=== PATIENT | female | born 1975 | race Caucasian/White ===

== ENCOUNTER 2018-04-04 12:55 | Emergency (ER) | payer MEDICARE, SELFPAY ==
[2018-04-04 12:56] VITALS: BP 109/78; PULSE 75; RESP 16; TEMP 36.8; O2SAT 99; BMI 22.8
--- NOTE | 2018-04-04 13:18 | ED.DCSUM_ITS ---
- ER Visit Summary Date of Service: 04/04/18 Chief Complaint: Ran out of thyroid medication History of Present Illness: The patient is a 43 F who ran out of her Synthroid 7 days ago, she feels some increased somnolence, and some subjective weakness but is able to angulate just fine. Apparently her PCP wants blood work, however her car broke down. She has no chest pain shortness of breath fever or chills. Physical Examination: Not appear in acute distress. Moist mucous membranes, no obvious facial deformity No C-spine tenderness supple neck. Regular rate and rhythm without any obvious murmurs Clear lungs bilaterally speaking in full sentences without any obvious respiratory distress Abdomen soft and nontender no guarding or rebound Moves all extremities without any difficulty or pain. Skin does not show any obvious rashes or lesions, no trauma. Alert oriented ?3 with no gross focal deficit Emergency Department Course and Treatment: Apparently her cars are broken down and difficult to get to [place] therefore I will draw thyroid labs here. I will discharge her with her Synthroid for the next few days and her PCP can follow-up on her thyroid studies. Disposition: Discharge stable condition Impression: Hypothyroidism Medication refill This note was generated with [employer] dictation software. It may contain incorrect words, spelling, and punctuation that were not noted in review of the chart prior to signing ED Disposition - Plan for ED Patient: Disposition: Home or Assisted Living Chief Complaint: Abn Labs Prescriptions: Levothyroxine Sodium [Synthroid] 100 mcg PO DAILY #7 tab Referrals: Cesar Centeno MD [Primary Care Provider] - 3-5 Days
[2018-04-04 13:52] VITALS: BP 124/77; PULSE 62; RESP 15; O2SAT 97
[2018-04-04] MEDS: Levothyroxine 100 MCG Tablet PO (13:52)
[2018-04-04 13:56] LABS: Free T3 1.5 pg/mL (2.18-3.98); T4 Free Direct 0.74 ng/dL (0.76-1.46); T4 Total, Thyroxin 6.6 ug/dL (4.8-13.9); Thyroid Stim Hormone (TSH) 8.85 uIU/mL (0.358-3.74)
== END 2018-04-04 13:53 | disposition home or self-care (01) ==
LOC: ED 13:44
PROVIDERS: Emergency Provider Emergency Medicine; Family Provider Internal Medicine; PCP Internal Medicine
DX: E03.9 Hypothyroidism, unspecified (principal); Z76.0 Encounter for issue of repeat prescription; Z79.899 Other long term (current) drug therapy
CPT/HCPCS: 36415; 84436; 84439; 84443; 84481; 99283

== ENCOUNTER 2018-04-19 11:32 | Emergency (ER) | payer MEDICARE, SELFPAY ==
[2018-04-19 11:33] VITALS: BP 120/78; PULSE 95; RESP 18; TEMP 36.3; O2SAT 99; BMI 22.1
--- NOTE | 2018-04-19 12:09 | CT_ITS ---
STUDY: CT ABDOMEN AND PELVIS WITHOUT CONTRAST REASON FOR EXAM: Female, 43 years old. Abdominal pain and dysuria. RADIATION DOSAGE (If Supplied By Facility): CTDIvol = ( 9.63 ) mGy, DLP = ( 472.59 ) mGycm TECHNIQUE: Transaxial images were obtained from the dome of the diaphragm to the symphysis pubis without oral contrast, and without intravenous contrast. Sagittal and coronal images were reconstructed. Individualized dose optimization techniques were used for this CT. COMPARISON: Comparison is made with prior study dated March 24, 2016. FINDINGS: The visualized lung bases are unremarkable. The visualized portions of the heart are within normal limits. Normal liver. Normal gallbladder and extrahepatic biliary system. Normal spleen. Normal pancreas. Normal bilateral adrenal glands. Absence of the right kidney. There are 4 nonobstructive tiny left intrarenal calculi. Mild degree of the left hydronephrosis due to a 3.5 mm calculus in the distal one third of the left ureter. There is a small hiatal hernia. Normal small intestine. There are multiple colonic diverticula consistent with diverticulosis. The appendix is visualized and appears normal. There is scattered atherosclerotic calcification of the abdominal aorta, without a demonstrated aneurysm. Normal inferior vena cava. Normal retroperitoneum. Normal urinary bladder. There is absence of the uterus consistent with a prior hysterectomy. Normal abdominal wall. Stable grade 1 spondylolisthesis of L5 on S1 with bilateral spondylolysis of the L5 vertebrae. CT/Abdomen/Pelvis without Cont IMPRESSION: Mild left hydronephrosis due to a 3.5 mm calculus in the distal one third of the left ureter. Nonobstructive left intrarenal calculi. Electronically Signed: Diaz Carroll MD at 13:27 EST Tel [phone], Service support ,
[2018-04-19] MEDS: Ondansetron 4 MG/2 ML Vial IV (12:20)
[2018-04-19 12:35] LABS: Mucous, Urine 0 SEEN /hpf (<or=2+)
[2018-04-19 12:36] LABS: Color, Urine Yellow (Yellow); Glucose, Dipstick Normal (Normal); Ketone-Dipstick Negative (Negative); Leukocyte Esterase-Dipstick Negative /ul (Negative); Nitrite-Dipstick Negative (Negative); Occult Blood-Urine Negative /ul (Negative); Protein-Dipstick Negative (Negative); Specific Gravity, Urine 1.015 (1.002-1.030); Urine Bilirubin Dipstick Negative (Negative); Urine Clarity Sl. Cloudy (Clear); Urine Urobilinogen Normal (Normal)
[2018-04-19 12:46] LABS: Bacteria RARE /hpf (None Seen); Red Blood Cells-Urine 0-5 SEEN /hpf (0-5); Squamous Epithelial Cells - UA 0-5 SEEN /hpf (5-10); White Blood Cells 0-5 SEEN /hpf (0-5)
[2018-04-19 12:49] LABS: Absolute Lymphocyte Count 1.73 X10^3/ul (0.83-4.51); Absolute Neutrophil Count 5.1 X10^3/uL (2.0-7.7); Basophil# 0.01 X10^3/uL; Basophil% 0.1 % (0-1); Eosinophil# 0.16 X10^3/uL; Eosinophils% 2.1 % (0-5); Hematocrit 43.9 % (37-47); Hemoglobin 13.8 g/dl (12.0-15.0); Lymphocyte # 1.73 X10^3/ul (4.0); Lymphocyte % 22.9 % (19-41); Mean Corp Hgb Conc 31.4 g/gl (32-36); Mean Corpuscular Hgb 29.6 pg (27.0-32.0); Mean Corpuscular Volume 94.2 fL (81-99); Mean Platelet Vol. 10.8 fl (6.2-12.0); Monocyte# 0.61 X10^3/uL; Monocyte% 8.1 % (0-10); Neutrophil # 5.05 X10^3/uL (2.7-7.7); Neutrophil % 66.7 % (47-70); Platelet Count 195 K/mm3 (150-450); RBC Distribution Width SD 47.6 fl (35.1-43.9); Red Blood Count 4.66 M/mm3 (4.2-5.4); White Blood Count 7.6 K/mm3 (4.4-11.0)
[2018-04-19 12:56] LABS: Anion Gap 10 (5-15); BUN 16 mg/dL (7-18); BUN/Creat Ratio 19.1 RATIO (10-20); Chloride 104 mmol/L (98-107); Creatinine, Serum 0.84 mg/dL (0.55-1.02); EST Glomerular Filtration Rate 79 mL/min (>60); Est Glom Filt Rate - Afr Amer 96 mL/min (>60); Estimated Creatinine Clearance 91.18 ml/min; Glucose 85 mg/dL (74-106); Potassium 3.9 mmol/L (3.5-5.1); Sodium Level 141 mmol/L (136-145)
[2018-04-19 12:57] LABS: POSITIVE COUNT NO; POSITIVE DIFFERENTIAL NO; POSITIVE MORPHOLOGY NO
[2018-04-19] MEDS: Morphine 4 MG/ML Syringe IV (13:09)
[2018-04-19 13:22] VITALS: PULSE 62; RESP 18; O2SAT 98
--- NOTE | 2018-04-19 13:58 | ED.VISSUMM ---
- ER Visit Summary Date of Service: 04/19/18 Chief Complaint: Abdominal pain History of Present Illness: The patient is a 43 F dates that she is if she is having a flare of her diverticulitis. She needs 1 week of urinary frequency. No dysuria. She notes suprapubic left lower quadrant abdominal pain. She notes she did have some constipation but is now loose stool. No fevers. She has had prior right-sided nephrectomy. She notes nausea and some low back pain. Physical Examination: Afebrile vital signs stable Gen: Well-nourished well-developed Head: Normocephalic atraumatic Eyes: Perrl EOMI ENT: TMs clear no rhinorrhea moist mucous membranes Neck: Supple no lymphadenopathy no JVD nontender CVS: Regular rate rhythm no murmurs normal S1-S2 Respiratory: No distress clear to auscultation bilaterally chest nontender Abdomen: Soft tender to palpation left lower quadrant nondistended normal bowel sounds no masses Back: Nontender Extremity: Nontender no edema Skin: Normal color no rash Neuro: alert orientated ?3 CN II-XII intact normal strength sensation reflexes gait cerebellar Psych: Normal affect normal mood Test Results: CBC BMP and urinalysis were normal. CT the abdomen pelvis demonstrates a 3.5 mm ureteral stone with mild hydronephrosis Emergency Department Course and Treatment: Patient received Zofran and morphine. She is better. The patient will be discharged home on [place] and Zofran. She is to follow-up with urology return if worsening or concerns Impression: 1. Left ureterolithiasis with colic This note was generated with [employer] dictation software. It may contain incorrect words, spelling, and punctuation that were not noted in review of the chart prior to signing ED Disposition - Plan for ED Patient: Disposition: Home or Assisted Living Chief Complaint: Complaint Instructions: ED Stone Renal W Colic Prescriptions: Hydrocodone Bitart/Apap 5-325 [[place] 5MG-325MG] 1 tab PO Q6H PRN PRN 3 Days #12 tab PRN Reason: Pain Ondansetron [Zofran Odt] 4 mg PO Q8H PRN PRN #10 tab PRN Reason: Nausea Referrals: Todd Mcknight MD [STAFF PHYSICIAN] - (call to arrange follow up with Urology)
[2018-04-19 14:02] VITALS: PULSE 65; RESP 18
== END 2018-04-19 14:09 | disposition home or self-care (01) ==
PROVIDERS: Emergency Provider Emergency Medicine; Family Provider Internal Medicine; PCP Internal Medicine
DX: N13.2 Hydronephrosis with renal and ureteral calculous obstruction (principal); Z79.899 Other long term (current) drug therapy; Z90.5 Acquired absence of kidney
CPT/HCPCS: 74176; 80048; 81001; 85025; 96374; 96375; 99282; A4216; J2405

== ENCOUNTER 2018-05-26 14:33 | Emergency (ER) | payer MEDICARE, SELFPAY ==
[2018-05-26 14:34] VITALS: BP 159/95; PULSE 76; RESP 18; TEMP 37.2; O2SAT 99; BMI 23.3
--- NOTE | 2018-05-26 15:31 | ED.DCSUM_ITS ---
- ER Visit Summary Date of Service: 05/26/18 Chief Complaint: Abdominal pain] History of Present Illness: The patient is a 43 F [presents the emergency department complaint of abdominal pain off and on for the last 2 months. Patient's been seen several times in the emergency department here and as well as [facility]. About a month ago she was seen here and had a CT scan of the abdomen pelvis that showed a approximately 4 mm stone at the left UVJ. Patient initially got better and had been doing relatively well until yesterday she started having more pain in her lower abdomen and lower back. Patient complains of some urinary frequency. She denies fever at home although she was seen at urgent care today and they told her she had a temperature up to 101. Patient's had nausea but no vomiting. She denies any blood in her stool or black tarry stool. She does have a history of diverticulitis as well as kidney stones and hypothyroidism. Patient has had prior hysterectomy as well as a right nephrectomy. Patient currently rates her pain anywhere from 6-8 out of 10.] Physical Examination: [HEENT-PERRLA, EOMI. Cranial nerves II through XII grossly intact. TMs clear. Mucous membranes moist. No adenopathy. Cardiovascular-regular rate and rhythm without murmur or ectopy Lungs-clear to auscultation, chest wall stable without crepitus or subcu emphysema Abdomen-normoactive bowel sounds, soft. Patient has some diffuse tenderness to the lower abdomen including the right lower quadrant left lower quadrant. There is some mild guarding. There is no rebound, rigidity, or perineal signs. There is no distention. Extremities-intact ?4, normal range of motion, normal pulses, atraumatic] Test Results: [CBC with differential obtained showed a white count of 7.3, hemoglobin 13.8, hematocrit 44, platelets 209. Chemistries were normal. LFTs w ere normal. Urinalysis was normal. Lipase was normal.] Emergency Department Course and Treatment: [I reviewed CT scan from April 2018 which did show a small kidney stone the left UVJ otherwise nothing significant. Patient has had 2 CT scans in the last 2 months of the abdomen and pelvis. I had a long discussion with the patient regarding further imaging today however given that all her lab work is normal and there is no blood in her urine it may be the better part of valor to just treat her symptoms and see if first pain resolves within next couple of days. I do not feel patient has acute appendicitis or gallbladder issue. I do not feel her exam is consistent with a bowel obstruction. She is had a hysterectomy. I am concerned about the r adiation exposure with CT imaging and patient is in agreement at this point. She is advised to return to the emergency department with worsening pain, fever, vomiting, or condition should worsen anyway.] Treatment Plan: [Patient will be given a prescription for [place] for pain and she has Phenergan at home as well as Zofran. Patient will be given referral to general surgeon on-call for follow-up. Patient states that she is due for another colonoscopy and she is in the process of making that arrangement.] Disposition: [Discharged home in stable condition] Impression: [Abdominal pain-etiology uncertain] This note was generated with [employer] dictation software. It may contain incorrect words, spelling, and punctuation that were not noted in review of the chart prior to signing ED Disposition - Plan for ED Patient: Referrals: Cesar Centeno MD [Primary Care Provider] -
[2018-05-26] MEDS: 0.9% Normal Saline 1,000 ML 125 ML IV (15:34)
[2018-05-26] MEDS: Ondansetron 4 MG/2 ML Vial IV (15:34)
[2018-05-26] MEDS: Morphine 4 MG/ML Syringe IV (15:34)
[2018-05-26 15:41] LABS: Bacteria 0 SEEN /hpf (None Seen); Mucous, Urine 0 SEEN /hpf (<or=2+); Red Blood Cells-Urine 0 SEEN /hpf (0-5); Squamous Epithelial Cells - UA 0 SEEN /hpf (5-10); White Blood Cells 0 SEEN /hpf (0-5)
[2018-05-26 15:47] LABS: Color, Urine Yellow (Yellow); Glucose, Dipstick Normal (Normal); Ketone-Dipstick Negative (Negative); Leukocyte Esterase-Dipstick Negative /ul (Negative); Nitrite-Dipstick Negative (Negative); Occult Blood-Urine Negative /ul (Negative); Protein-Dipstick Negative (Negative); Urine Bilirubin Dipstick Negative (Negative); Urine Clarity Clear (Clear); Urine Urobilinogen Normal (Normal); Urine pH 6.5 (5.0 - 8.0)
[2018-05-26 15:49] LABS: Absolute Lymphocyte Count 1.41 X10^3/ul (0.83-4.51); Absolute Neutrophil Count 5.3 X10^3/uL (2.0-7.7); Basophil# 0.01 X10^3/uL; Basophil% 0.1 % (0-1); Eosinophil# 0.02 X10^3/uL; Eosinophils% 0.3 % (0-5); Hematocrit 43.5 % (37-47); Hemoglobin 13.8 g/dl (12.0-15.0); Lymphocyte # 1.41 X10^3/ul (4.0); Lymphocyte % 19.3 % (19-41); Mean Corp Hgb Conc 31.7 g/gl (32-36); Mean Corpuscular Hgb 29.4 pg (27.0-32.0); Mean Corpuscular Volume 92.6 fL (81-99); Mean Platelet Vol. 10.8 fl (6.2-12.0); Monocyte# 0.56 X10^3/uL; Monocyte% 7.7 % (0-10); Neutrophil % 72.3 % (47-70); Platelet Count 209 K/mm3 (150-450); RBC Distribution Width CV 13.1 % (11.6-14.6); RBC Distribution Width SD 44.7 fl (35.1-43.9); White Blood Count 7.3 K/mm3 (4.4-11.0)
[2018-05-26 15:59] LABS: POSITIVE COUNT NO; POSITIVE DIFFERENTIAL NO; POSITIVE MORPHOLOGY NO
[2018-05-26 16:03] LABS: ALB/GLOB Ratio 1.2 RATIO (0.9-2.4); AST(SGOT) 18 U/L (15-37); Alanine Aminotransfer ALT/SGPT 32 U/L (13-56); Albumin, Serum 4.2 g/dL (3.2-5.0); Alkaline Phosphatase 97 U/L (45-117); Anion Gap 7 (5-15); BUN 15 mg/dL (7-18); BUN/Creat Ratio 18.4 RATIO (10-20); Calcium,Total 9.2 mg/dL (8.5-10.1); Chloride 105 mmol/L (98-107); Creatinine, Serum 0.82 mg/dL (0.55-1.02); EST Glomerular Filtration Rate 82 mL/min (>60); Est Glom Filt Rate - Afr Amer 99 mL/min (>60); Globulin 3.5 g/dL (2.2-4.2); Glucose 96 mg/dL (74-106); Lipase 107 U/L (73-393); Potassium 3.8 mmol/L (3.5-5.1); Protein, Total 7.7 g/dL (6.4-8.2); Sodium Level 138 mmol/L (136-145)
[2018-05-26 16:19] LABS: Lactic Acid 1.2 mmol/L (0.4-2.0)
--- NOTE | 2018-05-26 16:21 | DCINST.ED_ITS ---
ED Disposition - Plan for ED Patient: Instructions: ED Abdominal Pain Unkn Cause Prescriptions: Hydrocodone Bitart/Apap 5-325 [[place] 5MG-325MG] 1 tab PO Q4H PRN PRN 2 Days #10 tab PRN Reason: Pain Dicyclomine HCl [Bentyl] 20 mg PO TIDAC #20 cap Referrals: Cesar Centeno MD [Primary Care Provider] - Darren Galeas MD [STAFF PHYSICIAN] - 3-5 Days
[2018-05-26 16:25] VITALS: BP 134/77; PULSE 62; RESP 15; O2SAT 97
== END 2018-05-26 16:28 | disposition home or self-care (01) ==
LOC: ED 15:36
PROVIDERS: Emergency Provider Emergency Medicine; Family Provider Internal Medicine; PCP Internal Medicine
DX: R10.31 Right lower quadrant pain (principal); R10.32 Left lower quadrant pain; N20.0 Calculus of kidney; R35.0 Frequency of micturition; E03.9 Hypothyroidism, unspecified; Z72.0 Tobacco use; Z79.899 Other long term (current) drug therapy; Z87.19 Personal history of other diseases of the digestive system; Z87.442 Personal history of urinary calculi; Z90.710 Acquired absence of both cervix and uterus; Z90.5 Acquired absence of kidney
CPT/HCPCS: 80053; 81001; 83605; 83690; 85025; 96361; 96374; 96375; 99283; J7030; A4216; J2405

== ENCOUNTER 2018-06-27 17:17 | Emergency (ER) | payer MEDICARE, SELFPAY ==
[2018-06-27 17:17] VITALS: BP 130/93; PULSE 81; RESP 16; TEMP 36.5; O2SAT 98; BMI 23.4
[2018-06-27 19:05] VITALS: BP 111/69; PULSE 63; RESP 18; O2SAT 97
[2018-06-27] MEDS: Meclizine HCl 25 MG Tablet PO (19:05)
[2018-06-27] MEDS: Naproxen 500 MG Tablet PO (19:05)
--- NOTE | 2018-06-27 19:06 | ED.DCSUM_ITS ---
History of Present Illness Chief Complaint: Ear Problem Detail of Chief Complaint: right ear/facial pain Informant: Patient Onset: Days - 5 Context: Gradual Onset Timing: Continuous Quality: ache/sore Location: right face/TMJ/ear Current Severity: Moderate Maximum Severity: Moderate Worsened by: nothing in particular; not worse w/ eating Relieved by: nothing Associated Symptoms: ear cracking, feels like needs to pop sometimes.right headache.dizzy/nausea Narrative: Patient states she was on a plane ride to and from vacation around 3 weeks ago and when the plane was landing, she has significant discomfort in her ears and they felt congested and crackling, feeling like they needed to pop. For the last almost week, she has had almost similar discomfort but she is getting crackling when she opens and closes her jaw along with pain just anterior to the ear, she states that she has anxiety and grinds her teeth a lot at night at is a result, she denies any fevers or ear discharge. She has had off balance dizzin ess off and on that makes her feel nauseated, it is worse with position changes of her head. - Past Medical History (1) Anxiety Status: Chronic (2) Hypothyroid Status: Chronic Past Medical History - Allergies and Home Meds Allergies/Adverse Reactions: Allergies fentanyl Adverse Reaction (Verified 06/27/18 17:19) Other BRADYCARDIA ketorolac tromethamine [From Toradol] Adverse Reaction (Verified 06/27/18 17:19) Other STOMACH PAINS Primary Care Physician: Cesar Centeno MD [Primary Care Provider] - Surgical History: - - right kidney removed, total hysterectemy, exploratory lap Smoking Status: Current every day smoker Drugs: None - Family History Maternal Family History: Reports: No pertinent history Paternal Family History: Reports: No pertinent history Review of Systems General: Denies: Chills, Fever Eyes: Denies: Visual changes - bilaterally, Diplopia ENT: Reports: Right ear pain. Denies: Rhinorrhea, Sore throat Cardiovascular: Denies: Chest pain, Palpitations Respiratory: Denies: Dyspnea, Cough Gastrointestinal: Reports: Nausea, Diarrhea - Usual for me. Denies: Abdominal pain, Vomiting Skin: Denies: Rash, Wounds Neurological: Reports: Headache. Denies: Weakness, Numbness Psych: Reports: Anxiety. Denies: Suicidal thoughts Physical Exam Vital Signs/Narrative: Vital Signs Temp Pulse Resp BP Pulse Ox 06/27/18 17:17 97.7 F L 81 16 130/93 H 98 Inital Vital Signs reviewed: Yes General: Well nourished, Well developed, No Acute Distress Head: Normocephalic, Atraumatic Eyes: Perrl, EOMI ENT: Moist mucous membranes, No rhinorrhea, TM's clear, - - Tender at right TMJ. No limitations with gentle range of motion, no malocclusion. No parotid swelling or tenderness or discharge from Stensen's duct. No intraoral acute lesions or dental tenderness. No periauricular lymphadenopathy. Neck: Supple, Nontender, No lymphadenopathy Respiratory: No distress Skin: Normal color, No rash Neurological: Alert, Oriented x3, Cranial nerves II-XII grossly intact, Normal Strength, Normal Sensation Psychological: Normal affect, Normal Mood Diagnostic/Tx/Re-eval - Medical Decision Making Patient likely has TMJ syndrome, she may also have eustachian tube dysfunction given the other parts of the history. We will give her a meclizine here for her vertiginous symptoms, and Naprosyn. Prescribed Naprosyn and Flonase and advised to follow-up with ENT or PCP if symptoms do not resolve. She is comfortable wit h this plan. ED Disposition - Plan for ED Patient: Disposition: Home or Assisted Living Diagnosis: TMJ syndrome, Eustachian tube dysfunction, Peripheral vertigo, unspecified Instructions: ED Vertigo Unspecified, ED TMJ Syndrome Prescriptions: Fluticasone 0.05% [Flonase Nasal [place]] 2 spray NASAL DAILY #1 nasal.sry Naproxen [Naprosyn] 500 mg PO BID PRN #20 tablet Referrals: Cesar Centeno MD [Primary Care Provider] - 1 Week if not improving Guy Pate MD [STAFF PHYSICIAN] - 1 Week if not improving
--- NOTE | 2018-06-27 19:19 | ED.RN ---
DISCHARGE INSTRUCTIONS GIVEN TO AND REVIEWED WITH PATIENT, PATIENT DENIES QUESTIONS OR CONCERNS AND VOICES UNDERSTANDING OF DISCHARGE INSTRUCTIONS. PT AMBULATES OUT OF ROOM WITHOUT DIFFICULTY.
== END 2018-06-27 19:19 | disposition home or self-care (01) ==
PROVIDERS: Emergency Provider Emergency Medicine; Family Provider Internal Medicine; PCP Internal Medicine
DX: M26.609 Unspecified temporomandibular joint disorder, unspecified side (principal); H69.80 Other specified disorders of Eustachian tube, unspecified ear; H81.399 Other peripheral vertigo, unspecified ear; E03.9 Hypothyroidism, unspecified; F41.9 Anxiety disorder, unspecified; F17.200 Nicotine dependence, unspecified, uncomplicated; Z79.899 Other long term (current) drug therapy
CPT/HCPCS: 99282

== ENCOUNTER 2018-09-15 15:33 | Emergency (ER) | payer MEDICARE, MEDICAID, SELFPAY ==
[2018-09-15 15:34] VITALS: BP 120/81; PULSE 73; RESP 16; TEMP 36.4; O2SAT 98; BMI 23.6
--- NOTE | 2018-09-15 15:47 | CT_ITS ---
STUDY: CT ABDOMEN AND PELVIS WITHOUT CONTRAST REASON FOR EXAM: Female, 43 years old. Pain RADIATION DOSAGE (If Supplied By Facility): DLP = ( 433.50 ) mGycm TECHNIQUE: Transaxial images were obtained from the dome of the diaphragm to the symphysis pubis without oral contrast, and without intravenous contrast. Sagittal and coronal images were reconstructed. Individualized dose optimization techniques were used for this CT. COMPARISON: CT abdomen pelvis April 19, 2018 FINDINGS: Evaluation of the abdominal viscera is limited in the absence of intravenous contrast. The visualized lung bases are clear. The visualized portions of the heart and pericardium are within normal limits. There are no calcified gallstones present. The liver demonstrates an unremarkable unenhanced appearance. The spleen is normal in size. The pancreas demonstrates an unremarkable unenhanced appearance. The adrenal glands are within normal limits. The right kidney is not present. The left kidney is normal in appearance. Normal visualized stomach. There is no bowel obstruction or inflammation. Mild colonic diverticulosis is present. The appendix is normal. The aorta is normal in caliber. There is no abdominal or pelvic free air, free fluid, fluid collection or lymphadenopathy. There are no destructive osseous lesions. CT/Abdomen/Pelvis without Cont IMPRESSION: No acute abdominal or pelvic pathology demonstrated on this noncontrast CT. Mild colonic diverticulosis without evidence of inflammation. Status post right nephrectomy. Electronically Signed: Maury Moss, at 17:13 EDT Tel , Service support ,
--- NOTE | 2018-09-15 15:54 | ED.DCSUM_ITS ---
History of Present Illness Chief Complaint: General Illness Detail of Chief Complaint: malaise Informant: Patient Onset: Weeks - 1 Context: Gradual Onset Timing: Continuous Location: all over Current Severity: Moderate Maximum Severity: Moderate Worsened by: nothing Relieved by: nothing Associated Symptoms: congested. LLQ pain, nausea, diarrhea. Narrative: Patient states she started feeling congested and malaised after the hay was cut and so she decided to start taking some amoxicillin that was leftover from a different prescription. She states after a day she felt better so after 1 day she stopped the amoxicillin that. Started having some diarrhea couple times a day, that is not worsened, her congestion is now better. Yesterday she started having left lower quadrant pain and nausea, the symptoms are worse today, still having diarrhea couple times a day, no blood or melena. No fevers. Had diverticulitis in the past and is wondering if that is what is causing her pain. No pain in her back. 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 No urinary symptoms. - Past Medical History (1) Diverticulitis Status: Resolved (2) Anxiety Status: Chronic (3) Hypothyroid Status: Chronic Past Medical History - Allergies and Home Meds Allergies/Adverse Reactions: Allergies fentanyl Adverse Reaction (Verified 09/15/18 17:09) Other BRADYCARDIA ketorolac tromethamine [From Toradol] Adverse Reaction (Verified 09/15/18 17:09) Other STOMACH PAINS Primary Care Physician: Cesar Centeno MD [Primary Care Provider] - Surgical History: - - right kidney removed, total hysterectemy, exploratory lap Smoking Status: Current every day smoker Drugs: None - Family History Maternal Family History: Reports: No pertinent history Paternal Family History: Reports: No pertinent history Review of Systems General: Reports: Malaise. Denies: Chills, Fever, Sweats Eyes: Denies: Visual changes - bilaterally, Diplopia ENT: Reports: Rhinorrhea - clear, w/ congestion. Denies: Sore throat Cardiovascular: Denies: Chest pain, Palpitations Respiratory: Reports: Cough. Denies: Dyspnea, Sputum, Dyspnea on exertion Gastrointestinal: Reports: Abdominal pain, Nausea, Diarrhea. Denies: Vomiting, Melena, Hematochezia Genitourinary: Denies: Dysuria, Hematuria, Frequency Musculoskeletal: Denies: Back pain, Extremity Pain Skin: Denies: Rash, Abscess, Wounds Neurological: Denies: Headache, Weakness, Numbness Physical Exam Vital Signs/Narrative: Vital Signs Temp Pulse Resp BP Pulse Ox 09/15/18 15:34 97.6 F L 73 16 120/81 H 98 Inital Vital Signs reviewed: Yes General: Well nourished, Well developed, No Acute Distress Head: Normocephalic, Atraumatic Eyes: Perrl, EOMI ENT: Moist mucous membranes, No rhinorrhea, - - mild bilat nasal turbinate edema. no purulent d/c. pop clear, nml. Negative for: Sinus tenderness Neck: Supple, Nontender Cardiovascular: Regular rate, Regular rhythm, No murmurs. Negative for: Tach ycardia Respiratory: No distress, CTA bilaterally, Chest nontender Abdomen: Soft, Nondistended, Normal bowel sounds, Tender - diffusely, very mild. little worse in RLQ and moderate in LLQ.. Negative for: Guarding, Rebound tenderness Back: Nontender, Normal Inspection. Negative for: CVA tenderness Extremities: Nontender, No edema Skin: Normal color, No rash, No Trauma Neurological: Alert, Oriented x3, Cranial nerves II-XII grossly intact, Normal Strength, Normal Sensation Psychological: Normal affect, Normal Mood Diagnostic/Tx/Re-eval Impressions Abdomen/Pelvis CT 09/15/18 15:47 IMPRESSION: No acute abdominal or pelvic pathology demonstrated on this noncontrast CT. Mild colonic diverticulosis without evidence of inflammation. Status post right nephrectomy. Electronically Signed: Maury Isa, at 17:13 EDT Tel , Service support , 09/15/18 15:47 CT Abd [Abdomen/Pelvis without Cont] [CT] Stat Laboratory Results 09/15/18 09/15/18 09/15/18 16:45 16:45 16:50 WBC 6.2 RBC 4.73 Hgb 14.0 Hct 43.1 MCV 91.1 MCH 29.6 MCHC 32.5 RDW 14.0 RDW Differential 46.5 H Plt Count 201 MPV 10.7 Immature Gran % (Auto) 0.200 Neut % (Auto) 57.2 Lymph % (Auto) 32.7 Hunt % (Auto) 8.3 Eos % (Auto) 1.4 Baso % (Auto) 0.2 Absolute Neuts (auto) 3.6 Absolute Lymphs (auto) 2.04 Total Counted Not Reportable Sodium 137 Potassium 4.1 Chloride 108 H Carbon Dioxide 26.0 Anion Gap 3 L BUN 13 Creatinine 0.80 Estim Creat Clear Calc 95.74 Est GFR (MDRD) Af Amer 101 Est GFR (MDRD) Non-Af 84 BUN/Creatinine Ratio 16.3 Glucose 80 Calcium 9.0 Urine Color Urine Clarity Urine pH Ur Specific [place] Urine Protein Urine Glucose (UA) Urine Ketones Urine Occult Blood Urine Nitrite Urine Bilirubin Urine Urobilinogen Ur Leukocyte Esterase Urine RBC Urine WBC Ur Squamous Epith Cells Urine Bacteria Urine Mucus Urine Test Negative 09/15/18 16:50 WBC RBC Hgb Hct MCV MCH MCHC RDW RDW Differential Plt Count MPV Immature Gran % (Auto) Neut % (Auto) Lymph % (Auto) [place] % (Auto) Eos % (Auto) Baso % (Auto) Absolute Neuts (auto) Absolute Lymphs (auto) Total Counted Sodium Potassium Chloride Carbon Dioxide Anion Gap BUN Creatinine Estim Creat Clear Calc Est GFR (MDRD) Af Amer Est GFR (MDRD) Non-Af BUN/Creatinine Ratio Glucose Calcium Urine Color Yellow Urine Clarity Clear Urine pH 7.0 Ur Specific [place] 1.010 Urine Protein Negative Urine Glucose (UA) Normal Urine Ketones Negative Urine Occult Blood Negative Urine Nitrite Negative Urine Bilirubin Negative Urine Urobilinogen Normal Ur Leukocyte Esterase Negative Urine RBC 0 SEEN Urine WBC 0 SEEN Ur Squamous Epith Cells 0 SEEN Urine Bacteria 0 SEEN Urine Mucus 0 SEEN Urine Test - Medical Decision Making Labs are unremarkable, urinalysis shows no infection or microscopic hematuria, and CT shows no acute abnormality. She does have diverticulosis but there is no sign of acute inflammation or perforation. She was given Bentyl and Zofran, states that she still is in pain. She declares allergies to fentanyl and Toradol, plus she is not in severe pain so I do not think she warrants any par enteral medications or oral narcotics at this time. We will give her ibuprofen or naproxen if she can tolerate it, I suspect she may have a viral infection, I do not recommend that she take intermittent doses of amoxicillin which we discussed, and she should follow-up with her doctor. There is no evidence for acute bacterial sinusitis at this time. ED Disposition - Plan for ED Patient: Disposition: Home or Assisted Living Diagnosis: Nasal sinus congestion, LLQ abdominal pain, Viral syndrome Instructions: Abdominal Pain, ED Viral Syndrome Prescriptions: proMETHazine tablet [Phenergan] 25 mg PO Q6H PRN PRN #10 tablet PRN Reason: Nausea Naproxen [Naprosyn] 500 mg PO BID PRN #20 tablet Referrals: Cesar Centeno MD [Primary Care Provider] - 3-5 Days if not improving
[2018-09-15] MEDS: Dicyclomine 20 MG/2 ML Vial 10 MG IM (16:39)
[2018-09-15] MEDS: Ondansetron 4 MG/2 ML Vial IV (16:39)
[2018-09-15] MEDS: 0.9% Normal Saline 1,000 ML 999 ML IV (16:39)
[2018-09-15 16:57] LABS: Bacteria 0 SEEN /hpf (None Seen); Mucous, Urine 0 SEEN /hpf (<or=2+); Red Blood Cells-Urine 0 SEEN /hpf (0-5); Squamous Epithelial Cells - UA 0 SEEN /hpf (5-10); White Blood Cells 0 SEEN /hpf (0-5)
[2018-09-15 17:00] LABS: Color, Urine Yellow (Yellow); Glucose, Dipstick Normal (Normal); Ketone-Dipstick Negative (Negative); Leukocyte Esterase-Dipstick Negative /ul (Negative); Nitrite-Dipstick Negative (Negative); Occult Blood-Urine Negative /ul (Negative); Protein-Dipstick Negative (Negative); Urine Bilirubin Dipstick Negative (Negative); Urine Clarity Clear (Clear); Urine Urobilinogen Normal (Normal)
[2018-09-15 17:02] LABS: Internal QC Validated? YES +Cl - CLEAR BKGD; Pregnancy, Urine Negative Negative
[2018-09-15 17:04] LABS: Absolute Lymphocyte Count 2.04 X10^3/ul (0.83-4.51); Absolute Neutrophil Count 3.6 X10^3/uL (2.0-7.7); Basophil# 0.01 X10^3/uL; Basophil% 0.2 % (0-1); Eosinophil# 0.09 X10^3/uL; Eosinophils% 1.4 % (0-5); Hematocrit 43.1 % (37-47); Lymphocyte # 2.04 X10^3/ul (4.0); Lymphocyte % 32.7 % (19-41); Mean Corp Hgb Conc 32.5 g/gl (32-36); Mean Corpuscular Hgb 29.6 pg (27.0-32.0); Mean Corpuscular Volume 91.1 fL (81-99); Mean Platelet Vol. 10.7 fl (6.2-12.0); Monocyte# 0.52 X10^3/uL; Monocyte% 8.3 % (0-10); Neutrophil # 3.57 X10^3/uL (2.7-7.7); Neutrophil % 57.2 % (47-70); Platelet Count 201 K/mm3 (150-450); RBC Distribution Width SD 46.5 fl (35.1-43.9); Red Blood Count 4.73 M/mm3 (4.2-5.4); White Blood Count 6.2 K/mm3 (4.4-11.0)
[2018-09-15 17:07] LABS: Anion Gap 3 (5-15); BUN 13 mg/dL (7-18); BUN/Creat Ratio 16.3 RATIO (10-20); Chloride 108 mmol/L (98-107); EST Glomerular Filtration Rate 84 mL/min (>60); Est Glom Filt Rate - Afr Amer 101 mL/min (>60); Estimated Creatinine Clearance 95.74 ml/min; Glucose 80 mg/dL (74-106); POSITIVE COUNT NO; POSITIVE DIFFERENTIAL NO; POSITIVE MORPHOLOGY NO; Potassium 4.1 mmol/L (3.5-5.1); Sodium Level 137 mmol/L (136-145)
[2018-09-15 17:08] VITALS: BP 120/81; PULSE 73; RESP 16; TEMP 36.4; O2SAT 98
[2018-09-15 19:00] VITALS: BP 114/81; PULSE 78; RESP 19; O2SAT 99
[2018-09-15] MEDS: Naproxen 500 MG Tablet PO (19:01)
== END 2018-09-15 19:01 | disposition home or self-care (01) ==
PROVIDERS: Emergency Provider Emergency Medicine; Family Provider Internal Medicine; PCP Internal Medicine
DX: K57.30 Diverticulosis of large intestine without perforation or abscess without bleeding (principal); R09.81 Nasal congestion; B34.9 Viral infection, unspecified; E03.9 Hypothyroidism, unspecified; F41.9 Anxiety disorder, unspecified; F17.200 Nicotine dependence, unspecified, uncomplicated; Z79.899 Other long term (current) drug therapy; Z90.5 Acquired absence of kidney
CPT/HCPCS: 74176; 80048; 81001; 81025; 85025; 96361; 96372; 96374; 99284; J7030; A4216; J2405

== ENCOUNTER → 2018-10-25 13:56 | Outpatient (CLI) | payer MEDICARE, MEDICAID, SELFPAY ==
--- NOTE | 2018-10-25 14:26 | CT_ITS ---
STUDY: CT ABDOMEN AND PELVIS WITH CONTRAST REASON FOR EXAM: Female, 43 years old. Left lower quadrant pain RADIATION DOSAGE (If Supplied By Facility): DLP = ( 991.20 ) mGycm TECHNIQUE: Transaxial images were obtained from the dome of the diaphragm to the symphysis pubis with oral contrast. 75mL ml of Isovue 300 contrast was administered. Sagittal and coronal images were reconstructed. Individualized dose optimization techniques were used for this CT. COMPARISON: CT abdomen and pelvis September 15, 2018 FINDINGS: The visualized lung bases are clear. The visualized portions of the heart and pericardium are within normal limits. There are no calcified gallstones present. The liver is within normal limits. There are no suspicious hepatic lesions. The spleen is normal in size. The pancreas is within normal limits. The adrenal glands are within normal limits. The right kidney has been removed. There is a left renal upper pole 2 mm nonobstructing stone. There is mild left renal collecting system fullness. Normal visualized stomach. There is no evidence of bowel obstruction. Colonic diverticulosis is present. There is uniform thickening of the sigmoid colonic wall. The appendix is normal. The aorta is normal in caliber. There is no abdominal or pelvic free air, free fluid, fluid collection or lymphadenopathy. There are no destructive osseous lesions. CT/Abdomen/Pelvis WITH Contrast IMPRESSION: Uniform thickening of the sigmoid colonic wall, likely secondary to mild colitis. Colonic diverticulosis. Left renal nonobstructing 2 mm stone. Mild left renal collecting system fullness. Status post right nephrectomy. Electronically Signed: Maury Moss, at 17:20 EDT Tel , Service support ,
[2018-10-25 17:06] LABS: CREATININE FINGERSTICK 0.7 mg/dL (0.55-1.02); EGFR FINGERSTICK > 60.0000 mL/min (>60)
== END ==
PROVIDERS: Family Provider Internal Medicine; PCP Internal Medicine; Referring Provider Nurse Practitioner; Visit Provider Nurse Practitioner
DX: R10.32 Left lower quadrant pain (principal)
CPT/HCPCS: 74177; Q9967

== ENCOUNTER 2018-11-30 13:57 | Emergency (ER) | payer MEDICARE, MEDICAID, SELFPAY ==
[2018-11-30 13:58] VITALS: BP 137/56; PULSE 75; RESP 18; TEMP 37; O2SAT 96; BMI 24.5
--- NOTE | 2018-11-30 14:11 | ED.DCSUM_ITS ---
History of Present Illness Chief Complaint: Flank Pain Informant: Patient Onset: Yesterday Context: Sudden Onset Timing: Continuous, Waxes and wanes Quality: Razor blades Location: Left flank and left anterior abdomen Current Severity: Moderate Maximum Severity: Severe Worsened by: Possibly walking Relieved by: Nothing Associated Symptoms: Urgency Narrative: Patient is a 43-year-old woman with known history of kidney stones who states she has passed multiple stones in the past. Presents because of severe left flank pain rating anteriorly and now described as razor blades with urgency. She states when she urinated she noted white floating is . She denies fever or chills. She reports nausea without vomiting. She denies blood in her urine or discomfort with urination. There is no history of trauma. Prior similar symptoms: Yes Recent Illness/Hospitalization: Yes - Past Medical History (1) History of kidney stones Status: Acute (2) Anxiety Status: Chronic (3) Hypothyroid Status: Chronic (4) Diverticulitis Status: Resolved Past Medical History - Allergies and Home Meds Allergies/Adverse Reactions: Allergies fentanyl Adverse Reaction (Verified 11/30/18 14:00) Other BRADYCARDIA ketorolac tromethamine [From Toradol] Adverse Reaction (Verified 11/30/18 14:00) Other STOMACH PAINS Primary Care Physician: Cesar Centeno MD [Primary Care Provider] - Prior records reviewed: Yes Surgical History: - - right kidney removed, total hysterectemy, exploratory lap Lives: Spouse/ Significant Other Smoking Status: Current every day smoker Alcohol: Rare Drugs: None - Family History Maternal Family History: Reports: No pertinent history Paternal Family History: Reports: No pertinent history Review of Systems General: Denies: Chills, Fever, Malaise, Subjective Eyes: Denies: Visual changes - bilaterally, Blurred Vision - bilaterally ENT: Denies: Rhinorrhea, Sore throat Cardiovascular: Denies: Chest pain, Palpitations Respiratory: Denies: Dyspnea, Dyspnea on exertion Gastrointestinal: Reports: Abdominal pain, Nausea. Denies: Vomiting, Diarrhea, Constipation, Melena, Hematochezia Genitourinary: Reports: Frequency. Denies: Dysuria, Hematuria Musculoskeletal: Reports: Back pain. Denies: Myalgias, Arthralgias, Neck pain, Swelling, Extremity Pain Skin: Denies: Rash Neurological: Denies: Headache, Weakness Endocrine: Denies: Polyuria, Polydipsia Hematologic: Denies: Easy bruising, Easy bleeding Physical Exam Vital Signs/Narrative: Vital Signs Temp Pulse Resp BP Pulse Ox 11/30/18 13:58 98.6 F 75 18 137/56 H 96 Inital Vital Signs reviewed: Yes General: Well nourished, Well developed, Acute Distress Head: Normocephalic, Atraumatic Eyes: Perrl, EOMI. Negative for: Pale conjunctiva, Scleral icterus, - ENT: Moist mucous membranes, No rhinorrhea Neck: Supple, Nontender, No lymphadenopathy, No JVD Cardiovascular: Regular rate, Regular rhythm, No murmurs, Normal S1, Normal S2 Respiratory: No distress, CTA bilaterally, Chest nontender Abdomen: Soft, Nontender, Nondistended, Normal bowel sounds, No masses Back: Nontender, Normal Inspection. Negative for: CVA tenderness Extremities: Nontender, No edema Skin: Normal color, No rash, No Trauma. Negative for: Cyanosis, Diaphoresis, Jaundice Neurological: Alert, Oriented x3, Cranial nerves II-XII grossly intact, Normal Strength, Normal Sensation Psychological: Normal affect, Normal Mood Diagnostic/Tx/Re-eval Laboratory Results 11/30/18 11/30/18 14:19 14:40 WBC 9.0 RBC 4.94 Hgb 14.8 Hct 45.6 MCV 92.3 MCH 30.0 MCHC 32.5 RDW Std Deviation 43.7 RDW Coeff of Doyle 12.9 Plt Count 194 MPV 11.7 Immature Gran % (Auto) 0.400 Neut % (Auto) 66.4 Lymph % (Auto) 23.5 [place] % (Auto) 9.1 Eos % (Auto) 0.4 Baso % (Auto) 0.2 Absolute Neuts (auto) 6.0 Absolute Lymphs (auto) 2.12 Nucleated RBC % 0 Urine Color Yellow Urine Clarity Clear Urine pH 7.0 Ur Specific [place] 1.005 Urine Protein Negative Urine Glucose (UA) Normal Urine Ketones Negative Urine Occult Blood Negative Urine Nitrite Negative Urine Bilirubin Negative Urine Urobilinogen Normal Ur Leukocyte Esterase Negative Urine RBC 0 SEEN Urine WBC 0 SEEN Ur Squamous Epith Cells 0 SEEN Urine Bacteria 0 SEEN Urine Mucus 0 SEEN UA is negative. CBC is negative. Reviewed prior CAT scans. Patient has a solitary 2 mm left renal calculus. Patient was informed a stone in her kidney does not cause pain. Since there is a muscular component this may be the cause. The exact etiology is unknown. - Medical Decision Making IV was established and patient was medicated with IV Toradol and morphine and received Zofran for her nausea. UA was obtained to assess for infection. CBC was obtained to assess white count. Will review prior records to determine when her last scan was. Differential diagnosis is flank pain unknown etiology, diverticulitis since she has history of diverticulitis, obstructing ureteral stone and pyelonephritis. ED Disposition - Plan for ED Patient: Disposition: Home or Assisted Living Diagnosis: Acute left flank pain, Left renal stone Instructions: KIDNEY STONE, Undescended (No Symptoms), FLANK PAIN, Uncertain Cause Referrals: Cesar Centeno MD [Primary Care Provider] - As Needed
[2018-11-30 14:24] LABS: Bacteria 0 SEEN /hpf (None Seen); Mucous, Urine 0 SEEN /hpf (<or=2+); Red Blood Cells-Urine 0 SEEN /hpf (0-5); Squamous Epithelial Cells - UA 0 SEEN /hpf (5-10); White Blood Cells 0 SEEN /hpf (0-5)
[2018-11-30 14:27] LABS: Color, Urine Yellow (Yellow); Glucose, Dipstick Normal (Normal); Ketone-Dipstick Negative (Negative); Leukocyte Esterase-Dipstick Negative /ul (Negative); Nitrite-Dipstick Negative (Negative); Occult Blood-Urine Negative /ul (Negative); Protein-Dipstick Negative (Negative); Specific Gravity, Urine 1.005 (1.002-1.030); Urine Bilirubin Dipstick Negative (Negative); Urine Clarity Clear (Clear); Urine Urobilinogen Normal (Normal)
[2018-11-30] MEDS: 0.9% Normal Saline 1,000 ML 250 ML IV (14:34)
[2018-11-30] MEDS: Ondansetron 4 MG/2 ML Vial IV (14:35)
[2018-11-30] MEDS: Morphine 4 MG/ML Syringe IV (14:36)
[2018-11-30 14:47] LABS: Absolute Lymphocyte Count 2.12 X10^3/uL (0.83-4.51); Basophil# 0.02 X10^3/uL; Basophil% 0.2 % (0-1); Eosinophil# 0.04 X10^3/uL; Eosinophils% 0.4 % (0-5); Hematocrit 45.6 % (37-47); Hemoglobin 14.8 g/dL (12.0-15.0); Lymphocyte # 2.12 X10^3/ul (4.0); Lymphocyte % 23.5 % (19-41); Mean Corp Hgb Conc 32.5 g/dL (32-36); Mean Corpuscular Volume 92.3 fL (81-99); Mean Platelet Vol. 11.7 fl (6.2-12.0); Monocyte# 0.82 X10^3/uL; Monocyte% 9.1 % (0-10); NRBC Flagged by Analyzer 0 % (0-5); Neutrophil # 5.97 X10^3/uL (2.7-7.7); Neutrophil % 66.4 % (47-70); POSITIVE MORPHOLOGY YES; Platelet Count 194 K/mm3 (150-450); RBC Distribution Width CV 12.9 % (11.6-14.6); RBC Distribution Width SD 43.7 fl (35.1-43.9); Red Blood Count 4.94 M/mm3 (4.2-5.4)
[2018-11-30 14:52] LABS: Differential Indicated SCAN CRITERIA MET
[2018-11-30 15:22] VITALS: BP 134/77; PULSE 68; RESP 15; O2SAT 97
== END 2018-11-30 15:23 | disposition home or self-care (01) ==
PROVIDERS: Emergency Provider Emergency Medicine; Family Provider Internal Medicine; PCP Internal Medicine
DX: N20.0 Calculus of kidney (principal); R39.15 Urgency of urination; E03.9 Hypothyroidism, unspecified; F41.9 Anxiety disorder, unspecified; F17.200 Nicotine dependence, unspecified, uncomplicated; Z79.899 Other long term (current) drug therapy; Z87.442 Personal history of urinary calculi; Z87.19 Personal history of other diseases of the digestive system
CPT/HCPCS: 81001; 85025; 96361; 96374; 96375; 99284; J7030; J2405

== ENCOUNTER 2019-02-02 14:10 | Emergency (ER) | payer MEDICARE, MEDICAID, SELFPAY ==
[2019-02-02 14:11] VITALS: BP 148/101; PULSE 77; RESP 16; TEMP 36.2; O2SAT 99; BMI 25.9
--- NOTE | 2019-02-02 15:13 | ED.VISSUMM ---
- ER Visit Summary Date of Service: 02/02/19 Chief Complaint: Diarrhea History of Present Illness: The patient is a 43 F with diarrhea for 2 months. Patient has had imaging and was told she had diverticulitis and colitis. She is not currently on steroids or antibiotics. She was scheduled for colonoscopy about 6 weeks ago, but did not go to the appointment because of her anxiety. She has not rescheduled the colonoscopy. She has continued diarrhea and had an episode of fecal incontinence. She denies bleeding. She denies fevers, but does report chills. Denies any urinary or ADULT PROBATION OFFICER symptoms. She has a history of a total hysterectomy and a right nephrectomy. Physical Examination: Febrile and vital signs unremarkable. Patient has some left lower quadrant tenderness without guarding or rebound. No other pertinent findings on exam. Test Results: We will check basic labs, urinalysis, CT. She was treated with fluids, nausea medicine. Emergency Department Course and Treatment: CBC normal. CMP unremarkable. Lipase normal. Urinalysis normal. CT pending. Nothing acute. Patient was treated with Bentyl. Will start Cipro and Flagyl for chronic diarrhea. Follow-up with her outpatient doctor as planned. Treatment Plan: As above Disposition: Discharge Impression: Chronic diarrhea This note was generated with Prompt.ly dictation software. It may contain incorrect words, spelling, and punctuation that were not noted in review of the chart prior to signing ED Disposition - Plan for ED Patient: Referrals: Cesar Centeno MD [Primary Care Provider] -
--- NOTE | 2019-02-02 15:18 | CT_ITS ---
STUDY: CT ABDOMEN AND PELVIS WITH CONTRAST REASON FOR EXAM: Female, 43 years old. Abdominal pain. Diarrhea. RADIATION DOSAGE (If Supplied By Facility): CTDIvol = ( 11.69 ) mGy, DLP = ( 603.12 ) mGycm TECHNIQUE: Transaxial images were obtained from the dome of the diaphragm to the symphysis pubis without oral contrast. 100 ml of Isovue 370 contrast was administered. Sagittal and coronal images were reconstructed. Individualized dose optimization techniques were used for this CT. COMPARISON: 10/25/2018 FINDINGS: There is atelectasis at the lung bases. The visualized portions of the heart and pericardium are within normal limits. There are no calcified gallstones present. The liver is within normal limits. There are no suspicious hepatic lesions. The spleen is normal in size. The pancreas is within normal limits. The adrenal glands are within normal limits. The patient is status post right nephrectomy. There is a stable 2 mm nonobstructing left renal stone. There are no left ureteral stones. There is no left hydronephrosis. There are no left renal lesions. Normal visualized stomach. There is no bowel obstruction or inflammation. The appendix is visualized and appears normal. The aorta is normal in caliber. There is no abdominal or pelvic free air, free fluid, fluid collection or lymphadenopathy. There are no destructive osseous lesions. Again noted is bilateral spondylolysis at L5. CT/Abdomen/Pelvis W IV Cont ONLY IMPRESSION: No acute abdominal or pelvic pathology. Stable 2 mm nonobstructing left renal stone. Electronically Signed: Piol Francis, at 17:03 EDT Tel , Service support ,
[2019-02-02] MEDS: Ondansetron 4 MG/2 ML Vial IV (15:44)
[2019-02-02] MEDS: 0.9% Normal Saline 1,000 ML 1000 ML IV (15:45)
[2019-02-02 15:56] LABS: Bacteria 0 SEEN /hpf (None Seen); Mucous, Urine 0 SEEN /hpf (<or=2+); Red Blood Cells-Urine 0 SEEN /hpf (0-5); Squamous Epithelial Cells - UA 0 SEEN /hpf (5-10); White Blood Cells 0 SEEN /hpf (0-5)
[2019-02-02 16:00] LABS: Absolute Lymphocyte Count 1.58 X10^3/uL (0.83-4.51); Absolute Neutrophil Count 4.9 X10^3/uL (2.0-7.7); Basophil# 0.01 X10^3/uL; Basophil% 0.1 % (0-1); Eosinophil# 0.06 X10^3/uL; Eosinophils% 0.8 % (0-5); Hematocrit 44.4 % (37-47); Hemoglobin 14.2 g/dL (12.0-15.0); Lymphocyte # 1.58 X10^3/ul (4.0); Lymphocyte % 21.9 % (19-41); Mean Corpuscular Hgb 29.8 pg (27.0-32.0); Mean Corpuscular Volume 93.3 fL (81-99); Mean Platelet Vol. 10.7 fl (6.2-12.0); Monocyte# 0.67 X10^3/uL; Monocyte% 9.3 % (0-10); NRBC Flagged by Analyzer 0 % (0-5); Neutrophil # 4.89 X10^3/uL (2.7-7.7); Neutrophil % 67.8 % (47-70); Platelet Count 203 K/mm3 (150-450); RBC Distribution Width SD 48.2 fl (35.1-43.9); Red Blood Count 4.76 M/mm3 (4.2-5.4); White Blood Count 7.2 K/mm3 (4.4-11.0)
[2019-02-02 16:02] LABS: Color, Urine Yellow (Yellow); Glucose, Dipstick Normal (Normal); Ketone-Dipstick Negative (Negative); Leukocyte Esterase-Dipstick Negative /ul (Negative); Nitrite-Dipstick Negative (Negative); Occult Blood-Urine Negative /ul (Negative); Protein-Dipstick Negative (Negative); Urine Bilirubin Dipstick Negative (Negative); Urine Clarity Clear (Clear); Urine Urobilinogen Normal (Normal); Urine pH 6.5 (5.0 - 8.0)
[2019-02-02 16:15] LABS: ALB/GLOB Ratio 1.2 RATIO (0.9-2.4); AST(SGOT) 12 U/L (15-37); Alanine Aminotransfer ALT/SGPT 19 U/L (13-56); Alkaline Phosphatase 112 U/L (45-117); Anion Gap 6 (5-15); BUN 9 mg/dL (7-18); BUN/Creat Ratio 10.8 RATIO (10-20); Calcium,Total 9.1 mg/dL (8.5-10.1); Chloride 109 mmol/L (98-107); Creatinine, Serum 0.84 mg/dL (0.55-1.02); EST Glomerular Filtration Rate 79 mL/min (>60); Est Glom Filt Rate - Afr Amer 96 mL/min (>60); Estimated Creatinine Clearance 91.18 ml/min; Globulin 3.4 g/dL (2.2-4.2); Glucose 95 mg/dL (74-106); Lipase 90 U/L (73-393); Potassium 3.8 mmol/L (3.5-5.1); Protein, Total 7.4 g/dL (6.4-8.2); Sodium Level 140 mmol/L (136-145)
--- NOTE | 2019-02-02 17:30 | ED.DEP ---
ED Disposition - Plan for ED Patient: Instructions: Treating Diarrhea Prescriptions: Dicyclomine HCl [Bentyl] 20 mg PO TIDAC #20 cap Prescription Printed Ciprofloxacin [Cipro] 500 mg PO BID #28 tab Prescription Printed metroNIDAZOLE [Flagyl] 500 mg PO Q8H #30 tab Prescription Printed Referrals: Cesar Centeno MD [Primary Care Provider] -
[2019-02-02] MEDS: Dicyclomine 20 MG/2 ML Vial IM (17:46)
[2019-02-02 17:50] VITALS: BP 135/101; PULSE 57; RESP 18; O2SAT 97
== END 2019-02-02 18:19 | disposition home or self-care (01) ==
LOC: ED 15:18
PROVIDERS: Emergency Provider Emergency Medicine; Family Provider Internal Medicine; PCP Internal Medicine
DX: K52.9 Noninfective gastroenteritis and colitis, unspecified (principal); F41.9 Anxiety disorder, unspecified; Z79.899 Other long term (current) drug therapy; Z72.0 Tobacco use; E03.9 Hypothyroidism, unspecified
CPT/HCPCS: 74177; 80053; 81001; 83690; 85025; 96361; 96372; 96374; 99283; Q9967; A4216; J2405

== ENCOUNTER 2019-03-08 17:53 | Emergency (ER) | payer MEDICARE, MEDICAID, SELFPAY ==
[2019-03-08 17:58] VITALS: BP 119/94; PULSE 67; RESP 16; TEMP 36.3; O2SAT 98; BMI 25.8
[2019-03-08 19:32] VITALS: BP 121/81; PULSE 59; RESP 14; O2SAT 98
[2019-03-08 19:51] LABS: Bacteria 0 SEEN /hpf (None Seen); Mucous, Urine 0 SEEN /hpf (<or=2+); Red Blood Cells-Urine 0 SEEN /hpf (0-5); Squamous Epithelial Cells - UA 0 SEEN /hpf (5-10); White Blood Cells 0 SEEN /hpf (0-5)
[2019-03-08 19:55] LABS: Color, Urine Yellow (Yellow); Glucose, Dipstick Normal (Normal); Ketone-Dipstick Negative (Negative); Leukocyte Esterase-Dipstick Negative /ul (Negative); Nitrite-Dipstick Negative (Negative); Occult Blood-Urine Negative /ul (Negative); Protein-Dipstick Negative (Negative); Urine Bilirubin Dipstick Negative (Negative); Urine Clarity Clear (Clear); Urine Urobilinogen Normal (Normal)
[2019-03-08] MEDS: Ondansetron 4 MG/2 ML Vial IV (20:03)
[2019-03-08] MEDS: Dicyclomine 10 MG Capsule 20 MG PO (20:03)
[2019-03-08 20:19] LABS: Absolute Lymphocyte Count 2.27 X10^3/uL (0.83-4.51); Absolute Neutrophil Count 4.5 X10^3/uL (2.0-7.7); Basophil# 0.01 X10^3/uL; Basophil% 0.1 % (0-1); Eosinophil# 0.03 X10^3/uL; Eosinophils% 0.4 % (0-5); Hematocrit 44.1 % (37-47); Hemoglobin 14.2 g/dL (12.0-15.0); Lymphocyte # 2.27 X10^3/ul (4.0); Lymphocyte % 30.1 % (19-41); Mean Corp Hgb Conc 32.2 g/dL (32-36); Mean Corpuscular Hgb 30.1 pg (27.0-32.0); Mean Corpuscular Volume 93.4 fL (81-99); Mean Platelet Vol. 11.1 fl (6.2-12.0); Monocyte# 0.71 X10^3/uL; Monocyte% 9.4 % (0-10); NRBC Flagged by Analyzer 0 % (0-5); Neutrophil # 4.52 X10^3/uL (2.7-7.7); Neutrophil % 59.9 % (47-70); Platelet Count 176 K/mm3 (150-450); RBC Distribution Width CV 13.5 % (11.6-14.6); RBC Distribution Width SD 46.3 fl (35.1-43.9); Red Blood Count 4.72 M/mm3 (4.2-5.4); White Blood Count 7.6 K/mm3 (4.4-11.0)
[2019-03-08 20:45] LABS: Anion Gap 6 (5-15); BUN 12 mg/dL (7-18); BUN/Creat Ratio 13.8 RATIO (10-20); Calcium,Total 9.2 mg/dL (8.5-10.1); Chloride 110 mmol/L (98-107); Creatinine, Serum 0.87 mg/dL (0.55-1.02); EST Glomerular Filtration Rate 75 mL/min (>60); Est Glom Filt Rate - Afr Amer 91 mL/min (>60); Estimated Creatinine Clearance 88.03 ml/min; Glucose 85 mg/dL (74-106); Potassium 3.7 mmol/L (3.5-5.1); Sodium Level 141 mmol/L (136-145)
[2019-03-08] MEDS: HYDROcodone Bitartrate/Apap 5/325 Tablet PO (21:25)
--- NOTE | 2019-03-08 21:28 | ED.DCSUM_ITS ---
History of Present Illness Chief Complaint: Abd Pain Narrative: Patient presenting for evaluation secondary to abdominal pain and rectal pain. Patient has a longstanding history of abdominal issues. She recently underwent a colonoscopy, was told that she had inflammation of her distal colon, and she is currently pending biopsy results. Patient states that than Thanksgiving she has been having issues with lower abdominal pain, suprapubic, and feelings of fecal urgency. Patient states that she is had a couple episodes of dark tarry stools. She denies any fevers nausea or vomiting. She denies any unintended weight loss associated with this. Review of systems otherwise negative. Past Medical History - Allergies and Home Meds Allergies/Adverse Reactions: Allergies fentanyl Adverse Reaction (Verified 02/02/19 14:13) Other BRADYCARDIA ketorolac tromethamine [From Toradol] Adverse Reaction (Verified 02/02/19 14:13) Other STOMACH PAINS Primary Care Physician: Cesar Centeno MD [Primary Care Provider] - Past Medical History: - - Chronic abdominal pain Surgical History: - - right kidney removed, total hysterectemy, exploratory lap Smoking Status: Current every day smoker - Family History Maternal Family History: Reports: No pertinent history Paternal Family History: Reports: No pertinent history Review of Systems General: Denies: Chills, Fever, Malaise Eyes: Denies: Visual changes - bilaterally, Diplopia ENT: Denies: Rhinorrhea, Sore throat Cardiovascular: Denies: Chest pain, Palpitations Respiratory: Denies: Dyspnea, Cough, Dyspnea on exertion Gastrointestinal: Reports: Abdominal pain, - - Rectal pain Genitourinary: Denies: Dysuria, Hematuria, Frequency Musculoskeletal: Denies: Back pain, Extremity Pain Skin: Denies: Rash, Wounds Neurological: Denies: Headache, Weakness, Numbness Physical Exam Vital Signs/Narrative: Vital Signs Temp Pulse Resp BP Pulse Ox 03/08/19 19:32 59 L 14 121/81 H 98 03/08/19 17:58 97.3 F L 67 16 119/94 H 98 Inital Vital Signs reviewed: Yes General: Well nourished, Well developed, No Acute Distress Head: Normocephalic, Atraumatic Eyes: Perrl, EOMI ENT: Moist mucous membranes, No rhinorrhea Neck: Supple, Nontender Cardiovascular: Regular rate, Regular rhythm, No murmurs Respiratory: No distress, CTA bilaterally, Chest nontender Abdomen: Soft, Nondistended, Normal bowel sounds, Tender - Minimal suprapubic Rectal: - - Nontender rectal exam with guaiac negative stool Back: Nontender, Normal Inspection Extremities: Nontender, No edema Skin: Normal color, No rash Neurological: Alert, Oriented x3, Cranial nerves II-XII grossly intact, Normal Strength, Normal Sensation Psychological: Normal affect, Normal Mood Diagnostic/Tx/Re-eval - Medical Decision Making Patient presented with abdominal pain and rectal pain. Rectal exam was negative. I reviewed the patient's records, she has had no less than a dozen abdominal CTs and has a benign abdominal exam I do not believe that repeat imaging is indicated. CBC chemistry urinalysis found to be unremarkable. Given the fact that the patient is stating that she had some colonic inflammation on a outside facility colonoscopy, potentially she has an element of either proctitis versus a element of inflammatory bowel disease. I feel that it would be worse to not treat proctitis rather than not treat inflammatory bowel disease given her normal labs, so the patient will be placed on a course of Augmentin. 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 ED Disposition - Plan for ED Patient: Disposition: Home or Assisted Living Diagnosis: Rectal pain Instructions: Abdominal Pain Prescriptions: Amox/Clavulanate Tablet [Augmentin Tablet] 875 mg PO Q12H #20 tab Prescription Printed Diflunisal [Dolobid] 500 mg PO BID #20 tab Prescription Printed Referrals: Cesar Centeno MD [Primary Care Provider] - As Needed
== END 2019-03-08 22:02 | disposition home or self-care (01) ==
PROVIDERS: Emergency Provider Emergency Medicine; Family Provider Internal Medicine; PCP Internal Medicine
DX: K62.89 Other specified diseases of anus and rectum (principal); R10.9 Unspecified abdominal pain; G89.29 Other chronic pain; R10.2 Pelvic and perineal pain; R15.2 Fecal urgency; F17.200 Nicotine dependence, unspecified, uncomplicated; Z79.899 Other long term (current) drug therapy
CPT/HCPCS: 80048; 81001; 82274; 84443; 85025; 96374; 99284; A4216; J2405

== ENCOUNTER 2019-04-09 11:23 | Emergency (ER) | payer MEDICARE, MEDICAID, SELFPAY ==
[2019-04-09 11:24] VITALS: BP 114/79; PULSE 88; RESP 16; TEMP 36.6; O2SAT 96; BMI 24.7
--- NOTE | 2019-04-09 11:48 | ED.DCSUM_ITS ---
History of Present Illness Chief Complaint: General Illness Detail of Chief Complaint: Headache, sore throat, dizzy, nausea Informant: Patient Onset: Days Context: Gradual Onset Timing: Waxes and wanes Current Severity: Moderate Maximum Severity: Moderate Narrative: Patient presents with a several day illness of headache that she describes as s inus pressure. She has a sore throat on the right side with some pressure in her right ear. She states she has been getting nauseated every evening. She had vomiting and diarrhea last night. She reports subjective fever at home. - Past Medical History (1) History of kidney stones Status: Chronic (2) Anxiety Status: Chronic (3) Hypothyroid Status: Chronic Past Medical History - Allergies and Home Meds Allergies/Adverse Reactions: Allergies fentanyl Adverse Reaction (Verified 04/09/19 11:24) Other BRADYCARDIA ketorolac tromethamine [From Toradol] Adverse Reaction (Verified 04/09/19 11:24) Other STOMACH PAINS Primary Care Physician: Cesar Centeno MD [Primary Care Provider] - 1 Week if not improving Prior records reviewed: Yes Surgical History: - - right kidney removed, total hysterectemy, exploratory lap Lives: Alone Smoking Status: Current every day smoker - Family History Maternal Family History: Reports: No pertinent history Paternal Family History: Reports: No pertinent history Review of Systems General: Reports: Fever, Subjective Eyes: Denies: Visual changes - bilaterally ENT: Reports: Right ear pain, Sore throat Cardiovascular: Denies: Chest pain Respiratory: Reports: Cough - Minimal cough. Denies: Dyspnea Gastrointestinal: Reports: Nausea, Vomiting, Diarrhea. Denies: Abdominal pain Musculoskeletal: Reports: Myalgias. Denies: Swelling, Extremity Pain Skin: Denies: Rash Neurological: Reports: Headache. Denies: Weakness, Parasthesia Hematologic: Denies: Easy bruising Allergy: Denies: Uticaria Physical Exam Vital Signs/Narrative: Vital Signs Temp Pulse Resp BP Pulse Ox 04/09/19 11:24 97.9 F 88 16 114/79 96 Inital Vital Signs reviewed: Yes General: Well nourished, Well developed Head: Normocephalic ENT: Moist mucous membranes, TM's clear, - - Posterior pharyngeal drainage. No tonsillar enlargement. Uvula midline. Neck: Supple, No lymphadenopathy Cardiovascular: Regular rate, Regular rhythm Respiratory: No distress, CTA bilaterally Abdomen: Soft, Nontender Extremities: Nontender Skin: Normal color, No rash Neurological: Alert, Oriented x3, Normal Strength, Normal Sensation Psychological: Normal affect Diagnostic/Tx/Re-eval Laboratory Results 04/09/19 04/09/19 12:12 12:12 WBC 7.4 RBC 5.16 Hgb 15.4 H Hct 47.6 H MCV 92.2 MCH 29.8 MCHC 32.4 RDW Std Deviation 45.4 H RDW Coeff of Doyle 13.2 Plt Count 180 MPV 11.6 Immature Gran % (Auto) 0.300 Neut % (Auto) 63.8 Lymph % (Auto) 22.5 [place] % (Auto) 8.7 Eos % (Auto) 4.3 Baso % (Auto) 0.4 Absolute Neuts (auto) 4.7 Absolute Lymphs (auto) 1.66 Nucleated RBC % 0 Sodium 138 Potassium 4.2 Chloride 106 Carbon Dioxide 27.0 Anion Gap 5 BUN 14 Creatinine 0.91 Estim Creat Clear Calc 83.31 Est GFR (MDRD) Af Amer 87 Est GFR (MDRD) Non-Af 72 BUN/Creatinine Ratio 15.4 Glucose 88 Calcium 9.2 - Medical Decision Making Patient is given IV fluids, morphine, Zofran. On repeat evaluation she does feel improved. Patient will use Tylenol or ibuprofen at home for headache. I believe her symptoms are all secondary to viral syndrome and this was discussed with her. She will be given a handout on this. ED Disposition - Plan for ED Patient: Disposition: Home or Assisted Living Diagnosis: Viral syndrome Instructions: VIRAL SYNDROME (Adult) Prescriptions: proMETHazine tablet [Phenergan] 25 mg PO Q6H PRN PRN #10 tab PRN Reason: Nausea Transmission Status: Pending to [facility] #30 Ondansetron [Zofran Odt] 4 mg PO Q8H PRN PRN #10 tab PRN Reason: Nausea Prescription Printed Referrals: Cesar Centeno MD [Primary Care Provider] - 1 Week if not improving
[2019-04-09] MEDS: Ondansetron 4 MG/2 ML Vial IV (12:17)
[2019-04-09] MEDS: Morphine 4 MG/ML Syringe IV (12:18)
[2019-04-09] MEDS: 0.9% Normal Saline 1,000 ML 1000 ML IV (12:19)
[2019-04-09 12:44] LABS: Absolute Lymphocyte Count 1.66 X10^3/uL (0.83-4.51); Absolute Neutrophil Count 4.7 X10^3/uL (2.0-7.7); Basophil# 0.03 X10^3/uL; Basophil% 0.4 % (0-1); Eosinophil# 0.32 X10^3/uL; Eosinophils% 4.3 % (0-5); Hematocrit 47.6 % (37-47); Hemoglobin 15.4 g/dL (12.0-15.0); Lymphocyte # 1.66 X10^3/ul (4.0); Lymphocyte % 22.5 % (19-41); Mean Corp Hgb Conc 32.4 g/dL (32-36); Mean Corpuscular Hgb 29.8 pg (27.0-32.0); Mean Corpuscular Volume 92.2 fL (81-99); Mean Platelet Vol. 11.6 fl (6.2-12.0); Monocyte# 0.64 X10^3/uL; Monocyte% 8.7 % (0-10); NRBC Flagged by Analyzer 0 % (0-5); Neutrophil % 63.8 % (47-70); Platelet Count 180 K/mm3 (150-450); RBC Distribution Width CV 13.2 % (11.6-14.6); RBC Distribution Width SD 45.4 fl (35.1-43.9); Red Blood Count 5.16 M/mm3 (4.2-5.4); White Blood Count 7.4 K/mm3 (4.4-11.0)
[2019-04-09] MEDS: Famotidine 200 MG/20 ML MDV 20 MG in 0.9% Normal Saline (Pres. free 8 ML 300 MG IV (12:50)
[2019-04-09 13:00] LABS: Anion Gap 5 (5-15); BUN 14 mg/dL (7-18); BUN/Creat Ratio 15.4 RATIO (10-20); Calcium,Total 9.2 mg/dL (8.5-10.1); Chloride 106 mmol/L (98-107); Creatinine, Serum 0.91 mg/dL (0.55-1.02); EST Glomerular Filtration Rate 72 mL/min (>60); Est Glom Filt Rate - Afr Amer 87 mL/min (>60); Estimated Creatinine Clearance 83.31 ml/min; Glucose 88 mg/dL (74-106); Potassium 4.2 mmol/L (3.5-5.1); Sodium Level 138 mmol/L (136-145)
[2019-04-09 13:35] VITALS: RESP 16
[2019-04-09 14:26] VITALS: BP 112/82; PULSE 58; RESP 16; O2SAT 99
== END 2019-04-09 14:26 | disposition home or self-care (01) ==
PROVIDERS: Emergency Provider Emergency Medicine; Family Provider Internal Medicine; PCP Internal Medicine
DX: B34.9 Viral infection, unspecified (principal); R11.2 Nausea with vomiting, unspecified; R19.7 Diarrhea, unspecified; J02.9 Acute pharyngitis, unspecified; R51 Headache; R42 Dizziness and giddiness; E03.9 Hypothyroidism, unspecified; F41.9 Anxiety disorder, unspecified; Z87.442 Personal history of urinary calculi; F17.200 Nicotine dependence, unspecified, uncomplicated; H92.01 Otalgia, right ear
CPT/HCPCS: 80048; 85025; 96361; 96374; 96375; 99283; J7030; J2405; J3490

== ENCOUNTER 2019-04-12 17:40 | Emergency (ER) | payer MEDICARE, MEDICAID, SELFPAY ==
[2019-04-12 17:41] VITALS: BP 159/93; PULSE 90; RESP 18; TEMP 36.6; O2SAT 99; BMI 25.1
[2019-04-12 18:20] VITALS: RESP 18
--- NOTE | 2019-04-12 18:31 | RAD_ITS ---
STUDY: X-RAY CHEST REASON FOR EXAM: Female, 44 years old. Cough wheezing TECHNIQUE: Two view of the chest were performed COMPARISON: 02 October 2014 FINDINGS: Lungs are clear. There is no pneumothorax, pulmonary edema, pleural effusions or cardiomegaly. Osseous structures are intact. There is no gas under the diaphragms. [ ] RAD/Chest PA and Lateral IMPRESSION: 1. No acute cardiorespiratory disease. [ ] Electronically Signed: Clinton Ceja, at 19:17 EST Tel , Service support ,
--- NOTE | 2019-04-12 18:43 | ED.DCSUM_ITS ---
History of Present Illness Chief Complaint: Sore Throat Detail of Chief Complaint: Viral illness initially GI now respiratory Informant: Patient Onset: Days Context: Sudden Onset Timing: Continuous Quality: Initially nausea, vomiting diarrhea now nasal congestion and productive cou Location: Respiratory Current Severity: Mild Maximum Severity: Moderate Worsened by: Smoking Relieved by: Nothing Associated Symptoms: Malaise subjective fever Narrative: Patient is a 44-year-old woman with history of smoking 1/2 pack/day. She was seen in urgent care diagnosed with viral illness. She presented at that time with GI symptoms. She now complains of nasal congestion, change in voice, productive cough and wheezing. She has history of wheezing. She has an inhaler at home. She denies documented fever. She denies headache. Denies photophobia, neck pain or neck stiffness. She denies chest pain. She denies urologic symptoms. She denies myalgias arthralgias. She denies skin rash or lesions. Prior similar symptoms: No Recent Illness/Hospitalization: Yes - Past Medical History (1) Anxiety Status: Chronic (2) History of kidney stones Status: Chronic (3) Hypothyroid Status: Chronic (4) Diverticulitis Status: Resolved Past Medical History - Allergies and Home Meds Allergies/Adverse Reactions: Allergies fentanyl Allergy (Verified 04/12/19 17:43) Anaphylaxis BRADYCARDIA ketorolac tromethamine [From Toradol] Adverse Reaction (Verified 04/12/19 17:43) Other STOMACH PAINS Primary Care Physician: Cesar Centeno MD [Primary Care Provider] - Prior records reviewed: Yes Surgical History: - - right kidney removed, total hysterectemy, exploratory lap Lives: Spouse/ Significant Other Smoking Status: Current every day smoker Alcohol: Rare Drugs: None - Family History Maternal Family History: Reports: No pertinent history Paternal Family History: Reports: No pertinent history Review of Systems General: Reports: Fever, Malaise, Subjective. Denies: Sweats Eyes: Denies: Visual changes - bilaterally, Blurred Vision - bilaterally ENT: Reports: Rhinorrhea, Sore throat. Denies: Bilateral ear pain Cardiovascular: Denies: Chest pain, Palpitations Respiratory: Reports: Dyspnea, Cough, Sputum. Denies: Dyspnea on exertion, Orthopnea, Paroxysmal nocturnal dyspnea Gastrointestinal: Denies: Abdominal pain, Nausea, Vomiting, Diarrhea, Melena, Hematochezia Genitourinary: Denies: Dysuria, Hematuria, Frequency Musculoskeletal: Denies: Myalgias, Arthralgias, Neck pain, Back pain, Swelling, Extremity Pain, -, - Skin: Denies: Rash, Wounds Neurological: Denies: Headache, Weakness, Numbness Endocrine: Denies: Polyuria, Polydipsia Hematologic: Denies: Easy bruising, Easy bleeding Physical Exam Vital Signs/Narrative: Vital Signs Temp Pulse Resp BP Pulse Ox 04/12/19 18:20 18 04/12/19 17:41 98 F 90 18 159/93 H 99 Inital Vital Signs reviewed: Yes General: Well nourished, Well developed, No Acute Distress Head: Normocephalic, Atraumatic Eyes: Perrl, EOMI ENT: Moist mucous membranes, No rhinorrhea Neck: Supple, Nontender Cardiovascular: Regular rate, Regular rhythm, No murmurs, Normal S1, Normal S2 Respiratory: No distress, Chest nontender, Rales - Right side posteriorly, Wheezing - Bilateral with expiration, Decreased Air Movement Abdomen: Soft, Nontender, Nondistended, Normal bowel sounds Back: Nontender, Normal Inspection Extremities: Nontender, No edema. Negative for: Calf Tenderness Skin: Normal color, No rash Neurological: Alert, Oriented x3, Cranial nerves II-XII grossly intact, Normal Strength, Normal Sensation Psychological: Normal affect, Normal Mood Diagnostic/Tx/Re-eval Chest X-Ray - ED: 2 View, Read by ED Physician, Normal, Heart, Lungs, Mediastinum, Bony Structures, No Acute Disease, - - X-ray interpreted by me at 1912 - Medical Decision Making Patient had productive cough and wheezing chest x-ray was obtained to determine if she has pneumonia versus bronchitis. ED Disposition - Plan for ED Patient: Disposition: Home or Assisted Living Diagnosis: Purulent bronchitis, Hyperactive airway disease Instructions: BRONCHITIS with Wheezing (Adult) Prescriptions: Prednisone [Deltasone] 40 mg PO DAILY #10 tab Transmission Status: Pending to [facility] #30 Doxycycline 100 mg PO BID #10 cap Transmission Status: Pending to [facility] #30 Albuterol Inhaler [Ventolin Hfa] 2 puff INHALATION Q4H PRN PRN #1 inhaler PRN Reason: Wheezing Transmission Status: Pending to [facility] #30 Referrals: Cesar Centeno MD [Primary Care Provider] - 1 Week if not improving
[2019-04-12 19:32] VITALS: PULSE 81; RESP 20; TEMP 37.2
--- NOTE | 2019-04-12 19:33 | ED.RN ---
THIS NURSE REVIEWED D/C INSTRUCTIONS WITH PT. PT VERBALIZED UNDERSTANDING OF INSTRUCTIONS. PT DENIES FURTHER NEEDS OR QUESTIONS AT THIS TIME. PT AMBULATES FROM ROOM ON OWN WITHOUT ASSISTANCE FROM STAFF
== END 2019-04-12 19:34 | disposition home or self-care (01) ==
PROVIDERS: Emergency Provider Emergency Medicine; Family Provider Internal Medicine; PCP Internal Medicine
DX: J41.1 Mucopurulent chronic bronchitis (principal); B34.9 Viral infection, unspecified; E03.9 Hypothyroidism, unspecified; J45.909 Unspecified asthma, uncomplicated; F41.9 Anxiety disorder, unspecified; F17.200 Nicotine dependence, unspecified, uncomplicated; Z79.899 Other long term (current) drug therapy; Z87.442 Personal history of urinary calculi
CPT/HCPCS: 71046; 99283

== ENCOUNTER 2019-04-27 10:47 | Emergency (ER) | payer MEDICARE, MEDICAID, SELFPAY ==
[2019-04-27 10:49] VITALS: BP 116/61; PULSE 86; RESP 17; TEMP 36.9; O2SAT 95; BMI 25.9
--- NOTE | 2019-04-27 11:14 | CT_ITS ---
STUDY: CT ABDOMEN AND PELVIS WITHOUT CONTRAST REASON FOR EXAM: Female, 44 years old. LEFT FLANK PAIN SINCE LAST NIGHT. PT ONLY HAS LEFT KIDNEY RADIATION DOSAGE (If Supplied By Facility): CTDIvol = ( 8.55 ) mGy, DLP = ( 429.19 ) mGycm TECHNIQUE: Transaxial images were obtained from the dome of the diaphragm to the symphysis pubis without oral contrast, and without intravenous contrast. Sagittal and coronal images were reconstructed. Individualized dose optimization techniques were used for this CT. COMPARISON: Comparison is made with prior examination dated February 02, 2019. FINDINGS: Stable minimal increased linear markings at the lung bases suggestive of underlying atelectasis and/or scarring. The visualized portions of the heart are within normal limits. Normal liver. Normal gallbladder and extrahepatic biliary system. Normal spleen. Normal pancreas. Normal bilateral adrenal glands. The patient is status post right nephrectomy. Compensatory enlargement of the left kidney. Nonobstructive calculi are seen in the upper midportion of the left kidney the largest measuring approximately 3.5 mm. Normal visualized stomach. Normal small intestine. There are scattered colonic diverticula consistent with diverticulosis. The appendix is visualized and appears normal. Normal abdominal aorta. Normal inferior vena cava. Normal retroperitoneum. Normal urinary bladder. There is a small umbilical hernia containing fat. 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 Minimal anterior listhesis of L5 on S1. CT/Abdomen/Pelvis without Cont IMPRESSION: Status post right nephrectomy. Compensatory enlargement of the left kidney. Nonobstructive left intrarenal calculi. Electronically Signed: Diaz Carroll, at 12:14 EST , Service support ,
[2019-04-27 11:35] VITALS: TEMP 36.9
[2019-04-27 11:40] LABS: Mucous, Urine 0 SEEN /hpf (<or=2+); Red Blood Cells-Urine 0 SEEN /hpf (0-5); White Blood Cells 0 SEEN /hpf (0-5)
[2019-04-27] MEDS: Ondansetron 4 MG/2 ML Vial IV (11:46)
[2019-04-27] MEDS: Morphine 4 MG/ML Syringe IV (11:46)
[2019-04-27 11:47] LABS: Absolute Lymphocyte Count 1.29 X10^3/uL (0.83-4.51); Absolute Neutrophil Count 6.2 X10^3/uL (2.0-7.7); Basophil# 0.02 X10^3/uL; Basophil% 0.2 % (0-1); Eosinophil# 0.16 X10^3/uL; Eosinophils% 1.9 % (0-5); Hemoglobin 13.8 g/dL (12.0-15.0); Lymphocyte # 1.29 X10^3/ul (4.0); Lymphocyte % 15.4 % (19-41); Mean Corp Hgb Conc 31.4 g/dL (32-36); Mean Corpuscular Hgb 29.3 pg (27.0-32.0); Mean Corpuscular Volume 93.4 fL (81-99); Mean Platelet Vol. 10.7 fl (6.2-12.0); Monocyte# 0.67 X10^3/uL; NRBC Flagged by Analyzer 0 % (0-5); Neutrophil # 6.19 X10^3/uL (2.7-7.7); Neutrophil % 74.1 % (47-70); Platelet Count 209 K/mm3 (150-450); RBC Distribution Width CV 13.5 % (11.6-14.6); RBC Distribution Width SD 46.6 fl (35.1-43.9); Red Blood Count 4.71 M/mm3 (4.2-5.4); White Blood Count 8.4 K/mm3 (4.4-11.0)
[2019-04-27 11:47] LABS: Color, Urine Yellow (Yellow); Glucose, Dipstick Normal (Normal); Ketone-Dipstick Negative (Negative); Leukocyte Esterase-Dipstick Negative /ul (Negative); Nitrite-Dipstick Negative (Negative); Occult Blood-Urine Negative /ul (Negative); Protein-Dipstick Negative (Negative); Specific Gravity, Urine 1.015 (1.002-1.030); Urine Bilirubin Dipstick Negative (Negative); Urine Clarity Sl. Cloudy (Clear); Urine Urobilinogen Normal (Normal)
[2019-04-27] MEDS: 0.9% Normal Saline 1,000 ML 250 ML IV (11:48)
[2019-04-27 11:53] LABS: Anion Gap 3 (5-15); BUN 17 mg/dL (7-18); BUN/Creat Ratio 18.6 RATIO (10-20); Calcium,Total 9.1 mg/dL (8.5-10.1); Chloride 111 mmol/L (98-107); Creatinine, Serum 0.92 mg/dL (0.55-1.02); EST Glomerular Filtration Rate 71 mL/min (>60); Est Glom Filt Rate - Afr Amer 86 mL/min (>60); Glucose 94 mg/dL (74-106); Potassium 4.2 mmol/L (3.5-5.1); Sodium Level 140 mmol/L (136-145)
[2019-04-27 12:00] LABS: Bacteria 1+ /hpf (None Seen); Squamous Epithelial Cells - UA 0-5 SEEN /hpf (5-10)
--- NOTE | 2019-04-27 12:03 | ED.VISSUMM ---
- ER Visit Summary Date of Service: 04/27/19 Chief Complaint: Left flank pain History of Present Illness: The patient is a [address] Centeno. She reports she has left leg pain that began yesterday. Is an aching pain this time 10 hours and 7-10 currently. Is worsened by movement. Is relieved transiently by urinating. She had nausea without vomiting. She reports her last bowel was today. It was normal. Normal hematochezia. She had frequent urination, but no dysuria. States this is similar to when she had kidney stones in the past. Physical Examination: Vitals: Stable. Afebrile. General: Well-nourished and well-developed. Head: Normocephalic atraumatic. Neck: Supple, no lymphadenopathy. No JVD. Nontender. Cardiovascular: Regular rate and rhythm. No murmurs. Respiratory: No respiratory distress. Clear to auscultation bilaterally. Abdominal: Soft, mild left lower quadrant tenderness palpation, nondistended, normal bowel sounds. No guarding, rebound, or peritoneal signs. Back: Mild left CVA tenderness. Extremities: Nontender, no edema. Skin: Normal color, no rash. Neurologic: Alert and oriented ?3. Cranial nerves II through XII are intact. Normal strength and sensation. Psych: Normal affect. Test Results: CBC shows segmented for 74 lymphocytes 15. Chem-7 shows a chloride 111. UA is negative. Clinical Impression(s) from Imaging Studies Abdomen/Pelvis CT 04/27/19 11:14 IMPRESSION: Status post right nephrectomy. Compensatory enlargement of the left kidney. Nonobstructive left intrarenal calculi. Electronically Signed: Diaz Carroll, at 12:14 EST , Service support , Emergency Department Course and Treatment: Patient was treated with a dose of morphine. She is resting comfortably. Treatment Plan: Patient be discharged with Zofran. Instructed use naproxen for pain. Follow-up with her primary care physician 1 week if not improving. Return to the emergency department for any worsening symptoms. Disposition: To home in improved and stable condition. Impression: 1. Left flank pain, uncertain cause. This note was generated with [employer] software. It may contain incorrect words, spelling, and punctuation that were not noted in review of the chart prior to signing ED Disposition - Plan for ED Patient: Instructions: FLANK PAIN, Uncertain Cause Prescriptions: Naproxen [Naprosyn] 500 mg PO BID #14 tablet Ondansetron [Zofran Odt] 4 mg PO Q8H PRN PRN #10 tablet PRN Reason: Nausea Referrals: Cesar Centeno MD [Primary Care Provider] -
[2019-04-27 12:42] VITALS: PULSE 88; RESP 17; TEMP 37.1; O2SAT 96
== END 2019-04-27 12:44 | disposition home or self-care (01) ==
LOC: ED 11:34
PROVIDERS: Emergency Provider Emergency Medicine; PCP Internal Medicine
DX: R10.9 Unspecified abdominal pain (principal); R11.0 Nausea; R19.7 Diarrhea, unspecified; R35.0 Frequency of micturition; R05 Cough; J02.9 Acute pharyngitis, unspecified; M54.9 Dorsalgia, unspecified; Z72.0 Tobacco use; Z79.899 Other long term (current) drug therapy; Z87.442 Personal history of urinary calculi; Z90.5 Acquired absence of kidney
CPT/HCPCS: 74176; 80048; 81001; 85025; 96361; 96374; 96375; 99285; J7030; A4216; J2405

== ENCOUNTER 2019-09-13 13:01 | Emergency (ER) | payer MEDICARE, SELFPAY ==
[2019-09-13 13:02] VITALS: BP 119/94; PULSE 106; RESP 16; TEMP 36.6; O2SAT 98; BMI 28.1
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
[2019-09-13] MEDS: LORazepam 2 MG/ML Syringe IV (14:23)
[2019-09-13 14:34] LABS: Absolute Lymphocyte Count 1.54 X10^3/uL (0.83-4.51); Absolute Neutrophil Count 8.3 X10^3/uL (2.0-7.7); Basophil# 0.02 X10^3/uL; Basophil% 0.2 % (0-1); Eosinophil# 0.01 X10^3/uL; Eosinophils% 0.1 % (0-5); Hematocrit 45.8 % (37-47); Hemoglobin 14.5 g/dL (12.0-15.0); Lymphocyte # 1.54 X10^3/ul (4.0); Lymphocyte % 14.4 % (19-41); Mean Corp Hgb Conc 31.7 g/dL (32-36); Mean Corpuscular Hgb 30.5 pg (27.0-32.0); Mean Corpuscular Volume 96.2 fL (81-99); Mean Platelet Vol. 11.7 fl (6.2-12.0); Monocyte# 0.81 X10^3/uL; Monocyte% 7.6 % (0-10); NRBC Flagged by Analyzer 0 % (0-5); Neutrophil # 8.25 X10^3/uL (2.7-7.7); Neutrophil % 77.3 % (47-70); POSITIVE MORPHOLOGY YES; Platelet Count 204 K/mm3 (150-450); RBC Distribution Width CV 13.2 % (11.6-14.6); RBC Distribution Width SD 47.5 fl (35.1-43.9); Red Blood Count 4.76 M/mm3 (4.2-5.4); White Blood Count 10.7 K/mm3 (4.4-11.0)
[2019-09-13 14:35] LABS: Differential Indicated SCAN CRITERIA MET
[2019-09-13 14:44] LABS: Amphetamine Urine VISTA NEGATIVE (<1000 ng/mL); Barbiturate Urine VISTA NEGATIVE (< 200 ng/mL); Benzodiazepine Urine VISTA NEGATIVE (< 200 ng/mL); Cocaine Urine VISTA NEGATIVE (< 300 ng/mL); Ecstacy Urine VISTA NEGATIVE (< 500 ng/mL); Methadone Urine VISTA NEGATIVE (< 300 ng/mL); PCP Urine VISTA NEGATIVE (< 25 ng/mL); THC Urine VISTA POSITIVE (< 50 ng/mL); Vista UDS pH Range 6
[2019-09-13 14:47] LABS: Anion Gap 9 (5-15); BUN 13 mg/dL (7-18); Calcium,Total 9.3 mg/dL (8.5-10.1); Chloride 110 mmol/L (98-107); Creatinine, Serum 0.93 mg/dL (0.55-1.02); EST Glomerular Filtration Rate 70 mL/min (>60); Est Glom Filt Rate - Afr Amer 85 mL/min (>60); Estimated Creatinine Clearance 78.68 ml/min; Glucose 104 mg/dL (74-106); Potassium 4.1 mmol/L (3.5-5.1); Sodium Level 142 mmol/L (136-145)
[2019-09-13] MEDS: HYDROcodone Bitartrate/Apap 5/325 Tablet PO (15:31)
[2019-09-13 15:48] LABS: Internal QC Validated? YES +Cl - CLEAR BKGD; Pregnancy, Serum, hCG Quali. NEGATIVE Negative
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
[2019-09-13 16:16] VITALS: BP 132/90; PULSE 86; RESP 17; O2SAT 99
--- NOTE | 2019-09-13 16:17 | ED.RN ---
IV DC'ED, CATHETER INTACT, SMALL GAUZE DRESSING PLACED. DISCHARGE INSTRUCTIONS GIVEN TO AND REVIEWED WITH PATIENT, PATIENT DENIES QUESTIONS OR CONCERNS AND VOICES UNDERSTANDING OF DISCHARGE INSTRUCTIONS. PT AMBULATES OUT OF ROOM WITHOUT DIFFICULTY.
--- NOTE | 2019-09-14 17:08 | CM.ED ---
Social Work Follow-up call. Telephone call to patient. Patient states to have rescheduled appointment with [facility] for sometime next week due to wanting to give time for patient muscles to heal. Patient states to have been sleeping most of the day and to be feeling better then yesterday. Patient voices no further questions or concerns. This neonatal social worker encouraged patient to follow up with referrals, patient voices plan to follow up with [facility] at appointment next week. Active listening and support provided. TIM Gar
== END 2019-09-13 16:18 | disposition home or self-care (01) ==
LOC: ED 15:11
PROVIDERS: Emergency Provider Emergency Medicine; PCP Internal Medicine
DX: F41.9 Anxiety disorder, unspecified (principal); M54.12 Radiculopathy, cervical region; F43.10 Post-traumatic stress disorder, unspecified; E03.9 Hypothyroidism, unspecified; F17.200 Nicotine dependence, unspecified, uncomplicated; Z79.899 Other long term (current) drug therapy; Z88.5 Allergy status to narcotic agent
CPT/HCPCS: 80048; 80307; 80320; 84703; 85025; 96374; 99285; A4216; G0480

== ENCOUNTER 2019-11-30 13:02 | Emergency (ER) | payer MEDICARE, SELFPAY ==
[2019-11-30 13:02] VITALS: BP 127/78; PULSE 102; RESP 16; TEMP 36.4; O2SAT 97; BMI 23.6
--- NOTE | 2019-11-30 13:30 | CT_ITS ---
STUDY: CT ABDOMEN AND PELVIS WITHOUT CONTRAST REASON FOR EXAM: Female, 44 years old. ABDOMINAL PAIN. NEW DIAGNOSES OF IBS. Right nephrectomy and total hysterectomy RADIATION DOSAGE (If Supplied By Facility): CTDIvol = ( 7.60 ) mGy, DLP = ( 389.24 ) mGycm TECHNIQUE: Transaxial images were obtained from the dome of the diaphragm to the symphysis pubis without oral contrast, and without intravenous contrast. Sagittal and coronal images were reconstructed. Individualized dose optimization techniques were used for this CT. COMPARISON: Comparison is made with prior examination dated 04/27/2019. FINDINGS: The visualized lung bases are unremarkable. The visualized portions of the heart are within normal limits. Normal liver. Normal gallbladder and extrahepatic biliary system. Normal spleen. Normal pancreas. Normal bilateral adrenal glands. The patient is status post right nephrectomy. There is hypertrophy of the left kidney. Punctate calcification is seen in the mid pole calyx of the left kidney. 3 tiny nonobstructing calculi are seen in the upper pole calyx of the left kidney the largest measuring 3 mm. Normal visualized stomach. Normal small intestine. Normal colon. The appendix is visualized and appears normal. There is scattered atherosclerotic calcification of the abdominal aorta, without a demonstrated aneurysm. Normal inferior vena cava. Normal retroperitoneum. Normal urinary bladder. There is absence of the uterus consistent with a prior hysterectomy. There is a small umbilical hernia containing fat. Stable bilateral spondylolysis of the pars interarticularis of the L5 vertebrae. CT/Abdomen/Pelvis without Cont IMPRESSION: Status post right nephrectomy. Nonobstructive left intrarenal calculi. Electronically Signed: Diaz Carroll, at 14:21 EDT , Service support ,
--- NOTE | 2019-11-30 13:32 | ED.DCSUM_ITS ---
- ER Visit Summary Date of Service: 11/30/19 Chief Complaint: Abdominal pain History of Present Illness: The patient is a 44 F who presents with abdominal pain that has been getting worse over the past 2 days. Patient describes her pain is sharp and cramping. Patient states the pain is worse over the lower abdomen and worse on the left. Patient states she has had similar pain with diverticulitis in the past. Patient states she also has had similar pain with kidney stones in the past. Patient states her pain is worse with movement. Patient admits to nausea but denies any vomiting. Patient admits to some intermittent diarrhea that is watery. Patient denies any melena or hematochezia. Patient denies any dysuria or hematuria. Physical Examination: Vital signs are stable. Patient is afebrile. Patient is in no acute distress. Oral mucosa is pink and moist. Neck is supple. Trachea is midline. There is no JVD. Heart was regular rate and rhythm. Lungs are clear and equal bilaterally. Abdomen is soft. Bowel sounds are normal. There is lower abdominal tenderness but worse on the left lower quadrant. There is no rebound or guarding noted. Cranial nerves II through XII are intact. There are no focal motor or sensory deficits noted. Extremities are intact. There is no calf tenderness or edema. Test Results: CBC and comprehensive metabolic profile were obtained and were within normal limits. Urinalysis was normal. CT scan of the abdomen and pelvis was obtained. There are left renal calculi but no obstruction is noted. There is no diverticulitis noted. There is no acute intra-abdominal process noted. This was interpreted by the radiologist and reviewed by myself. Emergency Department Course and Treatment: Patient was given IV fluids. Patient was given morphine and Zofran. Patient was advised of her results. Patient is feeling somewhat better on reevaluation. Patient was given a prescription for a short course of [facility]. Patient was instructed to follow-up with her primary care physician in 5 to 7 days. Patient understood and was agreeable with the plan. All questions were answered. Disposition: Discharge home Impression: 1. Abdominal pain This note was generated with [employer] software. It may contain incorrect words, spelling, and punctuation that were not noted in review of the chart prior to signing ED Disposition - Plan for ED Patient: Disposition: Home or Assisted Living Diagnosis: Abdominal pain Instructions: ED Abdominal Pain Unkn Cause Fem Prescriptions: Hydrocodone Bitart/Apap 5-325 [[facility] 5MG-325MG] 1 tab PO Q6H PRN PRN 3 Days #10 tab PRN Reason: Pain Prescription Printed Referrals: Cesar Centeno MD [Primary Care Provider] - 3-5 Days
[2019-11-30] MEDS: 0.9% Normal Saline 1,000 ML 1000 ML IV (14:05)
[2019-11-30] MEDS: Ondansetron 4 MG/2 ML Vial IV (14:05)
[2019-11-30] MEDS: Morphine 4 MG/ML Syringe IV (14:06)
[2019-11-30 14:13] LABS: Absolute Lymphocyte Count 2.04 X10^3/uL (0.83-4.51); Absolute Neutrophil Count 7.2 X10^3/uL (2.0-7.7); Basophil# 0.02 X10^3/uL; Basophil% 0.2 % (0-1); Hematocrit 51.3 % (37-47); Hemoglobin 16.2 g/dL (12.0-15.0); Lymphocyte # 2.04 X10^3/ul (4.0); Lymphocyte % 20.4 % (19-41); Mean Corp Hgb Conc 31.6 g/dL (32-36); Mean Corpuscular Hgb 29.1 pg (27.0-32.0); Mean Corpuscular Volume 92.1 fL (81-99); Mean Platelet Vol. 10.9 fl (6.2-12.0); Monocyte# 0.59 X10^3/uL; Monocyte% 5.9 % (0-10); NRBC Flagged by Analyzer 0 % (0-5); Neutrophil % 72.2 % (47-70); Platelet Count 237 K/mm3 (150-450); RBC Distribution Width CV 13.8 % (11.6-14.6); RBC Distribution Width SD 46.9 fl (35.1-43.9); Red Blood Count 5.57 M/mm3 (4.2-5.4)
[2019-11-30 14:14] LABS: Bacteria 0 SEEN /hpf (None Seen); Mucous, Urine 0 SEEN /hpf (<or=2+); Red Blood Cells-Urine 0 SEEN /hpf (0-5)
[2019-11-30 14:19] LABS: ALB/GLOB Ratio 1.1 RATIO (0.9-2.4); AST(SGOT) 15 U/L (15-37); Alanine Aminotransfer ALT/SGPT 26 U/L (13-56); Albumin, Serum 4.2 g/dL (3.2-5.0); Alkaline Phosphatase 105 U/L (45-117); Anion Gap 6 (5-15); BUN 20 mg/dL (7-18); BUN/Creat Ratio 18.3 RATIO (10-20); Calcium,Total 9.1 mg/dL (8.5-10.1); Chloride 109 mmol/L (98-107); Creatinine, Serum 1.09 mg/dL (0.55-1.02); EST Glomerular Filtration Rate 58 mL/min (>60); Est Glom Filt Rate - Afr Amer 70 mL/min (>60); Estimated Creatinine Clearance 71.97 ml/min; Globulin 3.9 g/dL (2.2-4.2); Glucose 109 mg/dL (74-106); Lipase 81 U/L (73-393); Potassium 4.2 mmol/L (3.5-5.1); Protein, Total 8.1 g/dL (6.4-8.2); Sodium Level 139 mmol/L (136-145)
[2019-11-30 14:30] LABS: Color, Urine Yellow (Yellow); Glucose, Dipstick Normal (Normal); Ketone-Dipstick 5 mg/dl (Negative); Leukocyte Esterase-Dipstick 25 /ul (Negative); Nitrite-Dipstick Negative (Negative); Occult Blood-Urine Negative /ul (Negative); Protein-Dipstick 15 mg/dl (Negative); Specific Gravity, Urine 1.015 (1.002-1.030); Urine Bilirubin Dipstick Negative (Negative); Urine Clarity Sl. Cloudy (Clear); Urine Urobilinogen Normal (Normal)
[2019-11-30 14:40] LABS: Squamous Epithelial Cells - UA 0-5 SEEN /hpf (5-10); White Blood Cells 0-5 SEEN /hpf (0-5)
[2019-11-30 15:35] VITALS: BP 119/86
[2019-11-30 16:03] VITALS: BP 128/79; PULSE 88; RESP 16; O2SAT 98
== END 2019-11-30 16:26 | disposition home or self-care (01) ==
PROVIDERS: Emergency Provider Emergency Medicine; PCP Internal Medicine
DX: R10.9 Unspecified abdominal pain (principal); N20.0 Calculus of kidney; E03.9 Hypothyroidism, unspecified; K58.9 Irritable bowel syndrome, unspecified; F41.9 Anxiety disorder, unspecified; Z72.0 Tobacco use; Z79.899 Other long term (current) drug therapy; Z87.19 Personal history of other diseases of the digestive system; Z87.442 Personal history of urinary calculi; Z90.5 Acquired absence of kidney
CPT/HCPCS: 74176; 80053; 81001; 83690; 85025; 96361; 96374; 96375; 99283; J7030; A4216; J2405

== ENCOUNTER 2019-12-19 20:45 | Emergency (ER) | payer MEDICARE, SELFPAY ==
[2019-12-19 20:46] VITALS: BP 112/80; PULSE 90; RESP 18; TEMP 36.1; O2SAT 99; BMI 24.8
[2019-12-19 21:24] LABS: Absolute Lymphocyte Count 1.65 X10^3/uL (0.83-4.51); Absolute Neutrophil Count 5.5 X10^3/uL (2.0-7.7); Basophil# 0.01 X10^3/uL; Basophil% 0.1 % (0-1); Eosinophil# 0.04 X10^3/uL; Eosinophils% 0.5 % (0-5); Hematocrit 45.1 % (37-47); Hemoglobin 14.6 g/dL (12.0-15.0); Lymphocyte # 1.65 X10^3/ul (4.0); Lymphocyte % 20.6 % (19-41); Mean Corp Hgb Conc 32.4 g/dL (32-36); Mean Corpuscular Hgb 29.7 pg (27.0-32.0); Mean Corpuscular Volume 91.9 fL (81-99); Mean Platelet Vol. 10.9 fl (6.2-12.0); Monocyte# 0.74 X10^3/uL; Monocyte% 9.3 % (0-10); NRBC Flagged by Analyzer 0 % (0-5); Neutrophil # 5.52 X10^3/uL (2.7-7.7); Platelet Count 222 K/mm3 (150-450); RBC Distribution Width CV 14.1 % (11.6-14.6); RBC Distribution Width SD 47.5 fl (35.1-43.9); Red Blood Count 4.91 M/mm3 (4.2-5.4)
--- NOTE | 2019-12-19 21:26 | CT_ITS ---
STUDY: CT ABDOMEN AND PELVIS WITH CONTRAST REASON FOR EXAM: Female, 44 years old. Lower abdominal pain and nausea for 2 days. Diarrhea. History of diverticulitis. History of kidney stones. RADIATION DOSAGE (If Supplied By Facility): CTDIvol = ( 14.33 ) mGy, DLP = ( 651.64 ) mGycm TECHNIQUE: Transaxial images were obtained from the dome of the diaphragm to the symphysis pubis with oral contrast. Oral and amp; IV Gastrografin and amp; 75mL Isovue-370 was administered. Sagittal and coronal images were reconstructed. Individualized dose optimization techniques were used for this CT. COMPARISON: November 30, 2019. FINDINGS: The visualized lung bases are unremarkable. The visualized portions of the heart are within normal limits. Normal liver. Normal gallbladder and extrahepatic biliary system. Normal spleen. Normal pancreas. Normal bilateral adrenal glands. Right kidney is absent compatible with history of nephrectomy. Nonobstructing left renal calculi the largest measuring 3 mm. Normal visualized stomach. Normal small intestine. Scattered diverticulosis. The appendix is visualized and appears normal. Normal abdominal aorta. Normal inferior vena cava. Normal retroperitoneum. No intra-abdominal free air. Normal urinary bladder. There is absence of the uterus consistent with a prior hysterectomy. No adnexal mass is seen. Normal abdominal wall. L5-S1 grade 1 spondylolisthesis with bilateral spondylolysis. CT/Abdomen/Pelvis WITH Contrast IMPRESSION: No acute findings in the abdomen or pelvis. Small nonobstructing left renal calculi unchanged. No evidence of bowel obstruction. Minimal diverticulosis. Additional nonemergent findings as above. Electronically Signed: Moises Carney MD at 23:43 EDT , Service support ,
[2019-12-19] MEDS: Morphine 4 MG/ML Syringe IV ×2 (21:37→22:33)
[2019-12-19] MEDS: 0.9% Normal Saline 1,000 ML 150 ML IV (21:37)
[2019-12-19] MEDS: Ondansetron 4 MG/2 ML Vial IV (21:37)
[2019-12-19 21:59] LABS: Anion Gap 3 (5-15); BUN 10 mg/dL (7-18); BUN/Creat Ratio 10.5 RATIO (10-20); Calcium,Total 9.3 mg/dL (8.5-10.1); Chloride 107 mmol/L (98-107); Creatinine, Serum 0.95 mg/dL (0.55-1.02); EST Glomerular Filtration Rate 68 mL/min (>60); Est Glom Filt Rate - Afr Amer 82 mL/min (>60); Glucose 105 mg/dL (74-106); Potassium 3.5 mmol/L (3.5-5.1); Sodium Level 138 mmol/L (136-145)
[2019-12-19 22:03] LABS: Internal QC Validated? YES +Cl - CLEAR BKGD; Pregnancy, Serum, hCG Quali. NEGATIVE Negative
[2019-12-19 22:18] LABS: Bacteria 0 SEEN /hpf (None Seen); Mucous, Urine 0 SEEN /hpf (<or=2+); Red Blood Cells-Urine 0 SEEN /hpf (0-5); Squamous Epithelial Cells - UA 0 SEEN /hpf (5-10); White Blood Cells 0 SEEN /hpf (0-5)
[2019-12-19 22:21] LABS: Color, Urine Yellow (Yellow); Glucose, Dipstick Normal (Normal); Ketone-Dipstick Negative (Negative); Leukocyte Esterase-Dipstick Negative /ul (Negative); Nitrite-Dipstick Negative (Negative); Occult Blood-Urine Negative /ul (Negative); Protein-Dipstick Negative (Negative); Urine Bilirubin Dipstick Negative (Negative); Urine Clarity Clear (Clear); Urine Urobilinogen Normal (Normal)
--- NOTE | 2019-12-19 23:47 | ED.VIS.GEN ---
History of Present Illness Chief Complaint: Abd Pain Informant: Patient Onset: Today Current Severity: Moderate Maximum Severity: Moderate Narrative: Patient presents with nausea for the past 2 days with lower abdominal pain starting today. She does report one episode of diarrhea. She denies fever or chills. She has a history of right nephrectomy. Denies urinary symptoms. She does have a history of diverticulitis and is unsure if this feels similar. - Past Medical History (1) IBS (irritable bowel syndrome) Status: Chronic (2) Anxiety Status: Chronic (3) History of kidney stones Status: Chronic (4) Hypothyroid Status: Chronic (5) Diverticulitis Status: Resolved Past Medical History - Allergies and Home Meds Allergies/Adverse Reactions: Allergies fentanyl Allergy (Verified 12/19/19 20:46) Anaphylaxis BRADYCARDIA ketorolac tromethamine [From Toradol] Adverse Reaction (Verified 12/19/19 20:46) Other STOMACH PAINS Primary Care Physician: Cesar Centeno MD [Primary Care Provider] - 5-7 Days Prior records reviewed: Yes Surgical History: noncontributory, - - right kidney removed, total hysterectemy, exploratory lap Lives: With Family Smoking Status: Current every day smoker - Family History Maternal Family History: Reports: No pertinent history Paternal Family History: Reports: No pertinent history Review of Systems General: Denies: Chills, Fever Eyes: Denies: Visual changes - bilaterally ENT: Denies: Bilateral ear pain Cardiovascular: Denies: Chest pain Respiratory: Denies: Dyspnea, Cough Gastrointestinal: Reports: Abdominal pain, Diarrhea. Denies: Nausea, Vomiting Genitourinary: Denies: Dysuria Musculoskeletal: Denies: Swelling, Extremity Pain Skin: Denies: Rash Hematologic: Denies: Easy bruising, Easy bleeding Allergy: Denies: Uticaria Physical Exam Vital Signs/Narrative: Vital Signs Temp Pulse Resp BP Pulse Ox 12/19/19 20:46 97.0 F L 90 18 112/80 99 Inital Vital Signs reviewed: Yes General: Well nourished, Well developed Head: Normocephalic ENT: Moist mucous membranes Neck: Supple Cardiovascular: Regular rate, Regular rhythm Respiratory: No distress, CTA bilaterally Abdomen: Soft, Normal bowel sounds, Tender - Lower abdominal tenderness to palpation.. Negative for: Guarding, Rebound tenderness Skin: Normal color Neurological: Alert, Oriented x3 Psychological: Normal affect Diagnostic/Tx/Re-eval Impressions Abdomen/Pelvis CT 12/19/19 21:26 IMPRESSION: No acute findings in the abdomen or pelvis. Small nonobstructing left renal calculi unchanged. No evidence of bowel obstruction. Minimal diverticulosis. Additional nonemergent findings as above. Electronically Signed: Moises Carney MD at 23:43 EDT , Service support , 12/19/19 21:26 Abdomen/Pelvis WITH Contrast [CT] Stat Laboratory Results 12/19/19 12/19/19 12/19/19 21:20 21:20 21:20 WBC 8.0 RBC 4.91 Hgb 14.6 Hct 45.1 MCV 91.9 MCH 29.7 MCHC 32.4 RDW Std Deviation 47.5 H RDW Coeff of Doyle 14.1 Plt Count 222 MPV 10.9 Immature Gran % (Auto) 0.500 Neut % (Auto) 69.0 Lymph % (Auto) 20.6 [place] % (Auto) 9.3 Eos % (Auto) 0.5 Baso % (Auto) 0.1 Absolute Neuts (auto) 5.5 Absolute Lymphs (auto) 1.65 Nucleated RBC % 0 Sodium 138 Potassium 3.5 Chloride 107 Carbon Dioxide 28.0 Anion Gap 3 L BUN 10 Creatinine 0.95 Estim Creat Clear Calc 79.80 Est GFR (MDRD) Af Amer 82 Est GFR (MDRD) Non-Af 68 BUN/Creatinine Ratio 10.5 Glucose 105 Calcium 9.3 Serum , Qual NEGATIVE Urine Color Urine Clarity Urine pH Ur Specific [place] Urine Protein Urine Glucose (UA) Urine Ketones Urine Occult Blood Urine Nitrite Urine Bilirubin Urine Urobilinogen Ur Leukocyte Esterase Urine RBC Urine WBC Ur Squamous Epith Cells Urine Bacteria Urine Mucus 12/19/19 22:05 WBC RBC Hgb Hct MCV MCH MCHC RDW Std Deviation RDW Coeff of Doyle Plt Count MPV Immature Gran % (Auto) Neut % (Auto) Lymph % (Auto) [place] % (Auto) Eos % (Auto) Baso % (Auto) Absolute Neuts (auto) Absolute Lymphs (auto) Nucleated RBC % Sodium Potassium Chloride Carbon Dioxide Anion Gap BUN Creatinine Estim Creat Clear Calc Est GFR (MDRD) Af Amer Est GFR (MDRD) Non-Af BUN/Creatinine Ratio Glucose Calcium Serum , Qual Urine Color Yellow Urine Clarity Clear Urine pH 6.0 Ur Specific [place] 1.010 Urine Protein Negative Urine Glucose (UA) Normal Urine Ketones Negative Urine Occult Blood Negative Urine Nitrite Negative Urine Bilirubin Negative Urine Urobilinogen Normal Ur Leukocyte Esterase Negative Urine RBC 0 SEEN Urine WBC 0 SEEN Ur Squamous Epith Cells 0 SEEN Urine Bacteria 0 SEEN Urine Mucus 0 SEEN - Medical Decision Making Patient was given morphine, Zofran, IV fluids. Blood work, urinalysis are unremarkable. CT is unremarkable. Test results are discussed with the patient. She states that she is just about out of her Bentyl and will be given a refill for this. She will be given Zofran and a few tabs of [place] to help with pain. She is to monitor for fever or worsening of her symptoms. She is given return instructions. ED Disposition - Plan for ED Patient: Disposition: Home or Assisted Living Diagnosis: Abdominal pain Instructions: ED Abdominal Pain Unkn Cause Fem Prescriptions: Dicyclomine HCl [Bentyl] 20 mg PO TIDAC #20 cap Transmission Status: Received by VLADIMIR RAYGOZA RD Hydrocodone Bitart/Apap 5-325 [[place] 5MG-325MG] 1 tab PO Q6H PRN PRN 3 Days #10 tab PRN Reason: Pain Transmission Status: Received by VLADIMIR RAYGOZA RD Ondansetron [Zofran Odt] 4 mg PO Q8H PRN PRN #10 tab PRN Reason: Nausea Transmission Status: Received by VLADIMIR RAYGOZA RD Referrals: Cesar Centeno MD [Primary Care Provider] - 5-7 Days
[2019-12-19 23:50] VITALS: BP 124/82; PULSE 72; RESP 16; O2SAT 98
== END 2019-12-19 23:55 | disposition home or self-care (01) ==
PROVIDERS: Emergency Provider Emergency Medicine; PCP Internal Medicine
DX: R10.30 Lower abdominal pain, unspecified (principal); R11.0 Nausea; R19.7 Diarrhea, unspecified; K58.9 Irritable bowel syndrome, unspecified; E03.9 Hypothyroidism, unspecified; F41.9 Anxiety disorder, unspecified; F17.200 Nicotine dependence, unspecified, uncomplicated; Z79.899 Other long term (current) drug therapy; Z87.442 Personal history of urinary calculi
CPT/HCPCS: 74177; 80048; 81001; 84703; 85025; 96361; 96374; 96375; 96376; 99283; J7030; Q9967; A4216; J2405

== ENCOUNTER 2019-12-24 15:43 | Emergency (ER) | payer MEDICARE, SELFPAY ==
[2019-12-24 15:45] VITALS: BP 136/98; PULSE 104; RESP 18; TEMP 36.4; O2SAT 99; BMI 24.0
--- NOTE | 2019-12-24 16:04 | EKG12_ITS ---
Test Reason : SOB Blood Pressure : / mmHG Vent. Rate : 076 BPM Atrial Rate : 076 BPM P-R Int : 150 ms QRS Dur : 084 ms QT Int : 376 ms P-R-T Axes : 074 085 076 degrees QTc Int : 423 ms Normal sinus rhythm Septal infarct , age undetermined Abnormal ECG Confirmed by LASHAUN PICKERING, KASSI ([id number]), video editor ALEJANDRO YARBROUGH ([id number]) on 12/27/2019 4:10:32 PM Referred By: ADOLFO Confirmed By:KASSI WILKS MD
--- NOTE | 2019-12-24 16:04 | RAD_ITS ---
STUDY: X-RAY CHEST REASON FOR EXAM: Female, 44 years old. Shortness of breath, hot flashes, hypothyroidism. TECHNIQUE: AP COMPARISON: 04/12/2019 FINDINGS: The lungs are clear and expanded. There is no demonstrated pleural abnormality. Normal size heart. Normal mediastinum and magaly. Normal visualized pulmonary arteries. Normal visualized aortic arch and descending thoracic aorta. Normal visualized thoracic spine. Normal visualized ribs, clavicles, and shoulders. There is no demonstrated abnormality of the visualized soft tissue structures of the upper abdomen. RAD/Chest 1 View (Portable) IMPRESSION: Stable, nonacute portable x-ray examination of the chest. Electronically Signed: Varun Reddy MD ([place]) at 16:36 EDT , Service support ,
--- NOTE | 2019-12-24 16:05 | ED.VIS.GEN ---
History of Present Illness Chief Complaint: General Illness Detail of Chief Complaint: mult complaints Informant: Patient Narrative: Patient states over the last few days she has felt like she has had a head cold. She has had some runny nose that is been clear, congestion, and sinus headache off and on. She states in the last couple days she has been having hot flashes, dyspnea with very little exertion, without any chest discomfort, palpitations, cough, fevers, she has been having some chills that she associates with hot flashes. She states that she forgot to take her thyroid replacement medication for about 1 week, she has the pills and started taking it again yesterday. She has developed no swelling, constipation and actually has had some off-and-on diarrhea. She states she has a history of IBS, major depression, and anxiety disorder. She states the thing that made her come to the ER today on Thursday is that she has become very short when her kids are frustrated her, she gets depressed and cries very easily and feels that her responses are exaggerated compared to normal. She denies any suicidal ideation. Patient presents during the national coronavirus emergency declaration/pandemic. She denies any known contact with anyone infected with COVID-19. She denies traveling out of the immediate area recently, nor any hospitalizations or surgeries recently. She denies any history of DVT or pulmonary embolus in the past. 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 - Past Medical History (1) Diverticulosis Status: Chronic (2) Major depression Status: Chronic (3) Anxiety Status: Chronic (4) History of kidney stones Status: Chronic (5) Hypothyroid Status: Chronic (6) IBS (irritable bowel syndrome) Status: Chronic Past Medical History - Allergies and Home Meds Allergies/Adverse Reactions: Allergies fentanyl Allergy (Verified 12/24/19 15:45) Anaphylaxis BRADYCARDIA ketorolac tromethamine [From Toradol] Adverse Reaction (Verified 12/24/19 15:45) Other STOMACH PAINS Primary Care Physician: Cesar Centeno MD [Primary Care Provider] - Surgical History: - - right kidney removed, total hysterectemy, exploratory lap Lives: With Family Smoking Status: Current every day smoker Drugs: Marijuana - Family History Maternal Family History: Reports: No pertinent history Paternal Family History: Reports: No pertinent history Review of Systems General: Reports: Chills, Malaise. Denies: Fever, Sweats Eyes: Denies: Visual changes - bilaterally, Diplopia ENT: Reports: Rhinorrhea, - - Nasal congestion, bifrontal sinus headaches off and on. Denies: Bilateral ear pain, Sore throat Cardiovascular: Denies: Chest pain, Palpitations Respiratory: Reports: Dyspnea on exertion. Denies: Cough, Sputum, Orthopnea Gastrointestinal: Reports: Diarrhea. Denies: Abdominal pain, Nausea, Vomiting, Constipation, Melena, Hematochezia Genitourinary: Denies: Dysuria, Hematuria, Frequency Musculoskeletal: Denies: Myalgias, Neck pain, Back pain, Extremity Pain Skin: Denies: Rash, Wounds Neurological: Reports: Headache - Not currently present. Denies: Weakness, Numbness Psych: Reports: Depression, Anxiety. Denies: Suicidal thoughts Physical Exam Vital Signs/Narrative: Vital Signs Temp Pulse Resp BP Pulse Ox 12/24/19 15:45 97.6 F L 104 H 18 136/98 H 99 Inital Vital Signs reviewed: Yes General: Well nourished, Well developed, No Acute Distress - Conversive in full sentences Head: Normocephalic, Atraumatic Eyes: Perrl, EOMI ENT: Moist mucous membranes, No rhinorrhea Neck: Supple, Nontender, No JVD Cardiovascular: Regular rate, Regular rhythm, No murmurs Respiratory: No distress, CTA bilaterally, Chest nontender Abdomen: Soft, Nontender, Nondistended, Normal bowel sounds Back: Nontender, Normal Inspection Extremities: Nontender, No edema. Negative for: Calf Tenderness Skin: Normal color, No rash, No Trauma Neurological: Alert, Oriented x3, Cranial nerves II-XII grossly intact, Normal Strength, Normal Sensation, Normal Gait Psychological: Normal Mood, - - Anxious Diagnostic/Tx/Re-eval Impressions Chest X-Ray 12/24/19 16:04 IMPRESSION: Stable, nonacute portable x-ray examination of the chest. Electronically Signed: Varun Reddy MD ([place]) at 16:36 EDT , Service support , 12/24/19 16:04 Chest 1 View (Portable) [RAD] Stat Laboratory Results 12/24/19 12/24/19 12/24/19 16:15 16:15 16:15 WBC 7.0 RBC 5.24 Hgb 15.2 H Hct 46.9 MCV 89.5 MCH 29.0 MCHC 32.4 RDW Std Deviation 44.9 H RDW Coeff of Doyle 13.6 Plt Count 214 MPV 10.7 Immature Gran % (Auto) 0.300 Neut % (Auto) 69.1 Lymph % (Auto) 20.4 [place] % (Auto) 9.5 Eos % (Auto) 0.4 Baso % (Auto) 0.3 Absolute Neuts (auto) 4.8 Absolute Lymphs (auto) 1.42 Nucleated RBC % 0 D-Dimer Quant (PE/DVT) 1.07 H* Sodium 137 Potassium 3.6 Chloride 104 Carbon Dioxide 25.0 Anion Gap 8 BUN 19 H Creatinine 0.96 Estim Creat Clear Calc 78.97 Est GFR (MDRD) Af Amer 81 Est GFR (MDRD) Non-Af 67 BUN/Creatinine Ratio 19.8 Glucose 121 H Calcium 9.7 Troponin I < 0.015 - Rhythm Strip Rhythm Strip: Sinus Rhythm Rate: 76 Ectopy: None - EKG Initial EKG Interpretation: Sinus Rhythm, No Acute Injury Pattern - nml EKG. nml axis. No S1Q3T3 pattern. - Medical Decision Making Although the patient has multiple symptoms, I do not think the majority of this is due to hypothyroid state. She has no pretibial edema, constipation, cold intolerance, or other classic hypothyroid symptoms. It is possible that this is simply a viral syndrome mixed with her anxiety, or something worse such as pleural effusion, pneumonia, electrolyte disorder, cardiac problems/dysrhythmia, etc. Also, she has been used to smoking marijuana for a couple of years for her anxiety, and she recently stopped and that could be playing into the symptoms. Tests were ordered to evaluate for a broad differential. These tests were unremarkable except for an elevated d-dimer, which obviously is nonspecific however is not able to be used to rule out pulmonary embolus. In discussing with her further with regards to this, she has had dyspnea like this with anxiety in the past, but when she becomes dyspneic just with cleaning out the litter box, arguing with her children, etc., her concern is that it may be something real instead of just her anxiety and she cannot tell. We had nursing ambulate her with pulse oximetry here in the emergency department. She went all the way around the emergency department, she had very mild symptoms, and states not nearly as short of breath as I was at home dealing with my teenage children. My suspicion is that this is a combination of anxiety, her head cold, and what ever is causing her hot flashes. There is no sign of a metabolic disturbance, I do not think she has COVID-19, she is very well-appearing and her chest x-ray shows no pneumonia, pleural effusion, pneumothorax, or other acute pathology. My suspicion for a true blood clot here is low. However, since she only has 1 kidney I do not feel that the risks of CT angiography here in this particular context outweigh the potential benefits. I do think it is reasonable to have her obtain outpatient lower extremity ultrasound and VQ scan, I will try to set her up for both of these as an outpatient to be obtained after the weekend when they are both available. I advised continue to take her thyroid medication in the meantime. She is comfortable with that plan and we discussed reasons to return. ED Disposition - Plan for ED Patient: Disposition: Home or Assisted Living Diagnosis: Viral upper respiratory infection, Hot flashes, Anxiety, Dyspnea, Hypothyroid Instructions: ED Stress React, ED Dyspnea, ED URI Viral Referrals: Cesar Centeno MD [Primary Care Provider] - As soon as possible (after you obtain the outpatient testing)
[2019-12-24 16:27] LABS: Absolute Lymphocyte Count 1.42 X10^3/uL (0.83-4.51); Absolute Neutrophil Count 4.8 X10^3/uL (2.0-7.7); Basophil# 0.02 X10^3/uL; Basophil% 0.3 % (0-1); Eosinophil# 0.03 X10^3/uL; Eosinophils% 0.4 % (0-5); Hematocrit 46.9 % (37-47); Hemoglobin 15.2 g/dL (12.0-15.0); Lymphocyte # 1.42 X10^3/ul (4.0); Lymphocyte % 20.4 % (19-41); Mean Corp Hgb Conc 32.4 g/dL (32-36); Mean Corpuscular Volume 89.5 fL (81-99); Mean Platelet Vol. 10.7 fl (6.2-12.0); Monocyte# 0.66 X10^3/uL; Monocyte% 9.5 % (0-10); NRBC Flagged by Analyzer 0 % (0-5); Neutrophil # 4.81 X10^3/uL (2.7-7.7); Neutrophil % 69.1 % (47-70); Platelet Count 214 K/mm3 (150-450); RBC Distribution Width CV 13.6 % (11.6-14.6); RBC Distribution Width SD 44.9 fl (35.1-43.9); Red Blood Count 5.24 M/mm3 (4.2-5.4)
[2019-12-24 16:46] LABS: D-Dimer Quantitative (DVT/PE) 1.07 FEU/ug/m (0.27-0.49)
[2019-12-24 16:48] LABS: Anion Gap 8 (5-15); BUN 19 mg/dL (7-18); BUN/Creat Ratio 19.8 RATIO (10-20); Calcium,Total 9.7 mg/dL (8.5-10.1); Chloride 104 mmol/L (98-107); Creatinine, Serum 0.96 mg/dL (0.55-1.02); EST Glomerular Filtration Rate 67 mL/min (>60); Est Glom Filt Rate - Afr Amer 81 mL/min (>60); Estimated Creatinine Clearance 78.97 ml/min; Glucose 121 mg/dL (74-106); Potassium 3.6 mmol/L (3.5-5.1); Sodium Level 137 mmol/L (136-145)
[2019-12-24 17:41] VITALS: O2SAT 96
[2019-12-24 18:04] VITALS: BP 131/67; PULSE 82; RESP 15; O2SAT 96
== END 2019-12-24 18:04 | disposition home or self-care (01) ==
PROVIDERS: Emergency Provider Emergency Medicine; PCP Internal Medicine
DX: J06.9 Acute upper respiratory infection, unspecified (principal); R23.2 Flushing; F41.9 Anxiety disorder, unspecified; R06.00 Dyspnea, unspecified; E03.9 Hypothyroidism, unspecified; K58.9 Irritable bowel syndrome, unspecified; F32.9 Major depressive disorder, single episode, unspecified; F17.200 Nicotine dependence, unspecified, uncomplicated; Z79.899 Other long term (current) drug therapy; Z87.442 Personal history of urinary calculi
CPT/HCPCS: 71045; 80048; 84484; 85025; 85379; 93005; 96360; 99283; J7040; A4216

== ENCOUNTER → 2019-12-25 11:09 | Outpatient (CLI) | payer MEDICARE, SELFPAY ==
[2019-12-24 15:45] VITALS: BMI 24.0
--- NOTE | 2019-12-25 11:16 | VDLE_ITS ---
Reason For Study: ELEVATED D-DIMER RIGHT LEFT GSV is normal. GSV is normal. CFV is compressible, spontaneous, phasic, CFV is compressible, spontaneous, phasic, competent and demonstrates normal competent, and demonstrates normal augmentation. augmentation. FV is compressible, spontaneous, phasic, FV is compressible, spontaneous, phasic, competent and demonstrates normal competent and demonstrates normal augmentation. augmentation. POP V is compressible, spontaneous, phasic, POP V is compressible, spontaneous, phasic, competent and demonstrates normal competent and demonstrates normal augmentation. augmentation. T/P Trunk is compressible. T/P Trunk is compressible. PTV is compressible. PTV is compressible. RT PerV is compressible. LT PerV is compressible. Procedure Exam performed in department. The exam was diagnostic. Interpretation Summary Deep veins of the lower extremities are bilaterally patent and compressible segmentally. There is no evidence of deep vein thrombosis on either side. Valvular competence appears intact within the proximal deep venous systems bilaterally. The great saphenous veins appear bilaterally patent and compressible segmentally. Ordering Physician: Saman Almanza Referring Physician: Cesar Centeno M.D. Performed By: Ariel Ferrsi RVT
== END ==
LOC: US 11:11
PROVIDERS: PCP Internal Medicine; Visit Provider Emergency Medicine
DX: R79.1 Abnormal coagulation profile (principal); R06.9 Unspecified abnormalities of breathing
CPT/HCPCS: 93970

== ENCOUNTER 2020-01-06 13:18 | Emergency (ER) | payer MEDICARE, MEDICAID, SELFPAY ==
[2020-01-06 13:20] VITALS: BP 145/90; PULSE 77; RESP 16; TEMP 36.5; O2SAT 100; BMI 25.1
[2020-01-06 14:11] LABS: Bacteria 0 SEEN /hpf (None Seen); Mucous, Urine 0 SEEN /hpf (<or=2+); Red Blood Cells-Urine 0 SEEN /hpf (0-5); Squamous Epithelial Cells - UA 0 SEEN /hpf (5-10); White Blood Cells 0 SEEN /hpf (0-5)
--- NOTE | 2020-01-06 14:13 | ED.DCSUM_ITS ---
History of Present Illness Informant: Patient - Abdominal Pain/Flank Pain Onset: Weeks - 2 weeks Context: Gradual Onset Timing: Intermittent Quality: Cramping Location: LLQ, Left Flank Current Severity: Moderate Maximum Severity: Moderate Worsened by: Nothing Relieved by: Remaining Still - Nausea/Vomiting/Emesis GI Symptom: Negative for: Nausea, Vomiting - Diarrhea/Melena/Hematochezia GI Symptom: Diarrhea. Negative for: Melena, Hematochezia Onset: Yesterday Stool Quality: Loose, Watery Severity: Mild Episodes: 2 Associated Symptoms: Negative for: Dysuria, Frequency, Hematuria, Urgency Narrative: 44-year-old female presents to the emergency department with left flank pain and left-sided abdominal pain. Been ongoing for several weeks. She has had 2 visits to the emergency department for similar symptoms without a diagnosis. Nothing makes it better or worse. Is moderate in severity. She had some diarrhea yesterday and this morning. No melena hematochezia. No fevers. No vomiting. No hematemesis or coffee-ground emesis. No chest pain or shortness of breath. No urinary symptoms. She is not lightheaded or dizzy. No sick contacts. Prior similar symptoms: Yes Recent Illness/Hospitalization: No <Ivan Raza - Last Filed: 01/06/20 15:11> <Toy Acuna - Last Filed: 01/06/20 15:17> Chief Complaint: Flank Pain Past Medical History Prior records reviewed: Yes Past Medical History: - - Diverticulitis and kidney stones Surgical History: hysterectomy, - - right kidney removed, total hysterectemy, exploratory lap Lives: With Family Smoking Status: Current every day smoker Alcohol: Occasional Drugs: Marijuana - Family History Maternal Family History: Reports: No pertinent history Paternal Family History: Reports: No pertinent history <Ivan Raza - Last Filed: 01/06/20 15:11> <Toy Acuna - Last Filed: 01/06/20 15:17> - Allergies and Home Meds Allergies/Adverse Reactions: Allergies fentanyl Allergy (Verified 01/06/20 13:20) Anaphylaxis BRADYCARDIA ketorolac tromethamine [From Toradol] Adverse Reaction (Verified 01/06/20 13:20) Other STOMACH PAINS Primary Care Physician: Cesar Centeno MD [Primary Care Provider] - Review of Systems All systems negative except as indicated General: Denies: Chills, Fever, Sweats Eyes: Denies: Visual changes - bilaterally, Diplopia ENT: Denies: Rhinorrhea, Sore throat Cardiovascular: Denies: Chest pain, Palpitations Respiratory: Denies: Dyspnea, Cough, Dyspnea on exertion Gastrointestinal: Reports: Abdominal pain, Diarrhea. Denies: Nausea, Vomiting, Constipation, Melena, Hematochezia Genitourinary: Denies: Dysuria, Hematuria, Frequency Musculoskeletal: Denies: Back pain, Extremity Pain Skin: Denies: Rash, Wounds Neurological: Denies: Headache, Weakness, Numbness <Ivan Raza - Last Filed: 01/06/20 15:11> Physical Exam Vital Signs/Narrative: Vital Signs Temp Pulse Resp BP Pulse Ox 01/06/20 13:20 97.7 F L 77 16 145/90 H 100 Inital Vital Signs reviewed: Yes General: Well nourished, Well developed, No Acute Distress Head: Normocephalic, Atraumatic Eyes: Perrl, EOMI ENT: Moist mucous membranes, No rhinorrhea Neck: Supple, Nontender Cardiovascular: Regular rate, Regular rhythm, No murmurs Respiratory: No distress, CTA bilaterally, Chest nontender Abdomen: Soft, Nontender, Nondistended, Normal bowel sounds Back: Nontender, Normal Inspection Extremities: Nontender, No edema Skin: Normal color, No rash Neurological: Alert, Oriented x3, Cranial nerves II-XII grossly intact, Normal Strength, Normal Sensation Psychological: Normal affect, Normal Mood <Ivan Raza - Last Filed: 01/06/20 15:11> Vital Signs/Narrative: Vital Signs Temp Pulse Resp BP Pulse Ox 01/06/20 13:20 97.7 F L 77 16 145/90 H 100 <Toy Acuna - Last Filed: 01/06/20 15:17> Diagnostic/Tx/Re-eval Laboratory Results 01/06/20 01/06/20 01/06/20 14:00 14:00 14:00 WBC 5.8 RBC 4.57 Hgb 13.6 Hct 43.7 MCV 95.6 MCH 29.8 MCHC 31.1 L RDW Std Deviation 49.0 H RDW Coeff of Doyle 14.1 Plt Count 206 MPV 10.9 Immature Gran % (Auto) 0.200 Neut % (Auto) 64.9 Lymph % (Auto) 23.4 [place] % (Auto) 10.4 H Eos % (Auto) 0.9 Baso % (Auto) 0.2 Absolute Neuts (auto) 3.8 Absolute Lymphs (auto) 1.35 Nucleated RBC % 0 Sodium 140 Potassium 3.8 Chloride 109 H Carbon Dioxide 29.0 Anion Gap 2 L BUN 12 Creatinine 0.82 Estim Creat Clear Calc 92.45 Est GFR (MDRD) Af Amer 98 Est GFR (MDRD) Non-Af 81 BUN/Creatinine Ratio 14.7 Glucose 90 Calcium 9.0 Total Bilirubin 0.30 AST 13 L ALT 22 Alkaline Phosphatase 88 Total Protein 7.3 Albumin 4.1 Globulin 3.2 Albumin/Globulin Ratio 1.3 Lipase 103 Urine Color Yellow Urine Clarity Clear Urine pH 6.0 Ur Specific [place] 1.010 Urine Protein Negative Urine Glucose (UA) Normal Urine Ketones Negative Urine Occult Blood Negative Urine Nitrite Negative Urine Bilirubin Negative Urine Urobilinogen Normal Ur Leukocyte Esterase Negative Urine RBC 0 SEEN Urine WBC 0 SEEN Ur Squamous Epith Cells 0 SEEN Urine Bacteria 0 SEEN Urine Mucus 0 SEEN - Medical Decision Making Patient was given IV Zofran. Laboratory work-up was unremarkable. Urinalysis negative. No red blood cells or white blood cells. No nitrates. Reviewing patient's chart over the last 6 weeks or so she has had [address] scans of her abdomen and pelvis. At this time she does not appear to be acting like she would have a kidney stone. Her abdomen is soft and nontender. She is able to tolerate by mouth. She has normal vital signs. Discussed with her at this time we do not feel repeat CT is indicated. She will follow-up with her primary care physician or return for worsening symptoms which we discussed. <Ivan Raza PA - Last Filed: 01/06/20 15:11> - Medical Decision Making Seeing the patient with our physician addictions counselor assistant. Middle-aged female with left sided abdominal flank pain. She is had a prior hysterectomy. She has had multiple CAT scans within the last several years. She has a history of IBS. She denies any fever or chills. No dysuria. Middle-aged female no acute distress vital signs stable afebrile. HEENT exam unremarkable. Lungs clear to auscultation. Heart regular rhythm no murmur. Abdomen soft. Nondistended. Normal bowel sounds. No peritoneal signs. She explains discomfort in the left lower quadrant but is not reproducibly tender. There is no hernia or mass. Right upper and lower quadrants are unremarkable. Normal bowel sounds and soft. Moving all 4 extremities. Back nontender. N eurologically she is awake and alert. Labs including CBC, chemistry and UA were unremarkable. We do not feel that she needs any further imaging today. She will be treated with IV Zofran and dischar ged with Zofran for home. Impression: 1. Acute left lower quad abdominal pain uncertain etiology 2. History of IBS <Toy Acuna - Last Filed: 01/06/20 15:17> ED Disposition <Ivan Raza - Last Filed: 01/06/20 15:11> <Toy Acuna - Last Filed: 01/06/20 15:17> - Plan for ED Patient: Disposition: Home or Assisted Living Diagnosis: Left flank pain, History of kidney stones, IBS (irritable bowel syndrome) Instructions: ED Flank Pain Uncertain Cause Prescriptions: Ondansetron [Zofran Odt] 8 mg PO Q8H PRN PRN #20 tab PRN Reason: Nausea Transmission Status: Received by VLADIMIR TORRES-[facility] Referrals: Cesar Centeno MD [Primary Care Provider] -
[2020-01-06 14:22] LABS: Absolute Lymphocyte Count 1.35 X10^3/uL (0.83-4.51); Absolute Neutrophil Count 3.8 X10^3/uL (2.0-7.7); Basophil# 0.01 X10^3/uL; Basophil% 0.2 % (0-1); Eosinophil# 0.05 X10^3/uL; Eosinophils% 0.9 % (0-5); Hematocrit 43.7 % (37-47); Hemoglobin 13.6 g/dL (12.0-15.0); Lymphocyte # 1.35 X10^3/ul (4.0); Lymphocyte % 23.4 % (19-41); Mean Corp Hgb Conc 31.1 g/dL (32-36); Mean Corpuscular Hgb 29.8 pg (27.0-32.0); Mean Corpuscular Volume 95.6 fL (81-99); Mean Platelet Vol. 10.9 fl (6.2-12.0); Monocyte% 10.4 % (0-10); NRBC Flagged by Analyzer 0 % (0-5); Neutrophil # 3.76 X10^3/uL (2.7-7.7); Neutrophil % 64.9 % (47-70); Platelet Count 206 K/mm3 (150-450); RBC Distribution Width CV 14.1 % (11.6-14.6); Red Blood Count 4.57 M/mm3 (4.2-5.4); White Blood Count 5.8 K/mm3 (4.4-11.0)
[2020-01-06 14:30] LABS: ALB/GLOB Ratio 1.3 RATIO (0.9-2.4); AST(SGOT) 13 U/L (15-37); Alanine Aminotransfer ALT/SGPT 22 U/L (13-56); Albumin, Serum 4.1 g/dL (3.2-5.0); Alkaline Phosphatase 88 U/L (45-117); Anion Gap 2 (5-15); BUN 12 mg/dL (7-18); BUN/Creat Ratio 14.7 RATIO (10-20); Chloride 109 mmol/L (98-107); Creatinine, Serum 0.82 mg/dL (0.55-1.02); EST Glomerular Filtration Rate 81 mL/min (>60); Est Glom Filt Rate - Afr Amer 98 mL/min (>60); Estimated Creatinine Clearance 92.45 ml/min; Globulin 3.2 g/dL (2.2-4.2); Glucose 90 mg/dL (74-106); Lipase 103 U/L (73-393); Potassium 3.8 mmol/L (3.5-5.1); Protein, Total 7.3 g/dL (6.4-8.2); Sodium Level 140 mmol/L (136-145)
[2020-01-06 14:44] LABS: Color, Urine Yellow (Yellow); Glucose, Dipstick Normal (Normal); Ketone-Dipstick Negative (Negative); Leukocyte Esterase-Dipstick Negative /ul (Negative); Nitrite-Dipstick Negative (Negative); Occult Blood-Urine Negative /ul (Negative); Protein-Dipstick Negative (Negative); Urine Bilirubin Dipstick Negative (Negative); Urine Clarity Clear (Clear); Urine Urobilinogen Normal (Normal)
[2020-01-06] MEDS: Ondansetron 4 MG/2 ML Vial IV (15:25)
[2020-01-06 15:42] VITALS: BP 114/76; PULSE 56; RESP 18
== END 2020-01-06 15:44 | disposition home or self-care (01) ==
PROVIDERS: Emergency Provider Physician Assistant Medical; PCP Internal Medicine
DX: R10.32 Left lower quadrant pain (principal); K58.9 Irritable bowel syndrome, unspecified; R19.7 Diarrhea, unspecified; F17.200 Nicotine dependence, unspecified, uncomplicated; Z79.899 Other long term (current) drug therapy; Z87.442 Personal history of urinary calculi; Z90.710 Acquired absence of both cervix and uterus
CPT/HCPCS: 80053; 81001; 83690; 85025; 96374; 99283; A4216; J2405

== ENCOUNTER 2020-03-17 16:25 | Emergency (ER) | payer MEDICARE, MEDICAID, SELFPAY ==
[2020-03-17 16:27] VITALS: BP 111/72; PULSE 77; RESP 16; TEMP 35.8; O2SAT 99; BMI 21.4
--- NOTE | 2020-03-17 16:28 | ED.VIS.GEN ---
History of Present Illness Chief Complaint: Abd Pain Informant: Patient Narrative: 45-year-old female presenting with abdominal pain which she states has had for about a week. She describes it as the left lower quadrant pain tender. She points to one focal point. She has a history of diverticulitis. She is not had a fever, chills. She has nausea without vomiting. No constipation or diarrhea. She is making stool and urine. - Past Medical History (1) Anxiety Status: Chronic (2) Diverticulosis Status: Chronic (3) Hypothyroid Status: Chronic (4) IBS (irritable bowel syndrome) Status: Chronic Past Medical History - Allergies and Home Meds Allergies/Adverse Reactions: Allergies fentanyl Allergy (Verified 03/17/20 16:27) Anaphylaxis BRADYCARDIA ketorolac tromethamine [From Toradol] Adverse Reaction (Verified 03/17/20 16:27) Other STOMACH PAINS Primary Care Physician: Cesar Centeno MD [Primary Care Provider] - Prior records reviewed: Yes Past Medical History: - - Reviewed in problem list Surgical History: hysterectomy, - - right kidney removed, total hysterectemy, exploratory lap Lives: Alone Smoking Status: Current every day smoker Alcohol: None Drugs: None - Family History Maternal Family History: Reports: No pertinent history Paternal Family History: Reports: No pertinent history Review of Systems General: Denies: Chills, Fever, Sweats Eyes: Denies: Visual changes - bilaterally, Diplopia ENT: Denies: Rhinorrhea, Sore throat Cardiovascular: Denies: Chest pain, Palpitations Respiratory: Reports: Dyspnea Gastrointestinal: Reports: Abdominal pain, Nausea. Denies: Vomiting, Diarrhea Genitourinary: Denies: Dysuria, Hematuria, Frequency Musculoskeletal: Denies: Back pain, Extremity Pain Skin: Denies: Rash, Wounds Neurological: Denies: Headache, Weakness, Numbness Psych: Denies: Depression, Anxiety, Suicidal thoughts, Suicidal ideations, -, - Physical Exam Inital Vital Signs reviewed: Yes General: Well nourished, No Acute Distress Head: Normocephalic, Atraumatic Eyes: Perrl. Negative for: EOMI, Pale conjunctiva ENT: Moist mucous membranes, No rhinorrhea Cardiovascular: Regular rate, Regular rhythm, No murmurs Abdomen: Soft, Nondistended, Tender - Tenderness to palpation left lower quadrant. Abdomen is nonperitoneal. Back: Nontender, Spinal tenderness. Negative for: CVA tenderness Extremities: Nontender, No edema Skin: Normal color, No rash. Negative for: Cyanosis, Diaphoresis Neurological: Alert, Oriented x3 Psychological: Normal affect, Normal Mood Diagnostic/Tx/Re-eval - Medical Decision Making Patient presents with left lower quadrant abdominal pain and nausea. She does admit to some dyspepsia as well. She is taking Prilosec. On physical exam she is tender to palpation in left lower quadrant. Her lab work was all within normal limits. CT of the abdomen pelvis was negative. She was improved with morphine and Zofran. I will send her home prescriptions for Zofran and Phenergan. We discussed return precautions. Impression: 1. Abdominal pain 2. Nausea ED Disposition - Plan for ED Patient: Disposition: Home or Assisted Living Instructions: ED Abdominal Pain Unkn Cause Fem Prescriptions: proMETHazine tablet [Phenergan] 25 mg PO Q6H PRN PRN #10 tab PRN Reason: Nausea Transmission Status: Pending to [facility] Ondansetron [Zofran Odt] 4 mg PO Q8H PRN PRN #10 tab PRN Reason: Nausea Transmission Status: Pending to [facility] Referrals: Cesar Centeno MD [Primary Care Provider] -
--- NOTE | 2020-03-17 16:38 | CT_ITS ---
STUDY: CT ABDOMEN AND PELVIS WITH CONTRAST REASON FOR EXAM: Female, 45 years old. BACK AND ABD PAIN X 4 DAYS. RADIATION DOSAGE (If Supplied By Facility): CTDIvol = ( 13.50 ) mGy, DLP = ( 717.77 ) mGycm TECHNIQUE: Transaxial images were obtained from the dome of the diaphragm to the symphysis pubis without oral contrast. IV 100mL Isovue-370 was administered. Sagittal and coronal images were reconstructed. Individualized dose optimization techniques were used for this CT. COMPARISON: 12/19/2019 FINDINGS: There is mild atelectasis in the lung bases. The visualized portions of the heart are within normal limits. Mild focal fatty infiltration adjacent to falciform ligament. Normal gallbladder and extrahepatic biliary system. Normal spleen. Normal pancreas. Normal bilateral adrenal glands. Absent right kidney. 2 mm calcification of the left kidney as seen on image 40, stable. Normal visualized stomach. Normal small intestine. There are multiple colonic diverticula consistent with diverticulosis. The appendix is visualized and appears normal. There is atherosclerosis. Normal inferior vena cava. Normal retroperitoneum. Normal urinary bladder. There is absence of the uterus consistent with a prior hysterectomy. Normal abdominal wall. Grade 1 spondylolisthesis of L5-S1 with bilateral L5 spondylolysis. CT/Abdomen/Pelvis W IV Cont ONLY IMPRESSION: 1. No acute inflammatory process or bowel obstruction. 2. Nonobstructing left renal calculus. 3. Absent right kidney. Electronically Signed: Varun Reddy MD ([place]) at 17:31 EST , Service support ,
[2020-03-17] MEDS: Morphine 4 MG/ML Syringe IV ×2 (16:44→17:41)
[2020-03-17] MEDS: Ondansetron 4 MG/2 ML Vial IV (16:45)
[2020-03-17] MEDS: 0.9% Normal Saline 1,000 ML 1000 ML IV (16:45)
[2020-03-17 16:56] LABS: Bacteria 0 SEEN /hpf (None Seen); Mucous, Urine 0 SEEN /hpf (<or=2+); Red Blood Cells-Urine 0 SEEN /hpf (0-5); Squamous Epithelial Cells - UA 0 SEEN /hpf (5-10); White Blood Cells 0 SEEN /hpf (0-5)
[2020-03-17 16:57] LABS: Absolute Lymphocyte Count 1.64 X10^3/uL (0.83-4.51); Absolute Neutrophil Count 4.8 X10^3/uL (2.0-7.7); Basophil# 0.02 X10^3/uL; Basophil% 0.3 % (0-1); Eosinophil# 0.03 X10^3/uL; Eosinophils% 0.4 % (0-5); Hematocrit 45.1 % (37-47); Hemoglobin 14.9 g/dL (12.0-15.0); Lymphocyte # 1.64 X10^3/ul (4.0); Lymphocyte % 22.8 % (19-41); Mean Corpuscular Hgb 30.7 pg (27.0-32.0); Mean Platelet Vol. 11.1 fl (6.2-12.0); Monocyte# 0.73 X10^3/uL; Monocyte% 10.2 % (0-10); NRBC Flagged by Analyzer 0 % (0-5); Neutrophil # 4.75 X10^3/uL (2.7-7.7); Platelet Count 192 K/mm3 (150-450); RBC Distribution Width CV 12.9 % (11.6-14.6); RBC Distribution Width SD 44.2 fl (35.1-43.9); Red Blood Count 4.85 M/mm3 (4.2-5.4); White Blood Count 7.2 K/mm3 (4.4-11.0)
[2020-03-17 16:59] LABS: Color, Urine Yellow (Yellow); Glucose, Dipstick Normal (Normal); Ketone-Dipstick Negative (Negative); Leukocyte Esterase-Dipstick 25 /ul (Negative); Nitrite-Dipstick Negative (Negative); Occult Blood-Urine Negative /ul (Negative); Protein-Dipstick Negative (Negative); Urine Bilirubin Dipstick Negative (Negative); Urine Clarity Sl. Cloudy (Clear); Urine Urobilinogen Normal (Normal)
[2020-03-17 17:03] LABS: Anion Gap 3 (5-15); BUN 16 mg/dL (7-18); BUN/Creat Ratio 16.1 RATIO (10-20); Calcium,Total 9.4 mg/dL (8.5-10.1); Chloride 107 mmol/L (98-107); EST Glomerular Filtration Rate 64 mL/min (>60); Est Glom Filt Rate - Afr Amer 78 mL/min (>60); Glucose 97 mg/dL (74-106); Potassium 3.8 mmol/L (3.5-5.1); Sodium Level 140 mmol/L (136-145)
[2020-03-17 17:26] VITALS: BP 118/64; PULSE 53; RESP 16
[2020-03-17] MEDS: proMETHazine 25 MG/ML Syringe 12.5 MG IV (17:41)
[2020-03-17 17:59] VITALS: BP 113/76; PULSE 53; RESP 16; O2SAT 98
== END 2020-03-17 18:00 | disposition home or self-care (01) ==
PROVIDERS: Emergency Provider Student in an Organized Health Care Education/Training Program; PCP Internal Medicine
DX: R10.32 Left lower quadrant pain (principal); R11.0 Nausea; E03.9 Hypothyroidism, unspecified; K58.9 Irritable bowel syndrome, unspecified; F41.9 Anxiety disorder, unspecified; F17.200 Nicotine dependence, unspecified, uncomplicated; Z79.899 Other long term (current) drug therapy; Z87.19 Personal history of other diseases of the digestive system
CPT/HCPCS: 74177; 80048; 81001; 85025; 96361; 96374; 96375; 96376; 99283; J7030; Q9967; A4216; J2405

== ENCOUNTER 2020-04-17 17:20 | Emergency (ER) | payer MEDICARE, MEDICAID, SELFPAY ==
[2020-04-17 17:22] VITALS: BP 133/83; PULSE 86; RESP 18; TEMP 35.9; O2SAT 97; BMI 25.8
--- NOTE | 2020-04-17 17:45 | ED.DCSUM_ITS ---
History of Present Illness Chief Complaint: Dental Narrative: Patient is a 45-year-old female who presents with dental pain. The began yesterday. She complains of right upper dental pain and pain on the right side of her face. No swelling. No fevers. No vomiting. She was previously told that that tooth needed a root canal but she could not afford it. Past Medical History - Allergies and Home Meds Allergies/Adverse Reactions: Allergies fentanyl Allergy (Verified 04/17/20 17:21) Anaphylaxis BRADYCARDIA ketorolac tromethamine [From Toradol] Adverse Reaction (Verified 04/17/20 17:21) Other STOMACH PAINS Primary Care Physician: Cesar Centeno MD [Primary Care Provider] - Past Medical History: - - Depression, anxiety, hypothyroidism Surgical History: hysterectomy, - - right kidney removed, total hysterectemy, exploratory lap Smoking Status: Current every day smoker - Family History Maternal Family History: Reports: No pertinent history Paternal Family History: Reports: No pertinent history Review of Systems All systems negative except as indicated General: Denies: Fever Eyes: Denies: Visual changes - bilaterally ENT: Reports: - - Dental pain Cardiovascular: Denies: Chest pain Respiratory: Denies: Dyspnea Gastrointestinal: Denies: Nausea, Vomiting Musculoskeletal: Denies: Myalgias, Arthralgias Skin: Denies: Rash Neurological: Denies: Headache Allergy: Denies: Uticaria Physical Exam Vital Signs/Narrative: Vital Signs Temp Pulse Resp BP Pulse Ox 04/17/20 17:22 96.6 F L 86 18 133/83 H 97 Inital Vital Signs reviewed: Yes General: Well nourished Head: Normocephalic Eyes: EOMI ENT: Moist mucous membranes, - - Patient has had a multiple prior dental extractions. She has focal decay of the right maxillary first molar. She does not have a focal dental abscess amenable to incision and drainage no facial soft tissue swelling no trismus no sublingual edema Neck: Supple Cardiovascular: Regular rate Respiratory: No distress Skin: Normal color Neurological: Alert Psychological: Normal affect Diagnostic/Tx/Re-eval - Medical Decision Making Patient will be treated with penicillin and she was given a short course of [place] for acute pain control. She was advised to follow-up with her dentist or she was also given a list of local dental clinics. She understands to return for new or worsening symptoms. ED Disposition - Plan for ED Patient: Disposition: Home or Assisted Living Diagnosis: Pain, dental Instructions: ED Dental Pain Prescriptions: Hydrocodone Bitart/Apap 5-325 [[place] 5MG-325MG] 1 tab PO Q6H PRN PRN 2 Days #8 tab PRN Reason: Pain Prescription Printed Penicillin V Potassium 500 mg PO 4X/DAY #40 tab Prescription Printed Referrals: Cesar Centeno MD [Primary Care Provider] -
[2020-04-17] MEDS: HYDROcodone Bitartrate/Apap 5/325 Tablet PO (18:04)
[2020-04-17] MEDS: Penicillin Vk 250 MG Tablet 500 MG PO (18:04)
== END 2020-04-17 18:07 | disposition home or self-care (01) ==
LOC: ED 17:52
PROVIDERS: Emergency Provider Emergency Medicine; PCP Internal Medicine
DX: K08.89 Other specified disorders of teeth and supporting structures (principal); E03.9 Hypothyroidism, unspecified; F32.9 Major depressive disorder, single episode, unspecified; F41.9 Anxiety disorder, unspecified; F17.200 Nicotine dependence, unspecified, uncomplicated; Z79.899 Other long term (current) drug therapy; Z90.710 Acquired absence of both cervix and uterus
CPT/HCPCS: 99283

== ENCOUNTER 2020-05-15 08:46 | Inpatient (IN) | payer MEDICARE, MEDICAID, SELFPAY ==
[2020-05-15 08:47] VITALS: BP 141/85; PULSE 88; RESP 20; TEMP 36.6; O2SAT 97; BMI 26.6
--- NOTE | 2020-05-15 09:15 | CT_ITS ---
STUDY: CT ABDOMEN AND PELVIS WITHOUT CONTRAST REASON FOR EXAM: Female, 45 years old. LT FLANK PAIN, HX-KS, ONLY HAS RT KIDNEY RADIATION DOSAGE (If Supplied By Facility): CTDIvol = ( 7.13 ) mGy, DLP = ( 384.91 ) mGycm TECHNIQUE: Transaxial images were obtained from the dome of the diaphragm to the symphysis pubis without oral contrast, and without intravenous contrast. Sagittal and coronal images were reconstructed. Individualized dose optimization techniques were used for this CT. COMPARISON: Comparison is made with prior examination dated 03/17/2020. FINDINGS: The visualized lung bases are unremarkable. The visualized portions of the heart are within normal limits. Normal liver. Normal gallbladder and extrahepatic biliary system. Normal spleen. Normal pancreas. Normal bilateral adrenal glands. Absent right kidney. 2 adjacent tiny calculi are seen in the upper pole calyx of the left kidney. There is hypertrophy of the left kidney. Mild to moderate degree of left hydronephrosis and left hydroureter due to a 3.5 mm calculus at the left ureterovesical junction. Normal visualized stomach. Normal small intestine. Normal colon. The appendix is visualized and appears normal. Normal abdominal aorta. Normal inferior vena cava. Normal retroperitoneum. Normal urinary bladder. There is absence of the uterus consistent with a prior hysterectomy. Normal abdominal wall. Grade 1 anterior listhesis of L5 on S1 with spondylolysis of the pars interarticularis of the L5 vertebra. CT/Abdomen/Pelvis without Cont IMPRESSION: 3.5 mm calculus at left ureterovesical junction causing left hydronephrosis and left hydroureter. Absent right kidney. Stable punctate calcifications in the upper pole calyx of the left kidney. Electronically Signed: Diaz Carroll MD at 10:07 EST , Service support ,
--- NOTE | 2020-05-15 09:19 | ED.DCSUM_ITS ---
- ER Visit Summary Date of Service: 05/15/20 Chief Complaint: [Left flank pain] History of Present Illness: The patient is a 45 F [presents to the emergency department complaint left leg pain that initially started 2 days ago. Patient states that initially the pain was more mild and yesterday actually, she might be getting better. Since last evening the pain is become more severe and she is had multiple episodes of vomiting. She denies any diarrhea. Patient states the pain is similar to when she is passed kidney stones. Patient has had some urinary frequency and put out small amounts of urine that is dark and she questions whether is blood in it. Patient with history of kidney stones and urinary tract infections. She has had a prior right-sided nephrectomy and she is not sure why or if it was congenital issue related to her kidney. Patient denies any fevers. Patient has history of hypothyroidism, IBS, depression, and history kidney stones. Patient's had a total hysterectomy.] Physical Examination: [HEENT-PERRLA, EOMI. Cranial nerves II through XII grossly intact. TMs clear. Mucous membranes moist. No adenopathy. Cardiovascular-regular rate and rhythm without murmur or ectopy Lungs-clear to auscultation, chest wall stable without crepitus or subcu emp hysema Abdomen-normoactive bowel sounds, soft. Patient has tenderness diffusely over the suprapubic region as well as the left lower quadrant. Patient has CVA tenderness on the left. No rebound, rigidity, or perianal signs on exam. Extremities-intact ?4, normal range of motion, normal pulses, atraumatic] Test Results: [CBC with differential obtained showed a white count of 14.3, hemoglobin 17, hematocrit 47, platelets 286. Chemistries unremarkable. BUN slightly elevated and creatinine was 1.49. Urinalysis ordered and pending. CT scan of the abdomen and pelvis without contrast showed a 3.5 mm left UVJ stone with hydroureter and hydronephrosis. Right kidney was noted to be absent.] Emergency Department Course and Treatment: [IV line established on arrival. Patient was given normal saline 150 cc an hour. Patient was ordered Dilaudid 1 mg IV as well as Zofran 4 mg IV.] Patient continued to have pain and was remedicated with Dilaudid 1 mg IV and Phenergan 12.5 mg IV. Case was discussed with urologist on-call who will admit patient. Treatment Plan: [Admit] Disposition: [Admit] Impression: [Kidney stone with colic Intractable pain Acute kidney injury] This note was generated with [employer] dictation software. It may contain incorrect words, spelling, and punctuation that were not noted in review of the chart prior to signing ED Disposition - Plan for ED Patient: Referrals: Cesar Centeno MD [Primary Care Provider] -
[2020-05-15] MEDS: HYDROmorphone 1 MG/ML Syringe IV ×2 (09:31→10:23)
[2020-05-15] MEDS: 0.9% Normal Saline 1,000 ML 125 ML IV ×3 (09:31→20:43)
[2020-05-15] MEDS: Ondansetron 4 MG/2 ML Vial IV ×2 (09:31→11:47)
[2020-05-15 09:32] LABS: Absolute Lymphocyte Count 2.13 X10^3/uL (0.83-4.51); Absolute Neutrophil Count 10.8 X10^3/uL (2.0-7.7); Basophil# 0.02 X10^3/uL; Basophil% 0.1 % (0-1); Eosinophil# 0.01 X10^3/uL; Eosinophils% 0.1 % (0-5); Hematocrit 46.6 % (37-47); Hemoglobin 15.2 g/dL (12.0-15.0); Lymphocyte # 2.13 X10^3/ul (4.0); Lymphocyte % 14.9 % (19-41); Mean Corp Hgb Conc 32.6 g/dL (32-36); Mean Corpuscular Hgb 29.6 pg (27.0-32.0); Mean Corpuscular Volume 90.7 fL (81-99); Mean Platelet Vol. 10.3 fl (6.2-12.0); Monocyte# 1.23 X10^3/uL; Monocyte% 8.6 % (0-10); NRBC Flagged by Analyzer 0 % (0-5); Neutrophil # 10.82 X10^3/uL (2.7-7.7); Platelet Count 286 K/mm3 (150-450); RBC Distribution Width CV 13.5 % (11.6-14.6); RBC Distribution Width SD 44.9 fl (35.1-43.9); Red Blood Count 5.14 M/mm3 (4.2-5.4); White Blood Count 14.3 K/mm3 (4.4-11.0)
[2020-05-15 09:47] LABS: Anion Gap 8 (5-15); BUN 31 mg/dL (7-18); BUN/Creat Ratio 20.8 RATIO (10-20); Calcium,Total 9.6 mg/dL (8.5-10.1); Chloride 101 mmol/L (98-107); Creatinine, Serum 1.49 mg/dL (0.55-1.02); EST Glomerular Filtration Rate 40 mL/min (>60); Est Glom Filt Rate - Afr Amer 49 mL/min (>60); Estimated Creatinine Clearance 50.35 ml/min; Glucose 109 mg/dL (74-106); Potassium 3.9 mmol/L (3.5-5.1); Sodium Level 134 mmol/L (136-145)
[2020-05-15] MEDS: proMETHazine 25 MG/ML Syringe 12.5 MG IV (10:24)
[2020-05-15 10:27] VITALS: BP 137/94; PULSE 65; RESP 16; O2SAT 97
--- NOTE | 2020-05-15 10:32 | HP.PCM_ITS ---
History of Present Illness Date of Admission: 05/15/20 Chief Complaint: left distal ureteral calculi The patient is a 45 year old female a solitary left kidney comes in with obstructing stone in distal left ureter elevated creatinine acute kidney injury will admit to the hospital for further care Past Medical History Past Medical History (Chronic Problems): Chronic Problems Anxiety (Chronic) Hypothyroid (Chronic) History of kidney stones (Chronic) IBS (irritable bowel syndrome) (Chronic) Diverticulosis (Chronic) Major depression (Chronic) Allergies fentanyl Allergy (Verified 05/15/20 08:49) Anaphylaxis BRADYCARDIA ketorolac tromethamine [From Toradol] Adverse Reaction (Verified 05/15/20 08:49) Other STOMACH PAINS Home Medications: Ambulatory Orders Medication Instructions Recorded Fluoxetine HCl [Prozac] 20 mg PO DAILY 09/13/19 Gabapentin [Neurontin] 600 mg PO 4X/DAY 09/13/19 Levothyroxine [Synthroid] 112 mcg PO DAILY 09/13/19 Dicyclomine HCl [Bentyl] 20 mg PO TIDAC #20 cap 12/19/19 Clonazepam [Klonopin] 1 mg PO TID PRN PRN 12/24/19 Ondansetron [Zofran Odt] 4 mg PO Q8H PRN PRN #10 tab 03/17/20 Penicillin V Potassium 500 mg PO 4X/DAY #40 tab 04/17/20 Surgical History: hysterectomy, - - right kidney removed, total hysterectemy, exploratory lap Smoking Status: Light Smoker (<10/day) - *Family History Maternal History Items: No pertinent history Paternal History Items: No pertinent history Review of Systems Constitutional: Denies: Chills, Fever, Weight Change HEENT: Denies: Head Aches, Sinus Congestion, Sinus Drainage Cardiovascular: Denies: Chest Pain, Palpitations Respiratory: Denies: Cough, Shortness of breath at rest, Sputum production Gastrointestinal: Denies: Abdominal Pain, Nausea, Vomiting Genitourinary: Denies: Dysuria Musculoskeletal: Denies: Joint Pain, Joint Tenderness Skin: Denies: Rash, Wounds Neurological: Denies: Numbness, Tingling, Focal weakness Psychiatric: Denies: Anxiety, Depression, Homicidal Ideations, Suicidal Idea tions Hematologic/ Lymphatic: Denies: Easy Bruising, Easy Bleeding VTE Information - Inpt Only VTE Present on Admission: No - Physical Exam Vitals/I&O's: Vital Signs Temp Pulse Resp BP Pulse Ox 97.9 F 65 16 137/94 H 97 05/15/20 08:47 05/15/20 10:27 05/15/20 10:27 05/15/20 10:27 05/15/20 10:27 Oxygen Delivery Method Room Air Weight: 81.647 kg Body Mass Index (BMI) 26.6 General: Alert, Oriented x3, Cooperative HEENT: Atraumatic, PERRLA, EOMI, Normocephalic Neck: Supple, No JVD, Negative Carotid Bruits Lungs: Clear to auscultation, Normal air movement Cardiovascular: Regular rate, No murmurs Abdomen: Bowel Sounds Present, Soft, Non Tender Extremities: No edema, Capillary Refill Less than 3 Seconds Skin: No rashes, No breakdown Musculoskeletal: No Tenderness to Palpation of Joints or Extremities Neurological: Cranial nerves II-XII grossly intact Psych/Mental Status: Normal Affect, Appropriate Laboratory Results 05/15/20 09:00: WBC 14.3 H, RBC 5.14, Hgb 15.2 H, Hct 46.6, MCV 90.7, MCH 29.6, MCHC 32.6, RDW Std Deviation 44.9 H, RDW Coeff of Doyle 13.5, Plt Count 286, MPV 10.3, Immature Gran % (Auto) 0.300, Neut % (Auto) 76.0 H, Lymph % (Auto) 14.9 L, [place] % (Auto) 8.6, Eos % (Auto) 0.1, Baso % (Auto) 0.1, Absolute Neuts (auto) 10.8 H, Absolute Lymphs (auto) 2.13, Nucleated RBC % 0 05/15/20 09:00: Sodium 134 L, Potassium 3.9, Chloride 101, Carbon Dioxide 25.0, Anion Gap 8, BUN 31 H, Creatinine 1.49 H, Estim Creat Clear Calc 50.35, Est GFR (MDRD) Af Amer 49 L, Est GFR (MDRD) Non-Af 40 L, BUN/Creatinine Ratio 20.8 H, Glucose 109 H, Calcium 9.6 Current Medications Sodium Chloride () 1,000 mls @ 125 mls/hr IV .Q8H IS[facility] Last Admin: 02/09/21 09:31 Dose: 125 mls/hr Documented by: Assessment/Plan All Active Problems Diverticulitis (Resolved) Abdominal pain (Acute) 45-year-old female presents with a kidney stone 3.5 mm stone the distal left ureter solitary left kidney at the hospital for hydration plan to take the surgery tomorrow for cystoscopy left stent placement.
--- NOTE | 2020-05-15 10:33 | EKG12_ITS ---
Test Reason : PREOP Blood Pressure : / mmHG Vent. Rate : 066 BPM Atrial Rate : 066 BPM P-R Int : 162 ms QRS Dur : 090 ms QT Int : 434 ms P-R-T Axes : 070 067 033 degrees QTc Int : 454 ms Normal sinus rhythm Low voltage QRS (Limb Leads) Confirmed by MARECLA PICKERING, ANDI ([id number]), science editor MATHEW LIMA ([id number]) on 05/17/2020 9:32:02 AM Referred By: BEVERLY Confirmed By:ANDI MEDRANO MD
--- NOTE | 2020-05-15 10:36 | NURSING ---
MED SURG JUAN LEFT KIDNEY STONE, INTRACABLE PAIN, KATIE
[2020-05-15 10:46] LABS: Mucous, Urine 0 SEEN /hpf (<or=2+)
[2020-05-15 10:55] VITALS: BP 137/94; PULSE 67; RESP 16; TEMP 36.7; O2SAT 98
[2020-05-15 10:55] LABS: Color, Urine Yellow (Yellow); Glucose, Dipstick Normal (Normal); Ketone-Dipstick 5 mg/dl (Negative); Leukocyte Esterase-Dipstick 25 /ul (Negative); Nitrite-Dipstick Negative (Negative); Occult Blood-Urine 250 /ul (Negative); Protein-Dipstick Negative (Negative); Specific Gravity, Urine 1.015 (1.002-1.030); Urine Bilirubin Dipstick Negative (Negative); Urine Clarity Sl. Cloudy (Clear); Urine Urobilinogen Normal (Normal)
[2020-05-15 10:56] LABS: Bacteria RARE /hpf (None Seen); Red Blood Cells-Urine 25-50 SEEN /hpf (0-5); Squamous Epithelial Cells - UA 0-5 SEEN /hpf (5-10); White Blood Cells 0-5 SEEN /hpf (0-5)
[2020-05-15 11:34] VITALS: BMI 26.6
[2020-05-15 11:37] VITALS: BP 111/78; PULSE 62; RESP 18; TEMP 37.1; O2SAT 96
[2020-05-15] MEDS: Morphine 2 MG/ML Syringe IV ×2 (11:47→18:29)
[2020-05-15 11:55] VITALS: BMI 26.6
[2020-05-15] MEDS: clonazePAM 1 MG Tablet PO ×2 (12:13→20:49)
[2020-05-15] MEDS: Gabapentin 600 MG Tablet PO ×2 (12:13→20:46)
[2020-05-15] MEDS: Dicyclomine 10 MG Capsule 20 MG PO (12:13)
--- NOTE | 2020-05-15 13:26 | CASEMGMT ---
RN CM Assessment Note Intro role of CM to patient who is awake, alert and able to participate in assessment. Patient states she is independent, no care needs at home. Diagnosis: kidney stone PCP: Dr. Centeno Insurance: [facility] Preferred Pharmacy: [facility] Prescription Benefit: yes LNOK: Parents Living Arrangements: Lives independently with no care needs identified. Tranportation: drives DME: none HHC: none Patient DC Goals: Home DC Plan: Home CM available for discharge planning coordination. Contact CM for any concerns/needs that may arise. Rodrigo PICHARDON RN ACM
[2020-05-15] MEDS: oxyCODONE 5 MG Tablet 10 MG PO (14:47)
[2020-05-15] MEDS: Cefazolin 1 GM/50 ML BAG IV ×2 (14:47→21:36)
[2020-05-15] MEDS: proCHLORPERazine 10 MG/2 ML Vial 5 MG IV ×2 (14:48→18:27)
[2020-05-15 16:03] VITALS: BP 128/72; PULSE 67; RESP 18; TEMP 36.9; O2SAT 97
[2020-05-15 20:50] VITALS: BP 99/65; PULSE 61; RESP 16; TEMP 36.7; O2SAT 97
[2020-05-16] VITALS (11 sets, daily range): BP systolic 92–158; BP diastolic 59–99; PULSE 59–78; RESP 12–18; TEMP 36.4–38.3; O2SAT 94–98; BMI 24.9
[2020-05-16] MEDS: 0.9% Saline Lock 10 ML Syringe IV ×2 (02:03→06:07)
[2020-05-16] MEDS: Morphine 2 MG/ML Syringe IV ×3 (02:03→10:16)
[2020-05-16] MEDS: proCHLORPERazine 10 MG/2 ML Vial 5 MG IV ×4 (02:03→19:40)
[2020-05-16 05:28] LABS: Absolute Lymphocyte Count 2.36 X10^3/uL (0.83-4.51); Absolute Neutrophil Count 2.8 X10^3/uL (2.0-7.7); Basophil# 0.02 X10^3/uL; Basophil% 0.3 % (0-1); Eosinophils% 1.7 % (0-5); Hematocrit 40.3 % (37-47); Hemoglobin 12.6 g/dL (12.0-15.0); Lymphocyte # 2.36 X10^3/ul (4.0); Lymphocyte % 39.3 % (19-41); Mean Corp Hgb Conc 31.3 g/dL (32-36); Mean Corpuscular Hgb 29.2 pg (27.0-32.0); Mean Corpuscular Volume 93.5 fL (81-99); Monocyte# 0.74 X10^3/uL; Monocyte% 12.3 % (0-10); NRBC Flagged by Analyzer 0 % (0-5); Neutrophil # 2.77 X10^3/uL (2.7-7.7); Neutrophil % 46.1 % (47-70); Platelet Count 217 K/mm3 (150-450); RBC Distribution Width CV 13.6 % (11.6-14.6); RBC Distribution Width SD 47.2 fl (35.1-43.9); Red Blood Count 4.31 M/mm3 (4.2-5.4)
[2020-05-16] MEDS: Cefazolin 1 GM/50 ML BAG IV ×3 (05:41→21:41)
[2020-05-16] MEDS: 0.9% Normal Saline 1,000 ML 125 ML IV ×3 (05:41→17:51)
[2020-05-16] MEDS: Levothyroxine 112 MCG Tablet PO (05:41)
[2020-05-16 06:07] LABS: Anion Gap 5 (5-15); BUN 17 mg/dL (7-18); BUN/Creat Ratio 18.9 RATIO (10-20); Chloride 111 mmol/L (98-107); EST Glomerular Filtration Rate 72 mL/min (>60); Est Glom Filt Rate - Afr Amer 87 mL/min (>60); Estimated Creatinine Clearance 83.36 ml/min; Glucose 84 mg/dL (74-106); Potassium 3.8 mmol/L (3.5-5.1); Sodium Level 141 mmol/L (136-145)
[2020-05-16] MEDS: Ondansetron 4 MG/2 ML Vial IV (10:16)
[2020-05-16] MEDS: oxyCODONE 5 MG Tablet 10 MG PO (11:05)
--- NOTE | 2020-05-16 12:14 | PN_ITS ---
Subjective: 45-year-old female admitted for kidney stone she still having severe amount of pain this this afternoon she is requesting Dilaudid for pain control is that she still wrapped up in a ball on her bed and severe pain. We will prescribe her more pain medicine Dilaudid plan to take her surgery today for the kidney stone prior place a stent. - Physical Exam Vitals/I&O's: Vital Signs Temp Pulse Resp BP Pulse Ox 97.6 F L 63 16 99/61 96 05/16/20 08:10 05/16/20 08:10 05/16/20 08:10 05/16/20 08:10 05/16/20 08:10 Oxygen Delivery Method Room Air Weight: 76.6 kg Body Mass Index (BMI) 26.6 Intake and Output for Last 24 Hours 05/14/20 05/15/20 05/16/20 23:59 23:59 23:59 Intake Total 2370.84 / 3340.84 1961.66 / 1961.66 Output Total 550 / 1100 750 / 750 Balance 1820.84 / 2240.84 1211.66 / 1211.66 General: Alert, Oriented x3, Cooperative HEENT: Atraumatic, PERRLA, EOMI, Normocephalic Neck: Supple, No JVD, Negative Carotid Bruits Lungs: Clear to auscultation, Normal air movement Cardiovascular: Regular rate, No murmurs Abdomen: Bowel Sounds Present, Soft, Non Tender Extremities: No edema, Capillary Refill Less than 3 Seconds Skin: No rashes, No breakdown Musculoskeletal: No Tenderness to Palpation of Joints or Extremities Neurological: Cranial nerves II-XII grossly intact Psych/Mental Status: Normal Affect, Appropriate Microbiology Past 72 Hours 05/15/20 12:26 Mucosa - Nose SARS-CoV-2 Antigen (Rapid) - Final Laboratory Results 05/16/20 05:04: WBC 6.0, RBC 4.31, Hgb 12.6, Hct 40.3, MCV 93.5, MCH 29.2, MCHC 31.3 L, RDW Std Deviation 47.2 H, RDW Coeff of Doyle 13.6, Plt Count 217, MPV 10.0, Immature Gran % (Auto) 0.300, Neut % (Auto) 46.1 L, Lymph % (Auto) 39.3, [place] % (Auto) 12.3 H, Eos % (Auto) 1.7, Baso % (Auto) 0.3, Absolute Neuts (auto) 2.8, Absolute Lymphs (auto) 2.36, Nucleated RBC % 0 05/16/20 05:04: Sodium 141, Potassium 3.8, Chloride 111 H, Carbon Dioxide 25.0, Anion Gap 5, BUN 17, Creatinine 0.90, Estim Creat Clear Calc 83.36, Est GFR (MDRD) Af Amer 87, Est GFR (MDRD) Non-Af 72, BUN/Creatinine Ratio 18.9, Glucose 84, Calcium 8.0 L, TSH 17.50 H Current Medications Acetaminophen (Acetaminophen 325 Mg Tablet) 650 mg PO Q6H PRN PRN PRN Reason: Pain Score 1-10/Temp > 100.7 F Clonazepam (Clonazepam 1 Mg Tablet) 1 mg PO TID PRN PRN PRN Reason: ANXIETY Last Admin: 05/15/20 20:49 Dose: 1 mg Documented by: Dicyclomine HCl (Dicyclomine 10 Mg Capsule) 20 mg PO TIDAC [facility] Last Admin: 05/16/20 10:36 Dose: Not Given Documented by: Fluoxetine HCl (Fluoxetine 20 Mg Capsule) 20 mg PO DAILY [facility] Last Admin: 05/16/20 10:12 Dose: Not Given Documented by: Gabapentin (Gabapentin 600 Mg Tablet) 600 mg PO 4X/DAY [facility] Last Admin: 05/16/20 10:12 Dose: Not Given Documented by: Sodium Chloride () 1,000 mls @ 125 mls/hr IV .Q8H [facility] Last Infusion: 05/16/20 06:11 Dose: 125 mls/hr Documented by: Cefazolin Sodium () 1 gm in 50 mls @ 100 mls/hr IV Q8 [facility] Stop: 05/20/20 14:01 Last Infusion: 05/16/20 06:11 Dose: Infused Documented by: Levothyroxine Sodium (Levothyroxine 112 Mcg Tablet) 112 mcg PO DAILY@0600 [facility] Last Admin: 05/16/20 05:41 Dose: 112 mcg Documented by: Morphine Sulfate (Morphine 2 Mg/Ml Syringe) 2 mg IV Q3H PRN PRN PRN Reason: Pain Score 6-10 Last Admin: 05/16/20 10:16 Dose: 2 mg Documented by: Nicotine (Nicotine 14 Mg Patch) 14 mg TD DAILY [facility] Last Admin: 05/15/20 18:31 Dose: 14 mg Documented by: Ondansetron HCl (Ondansetron 4 Mg/2 Ml Vial) 4 mg IV Q8H PRN PRN PRN Reason: NAUSEA/VOMITING Last Admin: 05/16/20 10:16 Dose: 4 mg Documented by: Oxycodone HCl (Oxycodone 5 Mg Tablet) 10 mg PO Q4H PRN PRN PRN Reason: Pain Score 4-5 Last Admin: 05/16/20 11:05 Dose: 10 mg Documented by: Prochlorperazine Edisylate (Prochlorperazine 10 Mg/2 Ml Vial) 5 mg IV Q4H PRN PRN PRN Reason: Breakthrough nausea/vomiting Last Admin: 05/16/20 12:04 Dose: 5 mg Documented by: Sodium Chloride (0.9% Saline Lock 10 Ml Syringe) 10 - 40 ml IV UD PRN PRN Reason: SALINE FLUSH Last Admin: 05/16/20 06:07 Dose: 10 ml Documented by: Medical Necessity - Tobacco Use Smoking Status: Light Smoker (<10/day) Assessment/Plan All Active Problems Diverticulitis (Resolved) Abdominal pain (Acute) 45-year-old female with obstructing stone plan for cystoscopy and stent placement
[2020-05-16] MEDS: HYDROmorphone 0.5 MG/0.5 ML SYRINGE IV ×2 (12:59→19:40)
--- NOTE | 2020-05-16 16:18 | PCM.DC.URO ---
Discharge Diet: Light diet - advance as tolerated Discharge Activity: Return to Normal Activity Allergies/Adverse Reactions: Allergies fentanyl Allergy (Verified 05/15/20 08:49) Anaphylaxis BRADYCARDIA ketorolac tromethamine [From Toradol] Adverse Reaction (Verified 05/15/20 08:49) Other STOMACH PAINS Medications to take at Discharge Fluoxetine HCl [Prozac] 20 mg PO DAILY 09/13/19 Gabapentin [Neurontin] 600 mg PO 4X/DAY 09/13/19 Levothyroxine [Synthroid] 112 mcg PO DAILY 09/13/19 Dicyclomine HCl [Bentyl] 20 mg PO TIDAC #20 cap 12/19/19 Clonazepam [Klonopin] 1 mg PO TID PRN PRN 12/24/19 Ondansetron [Zofran Odt] 4 mg PO Q8H PRN PRN #10 tab 03/17/20 Cephalexin [Keflex] 500 mg PO Q8 #14 cap 05/16/20 Oxycodone HCl/Acetaminophen [Percocet 5/325] 1 tablet PO Q4H PRN PRN 7 Days #14 tablet 05/16/20 The following prescriptions were given: Cephalexin [Keflex] 500 mg PO Q8 #14 cap Transmission Status: Pending to [facility] Oxycodone HCl/Acetaminophen [Percocet 5/325] 1 tablet PO Q4H PRN PRN 7 Days #14 tablet PRN Reason: Pain Transmission Status: Sent to [facility] Primary Care Physician: Cesar Centeno MD [Primary Care Provider] - Test Results: Test results from this visit will be discussed in further detail at your follow-up appointment, if applicable. Please Follow Up With: Todd Mcknight MD When: in 2 weeks, please call to make an appointment. Proposed Discharge Date: 05/17/20
[2020-05-16] MEDS: Lidocaine Jelly 2% 20 ML Syringe (URO-JET) 20 APPLIC (16:21)
--- NOTE | 2020-05-16 16:32 | OP.PCM_ITS ---
Report of Operation Date of Procedure: 05/16/20 Pre-Operative Diagnosis: Obstructive left ureteral calculi Post-Operative Diagnosis: Same Surgery/Procedure Performed:: Cystoscopy, left retrograde pyelogram, interpretation fluoroscopic images, left stent placement. Description of Surgical Findings:: Patient was taken back to the operating room after induction of general anesthesia, the patient was placed in dorsolithotomy position. The urethra and genitals were prepped and draped in usual sterile fashion. Using a 21 Taiwanese rigid cystourethroscope the entire length of the urethra was normal then went into the bladder. Identified the trigone the left and right ureteral orifice. I then cannulated the left orifice and advanced a wire up into the kidney. I then backloaded a 5 Taiwanese open ended catheter over the wire and injected contr ast to delineate the anatomy. After the retrograde was performed I then used fluoroscopic images and guidance to advanced a wire up into the kidney and over the 0.038 glidewire I advanced a 6 Taiwanese by 26 cm double pigtail stent. I then pulled the 0.038 Glidewire off and the stent coiled in the kidney bladder good position. The bladder was then drained. We confirmed the position of the stent by fluoroscopy. Patient anesthetic was reversed and was taken back to the PACU in good condition. Type of Anesthesia:: Local MAC Drains: left stent - Admit VTE Documentation VTE Present on Admission: No VTE Mechan Device Prophylaxis: SCD's
[2020-05-16] MEDS: Gabapentin 600 MG Tablet PO ×2 (17:48→21:41)
[2020-05-16] MEDS: clonazePAM 1 MG Tablet PO (17:51)
[2020-05-17] MEDS: proCHLORPERazine 10 MG/2 ML Vial 5 MG IV ×2 (01:19→08:11)
[2020-05-17] MEDS: HYDROmorphone 0.5 MG/0.5 ML SYRINGE IV ×2 (01:19→08:12)
[2020-05-17 01:29] VITALS: BP 117/82; PULSE 55; RESP 18; TEMP 36.9; O2SAT 99
[2020-05-17] MEDS: clonazePAM 1 MG Tablet PO (02:08)
[2020-05-17] MEDS: 0.9% Normal Saline 1,000 ML 125 ML IV (02:11)
[2020-05-17 05:39] VITALS: BP 120/81; PULSE 58; RESP 16; TEMP 36.7; O2SAT 98
[2020-05-17] MEDS: Cefazolin 1 GM/50 ML BAG IV (05:44)
[2020-05-17] MEDS: Levothyroxine 112 MCG Tablet PO (05:46)
--- NOTE | 2020-05-17 07:50 | PCM.DC.SUM ---
Discharge Date and Diagnosis Date of Admission: 05/15/20 Date of Discharge: 05/17/20 - Secondary Discharge Diagnosis Chronic Problems: Chronic Problems Anxiety (Chronic) Hypothyroid (Chronic) History of kidney stones (Chronic) IBS (irritable bowel syndrome) (Chronic) Diverticulosis (Chronic) Major depression (Chronic) Hospital Course and Treatment Operations: - - Cystoscopy and stent placement left side Summary of Care Provided: The patient is a 45 year old female who presents with obstructing stone and severe pain in the left side she underwent cystoscopy and stent placement she was given IV antibiotics for infection pain control. During her hospitalization no events occurred her pain is now under control with the stent in place she will go home today with antibiotics and pain medicine. Plan is to bring her back as an outpatient once the infection is cleared for ureteroscopy and laser of the stone and stent removal at that point. - Physical Exam Vitals/I&O's: Vital Signs Temp Pulse Resp BP Pulse Ox 98.0 F 58 L 16 120/81 H 98 05/17/20 05:39 05/17/20 05:39 05/17/20 05:39 05/17/20 05:39 05/17/20 05:39 Oxygen Delivery Method Room Air Weight: 76.6 kg Body Mass Index (BMI) 24.9 Intake and Output for Last 24 Hours 05/15/20 05/16/20 05/17/20 23:59 23:59 23:59 Intake Total 2370.84 / 3340.84 4149.17 / 4149.17 993.75 / 993.75 Output Total 550 / 1100 750 / 1300 1150 / 1150 Balance 1820.84 / 2240.84 3399.17 / 2849.17 -156.25 / -156.25 General: Alert, Oriented x3, Cooperative HEENT: Atraumatic, PERRLA, EOMI, Normocephalic Neck: Supple, No JVD, Negative Carotid Bruits Lungs: Clear to auscultation, Normal air movement Cardiovascular: Regular rate, No murmurs Abdomen: Bowel Sounds Present, Soft, Non Tender Extremities: No edema, Capillary Refill Less than 3 Seconds Skin: No rashes, No breakdown Musculoskeletal: No Tenderness to Palpation of Joints or Extremities Neurological: Cranial nerves II-XII grossly intact Psych/Mental Status: Normal Affect, Appropriate Microbiology Past 72 Hours 05/15/20 12:26 Mucosa - Nose SARS-CoV-2 Antigen (Rapid) - Final Current Medications Acetaminophen (Acetaminophen 325 Mg Tablet) 650 mg PO Q6H PRN PRN PRN Reason: Pain Score 1-10/Temp > 100.7 F Clonazepam (Clonazepam 1 Mg Tablet) 1 mg PO TID PRN PRN PRN Reason: ANXIETY Last Admin: 05/17/20 02:08 Dose: 1 mg Documented by: Dicyclomine HCl (Dicyclomine 10 Mg Capsule) 20 mg PO TIDAC [facility] Last Admin: 05/17/20 05:45 Dose: Not Given Documented by: Fluoxetine HCl (Fluoxetine 20 Mg Capsule) 20 mg PO DAILY [facility] Last Admin: 05/16/20 10:12 Dose: Not Given Documented by: Gabapentin (Gabapentin 600 Mg Tablet) 600 mg PO 4X/DAY [facility] Last Admin: 05/16/20 21:41 Dose: 600 mg Documented by: Hydromorphone HCl (Hydromorphone 0.5 Mg/0.5 Ml Syringe) 0.5 mg IV Q2H PRN PRN PRN Reason: Pain Score 6-10 Last Admin: 05/17/20 01:19 Dose: 0.5 mg Documented by: Sodium Chloride () 1,000 mls @ 125 mls/hr IV .Q8H [facility] Last Infusion: 05/17/20 06:14 Dose: 125 mls/hr Documented by: Cefazolin Sodium () 1 gm in 50 mls @ 100 mls/hr IV Q8 [facility] Stop: 05/20/20 14:01 Last Infusion: 05/17/20 06:14 Dose: Infused Documented by: Levothyroxine Sodium (Levothyroxine 112 Mcg Tablet) 112 mcg PO DAILY@0600 [facility] Last Admin: 05/17/20 05:46 Dose: 112 mcg Documented by: Nicotine (Nicotine 14 Mg Patch) 14 mg TD DAILY [facility] Last Admin: 05/16/20 12:21 Dose: Not Given Documented by: Ondansetron HCl (Ondansetron 4 Mg/2 Ml Vial) 4 mg IV Q8H PRN PRN PRN Reason: NAUSEA/VOMITING Last Admin: 05/16/20 10:16 Dose: 4 mg Documented by: Oxycodone HCl (Oxycodone 5 Mg Tablet) 10 mg PO Q4H PRN PRN PRN Reason: Pain Score 4-5 Last Admin: 05/16/20 11:05 Dose: 10 mg Documented by: Prochlorperazine Edisylate (Prochlorperazine 10 Mg/2 Ml Vial) 5 mg IV Q4H PRN PRN PRN Reason: Breakthrough nausea/vomiting Last Admin: 05/17/20 01:19 Dose: 5 mg Documented by: Sodium Chloride (0.9% Saline Lock 10 Ml Syringe) 10 - 40 ml IV UD PRN PRN Reason: SALINE FLUSH Last Admin: 05/16/20 06:07 Dose: 10 ml Documented by: Discharge Diet: Light diet - advance as tolerated Discharge Activity: Return to Normal Activity Home Medications: Medications to take at Discharge Fluoxetine HCl [Prozac] 20 mg PO DAILY 09/13/19 Gabapentin [Neurontin] 600 mg PO 4X/DAY 09/13/19 Levothyroxine [Synthroid] 112 mcg PO DAILY 09/13/19 Dicyclomine HCl [Bentyl] 20 mg PO TIDAC #20 cap 12/19/19 Clonazepam [Klonopin] 1 mg PO TID PRN PRN 12/24/19 Ondansetron [Zofran Odt] 4 mg PO Q8H PRN PRN #10 tab 03/17/20 Cephalexin [Keflex] 500 mg PO Q8 #14 cap 05/16/20 Oxycodone HCl/Acetaminophen [Percocet 5/325] 1 tab PO Q4H PRN PRN 7 Days #14 tab 05/16/20 Following Prescriptions Were Given to Patient: Cephalexin [Keflex] 500 mg PO Q8 #14 cap Transmission Status: Received by [facility] Oxycodone HCl/Acetaminophen [Percocet 5/325] 1 tab PO Q4H PRN PRN 7 Days #14 tab PRN Reason: Pain Transmission Status: Received by [facility] Primary Care Physician: Cesar Centeno MD [Primary Care Provider] - Please Follow Up With: Todd Mcknight MD When: in 2 weeks, please call to make an appointment. Medical Necessity - Tobacco Use Smoking Status: Light Smoker (<10/day) Meaningful Use Info Meaningful Use Diagnoses (Choose all that apply): None applicable
[2020-05-17 08:02] VITALS: BP 144/91; PULSE 56; RESP 18; TEMP 36.9; O2SAT 100
[2020-05-17] MEDS: Gabapentin 600 MG Tablet PO (08:17)
[2020-05-17] MEDS: FLUoxetine 20 MG Capsule PO (08:17)
--- NOTE | 2020-05-18 13:39 | CASEMGMT ---
RN CM Discharge Follow-Up Phone Call. Lace: 14 Strata: 4 Discharge Date: 05/17/2020 Adm Dx: Kidney Stone, Solitary Kidney Attempted discharge f/u phone call. No answer. Non-identifying VM left for pt to return call if she has any questions/concerns/needs. Phone number provided for this RN GETACHEW. Sammi PICHARDON RN CM
== END 2020-05-17 09:08 | disposition home or self-care (01) | DRG 661 ==
LOC: ED 10:36 → MS3 10:51
PROVIDERS: Admitting Provider Urology; Emergency Provider Emergency Medicine; PCP Internal Medicine; Visit Provider Urology
PROC: 0T778DZ Dilation of Left Ureter with Intraluminal Device, Via Natural or Artificial Opening Endoscopic (ICD-10-PCS; principal; 2020-05-16 15:45)
DX: N13.2 Hydronephrosis with renal and ureteral calculous obstruction (principal); N17.9 Acute kidney failure, unspecified; E03.9 Hypothyroidism, unspecified; K58.9 Irritable bowel syndrome, unspecified; Z20.822 Contact with and (suspected) exposure to COVID-19; F32.9 Major depressive disorder, single episode, unspecified; F41.9 Anxiety disorder, unspecified; F17.200 Nicotine dependence, unspecified, uncomplicated; Z79.890 Hormone replacement therapy; Z79.899 Other long term (current) drug therapy; Z87.442 Personal history of urinary calculi; Z90.5 Acquired absence of kidney
CPT/HCPCS: 74176; 76000; 80048; 81001; 84443; 85025; 87426; 93005; 99283; 99406; J7030; A4216; C1769; C2617; J2405

== ENCOUNTER 2020-05-23 22:46 | Emergency (ER) | payer MEDICARE, MEDICAID, SELFPAY ==
[2020-05-16 12:49] VITALS: BMI 24.9
[2020-05-23 22:47] VITALS: BP 124/58; PULSE 81; RESP 14; TEMP 36.6; O2SAT 98; BMI 26.4
--- NOTE | 2020-05-23 23:01 | CT_ITS ---
STUDY: CT ABDOMEN AND PELVIS WITHOUT CONTRAST REASON FOR EXAM: Female, 45 years old. LEFT FLANK PAIN AND HEMATURIA TONIGHT, DIARRHEA X 2DAYS, PT CURRENTLY HAS LEFT URETERAL STENT IN PLACE AND IS SCHEDULED FOR LITHOTRIPSY ON THURSDAY, RIGHT NEPHRECTOMY DUE TO ONLY 30% FUNCTION, [facility] RADIATION DOSAGE (If Supplied By Facility): CTDIvol = ( 9.16 ) mGy, DLP = ( 491.79 ) mGycm TECHNIQUE: Transaxial images were obtained from the dome of the diaphragm to the symphysis pubis without oral contrast, and without intravenous contrast. Sagittal and coronal images were reconstructed. Individualized dose optimization techniques were used for this CT. COMPARISON: CT of abdomen and pelvis dated May 15, 2020 FINDINGS: Status post placement of a left internal ureteral stent which appears to be in good position. Interval resolution of previously seen left hydronephrosis. Multiple punctate calyceal stones scattered throughout the left kidney reidentified. Previously seen left UVJ stone is no longer present. The right kidney is absent. No free air free fluid is seen. No bowel dilatation is present. Minimal dependent atelectasis is seen in the lung bases. Normal liver. Normal gallbladder and extrahepatic biliary system. Normal spleen. Normal pancreas. Normal bilateral adrenal glands. Normal visualized stomach. Normal small intestine. Normal colon. The appendix is visualized and appears normal. Normal abdominal aorta. Normal inferior vena cava. Normal retroperitoneum. Normal urinary bladder. There is absence of the uterus consistent with a prior hysterectomy. Normal abdominal wall. Stable and unremarkable osseous structures. Small simple cyst seen in the right femoral head neck junction CT/Abdomen/Pelvis without Cont IMPRESSION: 1. Status post placement of a left internal ureteral stent which appears to be in good position. Interval resolution of previously seen left hydronephrosis. Multiple punctate calyceal stones scattered throughout the left kidney reidentified. Previously seen left UVJ stone is no longer present. The right kidney is absent. Electronically Signed: Ricki Maldonado MD at 23:49 EST , Service support ,
--- NOTE | 2020-05-23 23:02 | ED.VIS.GEN ---
History of Present Illness Chief Complaint: Flank Pain Narrative: Patient is a 45-year-old female who presents with hematuria and left-sided abdominal and flank pain. She had a recent hospitalization for a ureteral calculus. She has a solitary left kidney. She had a ureteral stent placed. This was last week. She was discharged with symptoms under control with plan for lithotripsy this Thursday. She states she has had diarrhea for the past 2 days. This may be related to antibiotics. She developed some lower abdominal cramping and pressure which she initially thought may just be related to the diarrhea. However the she developed left flank and flank pain and developed gross hematuria. She does complain of urinary urgency. No fevers. She reports nausea without vomiting. Past Medical History - Allergies and Home Meds Allergies/Adverse Reactions: Allergies fentanyl Allergy (Verified 05/23/20 22:50) Anaphylaxis BRADYCARDIA ketorolac tromethamine [From Toradol] Adverse Reaction (Verified 05/23/20 22:50) Other STOMACH PAINS Primary Care Physician: Cesar Centeno MD [Primary Care Provider] - Past Medical History: - - Depression and anxiety, urolithiasis, hypothyroidism Surgical History: hysterectomy, - - right kidney removed, total hysterectemy, exploratory lap Smoking Status: Light Smoker (<10/day) - Family History Maternal Family History: Reports: No pertinent history Paternal Family History: Reports: No pertinent history Review of Systems All systems negative except as indicated General: Denies: Fever Eyes: Denies: Visual changes - bilaterally ENT: Denies: Bilateral ear pain Cardiovascular: Denies: Chest pain Respiratory: Denies: Dyspnea Gastrointestinal: Reports: Abdominal pain, Nausea, Diarrhea. Denies: Vomiting Genitourinary: Reports: Hematuria, - - Urinary urgency Musculoskeletal: Denies: Myalgias, Arthralgias Skin: Denies: Rash Neurological: Denies: Headache Allergy: Denies: Uticaria Physical Exam Vital Signs/Narrative: Vital Signs Temp Pulse Resp BP Pulse Ox 05/23/20 22:47 97.8 F 81 14 124/58 H 98 Inital Vital Signs reviewed: Yes General: Well nourished, Well developed Head: Normocephalic Eyes: EOMI ENT: Moist mucous membranes Neck: Supple Cardiovascular: Regular rate, Regular rhythm Respiratory: No distress, CTA bilaterally Abdomen: Soft, - - Mild diffuse abdominal tenderness greatest in the left lower abdomen Back: CVA tenderness - Left CVA tenderness Skin: Normal color Neurological: Alert Psychological: Normal affect Diagnostic/Tx/Re-eval Impressions Abdomen/Pelvis CT 05/23/20 23:01 IMPRESSION: 1. Status post placement of a left internal ureteral stent which appears to be in good position. Interval resolution of previously seen left hydronephrosis. Multiple punctate calyceal stones scattered throughout the left kidney reidentified. Previously seen left UVJ stone is no longer present. The right kidney is absent. Electronically Signed: Ricki Maldonado MD at 23:49 EST , Service support , 05/23/20 23:01 CT Abd [Abdomen/Pelvis without Cont] [CT] Stat Laboratory Results 05/23/20 05/23/20 05/23/20 23:15 23:15 Unknown WBC 8.8 RBC 4.20 Hgb 12.3 Hct 39.8 MCV 94.8 MCH 29.3 MCHC 30.9 L RDW Std Deviation 48.4 H RDW Coeff of Doyle 13.9 Plt Count 253 MPV 9.9 Immature Gran % (Auto) 0.900 Neut % (Auto) 55.8 Lymph % (Auto) 27.3 [place] % (Auto) 12.0 H Eos % (Auto) 3.7 Baso % (Auto) 0.3 Absolute Neuts (auto) 4.9 Absolute Lymphs (auto) 2.39 Nucleated RBC % 0 Sodium 141 Potassium 4.0 Chloride 111 H Carbon Dioxide 24.0 Anion Gap 6 BUN 16 Creatinine 1.06 H Estim Creat Clear Calc 70.78 Est GFR (MDRD) Af Amer 72 Est GFR (MDRD) Non-Af 60 BUN/Creatinine Ratio 15.1 Glucose 96 Calcium 8.4 L Urine Color Red Urine Clarity Turbid Urine pH 7.0 Ur Specific [place] 1.020 Urine Protein 500 H Urine Glucose (UA) Normal Urine Ketones 15 H Urine Occult Blood 250 H Urine Nitrite Negative Urine Bilirubin Negative Urine Urobilinogen Normal Ur Leukocyte Esterase Negative Urine RBC > 100 SEEN Urine WBC 5-10 SEEN Ur Squamous Epith Cells 0-5 SEEN Urine Bacteria 0 SEEN Urine Mucus 1+ Urine Test Negative - Medical Decision Making Patient was treated with IV fluids, morphine, Zofran. CT shows stent to be in good position, previously visualized left UVJ calculus no longer present. Labs unremarkable except hematuria. She does not have evidence of infection leukocyte esterase negative and nitrite negative. Her pain is beginning to return on reevaluation but she is resting comfortably. She was given additional morphine. She was previously on Percocet after procedure but is out. She was provided a prescription for another short course of Percocet. She was advised to follow-up with her urologist as soon as possible. She is agreeable to this plan. She understands to return for new or worsening symptoms. Patient was discharged. ED Disposition - Plan for ED Patient: Disposition: Home or Assisted Living Diagnosis: History of ureter stent, Left flank pain, Hematuria Instructions: ED Hematuria, ED Kidney Stone, Passed Prescriptions: Oxycodone HCl/Acetaminophen [Percocet 5/325] 1 tab PO Q6H PRN PRN 3 Days #12 tab PRN Reason: Pain Prescription Printed Referrals: Cesar Centeno MD [Primary Care Provider] - Todd Mcknight MD [STAFF PHYSICIAN] -
[2020-05-23 23:15] LABS: Bacteria 0 SEEN /hpf (None Seen)
[2020-05-23] MEDS: Ondansetron 4 MG/2 ML Vial IV (23:15)
[2020-05-23] MEDS: 0.9% Normal Saline 1,000 ML 1000 ML IV (23:15)
[2020-05-23] MEDS: Morphine 4 MG/ML Syringe IV (23:15)
[2020-05-23 23:17] LABS: Color, Urine Red (Yellow); Glucose, Dipstick Normal (Normal); Ketone-Dipstick 15 mg/dl (Negative); Leukocyte Esterase-Dipstick Negative /ul (Negative); Nitrite-Dipstick Negative (Negative); Occult Blood-Urine 250 /ul (Negative); Protein-Dipstick 500 mg/dl (Negative); Urine Bilirubin Dipstick Negative (Negative); Urine Clarity Turbid (Clear); Urine Urobilinogen Normal (Normal)
[2020-05-23 23:23] LABS: Internal QC Validated? YES +Cl - CLEAR BKGD
[2020-05-23 23:24] LABS: Pregnancy, Urine Negative Negative
[2020-05-23 23:32] LABS: Absolute Lymphocyte Count 2.39 X10^3/uL (0.83-4.51); Absolute Neutrophil Count 4.9 X10^3/uL (2.0-7.7); Anion Gap 6 (5-15); BUN 16 mg/dL (7-18); BUN/Creat Ratio 15.1 RATIO (10-20); Basophil# 0.03 X10^3/uL; Basophil% 0.3 % (0-1); Calcium,Total 8.4 mg/dL (8.5-10.1); Chloride 111 mmol/L (98-107); Creatinine, Serum 1.06 mg/dL (0.55-1.02); EST Glomerular Filtration Rate 60 mL/min (>60); Eosinophil# 0.32 X10^3/uL; Eosinophils% 3.7 % (0-5); Est Glom Filt Rate - Afr Amer 72 mL/min (>60); Estimated Creatinine Clearance 70.78 ml/min; Glucose 96 mg/dL (74-106); Hematocrit 39.8 % (37-47); Hemoglobin 12.3 g/dL (12.0-15.0); Lymphocyte # 2.39 X10^3/ul (4.0); Lymphocyte % 27.3 % (19-41); Mean Corp Hgb Conc 30.9 g/dL (32-36); Mean Corpuscular Hgb 29.3 pg (27.0-32.0); Mean Corpuscular Volume 94.8 fL (81-99); Mean Platelet Vol. 9.9 fl (6.2-12.0); Monocyte# 1.05 X10^3/uL; NRBC Flagged by Analyzer 0 % (0-5); Neutrophil # 4.89 X10^3/uL (2.7-7.7); Neutrophil % 55.8 % (47-70); Platelet Count 253 K/mm3 (150-450); RBC Distribution Width CV 13.9 % (11.6-14.6); RBC Distribution Width SD 48.4 fl (35.1-43.9); Sodium Level 141 mmol/L (136-145); White Blood Count 8.8 K/mm3 (4.4-11.0)
[2020-05-23 23:42] LABS: Mucous, Urine 1+ /hpf (<or=2+); Squamous Epithelial Cells - UA 0-5 SEEN /hpf (5-10)
[2020-05-23 23:43] LABS: Red Blood Cells-Urine > 100 SEEN /hpf (0-5); White Blood Cells 5-10 SEEN /hpf (0-5)
[2020-05-24] MEDS: Morphine 4 MG/ML Syringe IV (00:37)
[2020-05-24 00:38] VITALS: BP 129/71; PULSE 87; RESP 17; O2SAT 98
== END 2020-05-24 00:39 | disposition home or self-care (01) ==
PROVIDERS: Emergency Provider Emergency Medicine; PCP Internal Medicine
DX: R10.30 Lower abdominal pain, unspecified (principal); R31.0 Gross hematuria; R19.7 Diarrhea, unspecified; E03.9 Hypothyroidism, unspecified; F32.9 Major depressive disorder, single episode, unspecified; F41.9 Anxiety disorder, unspecified; F17.200 Nicotine dependence, unspecified, uncomplicated; Z79.899 Other long term (current) drug therapy; Z87.442 Personal history of urinary calculi
CPT/HCPCS: 74176; 80048; 81001; 81025; 85025; 96361; 96374; 96375; 96376; 99283; J7030; A4216; J2405

== ENCOUNTER 2020-05-28 18:43 | Emergency (ER) | payer MEDICARE, MEDICAID, SELFPAY ==
[2020-05-28 18:52] VITALS: BP 121/91; PULSE 68; RESP 17; TEMP 36.4; O2SAT 98; BMI 26.4
--- NOTE | 2020-05-28 19:42 | ED.VIS.DENTA ---
History of Present Illness Chief Complaint: Dental Informant: Patient Onset: Yesterday Context: Gradual Onset Timing: Continuous Quality: throbbing Location: right upper posterior dentition Current Severity: Severe Maximum Severity: Severe Worsened by: eating Relieved by: - - antibiotics Associated Symptoms: - - No fevers, swelling, discharge Narrative: Patient has a longstanding history of dental problems, but does not have a dentist. She states the teeth that are hurting her today have been hurting her off and on for a long time. She recently was here for kidney stones and placed on antibiotics, she finished those yesterday and noticed that while she was on them, her teeth were hurting a little less, but still painful and they have significantly gotten worse today since she finished her antibiotics yesterday. She denies any new symptoms. Prior similar symptoms: Yes - Past Medical History (1) Anxiety Status: Chronic (2) Diverticulosis Status: Chronic (3) History of kidney stones Status: Chronic (4) Hypothyroid Status: Chronic (5) IBS (irritable bowel syndrome) Status: Chronic (6) Major depression Status: Chronic Past Medical History - Allergies and Home Meds Allergies/Adverse Reactions: Allergies fentanyl Allergy (Verified 05/28/20 18:44) Anaphylaxis BRADYCARDIA ketorolac tromethamine [From Toradol] Adverse Reaction (Verified 05/28/20 18:44) Other STOMACH PAINS Primary Care Physician: Dentist,Your [STAFF PHYSICIAN] - As soon as possible Surgical History: hysterectomy, - - right kidney removed, total hysterectemy, exploratory lap Smoking Status: Current every day smoker - Family History Maternal Family History: Reports: No pertinent history Paternal Family History: Reports: No pertinent history Review of Systems General: Denies: Chills, Fever, Sweats ENT: Reports: - - Dental pain. See HPI.. Denies: Rhinorrhea, Sore throat Gastrointestinal: Denies: Nausea, Vomiting Skin: Denies: Rash, Wounds Neurological: Denies: Headache, Weakness, Numbness Physical Exam Vital Signs/Narrative: Vital Signs Temp Pulse Resp BP Pulse Ox 05/28/20 18:52 97.6 F L 68 17 121/91 H 98 Inital Vital Signs reviewed: Yes General: Well nourished, Well developed, - - Well-appearing in no distress, conversive in full sentences Head: Normocephalic, Atraumatic ENT: Moist mucous membranes, No rhinorrhea Mouth/Throat: Normal oral mucosa, No focal abscess, Normal posterior oropharynx, No sublingual edema, Focal dental decay - And several right upper posterior mandibular teeth, #2 is most objectively decayed and tender. No abscess. Possibly mild gingival irritation at the base of this and the nearby 2 teeth.. Negative for: Focal gum swelling, Trismus Neck: Supple, No lymphadenopathy, Nontender Skin: Normal color, No rash, No Trauma Neurological: Alert, Oriented x3, Cranial nerves II-XII grossly intact, Normal Strength, Normal Sensation, Normal Gait Psychological: Normal affect, Normal Mood Diagnostic/Tx/Re-eval - Medical Decision Making Objectively patient does not appear to be in severe pain, she did not request analgesics. She did request antibiotics, she said that plain penicillin has failed her in the past. She agreed to take Augmentin. Of note she has had 3 prescriptions for narcotics this month and 3 separate prescriptions the prior month, although she was just recently seen for painful obstructive uropathy. ED Disposition - Plan for ED Patient: Disposition: Home or Assisted Living Diagnosis: Odontalgia, Dental caries Prescriptions: Amox/Clavulanate Tablet [Augmentin Tablet] 875 mg PO Q12H #20 tab Prescription Printed Referrals: Dentist,Your [STAFF PHYSICIAN] - As soon as possible
[2020-05-28] MEDS: Amox/Clavulanate 875 MG Tablet PO (19:47)
== END 2020-05-28 19:52 | disposition home or self-care (01) ==
PROVIDERS: Emergency Provider Emergency Medicine; PCP Internal Medicine
DX: K08.89 Other specified disorders of teeth and supporting structures (principal); K02.9 Dental caries, unspecified; E03.9 Hypothyroidism, unspecified; K58.9 Irritable bowel syndrome, unspecified; F32.9 Major depressive disorder, single episode, unspecified; F41.9 Anxiety disorder, unspecified; F17.200 Nicotine dependence, unspecified, uncomplicated; Z87.442 Personal history of urinary calculi; Z90.710 Acquired absence of both cervix and uterus; Z90.5 Acquired absence of kidney
CPT/HCPCS: 99283

== ENCOUNTER 2020-07-14 12:02 | Emergency (ER) | payer MEDICARE, MEDICAID, SELFPAY ==
[2020-07-14 12:03] VITALS: BP 122/86; PULSE 81; RESP 15; TEMP 37.1; O2SAT 98; BMI 23.8
--- NOTE | 2020-07-14 12:17 | CT_ITS ---
STUDY: CT ABDOMEN AND PELVIS WITHOUT CONTRAST REASON FOR EXAM: Female, 45 years old. abd pain RADIATION DOSAGE (If Supplied By Facility): CTDIvol = ( 7.11 ) mGy, DLP = ( 374.72 ) mGycm TECHNIQUE: Transaxial images were obtained from the dome of the diaphragm to the symphysis pubis without oral contrast, and without intravenous contrast. Sagittal and coronal images were reconstructed. Individualized dose optimization techniques were used for this CT. COMPARISON: 05/23/2020 FINDINGS: The visualized lung bases are unremarkable. The visualized portions of the heart are within normal limits. Normal liver. Normal gallbladder and extrahepatic biliary system. Normal spleen. Normal pancreas. Normal bilateral adrenal glands. 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 2 mm nonobstructing stone in the upper pole the left kidney. Mild left hydronephrosis. No ureteral stone or ureteral dilatation. Normal visualized stomach. Normal small intestine. There are multiple colonic diverticula consistent with diverticulosis. The appendix is visualized and appears normal. Normal abdominal aorta. Normal inferior vena cava. Normal retroperitoneum. Normal urinary bladder. Normal abdominal wall. Bilateral pars defects of the L5 vertebra consistent with L5 spondylolysis. 5 mm of anterolisthesis of L5 on S1 consistent with grade [address]/Abdomen/Pelvis without Cont IMPRESSION: 2 mm left renal stone. No hydronephrosis but no ureteral stone or ureteral dilatation. Electronically Signed: Darren Connors MD at 13:47 EDT Tel , Service support ,
--- NOTE | 2020-07-14 12:20 | ED.DCSUM_ITS ---
History of Present Illness Chief Complaint: Fever Informant: Patient Onset: Days Context: Gradual Onset Timing: Waxes and wanes Current Severity: Mild Maximum Severity: Moderate Narrative: Patient presents with subjective fevers for the past 3 days. She states that she feels very warm but does not have a thermometer. She will break out in sweats. She has had nausea and today has had pain across her lower abdomen. Patient states last weekend she developed the sensation that she had to urinate but when she would go to the bathroom was not able to pass urine. When she would try again she was able to urinate a large amount. She states she has been having regular bowel movements the last several days. She does have abdominal cramping and feels as if she is going to have diarrhea but does not. Patient raises concern about possible kidney stone versus UTI versus diverticulitis. Patient does have a solitary left kidney. - Past Medical History (1) Anxiety Status: Chronic (2) Diverticulosis Status: Chronic (3) History of kidney stones Status: Chronic (4) Hypothyroid Status: Chronic (5) IBS (irritable bowel syndrome) Status: Chronic (6) Major depression Status: Chronic Past Medical History - Allergies and Home Meds Allergies/Adverse Reactions: Allergies fentanyl Allergy (Verified 05/28/20 18:44) Anaphylaxis BRADYCARDIA ketorolac tromethamine [From Toradol] Adverse Reaction (Verified 05/28/20 18:44) Other STOMACH PAINS Primary Care Physician: Cesar Centeno MD [Primary Care Provider] - Surgical History: hysterectomy, - - right kidney removed, total hysterectemy, exploratory lap Lives: Spouse/ Significant Other Smoking Status: Current every day smoker - Family History Maternal Family History: Reports: No pertinent history Paternal Family History: Reports: No pertinent history Review of Systems General: Reports: Fever, Sweats Eyes: Denies: Visual changes - bilaterally ENT: Denies: Bilateral ear pain Cardiovascular: Denies: Chest pain Respiratory: Denies: Cough Gastrointestinal: Reports: Abdominal pain, Nausea. Denies: Vomiting, Diarrhea Genitourinary: Denies: Dysuria Musculoskeletal: Denies: Swelling, Extremity Pain Skin: Denies: Rash Neurological: Denies: Headache Hematologic: Denies: Easy bruising, Easy bleeding Allergy: Denies: Uticaria Physical Exam Vital Signs/Narrative: Vital Signs Temp Pulse Resp BP Pulse Ox 07/14/20 12:03 98.7 F 81 15 122/86 H 98 Inital Vital Signs reviewed: Yes General: Well nourished, Well developed Head: Normocephalic Neck: Supple Cardiovascular: Regular rate, Regular rhythm Respiratory: No distress, CTA bilaterally Abdomen: Soft, Tender - Suprapubic tenderness to palpation.. Negative for: Guarding, Rebound tenderness Back: Negative for: CVA tenderness Extremities: Nontender Skin: Normal color, No rash Neurological: Alert, Oriented x3 Psychological: Normal affect Diagnostic/Tx/Re-eval Impressions Abdomen/Pelvis CT 07/14/20 12:17 IMPRESSION: 2 mm left renal stone. No hydronephrosis but no ureteral stone or ureteral dilatation. Electronically Signed: Darren Connors MD at 13:47 EDT Tel , Service support , 07/14/20 12:17 Abdomen/Pelvis without Cont [CT] Stat Laboratory Results 07/14/20 07/14/20 07/14/20 12:20 12:35 12:35 WBC 6.0 RBC 4.80 Hgb 14.1 Hct 43.6 MCV 90.8 MCH 29.4 MCHC 32.3 RDW Std Deviation 45.7 H RDW Coeff of Doyle 13.5 Plt Count 185 MPV 10.8 Immature Gran % (Auto) 0.200 Neut % (Auto) 63.1 Lymph % (Auto) 25.7 [place] % (Auto) 9.2 Eos % (Auto) 1.5 Baso % (Auto) 0.3 Absolute Neuts (auto) 3.8 Absolute Lymphs (auto) 1.54 Nucleated RBC % 0 Sodium 138 Potassium 3.3 L Chloride 108 H Carbon Dioxide 23.0 Anion Gap 7 BUN 19 H Creatinine 0.89 Estim Creat Clear Calc 84.30 Est GFR (MDRD) Af Amer 89 Est GFR (MDRD) Non-Af 73 BUN/Creatinine Ratio 21.4 H Glucose 109 H Calcium 9.0 Urine Color Yellow Urine Clarity Clear Urine pH 7.0 Ur Specific [place] 1.010 Urine Protein 15 H Urine Glucose (UA) Normal Urine Ketones Negative Urine Occult Blood Negative Urine Nitrite Negative Urine Bilirubin Negative Urine Urobilinogen Normal Ur Leukocyte Esterase Negative Urine RBC 0 SEEN Urine WBC 0 SEEN Ur Squamous Epith Cells 0-5 SEEN Urine Bacteria 0 SEEN Urine Mucus 0 SEEN - Medical Decision Making Patient was given morphine and Zofran. On repeat evaluation pain is improved. Blood work is unremarkable. Urine is clean with no sign of infection. CT flank reveals diverticulosis without sign of acute diverticulitis. Test results discussed with the patient. She may have a bit of viral gastro this giving her some cramping along with subjective fevers. At this time I see nothing to treat with an antibiotic. She will continue to monitor her symptoms and if they persist over the next 3 or 4 days we will have her urine rechecked. She will be given Zofran for home to help control nausea. ED Disposition - Plan for ED Patient: Disposition: Home or Assisted Living Diagnosis: Viral gastroenteritis Instructions: ED Gastroenteritis, Viral (Adult) Prescriptions: Ondansetron [Zofran Odt] 4 mg PO Q8H PRN PRN #10 tablet PRN Reason: Nausea Transmission Status: Pending to [id number] Referrals: Cesar Centeno MD [Primary Care Provider] - 3-5 Days if not improving
[2020-07-14] MEDS: Ondansetron 4 MG/2 ML Vial IV (12:31)
[2020-07-14] MEDS: Morphine 4 MG/ML Syringe IV ×2 (12:31→13:23)
[2020-07-14 12:36] LABS: Bacteria 0 SEEN /hpf (None Seen); Mucous, Urine 0 SEEN /hpf (<or=2+); Red Blood Cells-Urine 0 SEEN /hpf (0-5); White Blood Cells 0 SEEN /hpf (0-5)
[2020-07-14 12:42] LABS: Color, Urine Yellow (Yellow); Glucose, Dipstick Normal (Normal); Ketone-Dipstick Negative (Negative); Leukocyte Esterase-Dipstick Negative /ul (Negative); Nitrite-Dipstick Negative (Negative); Occult Blood-Urine Negative /ul (Negative); Protein-Dipstick 15 mg/dl (Negative); Urine Bilirubin Dipstick Negative (Negative); Urine Clarity Clear (Clear); Urine Urobilinogen Normal (Normal)
[2020-07-14 12:47] LABS: Absolute Lymphocyte Count 1.54 X10^3/uL (0.83-4.51); Absolute Neutrophil Count 3.8 X10^3/uL (2.0-7.7); Basophil# 0.02 X10^3/uL; Basophil% 0.3 % (0-1); Eosinophil# 0.09 X10^3/uL; Eosinophils% 1.5 % (0-5); Hematocrit 43.6 % (37-47); Hemoglobin 14.1 g/dL (12.0-15.0); Lymphocyte # 1.54 X10^3/ul (4.0); Lymphocyte % 25.7 % (19-41); Mean Corp Hgb Conc 32.3 g/dL (32-36); Mean Corpuscular Hgb 29.4 pg (27.0-32.0); Mean Corpuscular Volume 90.8 fL (81-99); Mean Platelet Vol. 10.8 fl (6.2-12.0); Monocyte# 0.55 X10^3/uL; Monocyte% 9.2 % (0-10); NRBC Flagged by Analyzer 0 % (0-5); Neutrophil # 3.79 X10^3/uL (2.7-7.7); Neutrophil % 63.1 % (47-70); POSITIVE MORPHOLOGY YES; Platelet Count 185 K/mm3 (150-450); RBC Distribution Width CV 13.5 % (11.6-14.6); RBC Distribution Width SD 45.7 fl (35.1-43.9)
[2020-07-14 12:48] LABS: Squamous Epithelial Cells - UA 0-5 SEEN /hpf (5-10)
[2020-07-14 13:09] LABS: Anion Gap 7 (5-15); BUN 19 mg/dL (7-18); BUN/Creat Ratio 21.4 RATIO (10-20); Chloride 108 mmol/L (98-107); Creatinine, Serum 0.89 mg/dL (0.55-1.02); EST Glomerular Filtration Rate 73 mL/min (>60); Est Glom Filt Rate - Afr Amer 89 mL/min (>60); Glucose 109 mg/dL (74-106); Potassium 3.3 mmol/L (3.5-5.1); Sodium Level 138 mmol/L (136-145)
[2020-07-14 13:17] VITALS: BP 120/57; BP 120/87; PULSE 65; RESP 16; TEMP 36.6; O2SAT 97; O2SAT 98
[2020-07-14 13:18] LABS: Differential Indicated SCAN CRITERIA MET
[2020-07-14] MEDS: Potassium Chloride Oral Tablet 20 MEQ 40 MEQ PO (13:23)
[2020-07-14 14:12] VITALS: BP 114/90; PULSE 64; RESP 16
== END 2020-07-14 14:15 | disposition home or self-care (01) ==
PROVIDERS: Emergency Provider Emergency Medicine; PCP Internal Medicine
DX: A08.4 Viral intestinal infection, unspecified (principal); K57.90 Diverticulosis of intestine, part unspecified, without perforation or abscess without bleeding; N20.0 Calculus of kidney; E03.9 Hypothyroidism, unspecified; F17.200 Nicotine dependence, unspecified, uncomplicated
CPT/HCPCS: 74176; 80048; 81001; 85025; 87070; 87205; 96374; 96375; 96376; 99283; A4216; J2405

== ENCOUNTER 2020-08-03 14:35 | Emergency (ER) | payer MEDICARE, MEDICAID, SELFPAY ==
[2020-08-03 14:36] VITALS: BP 130/87; PULSE 85; RESP 20; TEMP 36.6; O2SAT 97; BMI 26.6
--- NOTE | 2020-08-03 15:15 | EDS_ITS ---
HPI HPI - GI History of Present Illness Chief Complaint: Abd Pain Informant: patient Abdominal Pain/Flank Pain Onset: Days Context: Gradual Onset Timing: Continuous Quality: Aching, Cramping and Dull Location: RLQ and LLQ Current Severity: Mild Maximum Severity: Mild Nausea/Vomiting/Emesis GI Symptom: Positive for Nausea and Vomiting Onset: Days Quality: Positive for Nonbilious Severity: Mild Diarrhea/Melena/Hematochezia GI Symptom: Negative for Diarrhea Associated Symptoms Associated Symptoms: Negative for Dysuria Narrative Narrative: 45-year-old female history of IBS and anxiety. Prior hysterectomy prior kidney resection. States for days she has had suprapubic and lower quadrant abdominal pain. Associated with nausea and vomiting. Associated with decreased oral intake. She denies any dysuria. She denies any vaginal bleeding. She denies any fever. Says she really is not much of an appetite. Patient states she still has her appendix and her gallbladder. Says she was evaluated for this in the emergency department recently and a negative work-up. CBC unremarkable. BMP unremarkable. UA unremarkable. Abdomen remains benign. No peritoneal signs. I do not think the patient needs further imaging. She was treated with IV Toradol. She will be discharged home to follow-up with her primary care physician for abdominal pain uncertain etiology. Prior similar symptoms: Yes Recent Illness/Hospitalization: No PFSH PFSH Medical History (Updated 08/03/20 @ 17:[address] Toy Acuna MD) Anxiety Depression Hypothyroidism Right kidney stone Home Medications gabapentin 600 mg PO 4X/DAY 09/13/19 [History Last Taken 12/24/19] levothyroxine 112 mcg PO DAILY 09/13/19 [History Last Taken 12/24/19] dicyclomine 20 mg PO TIDAC #20 cap 12/19/19 [Rx Last Taken 12/24/19] clonazepam 1 mg PO TID PRN PRN 12/24/19 [History Last Taken 12/24/19] omeprazole 20 mg PO DAILY PRN 05/28/20 [History Last Taken Unknown] fluvoxamine 100 mg PO QHS 07/14/20 [History Last Taken Unknown] ondansetron 4 mg PO Q8H PRN PRN #10 tablet 07/14/20 [Rx Last Taken Unknown] Allergy/AdvReac Type Severity Reaction Status Date / Time fentanyl Allergy Anaphylaxis Verified 08/03/20 14:35 ketorolac tromethamine AdvReac Other Verified 08/03/20 14:35 [From Toradol] Surgical History (Updated 08/03/20 @ 15:39 by Yoselin Ramírez) H/O: hysterectomy Social History Smoking Status: Current every day smoker ROS ROS ED Review of Systems ROS Unobtainable: Denies due to encephalopathy Constitutional Constitutional ED: Reports sweats; Denies fever(s) ENT ENT ED: Denies sore throat Cardiovascular Cardiovascular: Denies chest pain Respiratory/Chest Respiratory/Chest: Denies dyspnea Gastrointestinal Gastrointestinal: Reports abdominal pain, nausea and vomiting; Denies diarrhea Genitourinary Genitourinary ED: Denies dysuria Musculoskeletal Musculoskeletal: Denies myalgias Integumentary Denies rash Neurologic Neurologic: Denies headache(s) Psychiatric Psychiatric: Reports anxiety Endocrine Endocrinology: Denies polyuria Hematologic/Lymphatic Hematologic/Lymphatic: Denies easy bruising Allergic/Immunologic Allergic/Immunologic ED: Denies urticaria EXAM Physical Exam Narrative Exam Narrative: Middle-aged female no acute distress. Vital signs are stable afebrile. Patient does not look septic or toxic. Does not look dehydrated. She has a very benign abdominal exam. There is absolutely no tenderness in the right upper right lower quadrant. Const Vital Signs: 08/03/20 14:36 08/03/20 15:36 08/03/20 17:43 Temperature 97.8 F 97.8 F 98.4 F Temperature Source Oral Oral Oral Pulse Rate 85 85 71 Respiratory Rate 20 H 20 H 18 Blood Pressure 130/87 H 130/87 H 117/83 H Blood Pressure Mean 101 101 94 Pulse Ox 97 97 99 Oxygen Delivery Method Room Air Room Air Room Air Positive well nourished and well developed General Appearance ED: well developed HEENT normocephalic and atraumatic Eyes PERRL and EOMs intact bilaterally Neck no lymphadenopathy, supple and no JVD Resp normal respiratory effort and clear to auscultation bilaterally Cardio regular rate, regular rhythm and no murmurs GI non-tender, non-distended and no masses GI Narrative: Patient complains of pain in the suprapubic area but is really nontender. There is absolutely no tenderness in the right upper or right lower quadrants. Inspection: Negative for abdominal distention Auscultation: normoactive bowel sounds Palpation: soft; Negative for rebound tenderness present Back/Spine no CVA tenderness Extremity full ROM General Extremety ED: Negative for edema or tenderness General Extremity: Negative for edema Neuro moves all extremities Sensorium / Orientation: alert, oriented to person, oriented to place and oriented to time Psych mental status grossly normal Skin Lesions: no lesions Rashes: no rashes MDM MDM MDM Narrative Medical decision making narrative: Patient presents with several day history of lower abdominal pain. Has a benign exam. Screening labs and urinalysis will be obtained. She will be treated with IV Zofran. She is a reaction to Toradol so that will be held. I do not think she needs narcotic pain medication. I will review the patient's most recent work-up. Reportedly within the last week or so she had a CAT scan that was negative. Lab Data Attestation: I reviewed the patient's lab results. Labs: Laboratory Results - last 24 hr 08/03/20 08/03/20 08/03/20 15:05 15:05 15:40 WBC 10.8 RBC 5.05 Hgb 14.9 Hct 45.6 MCV 90.3 MCH 29.5 MCHC 32.7 RDW Std Deviation 43.8 RDW Coeff of [place] 13.2 Plt Count 212 MPV 11.3 Immature Gran % (Auto) 0.300 Neut % (Auto) 76.4 H Lymph % (Auto) 12.9 L [place] % (Auto) 9.3 Eos % (Auto) 0.7 Baso % (Auto) 0.4 Absolute Neuts (auto) 8.3 H Absolute Lymphs (auto) 1.40 Nucleated RBC % 0 Sodium 136 Potassium 3.6 Chloride 101 Carbon Dioxide 27.0 Anion Gap 8 BUN 16 Creatinine 0.83 Estim Creat Clear Calc 90.39 Est GFR (MDRD) Af Amer 96 Est GFR (MDRD) Non-Af 79 BUN/Creatinine Ratio 19.3 Glucose 88 Calcium 9.6 Total Bilirubin 0.80 AST 8 L ALT 23 Alkaline Phosphatase 95 Total Protein 7.8 Albumin 3.7 Globulin 4.1 Albumin/Globulin Ratio 0.9 Urine Color Yellow Urine Clarity Sl. Cloudy Urine pH 6.0 Ur Specific [place] 1.020 Urine Protein 30 H Urine Glucose (UA) Normal Urine Ketones 150 A* Urine Occult Blood 10 H Urine Nitrite Negative Urine Bilirubin 1 H Urine Urobilinogen 8 H Ur Leukocyte Esterase 25 H Urine RBC 0-5 SEEN Urine WBC 0-5 SEEN Ur Squamous Epith Cells 0-5 SEEN Urine Bacteria 0 SEEN Urine Mucus 0 SEEN Discharge Plan Triage Chief Complaint: Abd Pain ED Provider: Toy Acuna Dx/Rx/DC Orders Clinical Impression: Abdominal pain Instructions: ED Abdominal Pain Unkn Cause Fem Prescriptions: No Action gabapentin 600 MG tablet 600 mg PO 4X/DAY RF: 0 levothyroxine 112 MCG tablet 112 mcg PO DAILY RF: 0 dicyclomine 10 MG capsule 20 mg PO TIDAC Qty: 20 RF: 0 clonazepam 1 MG tablet 1 mg PO TID PRN PRN (Reason: Anxiety) RF: 0 omeprazole 20 MG tablet,disintegrat, delay rel 20 mg PO DAILY PRN (Reason: heartburn) RF: 0 fluvoxamine 100 MG capsule,extended release 24hr 100 mg PO QHS RF: 0 ondansetron 4 MG tablet 4 mg PO Q8H PRN PRN (Reason: Nausea) Qty: 10 RF: 0 Primary Care Provider: Cesar Centeno Referrals: Cesar Centeno MD [Primary Care Provider] - As soon as possible Activity Restrictions/Additional Instructions: Follow-up with your primary care physician for further evaluation. Your blood counts, chemistries and urinalysis today were all unremarkable. Your CAT scan a week ago was unremarkable. We do not have a specific cause for your pain at this time. Disposition Disposition: Home, self care
[2020-08-03 15:21] LABS: Absolute Neutrophil Count 8.3 X10^3/uL (2.0-7.7); Basophil# 0.04 X10^3/uL; Basophil% 0.4 % (0-1); Eosinophil# 0.08 X10^3/uL; Eosinophils% 0.7 % (0-5); Hematocrit 45.6 % (37-47); Hemoglobin 14.9 g/dL (12.0-15.0); Lymphocyte % 12.9 % (19-41); Mean Corp Hgb Conc 32.7 g/dL (32-36); Mean Corpuscular Hgb 29.5 pg (27.0-32.0); Mean Corpuscular Volume 90.3 fL (81-99); Mean Platelet Vol. 11.3 fl (6.2-12.0); Monocyte# 1.01 X10^3/uL; Monocyte% 9.3 % (0-10); NRBC Flagged by Analyzer 0 % (0-5); Neutrophil # 8.26 X10^3/uL (2.7-7.7); Neutrophil % 76.4 % (47-70); Platelet Count 212 K/mm3 (150-450); RBC Distribution Width CV 13.2 % (11.6-14.6); RBC Distribution Width SD 43.8 fl (35.1-43.9); Red Blood Count 5.05 M/mm3 (4.2-5.4); White Blood Count 10.8 K/mm3 (4.4-11.0)
[2020-08-03 15:33] LABS: ALB/GLOB Ratio 0.9 RATIO (0.9-2.4); AST(SGOT) 8 U/L (15-37); Alanine Aminotransfer ALT/SGPT 23 U/L (13-56); Albumin, Serum 3.7 g/dL (3.2-5.0); Alkaline Phosphatase 95 U/L (45-117); Anion Gap 8 (5-15); BUN 16 mg/dL (7-18); BUN/Creat Ratio 19.3 RATIO (10-20); Calcium,Total 9.6 mg/dL (8.5-10.1); Chloride 101 mmol/L (98-107); Creatinine, Serum 0.83 mg/dL (0.55-1.02); EST Glomerular Filtration Rate 79 mL/min (>60); Est Glom Filt Rate - Afr Amer 96 mL/min (>60); Estimated Creatinine Clearance 90.39 ml/min; Globulin 4.1 g/dL (2.2-4.2); Glucose 88 mg/dL (74-106); Potassium 3.6 mmol/L (3.5-5.1); Protein, Total 7.8 g/dL (6.4-8.2); Sodium Level 136 mmol/L (136-145)
[2020-08-03] MEDS: 0.9% Normal Saline 1,000 ML 1000 ML IV (15:34)
[2020-08-03] MEDS: Ondansetron 4 MG/2 ML Vial IV (15:35)
[2020-08-03 15:36] VITALS: BP 130/87; PULSE 85; RESP 20; TEMP 36.6; O2SAT 97
[2020-08-03 15:51] LABS: Bacteria 0 SEEN /hpf (None Seen); Mucous, Urine 0 SEEN /hpf (<or=2+)
[2020-08-03 16:01] LABS: Color, Urine Yellow (Yellow); Glucose, Dipstick Normal (Normal); Leukocyte Esterase-Dipstick 25 /ul (Negative); Nitrite-Dipstick Negative (Negative); Occult Blood-Urine 10 /ul (Negative); Protein-Dipstick 30 mg/dl (Negative); Urine Clarity Sl. Cloudy (Clear); Urine Urobilinogen 8 mg/dl (Normal)
[2020-08-03 16:08] LABS: Urine Bilirubin Dipstick 1 mg/dL (Negative)
[2020-08-03 16:10] LABS: Ketone-Dipstick 150 mg/dl (Negative)
[2020-08-03 16:12] LABS: Red Blood Cells-Urine 0-5 SEEN /hpf (0-5); Squamous Epithelial Cells - UA 0-5 SEEN /hpf (5-10); White Blood Cells 0-5 SEEN /hpf (0-5)
[2020-08-03 17:43] VITALS: BP 117/83; PULSE 71; RESP 18; TEMP 36.9; O2SAT 99
[2020-08-03 17:45] VITALS: BP 117/83; PULSE 71; RESP 18; O2SAT 99
[2020-08-03] MEDS: Ketorolac 30 MG/ML Syringe IV (17:51)
[2020-08-03 18:13] VITALS: BP 117/83; PULSE 71; RESP 18
== END 2020-08-03 18:14 | disposition home or self-care (01) ==
PROVIDERS: Emergency Provider Emergency Medicine; PCP Internal Medicine
DX: R10.31 Right lower quadrant pain (principal); R10.32 Left lower quadrant pain; R11.2 Nausea with vomiting, unspecified; K58.9 Irritable bowel syndrome, unspecified; E03.9 Hypothyroidism, unspecified; F32.9 Major depressive disorder, single episode, unspecified; F41.9 Anxiety disorder, unspecified; F17.200 Nicotine dependence, unspecified, uncomplicated; Z79.899 Other long term (current) drug therapy; Z87.442 Personal history of urinary calculi; Z90.5 Acquired absence of kidney
CPT/HCPCS: 80053; 81001; 85025; 96361; 96374; 96375; 99284; J7030; A4216; J2405

== ENCOUNTER 2020-10-13 12:41 | Emergency (ER) | payer MEDICARE, MEDICAID, SELFPAY ==
[2020-10-13 12:42] VITALS: BP 141/76; PULSE 77; RESP 12; TEMP 36.7; O2SAT 100; BMI 23.6
--- NOTE | 2020-10-13 13:57 | EX.ED.DYSGE1 ---
HPI History of Present Illness Chief Complaint: Abd Pain Narrative Narrative: 45-year-old female presenting with left-sided abdominal pain. She states she has IBS and she is chronically nauseous. She chronically has some crampy pain. She states she also has history of diverticulitis and she is concerned of this. She states he has had some mucus in her stool as well. She denies fever or chills. She has nausea without vomiting. Denies urinary complaints. PFSH PFSH Medical History Anxiety Depression Hypothyroidism Right kidney stone Home Medications gabapentin 600 mg PO 4X/DAY 09/13/19 [History Last Taken 12/24/19] levothyroxine 112 mcg PO DAILY 09/13/19 [History Last Taken 12/24/19] dicyclomine 20 mg PO TIDAC #20 cap 12/19/19 [Rx Last Taken 12/24/19] clonazepam 1 mg PO TID PRN PRN 12/24/19 [History Last Taken 12/24/19] omeprazole 20 mg PO DAILY PRN 05/28/20 [History Last Taken Unknown] fluvoxamine 100 mg PO QHS 07/14/20 [History Last Taken Unknown] ondansetron 4 mg PO Q8H PRN PRN #10 tablet 07/14/20 [Rx Last Taken Unknown] ondansetron 4 mg PO Q8H PRN #20 tab 10/13/20 [Rx Last Taken Unknown] Allergy/AdvReac Type Severity Reaction Status Date / Time fentanyl Allergy Anaphylaxis Verified 10/13/20 12:42 ketorolac tromethamine AdvReac Other Verified 10/13/20 12:42 [From Toradol] Surgical History (Updated 10/13/20 @ 14:20 by Jayde Russell) H/O: hysterectomy History of nephrectomy, right Social History Smoking Status: Current every day smoker tobacco type: cigarettes ROS ROS ED Constitutional Constitutional ED: Denies chills or fever(s) Eyes Eyes: Denies blurry vision or diplopia ENT ENT ED: Denies rhinorrhea or sore throat Cardiovascular Cardiovascular: Denies chest pain or palpitations Respiratory/Chest Respiratory/Chest: Denies cough or dyspnea Gastrointestinal Gastrointestinal: Reports abdominal pain, nausea and other Details: Mucus in stool Genitourinary Genitourinary ED: Denies dysuria or hematuria Musculoskeletal Musculoskeletal: Denies arthralgias or myalgias Integumentary Denies abscess or rash Neurologic Neurologic: Denies headache(s) or paresthesias Psychiatric Psychiatric: Denies anxiety or depression EXAM Physical Exam Const Vital Signs: 10/13/20 12:42 10/13/20 15:10 10/13/20 15:55 Temperature 98.1 F Temperature Source Temporal Pulse Rate 77 54 L 60 Respiratory Rate 12 16 15 Blood Pressure 141/76 H 112/82 H 125/87 H Blood Pressure Mean 97 92 Pulse Ox 100 Oxygen Delivery Method Room Air Positive well nourished General Appearance ED: NAD HEENT Reports moist mucous membranes Negative for trauma Eyes PERRL and EOMs intact bilaterally General Eye ED: Negative for scleral icterus Resp normal respiratory effort and clear to auscultation bilaterally Cardio regular rate and regular rhythm GI Palpation: tender LLQ and periumbilical Neuro oriented x3 and CN's II-XII intact bilaterally Sensorium / Orientation: alert Psych mental status grossly normal Skin no rashes or lesions noted and no wounds MDM MDM MDM Narrative Medical decision making narrative: Patient presenting with abdominal pain she does have some chronic aspect of this abdominal pain however she thinks she might have diverticulitis. She does complain of some mucus in her stool. Lab work today shows no leukocytosis. Her hemoglobin hematocrit are stable. Platelets are normal. Renal function and electrolytes are unremarkable. Urinalysis is negative. Patient had CT of the abdomen pelvis with IV contrast which showed no acute abnormality as interpreted by the radiologist. Patient was given morphine and Zofran in the ED and did feel improved. She requested Zofran for home and this was provided. Patient is given return precautions and stable for discharge. Impression: 1. Abdominal pain Lab Data Attestation: I reviewed the patient's lab results. Labs: Laboratory Results - last 24 hr 10/13/20 10/13/20 10/13/20 13:00 14:10 14:10 WBC 7.8 RBC 4.82 Hgb 14.0 Hct 43.6 MCV 90.5 MCH 29.0 MCHC 32.1 RDW Std Deviation 47.1 H RDW Coeff of Doyle 14.2 Plt Count 199 MPV 10.8 Immature Gran % (Auto) 0.400 Neut % (Auto) 76.1 H Lymph % (Auto) 16.0 L [place] % (Auto) 6.8 Eos % (Auto) 0.3 Baso % (Auto) 0.4 Absolute Neuts (auto) 5.9 Absolute Lymphs (auto) 1.24 Nucleated RBC % 0 Sodium 139 Potassium 4.0 Chloride 107 Carbon Dioxide 28.0 Anion Gap 4 L BUN 13 Creatinine 0.96 Estim Creat Clear Calc 78.15 Est GFR (MDRD) Af Amer 81 Est GFR (MDRD) Non-Af 67 BUN/Creatinine Ratio 13.5 Glucose 92 Calcium 8.9 Total Bilirubin 0.40 AST 13 L ALT 18 Alkaline Phosphatase 109 Total Protein 7.6 Albumin 4.0 Globulin 3.6 Albumin/Globulin Ratio 1.1 Lipase 93 Serum , Qual Urine Color Yellow Urine Clarity Clear Urine pH 7.0 Ur Specific [place] 1.010 Urine Protein 15 H Urine Glucose (UA) Normal Urine Ketones Negative Urine Occult Blood Negative Urine Nitrite Negative Urine Bilirubin Negative Urine Urobilinogen Normal Ur Leukocyte Esterase Negative Urine RBC 0 SEEN Urine WBC 0 SEEN Ur Squamous Epith Cells 0-5 SEEN Urine Bacteria 0 SEEN Urine Mucus 0 SEEN 10/13/20 14:10 WBC RBC Hgb Hct MCV MCH MCHC RDW Std Deviation RDW Coeff of Doyle Plt Count MPV Immature Gran % (Auto) Neut % (Auto) Lymph % (Auto) [place] % (Auto) Eos % (Auto) Baso % (Auto) Absolute Neuts (auto) Absolute Lymphs (auto) Nucleated RBC % Sodium Potassium Chloride Carbon Dioxide Anion Gap BUN Creatinine Estim Creat Clear Calc Est GFR (MDRD) Af Amer Est GFR (MDRD) Non-Af BUN/Creatinine Ratio Glucose Calcium Total Bilirubin AST ALT Alkaline Phosphatase Total Protein Albumin Globulin Albumin/Globulin Ratio Lipase Serum , Qual NEGATIVE Urine Color Urine Clarity Urine pH Ur Specific [place] Urine Protein Urine Glucose (UA) Urine Ketones Urine Occult Blood Urine Nitrite Urine Bilirubin Urine Urobilinogen Ur Leukocyte Esterase Urine RBC Urine WBC Ur Squamous Epith Cells Urine Bacteria Urine Mucus Radiography Diagnostic Testing: Radiology Impression Abdomen/Pelvis CT 10/13/20 13:58 IMPRESSION: No acute findings in the abdomen or pelvis. Right nephrectomy. Individualized dose optimization techniques were used for this CT. at 1531 Reported and signed by: Chele Ontiveros MD Electronically Signed: Chele Ontiveros MD at 15:30 EDT Tel , Service support , Discharge Plan Triage Chief Complaint: Abd Pain ED Provider: Tyson Villa Dx/Rx/DC Orders Instructions: ED Abdominal Pain Unkn Cause Fem Prescriptions: New ondansetron 4 mg tablet,disintegrating 4 mg PO Q8H PRN (Reason: nausea and vomiting) Qty: 20 RF: 0 No Action gabapentin 600 MG tablet 600 mg PO 4X/DAY RF: 0 levothyroxine 112 MCG tablet 112 mcg PO DAILY RF: 0 dicyclomine 10 MG capsule 20 mg PO TIDAC Qty: 20 RF: 0 clonazepam 1 MG tablet 1 mg PO TID PRN PRN (Reason: Anxiety) RF: 0 omeprazole 20 MG tablet,disintegrat, delay rel 20 mg PO DAILY PRN (Reason: heartburn) RF: 0 fluvoxamine 100 MG capsule,extended release 24hr 100 mg PO QHS RF: 0 ondansetron 4 MG tablet 4 mg PO Q8H PRN PRN (Reason: Nausea) Qty: 10 RF: 0 Primary Care Provider: Cesar Centeno Referrals: Cesar Centeno MD [Primary Care Provider] - Disposition Disposition: Home, Self Care Discharge Date/Time: 10/13/20 16:01
--- NOTE | 2020-10-13 13:58 | CT_ITS ---
EXAM: CT ABDOMEN AND PELVIS WITH INTRAVENOUS CONTRAST : 1975 CLINICAL INDICATION: abdominal pain TECHNIQUE: Helically acquired images were obtained of the abdomen and pelvis with intravenous contrast. This CT exam was performed using one or more of the following dose reduction techniques: automated exposure control, adjustment of the mA and/or kV according to patient size, and/or use of iterative reconstruction technique. This report was created using [employer] report generation technology. CONTRAST: IV 100mL [id number] COMPARISON: 07/14/2020 FINDINGS: LOWER THORAX: Unremarkable. Lung bases are clear. No cardiomegaly. No significant pericardial effusion. ABDOMEN: LIVER: Unremarkable. Homogeneous. No focal mass. GALLBLADDER AND BILE DUCTS: Unremarkable. No calcified gallstones. No gallbladder distention or wall edema. No intra- or extrahepatic biliary ductal dilation. PANCREAS: Unremarkable. No focal cystic or solid mass. SPLEEN: Unremarkable. Normal size without focal cystic or solid mass. ADRENALS: Unremarkable. No nodules. KIDNEYS AND URETERS: Patient is status post right nephrectomy. STOMACH AND BOWEL: Unremarkable. No stomach or bowel distention. No focal inflammatory change. PELVIS: APPENDIX: No evidence of acute appendicitis. BLADDER: Unremarkable. REPRODUCTIVE: Unremarkable as visualized. No mass. ABDOMEN and PELVIS: INTRAPERITONEAL SPACE: Unremarkable. No ascites or other fluid collection. No free air. BONES/JOINTS: Unremarkable. No suspicious lytic or blastic abnormality. SOFT TISSUES: Unremarkable. No discrete abdominal or pelvic wall hernia. VASCULATURE: Unremarkable. Abdominal aorta is non-dilated. LYMPH NODES: Unremarkable. No enlarged lymph nodes. CT/Abdomen/Pelvis W IV Cont ONLY IMPRESSION: No acute findings in the abdomen or pelvis. Right nephrectomy. Individualized dose optimization techniques were used for this CT. at 1531 Reported and signed by: Chele Ontiveros MD Electronically Signed: Chele Ontiveros MD at 15:30 EDT Tel , Service support ,
[2020-10-13 14:07] LABS: Bacteria 0 SEEN /hpf (None Seen); Mucous, Urine 0 SEEN /hpf (<or=2+); Red Blood Cells-Urine 0 SEEN /hpf (0-5); White Blood Cells 0 SEEN /hpf (0-5)
[2020-10-13 14:08] LABS: Color, Urine Yellow (Yellow); Glucose, Dipstick Normal (Normal); Ketone-Dipstick Negative (Negative); Leukocyte Esterase-Dipstick Negative /ul (Negative); Nitrite-Dipstick Negative (Negative); Occult Blood-Urine Negative /ul (Negative); Protein-Dipstick 15 mg/dl (Negative); Urine Bilirubin Dipstick Negative (Negative); Urine Clarity Clear (Clear); Urine Urobilinogen Normal (Normal)
[2020-10-13] MEDS: 0.9% Normal Saline 1,000 ML 1000 ML IV (14:11)
[2020-10-13 14:14] LABS: Squamous Epithelial Cells - UA 0-5 SEEN /hpf (5-10)
[2020-10-13] MEDS: Morphine 4 MG/ML Syringe IV ×2 (14:18→15:18)
[2020-10-13] MEDS: Ondansetron 4 MG/2 ML Vial IV (14:18)
[2020-10-13 14:19] LABS: Absolute Lymphocyte Count 1.24 X10^3/uL (0.83-4.51); Absolute Neutrophil Count 5.9 X10^3/uL (2.0-7.7); Basophil# 0.03 X10^3/uL; Basophil% 0.4 % (0-1); Eosinophil# 0.02 X10^3/uL; Eosinophils% 0.3 % (0-5); Hematocrit 43.6 % (37-47); Lymphocyte # 1.24 X10^3/ul (0.83-4.51); Mean Corp Hgb Conc 32.1 g/dL (32-36); Mean Corpuscular Volume 90.5 fL (81-99); Mean Platelet Vol. 10.8 fl (6.2-12.0); Monocyte# 0.53 X10^3/uL; Monocyte% 6.8 % (0-10); NRBC Flagged by Analyzer 0 % (0-5); Neutrophil # 5.91 X10^3/uL (2.7-7.7); Neutrophil % 76.1 % (47-70); Platelet Count 199 K/mm3 (150-450); RBC Distribution Width CV 14.2 % (11.6-14.6); RBC Distribution Width SD 47.1 fl (35.1-43.9); Red Blood Count 4.82 M/mm3 (4.2-5.4); White Blood Count 7.8 K/mm3 (4.4-11.0)
[2020-10-13 14:26] LABS: Internal QC Validated? YES +Cl - CLEAR BKGD; Pregnancy, Serum, hCG Quali. NEGATIVE Negative
[2020-10-13 14:33] LABS: ALB/GLOB Ratio 1.1 RATIO (0.9-2.4); AST(SGOT) 13 U/L (15-37); Alanine Aminotransfer ALT/SGPT 18 U/L (13-56); Alkaline Phosphatase 109 U/L (45-117); Anion Gap 4 (5-15); BUN 13 mg/dL (7-18); BUN/Creat Ratio 13.5 RATIO (10-20); Calcium,Total 8.9 mg/dL (8.5-10.1); Chloride 107 mmol/L (98-107); Creatinine, Serum 0.96 mg/dL (0.55-1.02); EST Glomerular Filtration Rate 67 mL/min (>60); Est Glom Filt Rate - Afr Amer 81 mL/min (>60); Estimated Creatinine Clearance 78.15 ml/min; Globulin 3.6 g/dL (2.2-4.2); Glucose 92 mg/dL (74-106); Lipase 93 U/L (73-393); Protein, Total 7.6 g/dL (6.4-8.2); Sodium Level 139 mmol/L (136-145)
[2020-10-13 15:10] VITALS: BP 112/82; PULSE 54; RESP 16
[2020-10-13 15:55] VITALS: BP 125/87; PULSE 60; RESP 15
== END 2020-10-13 16:01 | disposition home or self-care (01) ==
PROVIDERS: Emergency Provider Student in an Organized Health Care Education/Training Program; PCP Internal Medicine
DX: R10.9 Unspecified abdominal pain (principal); K58.9 Irritable bowel syndrome, unspecified; E03.9 Hypothyroidism, unspecified; F32.9 Major depressive disorder, single episode, unspecified; F41.9 Anxiety disorder, unspecified; F17.210 Nicotine dependence, cigarettes, uncomplicated; Z79.899 Other long term (current) drug therapy; Z90.5 Acquired absence of kidney
CPT/HCPCS: 74177; 80053; 81001; 83690; 84703; 85025; 96361; 96374; 96375; 96376; 99283; J7030; Q9967; A4216; J2405

== ENCOUNTER 2020-11-29 14:33 | Emergency (ER) | payer MEDICARE, MEDICAID, SELFPAY ==
[2020-11-29 14:34] VITALS: BP 124/96; PULSE 99; RESP 18; TEMP 36.4; O2SAT 100; BMI 25.1
[2020-11-29 14:58] LABS: Bacteria 0 SEEN /hpf (None Seen); Mucous, Urine 0 SEEN /hpf (<or=2+)
[2020-11-29 15:06] LABS: Color, Urine Yellow (Yellow); Glucose, Dipstick Normal (Normal); Ketone-Dipstick Negative (Negative); Leukocyte Esterase-Dipstick 100 /ul (Negative); Nitrite-Dipstick Negative (Negative); Occult Blood-Urine 10 /ul (Negative); Protein-Dipstick Negative (Negative); Specific Gravity, Urine 1.005 (1.002-1.030); Urine Bilirubin Dipstick Negative (Negative); Urine Clarity Sl. Cloudy (Clear); Urine Urobilinogen Normal (Normal)
[2020-11-29 15:16] LABS: Red Blood Cells-Urine 0-5 SEEN /hpf (0-5); Squamous Epithelial Cells - UA 5-10 SEEN /hpf (5-10); White Blood Cells 5-10 SEEN /hpf (0-5)
[2020-11-29 15:47] LABS: Absolute Lymphocyte Count 1.16 X10^3/uL (0.83-4.51); Basophil# 0.02 X10^3/uL; Basophil% 0.3 % (0-1); Eosinophil# 0.06 X10^3/uL; Hematocrit 45.7 % (37-47); Hemoglobin 14.4 g/dL (12.0-15.0); Lymphocyte # 1.16 X10^3/ul (0.83-4.51); Lymphocyte % 19.9 % (19-41); Mean Corp Hgb Conc 31.5 g/dL (32-36); Mean Corpuscular Hgb 29.1 pg (27.0-32.0); Mean Corpuscular Volume 92.5 fL (81-99); Mean Platelet Vol. 11.1 fl (6.2-12.0); Monocyte# 0.55 X10^3/uL; Monocyte% 9.5 % (0-10); NRBC Flagged by Analyzer 0 % (0-5); Neutrophil # 4.02 X10^3/uL (2.7-7.7); Neutrophil % 69.1 % (47-70); Platelet Count 204 K/mm3 (150-450); RBC Distribution Width CV 14.2 % (11.6-14.6); RBC Distribution Width SD 48.3 fl (35.1-43.9); Red Blood Count 4.94 M/mm3 (4.2-5.4); White Blood Count 5.8 K/mm3 (4.4-11.0)
[2020-11-29 16:00] LABS: Anion Gap 4 (5-15); BUN 15 mg/dL (7-18); BUN/Creat Ratio 17.2 RATIO (10-20); Calcium,Total 9.3 mg/dL (8.5-10.1); Chloride 107 mmol/L (98-107); Creatinine, Serum 0.87 mg/dL (0.55-1.02); EST Glomerular Filtration Rate 75 mL/min (>60); Est Glom Filt Rate - Afr Amer 90 mL/min (>60); Estimated Creatinine Clearance 86.24 ml/min; Glucose 87 mg/dL (74-106); Sodium Level 139 mmol/L (136-145)
--- NOTE | 2020-11-29 16:07 | ED.VIS.GI ---
HPI HPI - GI History of Present Illness Chief Complaint: Abd Pain Informant: patient Narrative Narrative: Presents with abdominal pain nausea vomiting diarrhea for 2 days. No hematemesis or melena or hematochezia. History of irritable bowel disease last colonoscopy [address] Callahan. She states has been doing well with her diet, however she is concerned could have celiac disease. She ate a meal with flour which aggravated her symptoms 2 days ago. Currently nauseated. Most recent antibiotics over a month ago for ear infection. Denies fevers. Denies urine symptoms. History of hysterectomy. She is on Bentyl and Levsin at home with no improvement of symptoms. Prior similar symptoms: Yes PFSH PFSH Medical History Anxiety Depression Hypothyroidism Irritable bowel syndrome Right kidney stone Home Medications gabapentin 600 mg PO TID 09/13/19 [History Last Taken 12/24/19] levothyroxine 112 mcg PO DAILY 09/13/19 [History Last Taken 12/24/19] dicyclomine 20 mg PO TIDAC #20 cap 12/19/19 [Rx Last Taken 12/24/19] clonazepam 1 mg PO TID PRN PRN 12/24/19 [History Last Taken 12/24/19] omeprazole 40 mg PO DAILY 05/28/20 [History Last Taken Unknown] fluvoxamine 100 mg PO QHS 07/14/20 [History Last Taken Unknown] ondansetron 4 mg PO Q8H PRN PRN #10 tablet 07/14/20 [Rx Last Taken Unknown] ondansetron 4 mg PO Q8H PRN #20 tab 10/13/20 [Rx Last Taken Unknown] hyoscyamine sulfate [Levsin/SL] 0.125 mg SUBLINGUAL Q6H PRN #20 tab 11/29/20 [Rx Last Taken Unknown] Allergy/AdvReac Type Severity Reaction Status Date / Time fentanyl Allergy Anaphylaxis Verified 11/29/20 14:37 ketorolac tromethamine AdvReac Other Verified 11/29/20 14:37 [From Toradol] Surgical History H/O: hysterectomy History of nephrectomy, right Social History Smoking Status: Current every day smoker tobacco type: cigarettes ROS ROS ED Constitutional Constitutional ED: Denies chills, fever(s) or sweats Eyes Eyes: Denies change in vision ENT ENT ED: Denies dysphagia or sore throat Cardiovascular Cardiovascular: Denies chest pain, leg edema, palpitations or racing heartbeat Respiratory/Chest Respiratory/Chest: Denies cough, dyspnea or dyspnea on exertion Gastrointestinal Gastrointestinal: Reports abdominal pain, diarrhea, nausea and vomiting Genitourinary Genitourinary ED: Denies dysuria, hematuria or urinary frequency Musculoskeletal Musculoskeletal: Denies back pain, extremity pain or neck pain Integumentary Denies rash or wounds Neurologic Neurologic: Denies headache(s), paresthesias or weakness EXAM Physical Exam Const Vital Signs: 11/29/20 14:34 Temperature 97.6 F L Temperature Source Temporal Pulse Rate 99 Respiratory Rate 18 Blood Pressure 124/96 H Blood Pressure Mean 105 Pulse Ox 100 Oxygen Delivery Method Room Air Positive well nourished and well developed General Appearance ED: well developed and NAD HEENT Reports moist mucous membranes normocephalic and atraumatic Eyes PERRL, EOMs intact bilaterally and conjunctivae normal General Eye ED: Yes normal appearance of both eyes Neck no lymphadenopathy and supple General: Negative for tenderness Chest Wall Chest: Negative for tenderness Resp normal respiratory effort and normal air movement Effort and Inspection: symmetric chest movement; Negative for respiratory distress Cardio regular rate, regular rhythm and no murmurs Peripheral Pulses: pulses 2+ throughout GI normal to inspection, nondistended, normoactive bowel sounds and non-tender GI Narrative: Negative Rovsing's or McBurney's tenderness. Palpation: Negative for guarding or rebound tenderness present Back/Spine no CVA tenderness and no thoracic nor lumbar tenderness Extremity normal to inspection General Extremety ED: Negative for edema or tenderness General Extremity: Negative for edema Neuro oriented x3 and no sensory deficits noted Sensorium / Orientation: awake and alert Skin no rashes or lesions noted and no wounds MDM MDM MDM Narrative Medical decision making narrative: Patient with nonsurgical abdomen. Nursing protocol initiated basic labs which returned normal. Potassium 4. Creatinine 0.87. Added liver and lipase was also normal. Patient requested thyroid levels get checked which was obtained with a free level due to being on thyroid medications. Slightly low at 0.66. Urine mild bacteria she is asymptomatic culture sent pending results before treatment. She is feeling better on reevaluation after fluids Zofran and IM Bentyl. She has Bentyl at home she states she is low almost out of her Levsin. This will be refilled for patient. No current GI physician available in the area, she will call her PCP for referral for which has been discussed in the past. Normal bowel sounds, having diarrhea, lower suspicion for bowel obstructions. Patient will discuss with her PCP with her thyroid medications up to the adjustments are needed. All questions were answered. Lab Data Attestation: I reviewed the patient's lab results. Labs: Laboratory Results - last 24 hr 11/29/20 11/29/20 11/29/20 14:46 15:33 15:33 WBC 5.8 RBC 4.94 Hgb 14.4 Hct 45.7 MCV 92.5 MCH 29.1 MCHC 31.5 L RDW Std Deviation 48.3 H RDW Coeff of Doyle 14.2 Plt Count 204 MPV 11.1 Immature Gran % (Auto) 0.200 Neut % (Auto) 69.1 Lymph % (Auto) 19.9 [place] % (Auto) 9.5 Eos % (Auto) 1.0 Baso % (Auto) 0.3 Absolute Neuts (auto) 4.0 Absolute Lymphs (auto) 1.16 Nucleated RBC % 0 Sodium 139 Potassium 4.0 Chloride 107 Carbon Dioxide 28.0 Anion Gap 4 L BUN 15 Creatinine 0.87 Estim Creat Clear Calc 86.24 Est GFR (MDRD) Af Amer 90 Est GFR (MDRD) Non-Af 75 BUN/Creatinine Ratio 17.2 Glucose 87 Calcium 9.3 Total Bilirubin Direct Bilirubin AST ALT Alkaline Phosphatase Total Protein Albumin Globulin Lipase Free T4 Urine Color Yellow Urine Clarity Sl. Cloudy Urine pH 7.0 Ur Specific [place] 1.005 Urine Protein Negative Urine Glucose (UA) Normal Urine Ketones Negative Urine Occult Blood 10 H Urine Nitrite Negative Urine Bilirubin Negative Urine Urobilinogen Normal Ur Leukocyte Esterase 100 H Urine RBC 0-5 SEEN Urine WBC 5-10 SEEN Ur Squamous Epith Cells 5-10 SEEN Urine Bacteria 0 SEEN Urine Mucus 0 SEEN 11/29/20 11/29/20 15:33 16:05 WBC RBC Hgb Hct MCV MCH MCHC RDW Std Deviation RDW Coeff of Doyle Plt Count MPV Immature Gran % (Auto) Neut % (Auto) Lymph % (Auto) [place] % (Auto) Eos % (Auto) Baso % (Auto) Absolute Neuts (auto) Absolute Lymphs (auto) Nucleated RBC % Sodium Potassium Chloride Carbon Dioxide Anion Gap BUN Creatinine Estim Creat Clear Calc Est GFR (MDRD) Af Amer Est GFR (MDRD) Non-Af BUN/Creatinine Ratio Glucose Calcium Total Bilirubin 0.50 Direct Bilirubin 0.11 AST 15 ALT 19 Alkaline Phosphatase 90 Total Protein 7.8 Albumin 4.1 Globulin 3.7 Lipase 62 L Free T4 0.66 L Urine Color Urine Clarity Urine pH Ur Specific [place] Urine Protein Urine Glucose (UA) Urine Ketones Urine Occult Blood Urine Nitrite Urine Bilirubin Urine Urobilinogen Ur Leukocyte Esterase Urine RBC Urine WBC Ur Squamous Epith Cells Urine Bacteria Urine Mucus Discharge Plan Triage Chief Complaint: Abd Pain ED Provider: Alo Delacruz Dx/Rx/DC Orders Clinical Impression: Abdominal pain, Nausea vomiting and diarrhea Instructions: Abdominal Pain, Gluten-Free Diet for Celiac Disease, ED Vomiting and Diarrhea ... Prescriptions: New hyoscyamine sulfate [Levsin/SL] 0.125 mg tablet, sublingual 0.125 mg sublingual Q6H PRN (Reason: abdominal discomfort) Qty: 20 RF: 0 No Action gabapentin 600 MG tablet 600 mg PO TID RF: 0 levothyroxine 112 MCG tablet 112 mcg PO DAILY RF: 0 dicyclomine 10 MG capsule 20 mg PO TIDAC Qty: 20 RF: 0 clonazepam 1 MG tablet 1 mg PO TID PRN PRN (Reason: Anxiety) RF: 0 omeprazole 20 MG tablet,disintegrat, delay rel 40 mg PO DAILY RF: 0 fluvoxamine 100 MG capsule,extended release 24hr 100 mg PO QHS RF: 0 ondansetron 4 MG tablet 4 mg PO Q8H PRN PRN (Reason: Nausea) Qty: 10 RF: 0 ondansetron 4 mg tablet,disintegrating 4 mg PO Q8H PRN (Reason: nausea and vomiting) Qty: 20 RF: 0 Primary Care Provider: Cesar Centeno Referrals: Cesar Centeno MD [Primary Care Provider] - 3-5 Days Activity Restrictions/Additional Instructions: Your labs are stable. Your free T4 level 0.66 slightly decreased from normal levels. Discussed with your PCP for adjustments. Continue meds for symptom control. Continue oral fluids. Follow-up with your PCP for referral to GI. Return if any worsening symptoms. Disposition Disposition: Home, Self Care
[2020-11-29] MEDS: Ondansetron 4 MG/2 ML Vial IV (16:27)
[2020-11-29] MEDS: Dicyclomine 20 MG/2 ML Vial IM (16:27)
[2020-11-29 16:37] LABS: AST(SGOT) 15 U/L (15-37); Alanine Aminotransfer ALT/SGPT 19 U/L (13-56); Albumin, Serum 4.1 g/dL (3.2-5.0); Alkaline Phosphatase 90 U/L (45-117); Bilirubin, Direct 0.11 mg/dL (0.00-0.30); Globulin 3.7 g/dL (2.2-4.2); Protein, Total 7.8 g/dL (6.4-8.2)
[2020-11-29 16:45] LABS: Lipase 62 U/L (73-393); T4 Free Direct 0.66 ng/dL (0.76-1.46)
[2020-11-29 17:23] VITALS: BP 118/80; RESP 16
== END 2020-11-29 17:28 | disposition home or self-care (01) ==
PROVIDERS: Emergency Provider Emergency Medicine; PCP Internal Medicine
DX: R10.9 Unspecified abdominal pain (principal); R11.2 Nausea with vomiting, unspecified; R19.7 Diarrhea, unspecified; E03.9 Hypothyroidism, unspecified; K58.9 Irritable bowel syndrome, unspecified; F32.9 Major depressive disorder, single episode, unspecified; F41.9 Anxiety disorder, unspecified; Z79.890 Hormone replacement therapy; Z79.899 Other long term (current) drug therapy; Z90.5 Acquired absence of kidney; F17.210 Nicotine dependence, cigarettes, uncomplicated
CPT/HCPCS: 80048; 80076; 81001; 83690; 84439; 85025; 87086; 87088; 96361; 96372; 96374; 99282; A4216; J2405

== ENCOUNTER 2020-12-14 11:14 | Emergency (ER) | payer MEDICARE, MEDICAID, SELFPAY ==
[2020-12-14 11:15] VITALS: BP 125/88; PULSE 112; RESP 18; TEMP 36.6; O2SAT 100; BMI 25.1
[2020-12-14 11:18] VITALS: BP 125/88; PULSE 112; RESP 18; TEMP 36.6; O2SAT 100
--- NOTE | 2020-12-14 11:47 | ED.VIS.GI ---
HPI HPI - GI History of Present Illness Chief Complaint: Abd Pain Informant: patient Narrative Narrative: Patient returns for evaluation recurrent abdominal pain nausea vomiting diarrhea. Symptoms for the past 4 days however pain now left lower abdomen. History of IBS, colonoscopy [address] Callahan. Denies fever. States was having loose stools now forming stools. Patient due to pain having urgency to urinate. History of total hysterectomy in the past. Reports saw her PCP office yesterday for follow-up has a referral to GI. Was given Phenergan prescription been using. However states still nauseated. Has Zofran is not working. Presents due to concerns of increasing pain in the left lower quadrant. Prior similar symptoms: Yes PFSH PFSH Medical History Anxiety Depression Hypothyroidism Irritable bowel syndrome Right kidney stone Home Medications gabapentin 600 mg PO TID 09/13/19 [History Last Taken 12/24/19] levothyroxine 112 mcg PO DAILY 09/13/19 [History Last Taken 12/24/19] dicyclomine 20 mg PO TIDAC #20 cap 12/19/19 [Rx Last Taken 12/24/19] clonazepam 1 mg PO TID PRN PRN 12/24/19 [History Last Taken 12/24/19] omeprazole 40 mg PO DAILY 05/28/20 [History Last Taken Unknown] fluvoxamine 100 mg PO QHS 07/14/20 [History Last Taken Unknown] ondansetron 4 mg PO Q8H PRN PRN #10 tablet 07/14/20 [Rx Last Taken Unknown] ondansetron 4 mg PO Q8H PRN #20 tab 10/13/20 [Rx Last Taken Unknown] hyoscyamine sulfate [Levsin/SL] 0.125 mg SUBLINGUAL Q6H PRN #20 tab 11/29/20 [Rx Last Taken Unknown] Allergy/AdvReac Type Severity Reaction Status Date / Time fentanyl Allergy Anaphylaxis Verified 12/14/20 11:18 ketorolac tromethamine AdvReac Other Verified 12/14/20 11:18 [From Toradol] Surgical History H/O: hysterectomy History of nephrectomy, right Social History Smoking Status: Current every day smoker tobacco type: cigarettes ROS ROS ED Constitutional Constitutional ED: Denies chills, fever(s) or sweats Eyes Eyes: Denies change in vision ENT ENT ED: Denies dysphagia or sore throat Cardiovascular Cardiovascular: Denies chest pain, leg edema, palpitations or racing heartbeat Respiratory/Chest Respiratory/Chest: Denies cough, dyspnea or dyspnea on exertion Gastrointestinal Gastrointestinal: Reports abdominal pain, diarrhea, nausea and vomiting Genitourinary Genitourinary ED: Denies dysuria, hematuria or urinary frequency Musculoskeletal Musculoskeletal: Denies back pain, extremity pain or neck pain Integumentary Denies rash or wounds Neurologic Neurologic: Denies headache(s), paresthesias or weakness EXAM Physical Exam Const Vital Signs: 12/14/20 11:15 12/14/20 11:18 Temperature 97.9 F 97.9 F Temperature Source Temporal Temporal Pulse Rate 112 H 112 H Respiratory Rate 18 18 Blood Pressure 125/88 H 125/88 H Blood Pressure Mean 100 100 Pulse Ox 100 100 Oxygen Delivery Method Room Air Room Air Positive well nourished and well developed General Appearance ED: well developed and NAD HEENT Reports moist mucous membranes normocephalic and atraumatic Eyes PERRL, EOMs intact bilaterally and conjunctivae normal General Eye ED: Yes normal appearance of both eyes Neck no lymphadenopathy and supple General: Negative for tenderness Chest Wall Chest: Negative for tenderness Resp normal respiratory effort and normal air movement Effort and Inspection: symmetric chest movement; Negative for respiratory distress Cardio regular rate, regular rhythm and no murmurs Peripheral Pulses: pulses 2+ throughout GI normal to inspection, nondistended, normoactive bowel sounds GI Narrative: Mild tenderness to deep palpation left lower quadrant. No guarding or rebound. Negative Ham's or McBurney's tenderness. Palpation: Negative for guarding or rebound tenderness present Back/Spine no CVA tenderness and no thoracic nor lumbar tenderness Extremity normal to inspection General Extremety ED: Negative for edema or tenderness General Extremity: Negative for edema Neuro oriented x3 and no sensory deficits noted Sensorium / Orientation: awake and alert Skin no rashes or lesions noted and no wounds MDM MDM MDM Narrative Medical decision making narrative: Patient with nonsurgical abdomen. Patient reporting more isolated left lower quadrant tenderness. This is progressed. Total hysterectomy in the past. Discussed rechecking labs urine along with CT scan for further evaluation. She is order for Reglan IV fluids for symptom control. Labs were obtained resulting normal levels urine also negative on reevaluation. Prior to CT scan, per nursing patient left the department. Was unable to reevaluate the patient. Patient eloped before final disposition. Lab Data Attestation: I reviewed the patient's lab results. Labs: Laboratory Results - last 24 hr 12/14/20 12/14/20 12/14/20 11:30 11:30 12:03 WBC 6.0 RBC 5.33 Hgb 15.7 H Hct 49.2 H MCV 92.3 MCH 29.5 MCHC 31.9 L RDW Std Deviation 45.9 H RDW Coeff of Doyle 13.5 Plt Count 191 MPV 11.1 Immature Gran % (Auto) 0.300 Neut % (Auto) 72.0 H Lymph % (Auto) 16.1 L [place] % (Auto) 11.1 H Eos % (Auto) 0.3 Baso % (Auto) 0.2 Absolute Neuts (auto) 4.3 Absolute Lymphs (auto) 0.97 Nucleated RBC % 0 Sodium 136 Potassium 4.1 Chloride 105 Carbon Dioxide 23.0 Anion Gap 8 BUN 15 Creatinine 0.97 Estim Creat Clear Calc 77.35 Est GFR (MDRD) Af Amer 80 Est GFR (MDRD) Non-Af 66 BUN/Creatinine Ratio 15.4 Glucose 118 H Calcium 9.2 Urine Color Yellow Urine Clarity Sl. Cloudy Urine pH 7.0 Ur Specific [place] 1.005 Urine Protein Negative Urine Glucose (UA) Normal Urine Ketones Negative Urine Occult Blood Negative Urine Nitrite Negative Urine Bilirubin Negative Urine Urobilinogen Normal Ur Leukocyte Esterase Negative Urine RBC 0 SEEN Urine WBC 0 SEEN Ur Squamous Epith Cells 0-5 SEEN Urine Bacteria 0 SEEN Urine Mucus 0 SEEN Discharge Plan Triage Chief Complaint: Abd Pain ED Provider: Alo Delacruz Dx/Rx/DC Orders Clinical Impression: Abdominal pain, IBS (irritable bowel syndrome) Prescriptions: No Action gabapentin 600 MG tablet 600 mg PO TID RF: 0 levothyroxine 112 MCG tablet 112 mcg PO DAILY RF: 0 dicyclomine 10 MG capsule 20 mg PO TIDAC Qty: 20 RF: 0 clonazepam 1 MG tablet 1 mg PO TID PRN PRN (Reason: Anxiety) RF: 0 omeprazole 20 MG tablet,disintegrat, delay rel 40 mg PO DAILY RF: 0 fluvoxamine 100 MG capsule,extended release 24hr 100 mg PO QHS RF: 0 ondansetron 4 MG tablet 4 mg PO Q8H PRN PRN (Reason: Nausea) Qty: 10 RF: 0 ondansetron 4 mg tablet,disintegrating 4 mg PO Q8H PRN (Reason: nausea and vomiting) Qty: 20 RF: 0 hyoscyamine sulfate [Levsin/SL] 0.125 mg tablet, sublingual 0.125 mg sublingual Q6H PRN (Reason: abdominal discomfort) Qty: 20 RF: 0 Primary Care Provider: Cesar Centeno Referrals: Cesar Centeno MD [Primary Care Provider] - Disposition Disposition: [facility] Discharge Date/Time: 12/14/20 12:24
[2020-12-14 12:07] LABS: Absolute Lymphocyte Count 0.97 X10^3/uL (0.83-4.51); Absolute Neutrophil Count 4.3 X10^3/uL (2.0-7.7); Basophil# 0.01 X10^3/uL; Basophil% 0.2 % (0-1); Eosinophil# 0.02 X10^3/uL; Eosinophils% 0.3 % (0-5); Hematocrit 49.2 % (37-47); Hemoglobin 15.7 g/dL (12.0-15.0); Lymphocyte # 0.97 X10^3/ul (0.83-4.51); Lymphocyte % 16.1 % (19-41); Mean Corp Hgb Conc 31.9 g/dL (32-36); Mean Corpuscular Hgb 29.5 pg (27.0-32.0); Mean Corpuscular Volume 92.3 fL (81-99); Mean Platelet Vol. 11.1 fl (6.2-12.0); Monocyte# 0.67 X10^3/uL; Monocyte% 11.1 % (0-10); NRBC Flagged by Analyzer 0 % (0-5); Neutrophil # 4.34 X10^3/uL (2.7-7.7); Platelet Count 191 K/mm3 (150-450); RBC Distribution Width CV 13.5 % (11.6-14.6); RBC Distribution Width SD 45.9 fl (35.1-43.9); Red Blood Count 5.33 M/mm3 (4.2-5.4)
[2020-12-14] MEDS: 0.9% Normal Saline 1,000 ML 1000 ML IV (12:07)
[2020-12-14] MEDS: Metoclopramide 10 MG/2 ML Vial IV (12:07)
[2020-12-14 12:08] LABS: Bacteria 0 SEEN /hpf (None Seen); Mucous, Urine 0 SEEN /hpf (<or=2+); Red Blood Cells-Urine 0 SEEN /hpf (0-5); White Blood Cells 0 SEEN /hpf (0-5)
[2020-12-14 12:10] LABS: Color, Urine Yellow (Yellow); Glucose, Dipstick Normal (Normal); Ketone-Dipstick Negative (Negative); Leukocyte Esterase-Dipstick Negative /ul (Negative); Nitrite-Dipstick Negative (Negative); Occult Blood-Urine Negative /ul (Negative); Protein-Dipstick Negative (Negative); Specific Gravity, Urine 1.005 (1.002-1.030); Urine Bilirubin Dipstick Negative (Negative); Urine Clarity Sl. Cloudy (Clear); Urine Urobilinogen Normal (Normal)
[2020-12-14 12:15] LABS: Anion Gap 8 (5-15); BUN 15 mg/dL (7-18); BUN/Creat Ratio 15.4 RATIO (10-20); Calcium,Total 9.2 mg/dL (8.5-10.1); Chloride 105 mmol/L (98-107); Creatinine, Serum 0.97 mg/dL (0.55-1.02); EST Glomerular Filtration Rate 66 mL/min (>60); Est Glom Filt Rate - Afr Amer 80 mL/min (>60); Estimated Creatinine Clearance 77.35 ml/min; Glucose 118 mg/dL (74-106); Potassium 4.1 mmol/L (3.5-5.1); Sodium Level 136 mmol/L (136-145)
--- NOTE | 2020-12-14 12:24 | ED.RN ---
PTWALKED OUT OF DEPARTMENT. PHONE MESSAGE LEFT FOR PT TO CALL AND CONFIRM IV WAS REMOVED
--- NOTE | 2020-12-14 12:24 | ED.RN ---
pt left ama. iv on bed.
[2020-12-14 12:38] LABS: Squamous Epithelial Cells - UA 0-5 SEEN /hpf (5-10)
== END 2020-12-14 12:24 | disposition left against medical advice (07) ==
LOC: ED 12:02
PROVIDERS: Emergency Provider Emergency Medicine; PCP Internal Medicine
DX: K58.9 Irritable bowel syndrome, unspecified (principal); R10.32 Left lower quadrant pain; E03.9 Hypothyroidism, unspecified; F32.9 Major depressive disorder, single episode, unspecified; F41.9 Anxiety disorder, unspecified; F17.210 Nicotine dependence, cigarettes, uncomplicated; Z79.890 Hormone replacement therapy; Z79.899 Other long term (current) drug therapy; Z90.5 Acquired absence of kidney
CPT/HCPCS: 80048; 81001; 85025; 96361; 96374; 99283

== ENCOUNTER 2021-03-06 08:37 | Emergency (ER) | payer MEDICARE, MEDICAID, SELFPAY ==
[2021-03-06 08:38] VITALS: BP 132/95; PULSE 77; RESP 16; TEMP 36.5; O2SAT 100; BMI 24.0
--- NOTE | 2021-03-06 09:10 | ED.VIS.GI ---
HPI HPI - GI History of Present Illness Chief Complaint: Nausea/Vomiting Informant: patient Abdominal Pain/Flank Pain Onset: Days Context: Gradual Onset Timing: Intermittent Current Severity: Mild Maximum Severity: Mild Nausea/Vomiting/Emesis GI Symptom: Positive for Nausea and Vomiting Onset: Yesterday Diarrhea/Melena/Hematochezia GI Symptom: Negative for Diarrhea, Melena and Hematochezia Associated Symptoms Associated Symptoms: Negative for Dysuria, Frequency and Hematuria Narrative Narrative: 45-year-old male history of anxiety depression, IBS, kidney stone, only one kidney your right kidney was removed as a teenager and prior hysterectomy. States Thursday night into Thursday she had nausea and vomiting throughout the night. She still nausea but the vomiting is resolved. She denies any fever or dysuria. She has had no flank pain. No hematuria. Prior similar symptoms: Yes Recent Illness/Hospitalization: No PFSH PFSH Medical History Anxiety Depression Hypothyroidism Irritable bowel syndrome Right kidney stone Home Medications gabapentin 600 mg PO TID 09/13/19 [History Last Taken 12/24/19] levothyroxine 112 mcg PO DAILY 09/13/19 [History Last Taken 12/24/19] dicyclomine 20 mg PO TIDAC #20 cap 12/19/19 [Rx Last Taken 12/24/19] clonazepam 1 mg PO TID PRN PRN 12/24/19 [History Last Taken 12/24/19] omeprazole 40 mg PO DAILY 05/28/20 [History Last Taken Unknown] fluvoxamine 100 mg PO QHS 07/14/20 [History Last Taken Unknown] ondansetron 4 mg PO Q8H PRN PRN #10 tablet 07/14/20 [Rx Last Taken Unknown] ondansetron 4 mg PO Q8H PRN #20 tab 10/13/20 [Rx Last Taken Unknown] hyoscyamine sulfate [Levsin/SL] 0.125 mg SUBLINGUAL Q6H PRN #20 tab 11/29/20 [Rx Last Taken Unknown] Allergy/AdvReac Type Severity Reaction Status Date / Time fentanyl Allergy Anaphylaxis Verified 03/06/21 08:41 ketorolac tromethamine AdvReac Other Verified 03/06/21 08:41 [From Toradol] Surgical History H/O: hysterectomy History of nephrectomy, right Social History Smoking Status: Current every day smoker tobacco type: cigarettes ROS ROS ED ROS Narrative Nausea and vomiting. Review of Systems ROS Unobtainable: Denies due to encephalopathy Constitutional Constitutional ED: Denies chills or fever(s) ENT ENT ED: Denies ear pain or sore throat Cardiovascular Cardiovascular: Denies chest pain Respiratory/Chest Respiratory/Chest: Denies cough or dyspnea Gastrointestinal Gastrointestinal: Reports nausea and vomiting; Denies abdominal pain or diarrhea Genitourinary Genitourinary ED: Denies dysuria, hematuria or urinary frequency Musculoskeletal Musculoskeletal: Denies arthralgias or myalgias Integumentary Denies rash Neurologic Neurologic: Denies headache(s) Psychiatric Psychiatric: Denies depression Endocrine Endocrinology: Denies polyuria Hematologic/Lymphatic Hematologic/Lymphatic: Denies easy bruising Allergic/Immunologic Allergic/Immunologic ED: Denies urticaria EXAM Physical Exam Narrative Exam Narrative: Noise female no acute distress vital signs stable afebrile does not look septic or toxic. HEENT exam mildly dry mucous memories. Neck nontender no lymphadenopathy. Lungs clear to auscultation bilaterally. Heart regular rhythm rate about 80 no murmur. Abdomen soft nondistended normal bowel sounds no peritoneal signs. Moving all 4 extremities no edema. Back nontender no CVA tenderness. Neurologically awake and alert with no focal motor deficits. Const Vital Signs: 03/06/21 08:38 Temperature 97.7 F L Temperature Source Temporal Pulse Rate 77 Respiratory Rate 16 Blood Pressure 132/95 H Blood Pressure Mean 107 Pulse Ox 100 Oxygen Delivery Method Room Air Positive well nourished and well developed; Negative for obese, cachectic, contractures or unkempt General Appearance ED: well developed and NAD; Negative for unkempt, cachectic, contractures or pallor Nutritional Appearance: Negative for cachectic or obese HEENT Reports moist mucous membranes normocephalic and atraumatic Eyes PERRL and EOMs intact bilaterally Neck no lymphadenopathy, supple and no JVD General: Negative for tenderness Resp normal respiratory effort and clear to auscultation bilaterally Auscultation: Negative for rales, rhonchi or wheezes Cardio regular rate, regular rhythm, S1 normal heart sound, S2 normal heart sound and no murmurs GI non-tender, non-distended and no masses Auscultation: normoactive bowel sounds Palpation: soft; Negative for tender, guarding or rigid Back/Spine no CVA tenderness Extremity full ROM General Extremety ED: Negative for edema or tenderness General Extremity: Negative for edema Neuro moves all extremities Sensorium / Orientation: alert, oriented to person, oriented to place and oriented to time; Negative for orientation impaired, confused, lethargic or stuporous Motor Exam: strength 5/5 throughout Psych thought process normal Appearance: Negative for unkempt Skin no wounds General Skin Exam: Negative for jaundice or pallor Lesions: no lesions Rashes: no rashes MDM MDM MDM Narrative Medical decision making narrative: Middle-aged female with nausea and vomiting Thursday night into Thursday. Clinically at this time I do not think this is a kidney stone. We will check a urinalysis and screening labs. Her abdomen is benign at this time I do not know she needs any imaging. She will be treated with IV fluids and IV Zofran. Repeat exam the patient is doing well at 9:34 AM. Nausea is improved with the medications. She is receiving her IV fluids and I am awaiting the urinalysis results. Repeat exam patient is doing well at 10:32 AM and will be discharged to home. Lab Data Attestation: I reviewed the patient's lab results. Lab results narrative: CBC normal white count of 4. Hemoglobin 14.5. Electrolytes gap 11 BUN of 21 creatinine 0.98. Liver enzymes are unremarkable glucose 110. Urinalysis shows no nitrates. No whites or red cells. No epithelial cells. 2+ bacteria. Labs: Laboratory Results - last 24 hr 03/06/21 03/06/21 03/06/21 08:54 08:54 09:29 WBC 4.7 RBC 4.94 Hgb 14.5 Hct 44.9 MCV 90.9 MCH 29.4 MCHC 32.3 RDW Std Deviation 46.9 H RDW Coeff of [place] 14.0 Plt Count 195 MPV 11.2 Immature Gran % (Auto) 0.200 Neut % (Auto) 49.0 Lymph % (Auto) 39.7 [place] % (Auto) 10.3 H Eos % (Auto) 0.6 Baso % (Auto) 0.2 Absolute Neuts (auto) 2.3 Absolute Lymphs (auto) 1.85 Nucleated RBC % 0 Sodium 140 Potassium 3.5 Chloride 104 Carbon Dioxide 25.0 Anion Gap 11 BUN 21 H Creatinine 0.98 Estim Creat Clear Calc 76.56 Est GFR (MDRD) Af Amer 79 Est GFR (MDRD) Non-Af 65 BUN/Creatinine Ratio 21.4 H Glucose 110 H Calcium 9.0 Total Bilirubin 0.80 AST 19 ALT 24 Alkaline Phosphatase 89 Total Protein 7.6 Albumin 3.8 Globulin 3.8 Albumin/Globulin Ratio 1.0 Urine Color Yellow Urine Clarity Sl. Cloudy Urine pH 6.5 Ur Specific [place] 1.020 Urine Protein 30 H Urine Glucose (UA) Normal Urine Ketones 5 H Urine Occult Blood Negative Urine Nitrite Negative Urine Bilirubin Negative Urine Urobilinogen 1 H Ur Leukocyte Esterase 25 H Urine RBC 0 SEEN Urine WBC 0-5 SEEN Ur Squamous Epith Cells 0-5 SEEN Urine Bacteria 2+ Urine Mucus 1+ Discharge Plan Triage Chief Complaint: Nausea/Vomiting ED Provider: Toy Acuna Dx/Rx/DC Orders Clinical Impression: Vomiting Instructions: ED Vomiting (Adult) Prescriptions: No Action gabapentin 600 MG tablet 600 mg PO TID RF: 0 levothyroxine 112 MCG tablet 112 mcg PO DAILY RF: 0 dicyclomine 10 MG capsule 20 mg PO TIDAC Qty: 20 RF: 0 clonazepam 1 MG tablet 1 mg PO TID PRN PRN (Reason: Anxiety) RF: 0 omeprazole 20 MG tablet,disintegrat, delay rel 40 mg PO DAILY RF: 0 fluvoxamine 100 MG capsule,extended release 24hr 100 mg PO QHS RF: 0 ondansetron 4 MG tablet 4 mg PO Q8H PRN PRN (Reason: Nausea) Qty: 10 RF: 0 ondansetron 4 mg tablet,disintegrating 4 mg PO Q8H PRN (Reason: nausea and vomiting) Qty: 20 RF: 0 hyoscyamine sulfate [Levsin/SL] 0.125 mg tablet, sublingual 0.125 mg sublingual Q6H PRN (Reason: abdominal discomfort) Qty: 20 RF: 0 Primary Care Provider: Cesar Centeno Referrals: Cesar Centeno MD [Primary Care Provider] - 3-5 Days if not improving Activity Restrictions/Additional Instructions: Plenty of fluids and rest. Increase diet slowly as tolerated. Zofran as needed for nausea. Follow-up with your doctor if not improving return to emergency department if feeling significantly worse. Disposition Disposition: Home, Self Care
[2021-03-06 09:15] LABS: Absolute Lymphocyte Count 1.85 X10^3/uL (0.83-4.51); Absolute Neutrophil Count 2.3 X10^3/uL (2.0-7.7); Basophil# 0.01 X10^3/uL; Basophil% 0.2 % (0-1); Eosinophil# 0.03 X10^3/uL; Eosinophils% 0.6 % (0-5); Hematocrit 44.9 % (37-47); Hemoglobin 14.5 g/dL (12.0-15.0); Lymphocyte # 1.85 X10^3/ul (0.83-4.51); Lymphocyte % 39.7 % (19-41); Mean Corp Hgb Conc 32.3 g/dL (32-36); Mean Corpuscular Hgb 29.4 pg (27.0-32.0); Mean Corpuscular Volume 90.9 fL (81-99); Mean Platelet Vol. 11.2 fl (6.2-12.0); Monocyte# 0.48 X10^3/uL; Monocyte% 10.3 % (0-10); NRBC Flagged by Analyzer 0 % (0-5); Neutrophil # 2.28 X10^3/uL (2.7-7.7); Platelet Count 195 K/mm3 (150-450); RBC Distribution Width SD 46.9 fl (35.1-43.9); Red Blood Count 4.94 M/mm3 (4.2-5.4); White Blood Count 4.7 K/mm3 (4.4-11.0)
[2021-03-06 09:28] LABS: AST(SGOT) 19 U/L (15-37); Alanine Aminotransfer ALT/SGPT 24 U/L (13-56); Albumin, Serum 3.8 g/dL (3.2-5.0); Alkaline Phosphatase 89 U/L (45-117); Anion Gap 11 (5-15); BUN 21 mg/dL (7-18); BUN/Creat Ratio 21.4 RATIO (10-20); Chloride 104 mmol/L (98-107); Creatinine, Serum 0.98 mg/dL (0.55-1.02); EST Glomerular Filtration Rate 65 mL/min (>60); Est Glom Filt Rate - Afr Amer 79 mL/min (>60); Estimated Creatinine Clearance 76.56 ml/min; Globulin 3.8 g/dL (2.2-4.2); Glucose 110 mg/dL (74-106); Potassium 3.5 mmol/L (3.5-5.1); Protein, Total 7.6 g/dL (6.4-8.2); Sodium Level 140 mmol/L (136-145)
[2021-03-06] MEDS: Ondansetron 4 MG/2 ML Vial IV (09:30)
[2021-03-06] MEDS: 0.9% Normal Saline 1,000 ML 1000 ML IV (09:30)
[2021-03-06 09:33] LABS: Red Blood Cells-Urine 0 SEEN /hpf (0-5)
[2021-03-06 09:39] LABS: Color, Urine Yellow (Yellow); Glucose, Dipstick Normal (Normal); Ketone-Dipstick 5 mg/dl (Negative); Leukocyte Esterase-Dipstick 25 /ul (Negative); Nitrite-Dipstick Negative (Negative); Occult Blood-Urine Negative /ul (Negative); Protein-Dipstick 30 mg/dl (Negative); Urine Bilirubin Dipstick Negative (Negative); Urine Clarity Sl. Cloudy (Clear); Urine Urobilinogen 1 mg/dl (Normal); Urine pH 6.5 (5.0 - 8.0)
[2021-03-06 09:45] LABS: Bacteria 2+ /hpf (None Seen); Mucous, Urine 1+ /hpf (<or=2+); Squamous Epithelial Cells - UA 0-5 SEEN /hpf (5-10); White Blood Cells 0-5 SEEN /hpf (0-5)
[2021-03-06 10:54] VITALS: BP 113/75; PULSE 54
[2021-03-06 10:59] VITALS: BP 113/75; PULSE 54
== END 2021-03-06 11:03 | disposition home or self-care (01) ==
LOC: ED 09:31
PROVIDERS: Emergency Provider Emergency Medicine; PCP Internal Medicine
DX: R11.2 Nausea with vomiting, unspecified (principal); R10.9 Unspecified abdominal pain; E03.9 Hypothyroidism, unspecified; K58.9 Irritable bowel syndrome, unspecified; F32.A Depression, unspecified; F41.9 Anxiety disorder, unspecified; F17.210 Nicotine dependence, cigarettes, uncomplicated; Z79.890 Hormone replacement therapy; Z79.899 Other long term (current) drug therapy; Z87.442 Personal history of urinary calculi; Z90.5 Acquired absence of kidney
CPT/HCPCS: 80053; 81001; 85025; 96361; 96374; 99285; J7030; A4216; J2405

== ENCOUNTER 2021-03-08 12:49 | Emergency (ER) | payer MEDICARE, MEDICAID, SELFPAY ==
[2021-03-08 12:50] VITALS: BP 144/100; PULSE 78; RESP 18; TEMP 35.8; O2SAT 97; BMI 20.7
[2021-03-08 12:54] VITALS: BP 144/101; PULSE 78
--- NOTE | 2021-03-08 13:38 | CM.ED ---
TASHA Note: TASHA called Cyn at [facility]. [facility] is still [facility] with [facility]. Cyn said that as far she can tell patient is still on her medications. Karlie KING
--- NOTE | 2021-03-08 15:54 | EX.ED.VIS.PS ---
HPI HPI - Psych History of Present Illness Chief Complaint: Anxiety Narrative Narrative: 45-year-old female with history of anxiety and depression presenting for a medication refill. She states she was previously on clonazepam 3 months ago but she became angry with her psychiatrist for prescribing her daughter something that she did not like. After this her psychiatrist did not want to treat both of them so the patient claims that she dropped her. She did not have any clonazepam. She followed up with her primary care physician who referred her to a psychiatrist with [facility]. He started her on the patient Effexor. She is not sure of the dose. She has run out. She tried to get her prescription refilled but is unable to get an appointment with her primary care physician. There was no telehealth visit available. PFSH [facility] Medical History Anxiety Depression Hypothyroidism Irritable bowel syndrome Right kidney stone Home Medications levothyroxine 112 mcg PO DAILY 09/13/19 [History Last Taken 12/24/19] clonazepam 1 mg PO TID PRN PRN 12/24/19 [History Last Taken 12/24/19] omeprazole 40 mg PO DAILY 05/28/20 [History Last Taken Unknown] hyoscyamine sulfate [Levsin/SL] 0.125 mg SUBLINGUAL Q6H PRN #20 tab 11/29/20 [Rx Last Taken Unknown] dicyclomine 20 mg PO TIDAC PRN 03/08/21 [History Last Taken Unknown] Allergy/AdvReac Type Severity Reaction Status Date / Time fentanyl Allergy Anaphylaxis Verified 03/08/21 14:58 ketorolac tromethamine AdvReac Other Verified 03/08/21 14:58 [From Toradol] Surgical History H/O: hysterectomy History of nephrectomy, right Social History Smoking Status: Current every day smoker tobacco type: cigarettes ROS ROS ED Review of Systems ROS Unobtainable: Denies due to encephalopathy Constitutional Constitutional ED: Denies fever(s) or subjective Eyes Eyes: Denies blurry vision or change in vision ENT ENT ED: Denies ear pain or rhinorrhea Cardiovascular Cardiovascular: Denies chest pain or palpitations Respiratory/Chest Respiratory/Chest: Denies cough or dyspnea Gastrointestinal Gastrointestinal: Denies abdominal pain or nausea Genitourinary Genitourinary ED: Denies dysuria, hematuria or urinary frequency Musculoskeletal Musculoskeletal: Denies arthralgias or myalgias Integumentary Denies Abrasions or rash Neurologic Neurologic: Denies headache(s) or paresthesias Psychiatric Psychiatric: Reports anxiety and depression EXAM Physical Exam Const Vital Signs: 03/08/21 12:50 03/08/21 12:54 03/08/21 16:12 Temperature 96.4 F L Temperature Source Temporal Pulse Rate 78 78 Respiratory Rate 18 Blood Pressure 144/100 H 144/101 H Blood Pressure Mean 114 115 Pulse Ox 97 92 Oxygen Delivery Method Room Air Room Air Positive well nourished General Appearance ED: NAD HEENT normocephalic and atraumatic Eyes PERRL and EOMs intact bilaterally Resp normal respiratory effort and clear to auscultation bilaterally Cardio Rate: regular rate Rhythm: regular rhythm Psych mental status grossly normal and thought process normal Skin Lesions: no lesions Rashes: no rashes MDM MDM MDM Narrative Medical decision making narrative: Patient presenting for refill of her medication. She is also requesting some more services for mental health. [employer] worker did speak with her and gave her information for follow-up. I spoke with the on-call physician for Dr. Centeno who is going to refill her Effexor. Patient will be discharged home. Impression: 1. Medication refill Discharge Plan Triage Chief Complaint: Anxiety ED Provider: Tyson Villa Dx/Rx/DC Orders Instructions: ED Panic Attack Prescriptions: No Action levothyroxine 112 MCG tablet 112 mcg PO DAILY RF: 0 clonazepam 1 MG tablet 1 mg PO TID PRN PRN (Reason: Anxiety) RF: 0 omeprazole 20 MG tablet,disintegrat, delay rel 40 mg PO DAILY RF: 0 hyoscyamine sulfate [Levsin/SL] 0.125 mg tablet, sublingual 0.125 mg sublingual Q6H PRN (Reason: abdominal discomfort) Qty: 20 RF: 0 dicyclomine 10 MG capsule 20 mg PO TIDAC PRN (Reason: ABDPAIN) RF: 0 Primary Care Provider: Cesar Centeno Referrals: Cesar Centeno MD [Primary Care Provider] - Disposition Disposition: Home, Self Care Discharge Date/Time: 03/08/21 17:18
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
[2021-03-08 16:12] VITALS: O2SAT 92
--- NOTE | 2021-03-08 16:40 | ED.RN ---
PT AMBULATED OUT OF DEPARTMENT. STATES SHE CANNOT HANDLE THE YELLING FROM ANOTHER PT. MADE AWARE.
== END 2021-03-08 17:18 | disposition home or self-care (01) ==
PROVIDERS: Emergency Provider Student in an Organized Health Care Education/Training Program; PCP Internal Medicine
DX: F41.9 Anxiety disorder, unspecified (principal); F32.A Depression, unspecified; Z76.0 Encounter for issue of repeat prescription; E03.9 Hypothyroidism, unspecified; K58.9 Irritable bowel syndrome, unspecified; F17.210 Nicotine dependence, cigarettes, uncomplicated; Z79.890 Hormone replacement therapy; Z79.899 Other long term (current) drug therapy; Z90.5 Acquired absence of kidney
CPT/HCPCS: 99282

== ENCOUNTER 2021-04-26 10:26 | Emergency (ER) | payer MEDICARE, MEDICAID, SELFPAY ==
[2021-04-26 10:27] VITALS: BP 118/82; PULSE 85; RESP 18; TEMP 36.2; O2SAT 99; BMI 19.8
--- NOTE | 2021-04-26 10:38 | EX.ED.VIS.UR ---
HPI HPI - URI History of Present Illness Chief Complaint: Sore Throat Detail of Chief Complaint: Sore throat and continuous postnasal drainage due to allergies Informant: patient Onset/Context/Timing Onset: Days Context: Sudden Onset Timing: Continuous and Waxes and wanes Quality: Pain Location: Throat Current Severity: Mild Maximum Severity: Severe Worsened by: Swallowing Associated Symptoms Associated Symptoms: Positive for Nasal Congestion (Chronic for you here is due to allergies), Headache, Sinus Pressure (Right ethmoid region) and Nausea (Date of onset); Negative for Myalgias, Vomiting, Diarrhea, Shortness of Breath, Chest Pain, Nonproductive cough, Hemoptysis and Productive Cough Narrative Narrative: Patient is a 46-year-old woman who presents because of sore throat. She states this reminds her when she was diagnosed with strep pharyngitis. She denies fever. She does complain of pain located over the right ethmoid maxillary region. She has history of allergic rhinitis. She also has history of deviated septum due to traumatic injury. She denies photophobia. She denies neck stiffness or neck pain. She does report right ear pain. She also complains of discomfort to look Fide between the larynx and sternocleidomastoid muscle on the right. She denies change in voice. She denies drooling. She denies difficulty opening or closing her mouth completely. She denies loss of taste or smell She does smoke She has not smoked since onset of illness Prior similar symptoms: Yes Recent Illness/Hospitalization: No ROS ROS ED Constitutional Constitutional ED: Denies chills, fever(s), subjective, sweats or weight loss Eyes Eyes: Denies blurry vision, change in vision or diplopia ENT ENT ED: Reports ear pain, rhinorrhea and sore throat Cardiovascular Cardiovascular: Denies chest pain, orthopnea, palpitations, paroxysmal nocturnal dyspnea or racing heartbeat Respiratory/Chest Respiratory/Chest: Denies cough, dyspnea, dyspnea on exertion, orthopnea, paroxysmal nocturnal dyspnea or sputum Gastrointestinal Gastrointestinal: Reports nausea; Denies abdominal pain, constipation, diarrhea or vomiting Genitourinary Genitourinary ED: Denies dysuria, hematuria or urinary frequency Musculoskeletal Musculoskeletal: Denies arthralgias, back pain, myalgias or neck pain Integumentary Denies rash Neurologic Neurologic: Reports headache(s); Denies paresthesias or weakness Psychiatric Psychiatric: Reports depression Endocrine Endocrinology: Denies polydipsia, polyphagia or polyuria Hematologic/Lymphatic Hematologic/Lymphatic: Denies easy bleeding or easy bruising PFSH PFSH Medical History Anxiety Depression Hypothyroidism Irritable bowel syndrome Right kidney stone Home Medications levothyroxine 112 mcg PO DAILY 09/13/19 [History Last Taken 12/24/19] clonazepam 1 mg PO TID PRN PRN 12/24/19 [History Last Taken 12/24/19] omeprazole 40 mg PO DAILY 05/28/20 [History Last Taken Unknown] hyoscyamine sulfate [Levsin/SL] 0.125 mg SUBLINGUAL Q6H PRN #20 tab 11/29/20 [Rx Last Taken Unknown] dicyclomine 20 mg PO TIDAC PRN 03/08/21 [History Last Taken Unknown] venlafaxine 37.5 mg PO QODAY 04/26/21 [History Last Taken Unknown] Allergy/AdvReac Type Severity Reaction Status Date / Time fentanyl Allergy Anaphylaxis Verified 04/26/21 10:28 ketorolac tromethamine AdvReac Other Verified 04/26/21 10:28 [From Toradol] Surgical History H/O: hysterectomy History of nephrectomy, right Social History (Updated 04/26/21 @ 10:[address] Joe Oscar MD) household members: family Smoking Status: Current every day smoker tobacco type: cigarettes alcohol intake: never substance use type: marijuana EXAM Physical Exam Const Vital Signs: 04/26/21 10:27 Temperature 97.1 F L Temperature Source Temporal Pulse Rate 85 Respiratory Rate 18 Blood Pressure 118/82 H Blood Pressure Mean 94 Pulse Ox 99 Oxygen Delivery Method Room Air Positive well nourished and well developed General Appearance ED: well developed and NAD; Negative for cyanotic, diaphoretic or pallor HEENT Reports TM's clear and moist mucous membranes normocephalic Face and Sinus: facial tenderness; Negative for sinus tenderness External Ear: external ears normal, mastoids normal and no preauricular adenopathy External Auditory Canal: EAC's normal Tympanic Membrane ED: Yes TM's clear Throat: posterior oropharynx abnormal Positive for erythema and exudates (1 pustule noted near the right anterior tonsillar pillar. Uvula is midline. There is no evidence of angioedema.); Negative for posterior oropharynx normal Eyes PERRL and EOMs intact bilaterally General Eye ED: Negative for pale conjunctiva or scleral icterus Neck no lymphadenopathy, supple, no meningeal signs and no JVD General: Negative for lymphadenopathy Resp normal respiratory effort and clear to auscultation bilaterally Cardio S1 normal heart sound, S2 normal heart sound and no murmurs Rate: regular rate Rhythm: regular rhythm Neuro oriented x3 and CN's II-XII intact bilaterally Sensorium / Orientation: alert Skin General Skin Exam: Negative for jaundice or pallor Lesions: no lesions Rashes: no rashes MDM MDM MDM Narrative Medical decision making narrative: Patient has evidence of pharyngitis. Will rule out strep. Lab Data Attestation: I reviewed the patient's lab results. Lab results narrative: Rapid strep was negative. Patient was informed of results. Treatment is symptomatic. Discharge Plan Triage Chief Complaint: Sore Throat ED Provider: Joe Oscar Dx/Rx/DC Orders Clinical Impression: Acute pharyngitis Instructions: ED Pharyngitis, Viral Prescriptions: No Action levothyroxine 112 MCG tablet 112 mcg PO DAILY RF: 0 clonazepam 1 MG tablet 1 mg PO TID PRN PRN (Reason: Anxiety) RF: 0 omeprazole 20 MG tablet,disintegrat, delay rel 40 mg PO DAILY RF: 0 hyoscyamine sulfate [Levsin/SL] 0.125 mg tablet, sublingual 0.125 mg sublingual Q6H PRN (Reason: abdominal discomfort) Qty: 20 RF: 0 dicyclomine 10 MG capsule 20 mg PO TIDAC PRN (Reason: ABDPAIN) RF: 0 venlafaxine 37.5 mg tablet 37.5 mg PO QODAY RF: 0 Primary Care Provider: Cesar Centeno Referrals: Cesar Centeno MD [Primary Care Provider] - 1 Week if not improving Activity Restrictions/Additional Instructions: 1. Salt water gargles 6-8 times a day 2. You may use Chloraseptic spray or Cepastat lozenges for throat discomfort 3. If you have drooling or difficulty breathing return immediately Disposition Disposition: Home, Self Care
[2021-04-26] MEDS: Acetaminophen 325 MG Tablet 650 MG PO (10:46)
== END 2021-04-26 11:54 | disposition home or self-care (01) ==
LOC: ED 11:39
PROVIDERS: Emergency Provider Emergency Medicine; PCP Internal Medicine; Visit Provider Emergency Medicine
DX: J02.9 Acute pharyngitis, unspecified (principal); E03.9 Hypothyroidism, unspecified; K58.9 Irritable bowel syndrome, unspecified; F32.A Depression, unspecified; F41.9 Anxiety disorder, unspecified; F17.200 Nicotine dependence, unspecified, uncomplicated; Z79.899 Other long term (current) drug therapy
CPT/HCPCS: 87880; 99282

== ENCOUNTER 2021-06-04 10:15 | Outpatient (RCR) | payer MEDICARE, MEDICAID, SELFPAY ==
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
--- NOTE | 2021-06-04 11:10 | BH.SGPN.GN ---
Behaviors/Verbalizations/Mental Status: []Client alert and oriented, casually dressed and groomed. Eye contact good. Motor activity restless Speech within normal limits. Affect constricted, mood anxious. Thoughts linear, logical, no signs of hallucinations or delusions. Client Response/Progress/Benefit: []Client an active participant, encouraging peers and contributed as group brainstormed ideas on how to cope with internal barriers that keep clients stuck from moving towards goals. Able to identify barriers to desired reality. Identified barriers to current reality to include: fear, shame, lack of trust, lack of motivation, isolation, racing thoughts, and procrastination. Client wants to work on overcoming the barrier of shame by reminding herself that she is a good person and of all the growth she has already made. Benefited from group by identifying obstacles and solutions to desired reality. Client?s first day of IOP tx. Will continue IOP tx to prevent decompensation, gain healthy coping skills, and improve overall functioning. Narrative Note: []
--- NOTE | 2021-06-05 09:00 | BH.SGPN.GN ---
Behaviors/Verbalizations/Mental Status: []Eye contact is good. Motor activity is appropriate. Appearance is casual. Speech is Appropriate. Mood is depressed and anxious. Affect is constricted. Thoughts are linear and logical. No evidence of psychosis. Reviewed daily check in sheet and no SI indicated. Client Response/Progress/Benefit: []Pt responded well to session, attentive and receptive to feedback from peers. Pt's first day of treatment, so her check-in was brief. Pt reports her brain is under constant attack and that she has been feeling all the emotions for a long period of time. Pt identified her mental health win today as getting to IOP as she often isolates and avoids people. Pt shared she knows that that is not working for pt anymore and wants to change. Peers offered encouragement which pt appeared to benefit from. Pt to continue IOP tx to prevent decompensation, gain healthy coping skills, and gain healthy supports. Narrative Note: []
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
--- NOTE | 2021-06-05 11:13 | BH.SGPN.GN ---
Behaviors/Verbalizations/Mental Status: [] Client alert and oriented, casually dressed and groomed. Eye contact good. Motor activity appropriate. Speech within normal limits. Affect congruent, mood euthymic. Thoughts linear, logical, no signs of hallucinations or delusions. Client Response/Progress/Benefit: [] Client responded well to session, engaged and taking notes. Attentive during psychoeducation about characteristics of healthy, unhealthy, and abusive relationships. Client stated she can't identify any healthy characteristics that she provides in relationships. Client stated her lack of trust of others immediately puts her on edge of others and leads to disrespectful communication. Client agreed she could benefit from focusing on improving emotion regulation and healthy communication skills. Appeared to benefit from identifying areas she wants to work on to build healthier relationships. Pt recommended to continue IOP tx to improve emotion regulation, decrease isolation, increase healthy coping skills and prevent decompensation.
[2021-06-05 11:46] VITALS: BP 139/83; PULSE 85
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
--- NOTE | 2021-06-05 13:27 | BH.DR.ITP ---
Initial Treatment Plan Patient Information Visit Information: ADMISSION DATE: EXPECTED LOS: 4-6 weeks Problems/Symptoms Problem #1:: Mood instability Symptom:: Depression, hopelessness, worthlessness, anhedonia, biological disruption of appetite, low energy, decreased concentration, guilt, fleeting, passive suicidal ideation, passive thoughts of , anger outbursts, irritability, racing thoughts and restlessness Problem #2:: Anxiety Symptom:: Worry, panic attacks, vomiting and diarrhea secondary to anxiety, nightmares, flashbacks, reexperiencing, avoidance
--- NOTE | 2021-06-06 09:05 | BH.SGPN.GN ---
Behaviors/Verbalizations/Mental Status: [] Eye contact is good. Motor activity is appropriate. Appearance is neat. Speech is Appropriate. Mood is anxious. Affect is congruent. Thoughts are linear and logical. No evidence of psychosis. Reviewed daily check in sheet and pt reports 1/5 for suicidal thoughts and 1/5 for intent which is significant reduction from previously this week. Client Response/Progress/Benefit: [] Pt was an active participant in group discussion. Attentive. Provided appropriate feedback. Daily symptom tracker notes 4/5 for depression, anxiety, and anger which is improvement from yesterday. Mental health win was the her BF's daughter (26) moved out of the house last night. Reports that this decreased her anxiety, anger, and hypervigilance significantly. I actually slept all night. Shared that she is working on identifying triggers even unconscious ones and setting boundaries. She reports feeling guilty with setting boundaries due to how it impact others. Guilt as she blames herself for the conflict with her BF's daughter. Progress noted mainly due to situational changes. Benefited from group support, encouragement, and feedback. Will continue in IOP to maintain safety, stabilize mood, and improve functioning. Narrative Note: []
--- NOTE | 2021-06-06 11:15 | BH.SGPN.GN ---
Behaviors/Verbalizations/Mental Status: []Client alert and oriented, casually dressed and groomed. Eye contact fair to good. Motor activity appropriate. Speech within normal limits. Affect congruent, mood anxious. Thoughts linear, logical, no signs of hallucinations or delusions. Client Response/Progress/Benefit: []Pt was an active participant in group discussions and activities. Engaged in activity. Pt identified a SMART goal for the next week is to: identify 5 triggers and practice belly breathing everyday. Pt reported this would benefit her by increased self-awareness and improve ability to manage emotions. Identified toxic people, fear and procrastination as potential barriers to completing this goal. Pt able to identify several solutions, such as self-talk and asking for help, that can help overcome identified barriers. Benefited from group by being able to utilize SMART educate to create a goal. Pt to continue IOP to stabilize moods, improve emotion regulation and prevent decompensation.
--- NOTE | 2021-06-06 11:53 | BH.MDN ---
Multi-Disciplinary Note - Note 30-min Individual Time Started:: 10:15 Date: 06/06/21 Purpose of session/treatment goals addressed:: Pt requested to speak with therapist due to anxiety and irritability. Also utilized the session to begin to work on treatment plan and goals. Eye Contact:: Good Motor Activity:: Restless Appearance:: Disheveled Speech:: Rapid Mood:: Anxious, Irritable Affect:: Congruent Thoughts:: Linear, Logical, No evidence of hallucinations/delusions noted Staff Interventions:: psychoeducation on: - communication skills., rapport building, treatment planning, taught coping skills Client Response:: Pt reports that she is anxious and angry. Also reports hypervigilant and not sure how to respond. Shared that she has significant conflict with her BF's daughter (26) who has been living with pt and BF. She triggers me. BF's daughter moved out yesterday (mutually agreed on this) and pt reports that she was able to feel more calm and actually had a good night's sleep. Reported being in good spirits this AM until she received a text from BF's daughter asking when she can come picking table worker her stuff. Pt approached the front desk clerk, breathing heavily, and in distress requesting to speak with a therapist. When asked how she should respond pt was able to verbalize a well thought out response along the lines of you are more than welcome to your stuff, however I prefer if you could coordinate with you dad so he can be there. She stated that she does not want to be home alone when BF's daughters comes over to picking table worker the stuff. She is agreeable to having her BF arrange a picking table worker time to avoid further distress and to avoid further conflict with BF's daughter. .BF is scheduled to be home this evening. Insight that her initial response was anger and telling her to fuck off however after taking a few moments and talking she made a better choice. When pt feels rejected or wronged her initial reaction appears to be anger and she can present very irritable which impacts her relationships. Her goals are to identify coping skills for her mood instability, anxiety, and depression. She mentions previous trauma often which she has never processed. Risks/Concerns:: Denies SI, plan, or intent. No risks or concerns. Progress Toward Goals/Plan:: Pt reports progress this AM during first group with improved sleep and decreased hypervigilance. This is due in large part to her BF's daughter moving out yesterday (this was primary stressor). She is very reactive to small stressors throughout the day and often utilized isolation to cope. Limited coping skills for anger management. Unable to consistent reframe thoughts, challenge thoughts, or even use distraction. Usually responds impulsively to events. She was visibly anxious and irritable at text today and unsure how to respond needed reassurance. Ruminating on how others perceive her. Feels guilty about setting boundaries. Will continue in IOP to maintain safety, stabilize mood, and improve functioning. Time Stopped:: 10:50
--- NOTE | 2021-06-06 11:53 | BH.MTP ---
Master Treatment Plan - Patient Information Program Physician:: Analy Foster Primary Therapist:: Edy Heaton - Psychiatric Diagnoses Psychiatric Diagnoses:: 1. Bipolar 1 disorder, most recent episode mixed, severe without psychosis (F 31.63). 2. Generalized anxiety disorder. 3. PTSD. 4. Cannabis use disorder. 5. Cocaine and methamphetamine use disorders?sober for 5 years. 6. Alcohol use disorder. 7. Borderline personality disorder Diagnosis Code(s):: F31.63 - Estimated LOS Estimated LOS (in weeks):: 7 Problem/Goal #1 - Problem/Goal #1 Stated Goal:: Client will increase mood stability and reduce depression/suicidal thoughts due to Bipolar II through Intensive Outpatient Services AEB by reduction of scores on the DSM-5 tamera/depression domains and self-report. Description of Barriers: erratic moods, anger outbursts, hx of non-compliance with medication, alcohol use, isolative behaviors, limited support, hx of trauma. Functional Impact: Mood instability has impacted relationships and led to extensive isolation. Pt avoids people for fear of going off. Emotional dysregulation. Poor anger mgmt skills often lead to impulsive actions with significant consequences. Goal Relevant Strengths/Supports: Financial stability, healthy relationship with live-in BF, outgoing, intelligent, and insight into illness. Limited supports (BF, bio-children) - Objectives Objective #1 Stated Objective: Client will reduce depression, suicidal thinking, and impulsivity by identifying 2-3 triggers for mood changes and at least 3 ways to cope with these. Interventions: Through group and individual sessions, therapist will help client identify triggers and warning signs of depression and emotional dysregulation including emotional, physical, and behavioral changes. IOP will teach client various coping skills to manage symptoms and give tangible resources to use to regulate emotions. Therapist will use cognitive restructuring techniques and help client gain awareness of negative thoughts that reinforce depressive cycles Discharge Criteria: Able to identify 3 common triggers to emotional dysregulation and 3 coping strategies (internal and external) to improve emotional regulation. Target Date: 07/19/21 Review Date: 07/05/21 Objective #2 Stated Objective: Client will identify 5 physical warning signs of anger and 5 ways to calm and manage anger. Interventions: Through individual and group counseling will client calming techniques as part of a tailored strategy for reducing chronic and acute physiological tension that accompanies the escalation of his/her angry feelings. 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 Must be able to consistently utilize skills AEB by reduction of scores on DSM-5 anger domain. Target Date: 07/19/21 Review Date: 07/05/21 Problem/Goal #2 - Problem/Goal #2 Stated Goal:: Learn and implement coping skills that result in a reduction of anxiety and worry, and improved daily functioning AEB reduction of scores on DSM-5 anxiety domain and self-report. Description of Barriers: erratic moods, anger outbursts, hx of non-compliance with medication, alcohol use, isolative behaviors, limited support, hx of trauma. Functional Impact: anxiety has led to isolation, fear, and hypervigilance which interferes with familial and social functioning. Goal Relevant Strengths/Supports: Financial stability, healthy relationship with live-in BF, outgoing, intelligent, and insight into illness. Limited supports (BF, bio-children) - Objectives Objective #1 Stated Objective: Client will identify 2-3 cognitive distortions that lead to rumination, fear, and isolation and learn 2-3 ways to manage these thoughts to better manage anxiety as shown by reduced DSM-5 scores for anxiety. Interventions: Through individual and group counseling will provide education on the most common cognitive distortions and teach client the connection between thoughts, emotions, and feelings. Therapist will assist client in identifying, challenging, and replacing dysfunctional thoughts with positive, more realistic thoughts. Discharge Criteria: Able to identify 2-3 cognitive distortions and 2-3 strategies to challenge or reframe these thoughts. Target Date: 07/19/21 Review Date: 07/05/21 Objective #2 Stated Objective: Client will be able to explain common stress reactions related to trauma as well as identify 3 trauma triggers. Interventions: Through individual and group counseling will provide education on trauma and explain the impact trauma can have on development. Will help client explore personal symptoms and warning signs of stress and trauma. Discharge Criteria: Pt will be able to identify common stress reactions and triggers to trauma, symptoms of hypervigilance, and increase awareness of PTSD dx. Target Date: 07/19/21 Review Date: 07/05/21
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
--- NOTE | 2021-06-11 09:06 | BH.SGPN.GN ---
Behaviors/Verbalizations/Mental Status: []Client alert and oriented, casually dressed and groomed. Eye contact good. Motor activity appropriate. Speech within normal limits. Affect congruent, mood euthymic. Thoughts linear, logical, no signs of hallucinations or delusions. Reviewed client?s symptom tracker, no risk for suicidal ideation, plan, or intent as of 06/11/21 Client Response/Progress/Benefit: [] Client responded well to session, attentive and receptive to feedback on how to maintain healthy boundaries with triggering people. Client reports feeling encouraged and relieved this morning as client is anxious about maintaining her progress and continuing to do the uncomfortable but healthy thing, but recognizes that she is in a better place with her mental health by doing so. Client shared doing well to identify her negative thoughts and challenge herself to try and see the other perspective which has been helpful as well. Client expressed that she has struggled with mood instability for much of her life and is concerned about her ability to find healthy skills for improving mood stability. Appeared to benefit from reflecting on her progress as well as supportive suggestions from the group. Client will continue IOP tx to promote mood stability, continue to improve healthy boundary setting, and reduce irritability. Narrative Note: []
--- NOTE | 2021-06-11 10:10 | BH.SGPN.GN ---
Behaviors/Verbalizations/Mental Status: []Client alert and oriented, casually dressed and groomed. Eye contact good. Motor activity appropriate. Speech within normal limits. Affect congruent, mood euthymic. Thoughts linear, logical, no signs of hallucinations or delusions. Client Response/Progress/Benefit: []Client responded well to session AEB sharing and listening attentively to others. Client participated in group discussion defining boundaries and their importance, contributing that boundaries reduce stress over time and help build healthier relationships. Clinician provided psychoeducation on types of boundaries, including physical, material, and emotional. Client provided personal examples of material, emotional, and intellectual boundaries that she is working on setting. Appeared to benefit from increased knowledge of types of boundaries and self- awareness. Will continue IOP treatment to continue healthy boundary setting and increase application of healthy coping skills to improve daily functioning. Narrative Note: []
--- NOTE | 2021-06-11 11:15 | BH.SGPN.GN ---
Behaviors/Verbalizations/Mental Status: []Client alert and oriented, casually dressed and groomed. Eye contact good. Motor activity appropriate. Speech within normal limits. Affect constricted, mood anxious. Thoughts linear, logical, no signs of hallucinations or delusions. Client Response/Progress/Benefit: []Pt responded well to session AEB listening attentively to peers and providing input. Pt attentive during psychoeducation on the different boundary styles. Pt noted connecting most with the porous and rigid boundary setting styles. Pt shared she used to be ?very porous? which led to many bad experiences for pt. Pt stated now she is ?very rigid? which has been more of a protective factor, but pt recognizes it is unhealthy. Pt was given a handout on strategies for healthy boundary setting. Pt identified wanting to work on continuing to not isolate and be interactive at IOP to improve boundary setting. Appeared to benefit from increasing insight to boundary setting and the impacts on mental health. Progress noted in pt?s consistent attendance and engagement in tx. Will continue IOP tx to prevent decompensation, improve emotional regulation skills, and increase distress tolerance. Narrative Note: []
--- NOTE | 2021-06-12 09:03 | BH.SGPN.GN ---
Behaviors/Verbalizations/Mental Status: []Eye contact is good. Motor activity is appropriate. Appearance is casual. Speech is appropriate. Mood is down. Affect is congruent. Thoughts are linear and logical. No evidence of psychosis. Reviewed daily symptom tracker sheet with no reports of suicidal ideations, plan, or intent. Client Response/Progress/Benefit: []Client was engaged throughout group session, sharing and listening attentively to others. Client reported her emotion as ?confused, but determined?. Client discussed being upset that she was not invited to and did not attend the birthday constitution party of her stepdaughter?s child yesterday. Client stated that she felt guilty as she wanted to be there for the child, and missing it brought up a lot of negative intrusive thoughts. Appeared to benefit from group discussion normalizing feelings and discussing that thoughts are not facts. Discussed that she is receiving additional support from the community. Appeared to benefit from supportive group environment. Will continue IOP treatment to increase mood stability and decrease negative self talk to improve daily functioning. Narrative Note: []
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
--- NOTE | 2021-06-13 09:05 | BH.SGPN.GN ---
Behaviors/Verbalizations/Mental Status: [] Eye contact is good. Motor activity is appropriate. Appearance is casual. Speech is Appropriate. Mood is anxious/irritable. Affect is congruent. Thoughts are linear and logical. No evidence of psychosis. Reviewed daily check in sheet and no reports of suicidal ideations or intent. Client Response/Progress/Benefit: [] Pt was an active participant in group discussion. Attentive. Provided appropriate feedback. Mental health win was confronting others and no ignoring my needs. Vague regarding what this involved. Another win was getting to IOP today. Reports that she had mental health struggles last evening while alone. Reports being restless with difficulty controlling her negative thoughts. She did utilize some self-care which ultimately was helpful to calm and distract. Prior to going to bed she told herself I'm not going to got to IOP tomorrow because I need to rest. Insight that she was self-sabotaging and that going to IOP actually helps. Completed opposite action this AM. Progress noted per pt report. Continues to struggle with emotion regulation especially when alone (which is often). Will continue in IOP to maintain safety, increase healthy coping, and to stabilize mood. Narrative Note: []
--- NOTE | 2021-06-13 11:20 | BH.SGPN.GN ---
Behaviors/Verbalizations/Mental Status: []Client alert and oriented, casually dressed and appropriately groomed. Eye contact fair. Motor activity appropriate. Speech WNL.. Affect constricted, mood dysthymic. Thoughts linear, logical, no signs of hallucinations or delusions. Client Response/Progress/Benefit: []Client responded well to session AEB client listening attentively to others and providing input during group discussion on the pay offs and costs of the different communication styles. Attentive during psychoeducation on interpersonal DBT skill LOBO. Client stated today she has learned areas that she is doing well with communication and areas she needs to work on. Client reported she knows working on managing emotions in the moment will drastically help improve her communication. Client reported wanting to focus on taking a breath before responding so she doesn't come off as aggressive to others. Client seemed to benefit from increasing awareness of healthy strategies to improve communication. Will continue IOP tx to improve daily functioning, increase emotion regulation and prevent decompensation.
--- NOTE | 2021-06-13 12:29 | BH.MDN_ITS ---
Multi-Disciplinary Note - Note 60-min Individual Time Started:: 10:20 Date: 06/13/21 Purpose of session/treatment goals addressed:: Reviewed current symptoms and progress in IOP. Reviewed treatment plan goals and objectives. Eye Contact:: Good Motor Activity:: Restless Appearance:: Casual Speech:: Appropriate Mood:: Anxious, Irritable Affect:: Congruent Thoughts:: Linear, Logical, No evidence of hallucinations/delusions noted Staff Interventions:: psychoeducation on: - anger mgmt skills, impulsivity reduction., treatment planning Client Response:: Pt shared that she experienced depression, irritability, and restlessness yesterday. Reports intrusive thoughts while alone. Her thoughts mainly revolve around fear of rejection and abandonment. Also thoughts of others disrespecting and talking down to her which increases her anger and rumination. Holds emotions in and then lashes out. Urges to buy items to self- soothe and make herself feel better however resisted the urge. She utilized some self-care but lacks purpose, structure, and healthy distractions throughout the day. She did lash out over FB towards 's step-daughters which she regrets. Open to discussion on impulse control skills. Insight on her continued desire to engage with unhealthy people being the result of her self-esteem being dependent on others. Tearful at times as well reporting regarding her inability to get over the fact that her previous behaviors resulted in her losing her children. Significant guilt over past actions. This is a huge obstacle. Goals for treatment are; get my mood under control, start to enjoy life, anger management, and improve relationships. Risks/Concerns:: No risks or concerns noted. Progress Toward Goals/Plan:: Progress noted per pt report. She has had urges to isolate and cancel IOP to stay in comfort zone (home) however did attend IOP today. States I know I feel better if I come in. Utilized opposite action. Tearful throughout individual session. Reports poor emotion regulation, anger management skills, and high impulsivity. Also reports negative intrusive thoughts about herself. Guilt over past actions. Has attempted to process and get treatment for trauma in the past however always quits Its just too much. She is currently linked with a therapist who has been encouraging trauma work, however has stressed the importance of not using marijuana. Pt is prescribed medical marijuana for PTSD. Plan is to continue in IOP to maintain safety, increase healthy coping, improve functioning, and stabilize mood. Time Stopped:: 11:20
--- NOTE | 2021-06-14 09:06 | BH.SGPN.GN ---
Behaviors/Verbalizations/Mental Status: []Eye contact is good. Motor activity is appropriate. Appearance is casual. Speech is Appropriate. Mood is euthymic. Affect is congruent. Thoughts are linear and logical. No evidence of psychosis. Reviewed daily check in sheet and no reports of suicidal ideations or intent. Client Response/Progress/Benefit: []Pt receptive of session and engaged throughout. Reports current emotion as ?hopeful? and discussed adjusting her perspective on mental health has aided in improving overall acceptance and willingness to begin addressing her stressors in healthier ways. Expressed increased insight into her warning signs, triggers, and impact of her past on her emotion regulation at present. Notes this is both a positive and a stressor as now that she has more insight she feels increased pressure to actively use the skills she is learning rather than continue to lash out or avoid. Shared reaching out to her daughter yesterday as well which was a positive. Pt appeared to benefit from reflecting on areas of progress, as well as supportive feedback provided by group. Will continue in IOP tx to maintain safety, stabilize mood, and improve functioning.
--- NOTE | 2021-06-14 10:15 | BH.SGPN.GN ---
Behaviors/Verbalizations/Mental Status: []Client alert and oriented, casually dressed and groomed. Eye contact good. Motor activity appropriate. Speech within normal limits. Affect congruent, mood euthymic. Thoughts linear, logical, no signs of hallucinations or delusions. Client Response/Progress/Benefit: []Client responded well to session AEB sharing and listening attentively to others. Client participated in activity illustrating how positive and negative perspectives affect how individuals view situations, sharing observations and insights. Group discussed and defined perspective and what impacts it, with client contributing stress levels, upbringing, and trauma as examples. Client identified her current perspective as ?hopeful?, due to being excited about her accomplishment of completing the IOP program this week. Appeared to benefit from increased knowledge and self-awareness of perspective. Will continue IOP treatment to continue increasing mood stability and application of healthy coping skills to improve daily functioning. Narrative Note: []
--- NOTE | 2021-06-14 11:15 | BH.SGPN.GN ---
Behaviors/Verbalizations/Mental Status: []Client alert and oriented, neatly dressed and groomed. Eye contact good. Motor activity appropriate. Speech within normal limits. Affect constricted, mood agitated and hopeful. Thoughts linear, logical, no signs of hallucinations or delusions Client Response/Progress/Benefit: []Pt did well to remain attentive throughout session, AEB providing input throughout discussion. Engaged as group reviewed the importance of taking a strengths-based approach to foster a healthier perspective and better manage mental health symptoms. Completed strengths exploration worksheet and identified personal strengths to include: open-mindedness, empathy, and love of learning. Pt reported these strengths are currently helping pt practice self-compassion and educate herself. Pt stated fear of fear keeps pt from using strengths and pt helped group identify strategies to increase acknowledgement of strengths. Benefited from identifying personal strengths and strategies for enhancing use of identified strengths. Pt to continue IOP tx to maintain sobriety, increase anger management skills, and reduce isolation. Narrative Note: []
--- NOTE | 2021-06-20 13:31 | BH.COMM ---
Communication Note - Communication with Client Communication Note: Pt cancelled IOP on 06/18 and again today due to illness. Not COVID related. Hx of treatment non-compliance. Plan is for her to attend tomorrow.
--- NOTE | 2021-06-21 09:44 | BH.COMM ---
Communication Note - Communication with Client Communication Note: Spoke with patient over the phone as she did not show for group today. Feeling better and reports miscommunication regarding IOP today. Plans to be here next week.
--- NOTE | 2021-06-24 10:10 | BH.SGPN.GN ---
Behaviors/Verbalizations/Mental Status: [] Eye contact is good. Motor activity is appropriate. Appearance is casual. Speech is Appropriate. Mood is depressed/irritable. Affect is full. Thoughts are linear and logical. No evidence of psychosis. Client Response/Progress/Benefit: [] Pt was an active participant in group discussion and activity. Attentive during psychoeducation on social stigma vs self-stigma. Pt was actively involved in interactive discussion on the question of What impacts how we define and view ourselves? Pt along with peers were able to identify several aspects that impact how we view ourselves which include; society, past experiences, upbringing, guilt over past actions, shame, what we tell ourselves, actions, and our roles (i.e. mother, father, unemployed, crazy). Pt also participated in identifying examples of social stigma for mental health illness which included too sensitive, looking for attention, overly emotional, psycho, crazy, just an excuse, not working hard enough, lazy, mental health is not real, just a pessimist, and mental health can just be turned off. Benefited from increased awareness of how mental health stigma can impact individuals and treatment. Plan is to continue in IOP to stabilize mood, increase healthy coping, and prevent decompensation. Narrative Note: []
--- NOTE | 2021-06-24 11:10 | BH.SGPN.GN ---
Behaviors/Verbalizations/Mental Status: []Client alert and oriented, casually dressed and groomed. Eye contact good. Motor activity appropriate. Speech within normal limits. Affect congruent, mood euthymic. Thoughts linear, logical, no signs of hallucinations or delusions. Client Response/Progress/Benefit: []Client engaged participant AEB client participating in the activity, providing some input during small group discussion, and listening attentively to others. Client appeared to connect with discussion about what stigma has kept her from doing. Group brainstormed strategies to combat social and perceived stigma. Client shared one thing she can personally do to combat stigma is to use positive self-talk. Reported talking positively to self can help combat her perceived stigma. Appeared to benefit from increasing awareness of strategies to combat stigma. Will continue IOP tx to improve emotion regulation, increase use of healthy coping and prevent decompensation.
--- NOTE | 2021-06-24 15:45 | BH.MDN_ITS ---
Multi-Disciplinary Note - Note 60-min Individual Time Started:: 09:05 Date: 06/24/21 Purpose of session/treatment goals addressed:: Met with patient to review current symptoms and progress. Addressed treatment goals 1 and 2. Eye Contact:: Good Motor Activity:: Appropriate Appearance:: Casual Speech:: Appropriate Mood:: Irritable, Depressed Affect:: Congruent Thoughts:: Linear, Logical, No evidence of hallucinations/delusions noted Staff Interventions:: psychoeducation on: - trauma brain, CBT techniques, mindfulness skills, taught coping skills Client Response:: Pt was tearful at the beginning of the session reporting regr ession last week. Reports feelings of hopelessness and worthlessness. She had missed all of IOP last week noting IBS issues as well as depressive episode. Increased isolation, negative thoughts, and low motivation. Reports four days straight of isolation. Unable able to identify any specific triggers. We processed the events and her thoughts over the past week and attempted to develop skills and intervention to utilize when this occurs in the future. She has increased insight into trauma triggers and physiological warning signs to emotion dysregulation which lead to reframing and thought challenging. We briefly discussed research and education regarding trauma brain which she identified with. Avoidance behaviors and reacting to upsetting situations with fight, flight, or freeze. Risks/Concerns:: Pt denies any active suicidal ideations, plan, or intent. She reports long-standing passive thoughts of with intermittent SI. Does not present as imminent danger to self due to no active SI, plan, or intent. Progress Toward Goals/Plan:: Pt experienced a depressive episode last week which along with IBS issues led to missing several IOP days as well as isolation, avoidance, and distress. She was able to utilize skills (reframe, affirmation, and distractions) and insight to help at times which is progress. She reports that she also set boundaries with certain people in her life that are unhealthy by blocking them on social media. She discussed how this action could benefit her mental health. She continues to react impulsively to emotionally distressing events (isolate or lash out) which provides immediate relief or gratification however ultimately leads to regret and guilt. Provided educational handout on Understanding the Trauma Paolo. Worked with pt on identifying physiological signs of anxiety, depression, and anger. Plan is to continue in IOP to maintain safety, increase health coping, and prevent decompensation. Time Stopped:: 10:05
--- NOTE | 2021-06-26 09:00 | BH.SGPN.GN ---
Behaviors/Verbalizations/Mental Status: [] Eye contact is good. Motor activity is appropriate. Appearance is casual. Speech is Appropriate. Mood is euthymic. Affect is congruent. Thoughts are linear and logical. No evidence of psychosis. Reviewed daily check in sheet and no reports of suicidal ideations or intent. Client Response/Progress/Benefit: [] Pt was an engaged participant in group discussion. Attentive. Pt identified mental health positive as intentionally focusing on what she is grateful for instead of focusing on the negative. Pt stated she usually looks at negative situations in her life and what she doesn't have. Pt reported she has been using skills like opposite action, thought challenge, and changing her perspective. Pt stated yesterday she went to DBT skills group despite not wanting to go. Pt shared current stressor is her moods being variable each day, going from positive mood one minute to be angry the next. Benefited from group support, encouragement, and feedback. Progress noted per pt report. Will continue in IOP to improve emotion regulation, challenge perspective, and prevent decompensation.
--- NOTE | 2021-06-26 11:10 | BH.SGPN.GN ---
Behaviors/Verbalizations/Mental Status: []Client alert and oriented, casually dressed and groomed. Eye contact good. Motor activity appropriate. Speech tangential and rapid. Affect constricted, mood anxious. Thoughts linear, logical, no signs of hallucinations or delusions. Client Response/Progress/Benefit: []Client engaged participant AEB client taking notes during discussion. Attentive throughout group discussion on the various areas of self-care, benefits, and types of self-care activities for each area. Client completed worksheet which identified current self-care practices and what self-care activities client wants to start using. Client reported she is struggling with all areas of self-care, especially social and emotional. Client is working on feeling her emotions but ?not living in them.? Client connected with strategies and will work on checking in with herself to manage emotions. Appeared to benefit from completing the self-care evaluation and gaining insights into current self-care practices, as well as identifying areas in which client would like to improve upon. Will continue IOP tx to prevent decompensation, gain healthy coping skills, and reduce isolation. Narrative Note: []
--- NOTE | 2021-06-26 12:03 | PCM.BH.PN_ITS ---
Progress Note Progress Note: History of Present Illness/Interim History: [] The patient is a 46-year-old female with a history of bipolar disorder, PTSD, anxiety and borderline personality disorder and substance abuse who is seen in follow-up at the [facility] behavioral health IOP program. I last saw the patient 2 weeks ago and at that time she was started on Prozac and her Zyprexa was increased to 5 mg at bedtime. The patient states that her mood overall has improved and she has much less depressed to days in the past 2 weeks than she used to have. However she still does have some down days including a few days before today. Today she describes her mood as as much better and her anxiety has been much improved in the last week or 2. She has had no panic attacks and took only 1 Klonopin in the last 2 weeks. In addition she has had some nausea still but no vomiting in the last 2 weeks. She feels she is not losing weight anymore and is worried that she may start gaining soon. Her attendance was less last week but she feels she is enjoying the IOP program and benefiting from it. She denies any alcohol use at all. She still has some passive thoughts that she would not care if she . She denies any suicidal ideation, homicidal ideation, hallucinations or delusions. Current Psychiatric Medications: [] Gabapentin 600 mg p.o. twice daily; Zyprexa 5 mg p.o. nightly (x2 weeks); 1 leftover Klonopin in the past 2 weeks. Mental Status Examination: [] The patient is a 46-year-old female who appears normal for stated age and is ambulatory with a normal gait. She is seen wearing a mask due to the pandemic and is casually dressed and groomed with good hygiene. She has no psychomotor psychomotor agitation or retardation. Eye contact is good and speech is normal rate and rhythm and fluent with no pressure. Mood is euthymic today. Affect is full and normal. Thought process is organized and goal-directed. Thought content: There is no evidence of suicidal ideation, homicidal ideation, hallucinations or delusions. There is evidence of chronic, passive thoughts of . The patient would never kill herself she states due to her children. Insight is limited but improving. Judgment is intact. Impulsivity is moderate to high. Diagnoses: [] 1. Bipolar 1 disorder, most recent episode mixed, severe without psychosis (F 31.63) 2. Generalized anxiety disorder 3. PTSD 4. Cannabis use disorder 5. Cocaine and methamphetamine use disorder (sober for 5 years) 6. Alcohol use disorder?most recent use 1 month ago 7. Borderline personality disorder Plan: [] The patient will continue the IOP program at [facility] as the structure, support, education and group therapy will hopefully prevent worsening of the patient's symptoms which could result in hospitalization. She felt safe during the interview and if it anytime she does not feel safe she will let us know or go to the emergency room. The risk, options, possible complications and side effects of the medications were again discussed with the patient and she understands and accepts these. The patient will continue to eat healthily and observe for any perceived weight gain. Would like to continue Zyprexa for at least a month or 2 and then change control specialist maybe to [place] but will closely observe the patient. I will see her in follow-up in 1 to 2 weeks.
--- NOTE | 2021-06-26 15:07 | BH.TPR ---
Treatment Plan Review Date of Admission:: 06/04/21 Date of Treatment Plan Review:: 06/26/21 Admitting Diagnoses:: 1. Bipolar 1 disorder, most recent episode mixed, severe without psychosis (F 31.63). 2. Generalized anxiety disorder. 3. PTSD. 4. Cannabis use disorder. 5. Cocaine and methamphetamine use disorders?sober for 5 years. 6. Alcohol use disorder. 7. Borderline personality disorder Current Diagnoses:: 1. Bipolar 1 disorder, most recent episode mixed, severe without psychosis (F 31.63). 2. Generalized anxiety disorder. 3. PTSD. 4. Cannabis use disorder. 5. Cocaine and methamphetamine use disorders?sober for 5 years. 6. Alcohol use disorder. 7. Borderline personality disorder Patient's Response to Treatment:: Attendance has been inconsistent. Pt missed 3 IOP sessions due to stomach issues and isolative behaviors. When present she is engaged in group and individual sessions. Appears motivated to make changes and learn new skills. According to pt she is benefiting from medication adjustments, psychoeducation, and social support that is provided through IOP. She also believes that developing a routine and decreasing isolative behaviors through IOP has also been beneficial. Status of Current Problems and Symptoms: Pt completed DSM-5 outcomes measurement at 3 week jazmin and scores were compared to admission. Overall pt's scores indicate an 8% reduction in symptoms. No change in scores on the depression, anger, or tamera domain. Scores on the SI domain reduced by 66%. Also showed a 33% reduction in repetitive thoughts and behaviors. It should again be pointed out that she missed an entire week of IOP and despite that has still shown progress in certain domains and no decompensation in others. Per self-report her mood is verbalized to be more stable with decreased depression and anxiety. Also reports reduction in frequency, severity, and duration of panic attacks and somatic complaints related to anxiety and stress. It would seem that she is responding well to IOP. Symptoms she still reports as impacting functioning are her anger, impulsivity, avoidance, and isolation. She also reports several trauma triggers that can lead to emotional distress and relationship conflict. Problem #1 Problem Name:: Mood instablity Status of Goals:: 1. She has identified her negative thoughts and rumination on past events/action as primary triggers to emotional distress. She has identified a couple ways to cope (distraction, self-care, thought-reframing) however has not been consistent with utilizing healthy coping. 2. Pt was able to identify 2-3 physical warning signs to anger (burning up spine, flush) however struggles with consistently utilize anger mgmt skills. Team Recommendations:: Continue in IOP as pt has not completed treatment plan goals and her mental health symptoms continue to impact functioning. Problem #2 Problem Name:: Anxiety Status of Goals:: 1. Identified absolute thinking as primary cognitive distortion. Aware of skills to education and training manager thoughts (reframing, challenging, etc) however inconsistent use. 2. We just began to work on psychoeducation on trauma brain. Team Recommendations:: Continue in IOP as pt has not completed treatment plan goals and her mental health symptoms continue to impact functioning.
--- NOTE | 2021-06-27 09:05 | BH.SGPN.GN ---
Behaviors/Verbalizations/Mental Status: []Eye contact is good. Motor activity is appropriate. Appearance is casual with hygiene tended to. Speech is appropriate. Mood is anxious. Affect is congruent. Thoughts are linear and logical. No evidence of psychosis. Reviewed daily check in sheet and pt denies suicidal ideations, plan, or intent as of this date, 06/27/21. Client Response/Progress/Benefit: []Pt receptive of session, actively engaged throughout and providing supportive feedback and input throughout group. Reports current emotion as ?relieved? and shared mental health wins of managing her current stressors without escalating to point of panic or crisis, and reports continuing to make time for self-care despite having several additional caregiver responsibilities at the moment. Current stressors include her [id number]?s health as well as her partner?s mental health related to this. Did well to identify several thought challenge and self-care coping skills she can use to continue to promote her own mood stability. Appeared to benefit from reflecting on wins and identifying current areas of progress. Pt will continue IOP tx to maintain gains, encourage health behaviors, and prevent decompensation. Narrative Note: []
--- NOTE | 2021-06-27 10:15 | BH.SGPN.GN ---
Behaviors/Verbalizations/Mental Status: []Client alert and oriented, casually dressed and groomed. Eye contact good. Motor activity appropriate. Speech within normal limits. Affect congruent, mood euthymic. Thoughts linear, logical, no signs of hallucinations or delusions. Client Response/Progress/Benefit: []Client receptive to session, participating throughout. Provided input as the group brainstormed the positive and negative aspects of stress on physical and mental health. Group did well to identify the benefits of stress as well as the impact of distress on performance and mental health. Client identified top stressors such as no energy, making and keeping appointments, and uncontrollable worry. Client reported when her jar is overfilled she has a meltdown which she stated looks like being overwhelmed and unable to focus. Seemed to benefit from improved awareness of how client?s stress response can create a vicious cycle and make more stressors. Recommended to continue IOP tx to improve emotion regulation, challenge negative thoughts and improve daily functioning.
--- NOTE | 2021-06-27 11:10 | BH.SGPN.GN ---
Behaviors/Verbalizations/Mental Status: [] Eye contact is good. Motor activity is appropriate. Appearance is casual. Speech is Appropriate. Mood is euthymic. Affect is full. Thoughts are linear and logical. No evidence of psychosis. Client Response/Progress/Benefit: [] Pt was an active participant in group discussion. Attentive during psychoeducation. Active participant in group experiential activity. Able to reflect on group activity and relate it to group topic of stress. Pt along with peers had an interactive discussion in which they identified certain skills they had to utilize to manage stress during activity which included ; communication, asking for help, trying new and different techniques, utilize acceptance (i.e. not as easy as I thought), and thought reframing (i.e. doesn't have to work on first try). Provided insight and examples during psychoeducation on the 4 A's of Stress (Avoid, Alter, Adapt, ad Accept). Pt chose to practice 'Accept' by learning to accept myself for who I am. Benefited from increased education and awareness of strategies to manage stress. Also practiced in the moment stress management during group activity. Will continue in IOP to maintain safety, increase healthy coping, and stabilize mood. Narrative Note: []
--- NOTE | 2021-07-03 09:00 | BH.SGPN.GN ---
Behaviors/Verbalizations/Mental Status: []Eye contact is good. Motor activity is appropriate. Appearance is casual. Speech is appropriate. Mood is euthymic. Affect is congruent. Thoughts are linear and logical. No evidence of psychosis. Reviewed daily symptom tracker sheet with no reports of suicidal ideations, plan, or intent. Client Response/Progress/Benefit: []Client was engaged throughout group session, sharing and listening attentively to others. Client reported her emotion as ?excited?. Client discussed that though her life has been ?hectic?, she has been feeling calm and positive. Client stated that she has not been isolating, and has had increased motivation. Client reported progress stating that she would not have been able to cope with her current stressors in the past. Appeared to benefit from supportive group environment. Will continue IOP treatment to continue increasing mood stability and decreasing negative self-talk to improve daily functioning. Narrative Note: []
--- NOTE | 2021-07-03 10:10 | BH.SGPN.GN ---
Behaviors/Verbalizations/Mental Status: []Client alert and oriented, neatly dressed and groomed. Eye contact good. Motor activity appropriate. Speech tangential. Affect congruent, mood euthymic. Thoughts linear, logical, no signs of hallucinations or delusions. Client Response/Progress/Benefit: []Client engaged during session AEB client contributing thoughts throughout discussion and completing worksheet. Connected with discussion on crisis and how coping with external crises by using unhealthy coping skills could result in a personal crisis. Group reflected on the importance of having awareness of personal warning signs to prevent reaching crisis point. Group identified potential warning signs for crisis and client completed the personal warning signs worksheet. Client identified personal crisis warning signs to include: racing thoughts, increased irritation, and avoidance/isolation. Client benefited by increasing awareness of what leads to crisis and personal warning signs. Client will continue IOP tx to increase emotional regulation skills, further reduce anxiety, and improve daily functioning. Narrative Note: []
--- NOTE | 2021-07-03 11:10 | BH.SGPN.GN ---
Behaviors/Verbalizations/Mental Status: []Client alert and oriented, casually dressed and groomed. Eye contact good. Motor activity appropriate. Speech within normal limits. Affect congruent, mood euthymic. Thoughts linear, logical, no signs of hallucinations or delusions. Client Response/Progress/Benefit: []Client responded well to session as evidenced by client listening attentively to others and providing strategies during small group discussion. Connected as fellow participants discussed the importance of identifying and addressing personal warning signs. Client identified warning signs for crisis and gained further awareness of earliest warning signs. Client created a crisis action plan to help client better manage warning signs for crisis. Client?s action plan for irritated includes: take time to self, self-evaluate, change environment, and ask for help. Client appeared to benefit from creating a crisis action plan and increasing self-awareness. Client to continue IOP tx to continue use of healthy coping, challenge distorted thoughts and prevent decompensation.
--- NOTE | 2021-07-04 09:00 | BH.SGPN.GN ---
Behaviors/Verbalizations/Mental Status: [] Eye contact is good. Motor activity is appropriate. Appearance is casual. Speech is Appropriate. Mood is euthymic. Affect is full. Thoughts are linear and logical. No evidence of psychosis. Reviewed daily check in sheet and no reports of suicidal ideations or intent. Client Response/Progress/Benefit: [] Pt was an active participant in group discussion. Attentive. Provided appropriate feedback. Emotion for today is proud. Daily symptom tracker notes 04/10 for anxiety and anger. Pt shared that a FB memory came up on her [employer] for a year ago which made her recall last year I was in such a dark hole. Mental health win is that Right now I feel completely different. Shared that her racing thoughts have decreased which has helped with impulsivity, anger, and concentration. I''m able to watch a whole movie. Shared that in the recent past she would sleep for the whole day to avoid dealing with racing negative thoughts which could lead to isolation for days. Still reports depression, passive SI, and anxiety however less intense and more manageable. I can better use my skills. Increased motivation. Progress noted per pt report. Benefited from group support, encouragement, and feedback. Will continue in IOP to prevent decompensation and have consistent stability. Narrative Note: []
--- NOTE | 2021-07-04 10:05 | BH.SGPN.GN ---
Behaviors/Verbalizations/Mental Status: []Client alert and oriented, neatly dressed and groomed. Eye contact good. Motor activity appropriate. Speech within normal limits. Affect congruent, mood euthymic. Thoughts linear, logical, no signs of hallucinations or delusions. Client Response/Progress/Benefit: []Client responded well to session AEB sharing and listening attentively to others. Client participated in group discussion defining anxiety and how anxiety affects emotions, thoughts, and feelings. Group discussed the benefits of anxiety, as well as when it becomes problematic. Clinician provided psychoeducation the anxiety triangle of physical symptoms, safety behaviors, and common anxious thoughts. Client identified physical symptoms of anxiety as nausea, crying, and physical exhaustion. Connected with discussion reviewing anxiety safety behaviors and reported personal safety behaviors as avoidance, procrastination by not scheduling appointments, and reassurance seeking. Client appeared to benefit from increased knowledge of anxiety diagnoses and causes, as well as improved self awareness of anxiety symptoms. Will continue IOP tx to improve mood stability, maintain gains in reducing anxiety, and improve daily functioning. Narrative Note: []
--- NOTE | 2021-07-04 13:18 | BH.MDN ---
Multi-Disciplinary Note - Note 60-min Individual Time Started:: 11:05 Date: 07/04/21 Purpose of session/treatment goals addressed:: Reviewed progress and current symptoms. Addressed treatment goal 1 (Mood instability). Discussed recent treatment plan review with patient. Eye Contact:: Good Motor Activity:: Appropriate Appearance:: Casual Speech:: Appropriate Mood:: Euthymic Affect:: Full Thoughts:: Linear, Logical, No evidence of hallucinations/delusions noted Staff Interventions:: psychoeducation on: - anger mgmt, discharge planning, reviewed DSM-5 Client Response:: Pt began the session discussing improvement in mood in the past 10 days. She attributes this to IOP as well as medication changes. Benefits from group support as well as social aspect. Believes that recent medication changes have helped decrease her racing thoughts. My brain is slower which is helping her with impulse control, anger mgmt, reactivity, concentration, and overall mood management. Down side to the medication change is perceived weight gain which is leading to patient thinking about requesting a change. We discussed pro's vs cons. Insight since the medication was very helpful she could look at other strategies for weight management. Reviewed treatment plan progress. Able to identify 2 significant triggers to mood change/distress which include; Fear of Abandonment/Rejection and being around others who are struggling with addiction. In both situations she tends to get irritability, fearful, anxious, and depressed. Able to identify some coping strategies to manage these triggers which mainly involved increased awareness such as asking am I anger b/c I believe I'm being rejected?. Also touched on anger mgmt skills and physiological warning signs to anger. Able to identify anger buttons as well as ways to calm. Risks/Concerns:: denies Progress Toward Goals/Plan:: Progress noted per pt report. Has been consistent with IOP for the past 2 week. No isolative episodes. Denies SI in the past week. Denies overwhelming anxiety. Decreased racing thoughts and improved communication. She is setting boundaries with unhealthy support and learning to accept things I cannot control. Responding well to treatment interventions. Some concern that she wants to make medication changes as this combination appears to be very helpful. Admits that she can still be reactive and impulsive. Also continues to report erratic moods at times with depression. We discussed aftercare plans. She is linked with a therapist however not psychiatry. Does not wish to return to her previous psychiatric provider. She was given referrals to local psychiatrist and encouraged to research and set appt. Will continue in IOP to maintain gains, prevent decompensation, and show consistent mood stability. Time Stopped:: 12:00
== END 2021-07-04 23:59 | disposition home or self-care (01) ==
LOC: BHIOP 10:15
PROVIDERS: PCP Internal Medicine; Referring Provider Psychiatry & Neurology Psychiatry; Visit Provider Psychiatry & Neurology Psychiatry
DX: F31.63 Bipolar disorder, current episode mixed, severe, without psychotic features (principal); F14.99 Cocaine use, unspecified with unspecified cocaine-induced disorder; F15.99 Other stimulant use, unspecified with unspecified stimulant-induced disorder; F60.3 Borderline personality disorder; F41.8 Other specified anxiety disorders; F43.10 Post-traumatic stress disorder, unspecified; F12.90 Cannabis use, unspecified, uncomplicated; Z72.89 Other problems related to lifestyle; Z79.899 Other long term (current) drug therapy
CPT/HCPCS: 99213; S9480; 90832; 90837; 90853

== ENCOUNTER 2021-07-05 08:18 | Outpatient (RCR) | payer MEDICARE, MEDICAID, SELFPAY ==
[2021-07-05 00:44] VITALS: BP 139/83; PULSE 85
--- NOTE | 2021-07-05 09:05 | BH.SGPN.GN ---
Behaviors/Verbalizations/Mental Status: []Pt alert and oriented, casually dressed and groomed. Eye contact good, motor activity appropriate, speech within normal limits. Affect, congruent. Mood, dysthymic. Thoughts linear, logical, no signs of hallucinations or delusions. Reviewed pt's daily symptom tracker, no SI indicated. Client Response/Progress/Benefit: []Pt receptive of session, attentive and remaining an actively engaged participant throughout, at times struggling with interrupting others. Remains supportive and often provides helpful feedback. Reports current emotion as ?tired?, sharing that she has felt physically drained the past two days. Pt reflected that when the weather is bad her mood and energy levels are often impacted as well. Noted she did well to use opposite action and accomplish several small cleaning goals around her house despite reported fatigue. Additional win noted as attending IOP tx everyday this week without cancelling or rescheduling, which is progress. Discussed ongoing stressor of her step-daughter being in the hospital, but did well to identify self-care skills she can use to aid in managing her own stress levels. Pt appeared to benefit from supportive group environment and reflecting upon her own personal progress. Will continue with IOP tx to promote consistent healthy coping, continue to stabilize mood, and prevent decompensation. Narrative Note: []
--- NOTE | 2021-07-05 10:10 | BH.SGPN.GN ---
Behaviors/Verbalizations/Mental Status: [] Eye contact is good. Motor activity is appropriate. Appearance is casual. Speech is Appropriate. Mood is euthymic. Affect is congruent. Thoughts are linear and logical. No evidence of psychosis. Client Response/Progress/Benefit: [] Pt was an active participant in group discussions. Attentive during psycho-education on 4 types of conflict styles (Competing, Collaborating, Avoiding, and Accommodating). Worked with group to define conflict and identify how conflict is helpful. With peers identified barriers to addressing or managing conflict which included: fear of upsetting others, embarrassing self, abandonment, past negative experiences with conflict, and shutting down. Pt believes her conflict style has been competing when triggered because she blows up. Pt stated recently she has been approaching conflict in a calmer and collaborative way which she stated has helped deescalate situations. Benefited from group due to increase insight and awareness of conflict, conflict styles, and obstacles to managing conflict. Pt to continue IOP to continue use of healthy coping, challenge distorted thoughts and prevent decompensation.
--- NOTE | 2021-07-05 11:10 | BH.SGPN.GN ---
Behaviors/Verbalizations/Mental Status: []Client alert and oriented, casually dressed and groomed. Eye contact good. Motor activity appropriate. Speech within normal limits. Affect constricted, mood euthymic. Thoughts linear, logical, no signs of hallucinations or delusions. Client Response/Progress/Benefit: []Client engaged in session AEB contributing to discussion and engaging in activity. Client did well to review current conflict style and its impact on mental health. Attentive and taking notes during discussion on strategies for more effectively managing conflict in personal life. Client participated in activity and did well to be assertive and collaborating. Client wants to work on asking herself what is making her upset before address any conflict to prevent unnecessary ?blow ups? and help client address conflict more effectively. Appeared to benefit from gaining strategies to help client better manage conflict. Will continue IOP tx to further improve distress tolerance skills, reduce isolation, and improve daily functioning. Narrative Note: []
--- NOTE | 2021-07-10 10:15 | BH.SGPN.GN ---
Behaviors/Verbalizations/Mental Status: []Client alert and oriented, casually dressed and groomed. Eye contact good. Motor activity appropriate. Speech within normal limits. Affect congruent, mood euthymic. Thoughts linear, logical, no signs of hallucinations or delusions. Client Response/Progress/Benefit: []Client responded well to treatment AEB sharing and listening attentively to others. Client participated in group discussion defining taking action. Group identified barriers to taking action. Client attentive to psychoeducation and discussion about what symptoms and behaviors take control over functioning. Client identified: negative self talk, anger, anxiety, depression, avoidance, lashing out, reassurance seeking and not using her skills as what takes control over their functioning too frequently. Client stated that her life is different since taking back control because she has more clarity with her thought patterns and is less impulsive. Client reported using her skills, focusing on what she is grateful for has been helping her. Appeared to benefit from increased self-awareness and knowledge regarding examples and barriers to taking action. Will continue IOP treatment to continue improving healthy coping skills and decrease self-isolation to improve daily functioning.
--- NOTE | 2021-07-10 10:36 | BH.MDN ---
Multi-Disciplinary Note - Note 30-min Individual Time Started:: 09:30 Date: 07/10/21 Purpose of session/treatment goals addressed:: Reviewed current progress and symptoms. Addressed treatment plan goal 1 (mood instability) Eye Contact:: Good Motor Activity:: Appropriate Appearance:: Casual Speech:: Appropriate Mood:: Euthymic Affect:: Full Thoughts:: Linear, Logical Staff Interventions:: psychoeducation on: - fear of abandonment Client Response:: Pt shared some stressors over the weekend and how she managed them. Admits to acting impulsively regarding a text from support, however insight that the interaction was upsetting because it triggered fears of abandonment. Last week she was able to identify trigger to mood change/distress which included Fear of Abandonment/Rejection. We had discussion with some psychoeducation which she responded well. Identified that the event made her feel devalued which elicited an anger response. We processed the event and used it as a way to learn and identify ways to break this cycle. Able to identify her desire to take action to prevent this in the future. Risks/Concerns:: No risks or concerns noted. Progress Toward Goals/Plan:: Progress noted. Pt continues to report benefits from medications and insight from IOP groups. Less mood instability and improved impulse control. Decreased racing thoughts. While their is improvement she admits that mood is still erratic at times and can become overwhelmed and isolate. She was given referrals to local psychiatrists last week however has not made an appointment. Plan is to continue in IOP to maintain gains and prevent decompensation. Plan is to discharge in 2 weeks if she remains stable. Time Stopped:: 10:00
--- NOTE | 2021-07-10 11:13 | BH.SGPN.GN ---
Behaviors/Verbalizations/Mental Status: []Client alert and oriented, casually dressed and groomed. Eye contact good. Motor activity appropriate. Speech within normal limits. Affect congruent, mood euthymic. Thoughts linear, logical, no signs of hallucinations or delusions. Client Response/Progress/Benefit: []Client responded well to session, taking notes and participating in worksheet discussion. Client identified they want to take action on reducing negative self-talk by places positive quotes around her house and practicing positive self-talk in the mirror daily. Identified practicing self-care and telling healthy support people as strategies that can help client follow through with the goal. Appeared to benefit from identifying a small goal to benefit mental health. Client to continue IOP to further improve mood stability, improve distress tolerance skills, and maintain gains. Narrative Note: []
--- NOTE | 2021-07-10 12:18 | PCM.BH.PN ---
Progress Note Progress Note: History of Present Illness/Interim History: [] The patient is a 46-year-old female with a history of bipolar disorder, PTSD, anxiety, substance abuse and borderline personality disorder who is seen in follow-up at the [facility] behavioral health IOP program. I last saw the patient 2 weeks ago. The patient continues to do really well on her Zyprexa. The patient says I feel like a new person. Her anxiety and nausea have resolved. She denies any depression of her mood recently. She has had less racing thoughts, decreased anger and decreased impulsivity. Prior to starting the Zyprexa a month ago she had loss 40 pounds in the prior 2 months. For this reason the Zyprexa was started. She has gained 10 pounds in the past month or so and is mildly concerned about her weight gain. The patient denies any passive thoughts of , suicidal ideation, homicidal ideation, hallucinations or delusions. She feels she is greatly benefiting from the IOP program. Current Psychiatric Medications: [] Gabapentin 600 mg p.o. twice daily; Zyprexa 5 mg p.o. nightly (x1 month); Prozac 10 mg p.o. daily (x1 month) Mental Status Examination: [] The patient is a 46-year-old female who is casually dressed and groomed with good hygiene and appears normal for stated age. Eye contact is good and speech is normal rate and rhythm and fluent with no pressure. Mood is euthymic. Affect is full and normal. Thought process is organized and goal-directed. Thought content: There is no evidence of passive thoughts of doom, homicidal ideation, hallucinations or delusions. Insight is fair. Judgment is intact. Impulsivity is moderate. Diagnoses: [] 1. Bipolar 1 disorder, most recent episode mixed, severe without psychosis (F 31.63, resolving) 2. Generalized anxiety disorder 3. PTSD 4. Cannabis use disorder 5. Cocaine and methamphetamine use disorder (in full remission for 5 years) 6. Alcohol use disorder (in remission for 1 month 7. Borderline personality disorder Plan: [] Patient will continue the IOP program at [facility] as the structure, support, education and group therapy are benefiting the patient in preventing worsening of her symptoms which could result in hospitalization. She felt safe during the interview and if it anytime she does not feel safe she will let us know or go to the emergency room. The risk, options, possible complications and side effects of the medications were again discussed with the patient and she understands accepts these. The patient will continue to eat healthily and try to walk regularly. She agrees to add Metformin to her medications to help prevent weight gain from the Zyprexa. She will take Metformin 500 mg p.o. daily with her evening meal. After 5 days of this she will increase to 2 p.o. daily with her evening meal. Prescription was sent in for the Metformin. In addition refills were sent in for the Zyprexa, gabapentin and Prozac. The patient will continue to follow-up with her outpatient psychiatric and medical providers and understands the importance of remaining sober.
--- NOTE | 2021-07-11 09:00 | BH.SGPN.GN ---
Behaviors/Verbalizations/Mental Status: [] Eye contact is good. Motor activity is appropriate. Appearance is casual. Speech is Appropriate. Mood is euthymic. Affect is full. Thoughts are linear and logical. No evidence of psychosis. Reviewed daily check in sheet and no reports of suicidal ideations or intent. Client Response/Progress/Benefit: [] Pt was an active participant in group discussion on mindfulness and meditation. Attentive. Provided appropriate feedback. Daily symptom tracker notes 04/10 for depression, anxiety, and anger. Emotion for today is optimistic. Pt states I'm waiting for the doom. Notes improve mood for the past 2 weeks and is starting to ruminate on if this is a fluke or hypomania. She was able to talk herself out of being hypomanic stating that she has been impulsive, reckless, or overtly energetic. Also reports that she has not had any issues with sleep. Maybe this is just baseline Nayeli. While improved mood is positive it is uncomfortable and not what I'm used too. Group empathized and provided their experiences and feedback which was helpful. Progress noted. Will continue in IOP to maintain gains and prevent decompensation. Narrative Note: []
--- NOTE | 2021-07-11 10:11 | BH.SGPN.GN ---
Behaviors/Verbalizations/Mental Status: [] Client alert and oriented, casual dress, hygiene tended to. Eye contact good. Motor activity WNL. Speech is an appropriate rate and tone. Affect congruent, mood euthymic. Thoughts linear, logical, no signs of hallucinations or delusions. Client Response/Progress/Benefit: [] Pt engaged in session as evidenced by pt listening to others and providing input throughout. Pt stated I avoid or make my problems worse all the time. Pt reported her negative and anxious thoughts can be a barrier to addressing her problems directly. Pt recognized ignoring her problems or addressing them when her emotions are high often makes her situation worse. Pt worked cooperatively with peers during problem solving activity, able to work through problem by using A,B,C,D,E problem solving method. Pt seemed to benefit from learning about problem solving method and rehearsing problem solving skills in the moment. Pt to continue IOP level of care to continue to promote mood stability, increase utilization of healthy coping, and prevent decompensation. Narrative Note: []
--- NOTE | 2021-07-12 09:00 | BH.SGPN.GN ---
Behaviors/Verbalizations/Mental Status: [] Eye contact is good. Motor activity is appropriate. Appearance is casual. Speech is Appropriate. Mood is euthymic. Affect is full. Thoughts are linear and logical. No evidence of psychosis. Reviewed daily check in sheet and no reports of suicidal ideations or intent. Client Response/Progress/Benefit: [] Pt was an active participant in group discussion. Attentive. Daily symptom tracker notes 04/10 for anxiety, depression, and anger. Mental health wins was a couple friends commenting on her progress. They states that I seemed more calm. Talked about how satisfying it was to hear. Another win was that she went to local [employer] event and had a good time. She shared some stressors and struggles however believes that overall she is managing stressors, emotions, and others more appropriately. Progress noted per pt report. Benefited from group support, encouragement, and feedback. Will continue in IOP to maintian gains and prevent decompensation. Narrative Note: []
--- NOTE | 2021-07-12 10:15 | BH.SGPN.GN ---
Behaviors/Verbalizations/Mental Status: []Eye contact is good. Motor activity is appropriate. Appearance is casual and grooming tended to. Speech is Appropriate. Mood is anxious and euthymic. Affect is congruent. Thoughts are linear and logical. No evidence of psychosis Client Response/Progress/Benefit: []Pt receptive of session, actively engaged throughout AEB taking notes and providing input and examples to discussion. Appeared to connect with group topic of cognitive distortions and the impact of thought patterns on mental health, coping behaviors, and relationships. Reflected that her own negative thoughts have led to creating unnecessary conflict and missing out on potential new opportunities. Discussed with group the influence of media, environment, past experiences and current mood on vulnerability to distorted thought patterns. Appeared to benefit from gaining insight on distorted thinking patterns and influence of distortions on maintaining unhealthy maintenance cycles. Progress noted in pt report of improved insight and mood stability. Recommended continued IOP treatment to maintain gains, continue to promote healthy change behaviors, and prevent decompensation. Narrative Note: []
--- NOTE | 2021-07-12 10:20 | BH.SGPN.GN ---
Behaviors/Verbalizations/Mental Status: []Client alert and oriented, casually dressed and groomed. Eye contact good. Motor activity appropriate. Speech within normal limits. Affect congruent, mood anxious. Thoughts linear, logical, no signs of hallucinations or delusions. Client Response/Progress/Benefit: []Client responded well to session AEB sharing and listening attentively to others. Client participated in group discussion defining cognitive distortions. Clinician provided psychoeducation on ten types of cognitive distortions, their costs, and what to do to manage them. During the clinician's presentation client provided insight and personal examples of all or nothing thinking, mental filtering, and jumping to conclusions. Client identified cognitive distortions she experiences most often, including emotional reasoning, mental filtering, and shoulding. Appeared to benefit from increased knowledge of cognitive distortions and self-awareness. Will continue IOP treatment to continue increasing mood stability and application of healthy coping skills to increase daily functioning. Narrative Note: []
--- NOTE | 2021-07-15 09:00 | BH.SGPN.GN ---
Behaviors/Verbalizations/Mental Status: [] Eye contact is good. Motor activity is restless. Appearance is casual. Speech is Appropriate. Mood is anxious. Affect is congruent. Thoughts are linear and logical. No evidence of psychosis. Reviewed daily check in sheet pt reports a 2/5, with 5 being severe, for suicidal ideation and a 0/5 for suicidal intention. This is below pt's baseline. Client Response/Progress/Benefit: [] Pt was an active participant in group discussion. Attentive to others. Pt reported she is struggling because her boyfriend is away for 6 days for work. Pt shared she has abandonment issues and her boyfriend being gone has brought up lots of uncomfortable emotions. Pt stated she had a panic attack over the weekend because of her extreme emotions. Pt noted a positive as reaching out to supports and trying to stop herself from lashing out at others. Pt reported over the weekend she did let her emotions get the best of her and took her anger out on her step daughter. Pt recognizes it is easier for her to show anger so she targets one person when feeling vulnerable then lashes out. Pt showing progress with increased insight and starting to use skills to manage emotions in healthier ways. Benefited from group support, encouragement, and feedback. Will continue in IOP to prevent decompensation, improve emotion regulation and prevent decompensation.
--- NOTE | 2021-07-15 10:07 | BH.SGPN.GN ---
Behaviors/Verbalizations/Mental Status: []Client alert and oriented, casually dressed and groomed. Eye contact good. Motor activity appropriate. Speech within normal limits. Affect congruent, mood euthymic. Thoughts linear, logical, no signs of hallucinations or delusions. Client Response/Progress/Benefit: []Client responded well to session AEB sharing and listening attentively to others. Client was an active participant in group discussion of the benefits and barriers to change, providing examples of both including a benefit of learning new things and a barrier of not wanting to feel emotions that come with change. Client participated in experiential activity illustrating the emotions that go along with making change, and how they can be both positive and negative, providing insight throughout group processing. Clinician provided psychoeducation on the cognitive triangle, discussing how thoughts, emotions and behaviors are connected. Appeared to benefit from increase knowledge of the benefits and barriers to making change, as well as how emotions are affected by change. Will continue IOP treatment to continue increasing mood stability and application of healthy coping skills to improve daily functioning. Narrative Note: []
--- NOTE | 2021-07-15 13:27 | BH.MDN ---
Multi-Disciplinary Note - Note 60-min Individual Time Started:: 11:05 Date: 07/15/21 Purpose of session/treatment goals addressed:: Reviewed progress and current symptoms. Addressed treatment goals 1 and 2. Eye Contact:: Good Motor Activity:: Appropriate Appearance:: Disheveled Speech:: Appropriate Mood:: Depressed Affect:: Flat Thoughts:: Linear, Logical, No evidence of hallucinations/delusions noted Staff Interventions:: CBT techniques, mindfulness skills, taught coping skills Client Response:: Pt tearful at times during the session. Reports increased depression and anxiety over the weekend. Panic attack on 07/13/21. Passive thoughts of over the weekend. Originally felt she had no control over her emotions and kept trying to find reasons why blaming medications or Bipolar, however later insight that it's just anxiety and loneliness. Ruminations over the weekend on numerous topics including poor relationship with mother, abandonment fears regarding BF, and her trauma. Increased knowledge base on trauma brain which helped her reframe and challenge her emotions and thoughts. Pt receptive to developing a written anxiety management plan for when she feels overwhelmed which we began. Risks/Concerns:: Denies active SI, plan, or intent. She reports passive thoughts of . Future-oriented. Progress Toward Goals/Plan:: Regression per pt report. Decompensated over the weekend. Primary trigger believed to be loneliness. Pt's BF went away for work for the next 6 days. Pt continues to utilize coping skills however they were not working as well. Insight and awareness helped to some degree however when overwhelmed I couldn't help myself. When processing with therapist she is able to identify strategies she could utilize in the future. We decided to make a written anxiety management plan which she could use when overwhelmed. She was given an example plan and agreed to work on this tonight. Pt had strong urges to isolate and sleep to cope with thoughts however managed to avoid this unhealthy coping skills. Also with increased anxiety, ruminations, and depression she reported increased irritability. Will continue in IOP to prevent decompensation, maintain safety, and increased healthy coping. According to pt her distress this weekend can be linked to trauma triggers. Plan is to stabilize and encourage future trauma work which she admits to avoiding. Time Stopped:: 12:10
--- NOTE | 2021-07-17 08:54 | BH.SGPN.GN ---
Behaviors/Verbalizations/Mental Status: []Pt alert and oriented, casually dressed and groomed. Eye contact good, motor activity appropriate, speech within normal limits. Affect, congruent. Mood, euthymic. Thoughts linear, logical, no signs of hallucinations or delusions. Reviewed pt's daily symptom tracker, no SI indicated. Client Response/Progress/Benefit: []Pt responded well to session, engaged and positive throughout. Pt reports feeling delighted in myself this morning and discussed a personal win of calming helping her daughter to navigate an unexpected stressor without pt becoming upset or anxious when doing so. Shared using skills of slowing down and taking a break, positive self-talk, and walking her daughter through grounding skills which also helped pt to ground herself. Expressed reminding herself that bad moments are just moments and not a bad life has been really helpful in keeping her grounded and able to self-regulate. Appeared to benefit from reflecting on her growth and use of skills. Will continue IOP tx to reinforce healthy coping skills and promote mood stability. Narrative Note: []
--- NOTE | 2021-07-17 10:00 | BH.SGPN.GN ---
Behaviors/Verbalizations/Mental Status: []Client alert and oriented, casually dressed and groomed. Eye contact good. Motor activity appropriate. Speech within normal limits. Affect congruent, mood euthymic. Thoughts linear, logical, no signs of hallucinations or delusions. Client Response/Progress/Benefit: []Client responded well to session AEB sharing and listening attentively to others. Client was an active participant in group discussion defining pitfalls, which she described as ?hell?. Client provided examples including rumination, negative self talk, and avoiding. Client appeared engaged throughout clinician?s presentation of psychoeducation on internal and external triggers to pitfalls. Client participated in experiential activity illustrating how easy it is to fall into pitfalls when we are unaware of them. Client aided group in problem solving and provided supportive feedback throughout. Appeared to benefit from increased knowledge of pitfalls and their triggers. Will continue IOP treatment to continue increasing mood stability and decreasing negative self-talk to improve daily functioning. Narrative Note: []
--- NOTE | 2021-07-17 11:05 | BH.SGPN.GN ---
Behaviors/Verbalizations/Mental Status: []Pt alert and oriented, neatly dressed and groomed. Eye contact good. Motor activity appropriate. Speech within normal limits. Affect congruent, mood euthymic and agitated. Thoughts linear, logical, no signs of hallucinations or delusions. Client Response/Progress/Benefit: []Pt receptive of session, engaged throughout AEB pt actively listening and contributing to discussion, as well as taking notes. Pt completed worksheet identifying personal pitfalls impacting mental health progress. Pt identified the following pitfalls: feeding into anger, avoiding and isolating, and all or nothing thinking with herself and others. Group learned different coping skills to help manage pitfalls. Pt selected the following coping skills to help with pitfalls: walking, exercising, and journaling. Benefited from identifying personal pitfalls and strategies to overcome these pitfalls. Will continue IOP tx to promote gains, further improve daily functioning, and continue to decrease irritability. Narrative Note: []
--- NOTE | 2021-07-19 09:00 | BH.SGPN.GN ---
Behaviors/Verbalizations/Mental Status: [] Eye contact is good. Motor activity is appropriate. Appearance is casual. Speech is Appropriate. Mood is euthymic. Affect is full. Thoughts are linear and logical. No evidence of psychosis. Reviewed daily check in sheet and no reports of suicidal ideations or intent. Client Response/Progress/Benefit: [] Pt was an active participant in group. Attentive. Provided appropriate feedback. Daily symptom tracker notes 5 for depression/anxiety and 2/5 for anger. Emotion for today is content. She shared several stressors which have been impacting her this week which center around family and financial. She discussed these in more detail. Insight that utilizing skills such as reframing and acceptance have been helpful in managing. Pt states I'm accepting what I can't control which is beneficial and minimizing her anger and anxiety. Another big step for her this week is doing self-care and not feeling guilty. Pt and group discussed feelings of guilt and selfishness when they set aside time for self-care. Group challenged this myth and stigma associated with self-care which was beneficial. Progress noted since entering IOP on Thursday with fleeting SI. Plan is to continue in [facility] to prevent decompensation and maintain gains. Narrative Note: []
--- NOTE | 2021-07-19 10:15 | BH.SGPN.GN ---
Behaviors/Verbalizations/Mental Status: []Eye contact is good. Motor activity is appropriate. Appearance is casual. Speech is Appropriate. Mood is euthymic, positive. Affect is congruent. Thoughts are linear and logical. No evidence of psychosis. Client Response/Progress/Benefit: []Pt was an active participant in group discussion AEB taking notes and providing input throughout. Attentive during psychoeducation reviewing internal and external obstacles and provided examples throughout. Participated in the reflection activity in which clients emilie pictures depicting their current and desired reality and shared with the group. Pt shared in current reality she smiling with her kids with her, being able to see the changes she has made as a mom. Pt stated to create this reality she had to push herself to get help and use the skills. Shared desired reality is to still be with her daughters feeling positive and hopeful and watching her daughters apply the skills pt has taught them by example. Pt to continue IOP to further improve daily functioning, promote healthy stress management skills, and prevent decompensation.
--- NOTE | 2021-07-22 09:00 | BH.SGPN.GN ---
Behaviors/Verbalizations/Mental Status: [] Eye contact is good. Motor activity is appropriate. Appearance is casual. Speech is Appropriate. Mood is euthymic. Affect is full. Thoughts are linear and logical. No evidence of psychosis. Reviewed daily check in sheet and no reports of suicidal ideations or intent. Client Response/Progress/Benefit: [] Pt was an active participant in group discussion. Active participant. Provided appropriate feedback. Pt shared her emotion this morning is proud. Pt stated she has figured out the generational curse in my family and I'm going to stop it. Pt reported she is taking steps to make changes within herself to positively impact her children and family. Pt noted mental health win as getting herself ready in the morning, doing her hair and yesterday put on make up for the first time in a long time. Pt reported she has noticed positive impact on her children since making changes in how she deals with situations. pt reported she is less emotionally reactive which has made a significant difference in her relationships. Pt reported she has finally woken up and is proud of herself for making the necessary changes to live a more fulfilling life. Benefited from group support, encouragement, and feedback. Will continue in IOP to continue use of healthy coping skill and maintain gains.
--- NOTE | 2021-07-22 10:15 | BH.SGPN.GN ---
Behaviors/Verbalizations/Mental Status: []Pt alert and oriented, neatly dressed and groomed. Eye contact good. Motor activity appropriate. Speech within normal limits-tangential at times. Affect congruent, mood euthymic. Thoughts linear, logical, no signs of hallucinations or delusions. Client Response/Progress/Benefit: []Pt responded well to session AEB sharing and listening attentively to others. Group discussed the benefits of managed anger and anger as a secondary emotion. Pt completed anger iceberg worksheet, reporting outward personal signs of anger as making impulsive decisions, becoming aggressive, screaming, and having an apathetic attitude. Pt reports now that she is addressing her real issues, pt can much more effectively manage anger. Identified underlying emotions that contribute to anger including shame, guilt, and anxiety. Appeared to benefit from increased knowledge of the underlying emotions that impact anger and increased self-awareness of the internal and external consequences of anger. Will continue IOP tx to promote gains, reinforce healthy coping skills, and establish aftercare. Narrative Note: []
--- NOTE | 2021-07-22 12:06 | BH.MDN ---
Multi-Disciplinary Note - Note 30-min Individual Time Started:: 11:10 Date: 07/22/21 Purpose of session/treatment goals addressed:: Reviewed progress and current system. Reviewed treatment plan goals. Eye Contact:: Good Motor Activity:: Appropriate Appearance:: Casual Speech:: Appropriate Mood:: Euthymic Affect:: Full Thoughts:: Linear, Logical, No evidence of hallucinations/delusions noted Staff Interventions:: discharge planning, treatment planning Client Response:: Pt presents in good spirits today. Continues to report improvement since last Thursday. Denies any suicidal ideations, plan, or intent. Last panic attacks was last week. Spent time with family this past and received positive feedback regarding her progress and emotion regulation. She is motivated to break the generational cycle of anger, unhealthy communication, and poor emotion regulation. We reviewed treatment plan goals; able to identify triggers to emotional dysregulation (witnessing a panic attack, fear of abandonment, and fear of rejection). Her coping strategies are reframing, using her insight and education that feeling is temporary, challenging thoughts, and accepting what she cannot control. Able to identify cognitive distortions she frequently used (catastrophizing and absolute thinking) and ways to manage these distortions. Also able to identify physiological signs of anger and strategies. Risks/Concerns:: No risks or concerns noted. Progress Toward Goals/Plan:: Progress noted since last Thursday. Denies SI, plan, or intent. Last panic attempt was last week. She reports that she has worked through her distress and regression last week and again is functioning where I want to be. Motivated. Agreeable with plan to discharge on 07/26/20. She has weekly counseling appointments with outpatient therapist Nayeli at [facility]. She has not followed through with making a psychiatrist appointment. She was given a list of referrals last week. Agreeable to complete this by Thursday. She will also continue here in aftercare. Plan to continue in IOP to maintain gains. Time Stopped:: 11:45
--- NOTE | 2021-07-25 09:00 | BH.SGPN.GN ---
Behaviors/Verbalizations/Mental Status: [] Eye contact is good. Motor activity is appropriate. Appearance is casual. Speech is Appropriate. Mood is anxious. Affect is congruent. Thoughts are linear and logical. No evidence of psychosis. Reviewed daily check in sheet and no reports of suicidal ideations or intent. Client Response/Progress/Benefit: [] Pt was an active participant. Attentive. Emotion for today is blah stating I'm here. She reports medical issues (kidney stones) which had impacted her physically and emotionally. Increased anxiety and irritability. Noticed herself catastrophizing regarding her medical and mental health decompensating and was able to challenge and reframe which kept me from going into a complete panic attack and severe isolation. Admits increase in anxiety, depression, and isolation however utilizing skills which have helped her through negative events. Benefited from group support, encouragement, and feedback. Group empathized with the impact of somatic symptoms on mental health. Plan is to continue in IOP to maintain gains. Narrative Note: []
--- NOTE | 2021-07-25 10:05 | BH.SGPN.GN ---
Behaviors/Verbalizations/Mental Status: []Client alert and oriented, casually dressed and groomed. Eye contact good. Motor activity appropriate. Speech within normal limits. Affect congruent, mood euthymic. Thoughts linear, logical, no signs of hallucinations or delusions. Client Response/Progress/Benefit: []Client responded well to session AEB sharing and listening attentively to others. Client was an active participant in group discussion defining fixed mindset and what it can look like, with client providing an example of believing ?it is what it is?. Group discussed how fixed mindset affects mental health and why we use fixed thoughts. Client identified fear of failure as a reason we use fixed thoughts. Client participated in experiential activity encouraging clients to find solutions to a seemingly impossible task. Client was an active participant in group problem solving and provided supportive feedback to others. Client identified a fixed thought keeping her stuck as ?I fail at everything?. Client appeared to benefit from increased knowledge of fixed mindset and self-awareness of personal fixed thoughts. Will continue IOP treatment to continue increasing mood stability and decreasing negative self talk to improve daily functioning. Narrative Note: []
--- NOTE | 2021-07-25 11:10 | BH.SGPN.GN ---
Behaviors/Verbalizations/Mental Status: []Pt alert and oriented, casually dressed and groomed. Eye contact good. Motor activity appropriate. Speech within normal limits. Affect congruent, mood content. Thoughts linear, logical, no signs of hallucinations or delusions. Client Response/Progress/Benefit: []Pt engaged during activity and discussion AEB providing some input, connecting with peers, as well as taking notes throughout. Pt did well to engage as group worked on identifying characteristics and benefits of adopting a growth mindset. Worked with fellow participants in reframing the example fixed thoughts into growth mindset thoughts, providing support throughout. Reframed personal fixed thought of ?I?m a freak, a weirdo, and broken? with growth mindset thought of ?people love me for these reasons and I?m better than 5 weeks ago.? Benefitted from discussing benefits of growth mindset and brainstorming strategies for prompting growth-mindset. Will continue IOP tx for one more day to reinforce healthy coping skills and provide closure on progress. Narrative Note: []
--- NOTE | 2021-07-25 11:43 | BH.IGGP_ITS ---
Aftercare Plan - Demographics Treatment End Date:: 07/26/21 Psychiatrist:: Analy Land Psychiatrist Office #:: [phone] [facility] Therapist:: Edy Heaton Therapist Phone #:: [phone] - Plan Details Progress/Aftercare Plan Details:: Nayeli made significant progress while in [facility]. She attended the program consistently and was engaged in groups. She provided positive feedback to peers and overall contributed extensively. According the outcome measurements Nayeli had on overall 62% reduction in symptoms since 06/04/2021. Outcome scores show a 75% decrease in depression, a 75% decrease in anger, a 58% decrease in anxiety, and a significant reduction in frequency, duration, and intensity of suicidal thoughts. She is motivated to break the generational cycle of anger, unhealthy communication, and poor emotion regulation. We reviewed treatment plan goals; able to identify triggers to emotional dysregulation (witnessing a panic attack, fear of abandonment, and fear of rejection). Her coping strategies are reframing, using her insight and education that feeling is temporary, challenging thoughts, and accepting what she cannot control. Able to identify cognitive distortions she frequently used (catastrophizing and absolute thinking) and ways to manage these distortions. Also able to identify physiological signs of anger and strategies. Strategies for Success:: 1. Self-care. 2. Identify catastrophizing statements and reframe. 3. Accept what you can and cannot control. 4. Take a step back before you react or engage. 5. Follow through with trauma work. - Appointments Appointments/Referrals to Other Services:: Nayeli Emerson- Outpatient Counseling. Appt set for next week. Aftercare Group- [facility] starting next week. Was given several referrals for psychiatry however had not made appointment. 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 - Medications Home Medications: Home Medications levothyroxine 112 mcg PO DAILY 09/13/19 omeprazole 40 mg PO DAILY 05/28/20 dicyclomine 20 mg PO TIDAC PRN 03/08/21 fluoxetine [Prozac] 10 mg PO DAILY 30 Days #30 cap 07/10/21 gabapentin 600 mg PO BID 30 Days #60 tab 07/10/21 metformin 500 mg PO DAILY #55 tab 07/10/21 olanzapine [Zyprexa] 5 mg PO DAILY 30 Days #30 tab 07/10/21 dicyclomine 20 mg PO BID #14 tab 07/22/21 naproxen [Naprosyn] 500 mg PO BID #20 tab 07/22/21
--- NOTE | 2021-07-29 09:00 | BH.SGPN.GN ---
Behaviors/Verbalizations/Mental Status: [] Eye contact is good. Motor activity is appropriate. Appearance is casual. Speech is Appropriate. Mood is euthymic. Affect is full. Thoughts are linear and logical. No evidence of psychosis. Reviewed daily check in sheet and no reports of suicidal ideations or intent. Client Response/Progress/Benefit: [] Pt was an active participant in group discussion. Attentive. Provided appropriate feedback. Daily symptom tracker notes 04/10 for depression, anxiety, and anger. Emotion for today is exhausted which is due to spending all day outside yesterday gardening. Shared with the group that today is her last day in [facility]. I usually never finish anything. She discussed her progress in [facility] from overwhelming anxiety, daily panic attacks, SI, and hopelessness to feeling hopeful, confident and less overwhelmed with her thoughts and emotions. States I was so alone previous to starting here. Spent most of her day isolating with negative thoughts. Has shown stability for the past 2 weeks. I'm not suppressing things as much. Progress noted per pt report. She reports that she benefited the most from support and not feeling alone while in the IOP program. Was linked with local [facility] chapter, DBT group, and aftercare to continue with social support. Pt will be discharged from [facility] today. Narrative Note: []
--- NOTE | 2021-07-29 10:00 | BH.SGPN.GN ---
Behaviors/Verbalizations/Mental Status: []Client alert and oriented, casually dressed and groomed. Eye contact good. Motor activity appropriate. Speech within normal limits. Affect congruent, mood euthymic. Thoughts linear, logical, no signs of hallucinations or delusions. Client Response/Progress/Benefit: []Client responded well to session AEB sharing and listening attentively to others. Client participated in group discussion regarding the benefits of social support and how it feels to not have social support.Client identified a benefit as being able to get different perspectives on situations and decisions and provided a personal example. Clinician provided psychoeducation on types of support including internal and external support. Client participated in experiential activity illustrating the importance of having multiple social supports. Client provided insight during group processing, remarking that at time making your support system smaller can be helpful. Client appeared to benefit from increased knowledge of the benefits of social support and greater self-awareness. Will discharge from IOP tx as client has accomplished her tx goals and no longer meets criteria for IOP level of care. Narrative Note: []
--- NOTE | 2021-07-29 11:05 | BH.SGPN.GN ---
Behaviors/Verbalizations/Mental Status: []Client alert and oriented, casually dressed and groomed. Eye contact good. Motor activity appropriate. Speech within normal limits. Affect congruent, mood euthymic. Thoughts linear, logical, no signs of hallucinations or delusions. Client Response/Progress/Benefit: []pt was an active participant throughout AEB contributing to discussion, providing personal examples, and taking notes. Pt processed emotions pt felt in the activity and how pt coped in the moment. Pt provided input during discussion on the types of support our supports can provide. Pt able to identify current support system and barriers that get in the way of using supports. Pt reported after identifying what type of supports she receives she was surprised that she has several people in her life that provide emotional support. Pt stated she struggles most with getting tangible support because doesn't like asking for help. Pt seemed to benefit from identifying the type of support she needs to work on improving.Pt has made significant treatment progress since starting IOP and will discharge today.
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
== END 2021-07-29 12:24 | disposition home or self-care (01) ==
LOC: BHIOP 08:18
PROVIDERS: PCP Internal Medicine; Referring Provider Psychiatry & Neurology Psychiatry; Visit Provider Psychiatry & Neurology Psychiatry
DX: F31.63 Bipolar disorder, current episode mixed, severe, without psychotic features (principal); F41.1 Generalized anxiety disorder; F43.10 Post-traumatic stress disorder, unspecified; F60.3 Borderline personality disorder
CPT/HCPCS: S9480; 90832; 90834; 90837; 90853

== ENCOUNTER 2021-07-22 12:14 | Emergency (ER) | payer MEDICARE, MEDICAID, SELFPAY ==
[2021-07-22 12:15] VITALS: BP 147/100; PULSE 86; RESP 16; TEMP 36; O2SAT 99; BMI 22.1
[2021-07-22 12:55] LABS: Bacteria 0 SEEN /hpf (None Seen); Mucous, Urine 0 SEEN /hpf (<or=2+); Red Blood Cells-Urine 0 SEEN /hpf (0-5); Squamous Epithelial Cells - UA 0 SEEN /hpf (5-10); White Blood Cells 0 SEEN /hpf (0-5)
[2021-07-22 12:59] LABS: Color, Urine Straw (Yellow); Glucose, Dipstick Normal (Normal); Ketone-Dipstick Negative (Negative); Leukocyte Esterase-Dipstick Negative /ul (Negative); Nitrite-Dipstick Negative (Negative); Occult Blood-Urine Negative /ul (Negative); Protein-Dipstick Negative (Negative); Urine Bilirubin Dipstick Negative (Negative); Urine Clarity Clear (Clear); Urine Urobilinogen Normal (Normal)
[2021-07-22] MEDS: oxyCODONE 5 MG Tablet PO (13:05)
--- NOTE | 2021-07-22 14:13 | CT_ITS ---
INDICATION: flank pain EXAMINATION: CT ABDOMEN AND PELVIS WITHOUT CONTRAST - CT Abdomen And Pelvis W/O Contrast Injection TECHNIQUE: Helically acquired images were obtained of the abdomen and pelvis without oral or IV contrast. A radiation dose optimization technique was used for this scan. IV Contrast dosage and agent: None. Oral contrast: None. COMPARISON: 10/13/2020. FINDINGS: LOWER CHEST: Lung bases are clear. No cardiomegaly or pericardial effusion. LIVER: Homogeneous. No focal mass. GALLBLADDER AND BILIARY TREE: No calcified gallstones. No gallbladder distension or wall edema. No intra- or extrahepatic biliary ductal dilation. PANCREAS: No focal cystic or solid mass. SPLEEN: Normal size without focal cystic or solid mass. ADRENAL GLANDS: No nodules. KIDNEYS AND URETERS: The right kidney is not visualized. The left kidney demonstrates unremarkable contour, prominence of the left pelvicalyceal system demonstrates no significant change in comparison to the prior study. Subtle calcifications visualized in the mid to upper pole of the left kidney the largest of which measures approximately 3 mm, no evidence of hydronephrosis or hydroureter is seen. No evidence of obstructive uropathy is visualized. PERITONEUM: No ascites or free air. No other fluid collection. BOWEL: Abundance of stool is visualized in the large bowel. Scattered diverticular disease but no evidence of acute diverticulitis. No evidence of acute appendicitis. No stomach or bowel distension. No focal inflammatory change. LYMPH NODES: No enlarged mesenteric or retroperitoneal lymph nodes. VESSELS: Aorta is non-dilated. URINARY BLADDER: Unremarkable. No evidence of stones within the urinary bladder. REPRODUCTIVE ORGANS: No pelvic masses. Uterus is surgically absent. ABDOMINAL WALL: No discrete abdominal or pelvic wall hernia. BONES: No lytic or blastic abnormality. Degenerative bone changes with subtle grade 1 anterolisthesis of L5 over S1 and moderate to severe narrowing of the neuroforamina seen at this level and to a lesser extent at L4-L5. CT/Abdomen/Pelvis without Cont IMPRESSION: Abundance of stool visualized in the large bowel. Scattered diverticular disease but no evidence of acute diverticulitis is seen. Subtle left renal stones but no evidence of obstructive uropathy is seen. Degenerative changes seen in the lumbar spine most prominent at L5-S1 and to lesser extent the L4-L5. Electronically Signed: Tristan Rao MD at 15:09 EDT ,
--- NOTE | 2021-07-22 14:14 | EDS_ITS ---
HPI History of Present Illness Chief Complaint: Abd Pain Narrative Narrative: Patient presents with left-sided flank pain and dysuria. She has no hematuria. She has no fevers chills cough or congestion. She has no right-sided abdominal pain this is been ongoing for 2 days. [facility] Medical History Alcohol use disorder Bipolar 1 disorder Borderline personality disorder Cannabis use disorder, mild, abuse Cocaine use disorder, mild, in sustained remission Depression Generalized anxiety disorder Hypothyroidism Irritable bowel syndrome Methamphetamine use disorder, mild, in sustained remission PTSD (post-traumatic stress disorder) Right kidney stone Home Medications levothyroxine 112 mcg PO DAILY 09/13/19 [History Last Taken 12/24/19] omeprazole 40 mg PO DAILY 05/28/20 [History Last Taken Unknown] dicyclomine 20 mg PO TIDAC PRN 03/08/21 [History Last Taken Unknown] fluoxetine [Prozac] 10 mg PO DAILY 30 Days #30 cap 07/10/21 [Rx Last Taken Unknown] gabapentin 600 mg PO BID 30 Days #60 tab 07/10/21 [Rx Last Taken Unknown] metformin 500 mg PO DAILY #55 tab 07/10/21 [Rx Last Taken Unknown] olanzapine [Zyprexa] 5 mg PO DAILY 30 Days #30 tab 07/10/21 [Rx Last Taken Unknown] dicyclomine 20 mg PO BID #14 tab 07/22/21 [Rx Last Taken Unknown] naproxen [Naprosyn] 500 mg PO BID #20 tab 07/22/21 [Rx Last Taken Unknown] Allergy/AdvReac Type Severity Reaction Status Date / Time fentanyl Allergy Anaphylaxis Verified 07/22/21 12:30 ketorolac tromethamine AdvReac Other Verified 07/22/21 12:30 [From Toradol] Surgical History H/O: hysterectomy History of nephrectomy, right Social History household members: family Smoking Status: Current every day smoker tobacco type: cigarettes alcohol intake: never substance use type: marijuana ROS ROS ED ROS Narrative Past medical history: Reviewed, includes history of abdominal pain, diverticulitis, history of kidney stones, irritable bowel syndrome, history of substance abuse Medications: Reviewed Social history: Noncontributory Review of systems: All systems negative except as indicated General: No fever Eyes: No visual changes ENT: No upper airway congestion, normal voice Neck: No neck pain Cardiovascular: No chest pain Respiratory: No shortness of breath or cough Gastrointestinal: As in HPI Genitourinary: As in HPI Musculoskeletal: Denies myalgias no difficulty with ambulation Skin: No rash Neurological: No memory loss, confusion or any focal weakness Psych: No recent behavioral changes Hematologic: No easy bleeding or easy bruising EXAM Physical Exam Narrative Exam Narrative: Physical exam General: She appears relatively comfortable in the bed. Head: Normocephalic, Atraumatic Eyes: Conjunctiva not pale ENT: Moist mucous membranes Neck: Supple, Nontender, No lymphadenopathy Cardiovascular: Regular rate, Regular rhythm Respiratory: No distress, CTA bilaterally Abdomen: Soft, left lower quadrant abdominal tenderness and slight flank pain. Back: Nontender, Normal Inspection. Negative for: CVA tenderness Extremities: Nontender, No edema Skin: Normal color, No rash Neurological: Alert, Normal Strength, Normal Sensation Psychological: Normal affect Const Vital Signs: 07/22/21 12:15 Temperature 96.8 F L Temperature Source Temporal Pulse Rate 86 Respiratory Rate 16 Blood Pressure 147/100 H Blood Pressure Mean 115 Pulse Ox 99 Oxygen Delivery Method Room Air MDM MDM MDM Narrative Medical decision making narrative: Patient has an unremarkable urinalysis. She still has quite a bit of pain, I will address with analgesics and do a CT since she does have history of diverticulitis and her pain is in the left lower quadrant. I doubt this is a kidney stone. Lab Data Labs: Laboratory Results - last 24 hr 07/22/21 12:45 Urine Color Straw Urine Clarity Clear Urine pH 7.0 Ur Specific [place] 1.010 Urine Protein Negative Urine Glucose (UA) Normal Urine Ketones Negative Urine Occult Blood Negative Urine Nitrite Negative Urine Bilirubin Negative Urine Urobilinogen Normal Ur Leukocyte Esterase Negative Discharge Plan Triage Chief Complaint: Abd Pain ED Provider: Cristiano Kaur Dx/Rx/DC Orders Clinical Impression: Abdominal pain, Acute flank pain Instructions: Abdominal Pain Prescriptions: New dicyclomine 20 mg tablet 20 mg PO BID Qty: 14 RF: 0 naproxen [Naprosyn] 500 mg tablet 500 mg PO BID Qty: 20 RF: 0 No Action levothyroxine 112 MCG tablet 112 mcg PO DAILY RF: 0 omeprazole 20 MG tablet,disintegrat, delay rel 40 mg PO DAILY RF: 0 dicyclomine 10 MG capsule 20 mg PO TIDAC PRN (Reason: ABDPAIN) RF: 0 metformin 500 mg tablet 500 mg PO DAILY Qty: 55 RF: 0 gabapentin 600 mg Tablet 600 mg PO BID 30 Days Qty: 60 RF: 1 olanzapine [Zyprexa] 5 mg tablet 5 mg PO DAILY 30 Days Qty: 30 RF: 2 fluoxetine [Prozac] 10 mg capsule 10 mg PO DAILY 30 Days Qty: 30 RF: 2 Primary Care Provider: Cesar Centeno Referrals: Cesar Centeno MD [Primary Care Provider] - 2 Days Disposition Disposition: Home, Self Care
--- NOTE | 2021-07-22 15:04 | ED.RN ---
Pt called and was upset about getting rxs sent to the pharmacy and not having the results back yet. Pt thought that we were done with her due to this. Pt wanted to know how we could call rx in when we dont even know what is wrong with her. Pt states that [facility] compassion towards pts is terrible and that we had done the same thing to her daughter that was here. Pt was apologized to and is made aware that the pt has left at this time.
== END 2021-07-22 15:06 | disposition home or self-care (01) ==
PROVIDERS: Emergency Provider Emergency Medicine; PCP Internal Medicine; Visit Provider Emergency Medicine
DX: R10.9 Unspecified abdominal pain (principal); F31.9 Bipolar disorder, unspecified; F60.3 Borderline personality disorder; F41.1 Generalized anxiety disorder; K58.9 Irritable bowel syndrome, unspecified; E03.9 Hypothyroidism, unspecified; F17.210 Nicotine dependence, cigarettes, uncomplicated; Z79.890 Hormone replacement therapy; Z79.1 Long term (current) use of non-steroidal anti-inflammatories (NSAID); Z79.899 Other long term (current) drug therapy; Z90.5 Acquired absence of kidney
CPT/HCPCS: 74176; 81001; 99283

== ENCOUNTER 2021-08-01 13:00 | Outpatient (RCR) | payer MEDICARE, MEDICAID, SELFPAY ==
--- NOTE | 2021-08-01 14:00 | BH.COMM ---
Communication Note - Communication with Client Communication Note: Presented completed IOP and presents today to starting relapse prevention group which meets once weekly (1.5 hours) for 10 weeks. Case discussed with Dr. Foster with plan to admit with dx of F31.88
--- NOTE | 2021-08-01 14:37 | BH.MTP_ITS ---
Master Treatment Plan - Patient Information Program Physician:: Dr. Analy Land Primary Therapist:: Edy Heaton [facility] - Psychiatric Diagnoses Psychiatric Diagnoses:: Bipolar 1 disorder, most recent episode mixed, severe without psychosis; Generalized anxiety disorder; PTSD; Borderline personality disorder Diagnosis Code(s):: F31.63 - Estimated LOS Estimated LOS (in weeks):: 10 Problem/Goal #1 - Problem/Goal #1 Stated Goal:: client will maintain or see a reduction in symptoms AEB client score on the DSM 5 cross-cutting measure and improve client's daily functioning. - Objectives Objective #1 Stated Objective: Client will continue to consistently apply healthy coping skills to maintain progress made in IOP tx. Interventions: Through group therapy, client will review warning signs and triggers as well as healthy coping skills learned in IOP tx to successfully maintain gains while transitioning into outpatient therapy. Discharge Criteria: Client will have accomplished this goal when client's score on the DSM-5 cross-cutting measure has either maintained or reduced over a 10 week period. Target Date: 10/10/21 Review Date: 08/29/21 Status: open Objective #2 Stated Objective: Client will learn and utilize 2-3 maintenance strategies to prevent decompensation from original IOP DSM-5 scores. Interventions: Through group therapy, client will be provided with education on healthy maintenance behaviors, relapse prevention techniques, and healthy coping strategies. Discharge Criteria: Client will have accomplished this goal when can report using at least 2 maintenance skills to prevent decompensation compared to original IOP DSM-5 scores Target Date: 10/10/21 Review Date: 08/29/21 Status: open
== END 2021-08-03 23:59 ==
LOC: BHOG 13:00
PROVIDERS: PCP Internal Medicine; Referring Provider Psychiatry & Neurology Psychiatry; Visit Provider Psychiatry & Neurology Psychiatry
DX: F31.63 Bipolar disorder, current episode mixed, severe, without psychotic features (principal)
CPT/HCPCS: 90853

== ENCOUNTER 2021-08-05 08:37 | Outpatient (RCR) | payer MEDICARE, MEDICAID, SELFPAY | END 2021-08-22 14:04 | disposition home or self-care (01) | LOC: BHOG 08:37 | PROVIDERS: PCP Internal Medicine; Referring Provider Psychiatry & Neurology Psychiatry; Visit Provider Psychiatry & Neurology Psychiatry | DX: Z00.00 Encounter for general adult medical examination without abnormal findings (principal) ==

== ENCOUNTER 2021-09-11 08:11 | Emergency (ER) | payer MEDICARE, MEDICAID, SELFPAY ==
[2021-09-11 08:12] VITALS: BP 135/100; PULSE 84; RESP 16; TEMP 36.6; O2SAT 99; BMI 22.1
[2021-09-11 08:38] LABS: Mucous, Urine 0 SEEN /hpf (<or=2+); Red Blood Cells-Urine 0 SEEN /hpf (0-5); White Blood Cells 0 SEEN /hpf (0-5)
[2021-09-11 08:39] LABS: Color, Urine Yellow (Yellow); Glucose, Dipstick Normal (Normal); Ketone-Dipstick Negative (Negative); Leukocyte Esterase-Dipstick Negative /ul (Negative); Nitrite-Dipstick Negative (Negative); Occult Blood-Urine Negative /ul (Negative); Protein-Dipstick Negative (Negative); Urine Bilirubin Dipstick Negative (Negative); Urine Clarity Sl. Cloudy (Clear); Urine Urobilinogen Normal (Normal)
[2021-09-11 08:41] LABS: Absolute Neutrophil Count 3.7 X10^3/uL (2.0-7.7); Basophil# 0.01 X10^3/uL; Basophil% 0.2 % (0-1); Eosinophils% 1.6 % (0-5); Hematocrit 48.2 % (37-47); Hemoglobin 15.2 g/dL (12.0-15.0); Lymphocyte % 29.9 % (19-41); Mean Corp Hgb Conc 31.5 g/dL (32-36); Mean Corpuscular Hgb 28.6 pg (27.0-32.0); Mean Corpuscular Volume 90.8 fL (81-99); Mean Platelet Vol. 10.5 fl (6.2-12.0); Monocyte# 0.64 X10^3/uL; Monocyte% 10.1 % (0-10); NRBC Flagged by Analyzer 0 % (0-5); Neutrophil # 3.69 X10^3/uL (2.7-7.7); Neutrophil % 57.9 % (47-70); Platelet Count 251 K/mm3 (150-450); RBC Distribution Width CV 13.9 % (11.6-14.6); RBC Distribution Width SD 46.4 fl (35.1-43.9); Red Blood Count 5.31 M/mm3 (4.2-5.4); White Blood Count 6.4 K/mm3 (4.4-11.0)
[2021-09-11 08:46] LABS: Bacteria 1+ /hpf (None Seen); Squamous Epithelial Cells - UA 0-5 SEEN /hpf (5-10)
[2021-09-11 08:47] LABS: Internal QC Validated? YES +Cl - CLEAR BKGD; Pregnancy, Urine Negative Negative
[2021-09-11 08:56] LABS: AST(SGOT) 14 U/L (15-37); Alanine Aminotransfer ALT/SGPT 25 U/L (13-56); Albumin, Serum 3.9 g/dL (3.2-5.0); Alkaline Phosphatase 105 U/L (45-117); Anion Gap 8 (5-15); BUN 21 mg/dL (7-18); BUN/Creat Ratio 19.4 RATIO (10-20); Calcium,Total 9.7 mg/dL (8.5-10.1); Chloride 106 mmol/L (98-107); Creatinine, Serum 1.08 mg/dL (0.55-1.02); EST Glomerular Filtration Rate 58 mL/min (>60); Est Glom Filt Rate - Afr Amer 70 mL/min (>60); Estimated Creatinine Clearance 68.75 ml/min; Globulin 3.9 g/dL (2.2-4.2); Glucose 112 mg/dL (74-106); Lipase 120 U/L (73-393); Protein, Total 7.8 g/dL (6.4-8.2); Sodium Level 140 mmol/L (136-145)
--- NOTE | 2021-09-11 08:56 | EDS_ITS ---
HPI HPI - GI History of Present Illness Chief Complaint: Abd Pain Informant: patient Narrative Narrative: Patient is a 46-year-old female with history of IBS, diverticulosis, diverticulitis and kidney stones presenting with left lower quadrant abdominal pain. Patient states this feels like her prior episode of colitis. She denies any black or blood in her stool. She states 2 days ago she started having vomiting and diarrhea. She still has associated nausea. She states she will get the urge to have a bowel movement and cannot make it to the bathroom. Has had a low-grade temperature of 100 ?F. Does not currently see GI. [facility] Medical History Alcohol use disorder Bipolar 1 disorder Borderline personality disorder Cannabis use disorder, mild, abuse Cocaine use disorder, mild, in sustained remission Depression Generalized anxiety disorder Hypothyroidism Irritable bowel syndrome Methamphetamine use disorder, mild, in sustained remission PTSD (post-traumatic stress disorder) Right kidney stone Home Medications levothyroxine 112 mcg PO DAILY 09/13/19 [History Last Taken 12/24/19] omeprazole 40 mg PO DAILY 05/28/20 [History Last Taken Unknown] dicyclomine 20 mg PO TIDAC PRN 03/08/21 [History Last Taken Unknown] fluoxetine [Prozac] 10 mg PO DAILY 30 Days #30 cap 07/10/21 [Rx Last Taken Unknown] gabapentin 600 mg PO BID 30 Days #60 tab 07/10/21 [Rx Last Taken Unknown] metformin 500 mg PO DAILY #55 tab 07/10/21 [Rx Last Taken Unknown] olanzapine [Zyprexa] 5 mg PO DAILY 30 Days #30 tab 07/10/21 [Rx Last Taken Unknown] dicyclomine 20 mg PO BID #14 tab 07/22/21 [Rx Last Taken Unknown] naproxen [Naprosyn] 500 mg PO BID #20 tab 07/22/21 [Rx Last Taken Unknown] ciprofloxacin HCl [Cipro] 500 mg PO Q12H #14 tab 09/11/21 [Rx Last Taken Unknown] dicyclomine 20 mg PO TID PRN #20 tab 09/11/21 [Rx Last Taken Unknown] hydrocodone-acetaminophen 1 tab PO Q8H PRN 3 Days #9 tab 09/11/21 [Rx Last Taken Unknown] metronidazole 500 mg PO Q8H 7 Days #21 tab 09/11/21 [Rx Last Taken Unknown] ondansetron HCl 4 mg PO Q6H PRN 3 Days #12 tab 09/11/21 [Rx Last Taken Unknown] Allergy/AdvReac Type Severity Reaction Status Date / Time fentanyl Allergy Anaphylaxis Verified 09/11/21 08:16 ketorolac tromethamine AdvReac Other Verified 09/11/21 08:16 [From Toradol] Surgical History H/O: hysterectomy History of nephrectomy, right Social History household members: family Smoking Status: Current every day smoker tobacco type: cigarettes alcohol intake: never substance use type: marijuana ROS ROS ED Constitutional Constitutional ED: Reports fever(s) and subjective; Denies chills ENT ENT ED: Denies rhinorrhea or sore throat Cardiovascular Cardiovascular: Denies chest pain Respiratory/Chest Respiratory/Chest: Denies dyspnea Gastrointestinal Gastrointestinal: Reports abdominal pain, diarrhea, nausea and vomiting; Denies constipation or melena Genitourinary Genitourinary ED: Reports urinary frequency; Denies dysuria or hematuria Musculoskeletal Musculoskeletal: Denies arthralgias or myalgias Integumentary Denies rash Neurologic Neurologic: Denies headache(s) or weakness Psychiatric Psychiatric: Denies depression EXAM Physical Exam Const Vital Signs: 09/11/21 08:12 09/11/21 10:34 Temperature 97.8 F Temperature Source Temporal Pulse Rate 84 71 Respiratory Rate 16 16 Blood Pressure 135/100 H 118/62 Blood Pressure Mean 111 80 Pulse Ox 99 98 Oxygen Delivery Method Room Air Room Air Positive well nourished and well developed General Appearance ED: well developed and NAD HEENT Reports moist mucous membranes normocephalic and atraumatic Eyes PERRL and EOMs intact bilaterally Neck supple Resp normal respiratory effort and clear to auscultation bilaterally Cardio regular rate, regular rhythm and no murmurs GI non-distended Auscultation: normoactive bowel sounds Palpation: soft and tender LLQ; Negative for guarding or rigid Back/Spine no CVA tenderness Extremity full ROM General Extremety ED: Negative for edema or tenderness General Extremity: Negative for edema Neuro Sensorium / Orientation: alert, oriented to person, oriented to place and oriented to time Motor Exam: Negative for general weakness Psych mental status grossly normal Skin no wounds Lesions: no lesions Rashes: no rashes MDM MDM MDM Narrative Medical decision making narrative: Patient evaluated for recurrent left lower quadrant abdominal pain. Patient has a history of IBS as well as diverticulitis. She reports a low-grade temperature. Patient's had over 5 CTs of abdomen pelvis in our system in the past 2 years. Given that she has a benign abdominal exam except for mild tenderness in the left lower quadrant and no leukocytosis I do not think she requires repeat imaging. She states a couple weeks ago she was treated with oral Augmentin for diverticulitis. She states she got better until the last day or 2. Her work-up is largely unremarkable. Her hemoglobin is mildly elevated and she could be mildly dehydrated/hemo concentrated. Patient is given IV fluids, a dose of IV morphine, IV Zofran and oral Bentyl. She is then given a first dose of Cipro and Flagyl p.o. in the emergency room. She was discharged home with antibiotics, nausea medicine and a short course of pain medication. States she has plenty of Bentyl at home and does not need more of this. She is given referral for GI doctor. Given her normal lab work, stable vital signs and benign physical exam I do not think further imaging or admission/surgical consult is indicated. While in the emergency room patient does report having some bright red blood per rectum. Rectal exam was performed and I do not see any obvious bleeding and it is Hemoccult negative. Again I think she is stable for outpatient follow-up. Lab Data Attestation: I reviewed the patient's lab results. Labs: Laboratory Results - last 24 hr 09/11/21 09/11/21 09/11/21 08:32 08:32 08:32 WBC 6.4 RBC 5.31 Hgb 15.2 H Hct 48.2 H MCV 90.8 MCH 28.6 MCHC 31.5 L RDW Std Deviation 46.4 H RDW Coeff of Doyle 13.9 Plt Count 251 MPV 10.5 Immature Gran % (Auto) 0.300 Neut % (Auto) 57.9 Lymph % (Auto) 29.9 [place] % (Auto) 10.1 H Eos % (Auto) 1.6 Baso % (Auto) 0.2 Absolute Neuts (auto) 3.7 Absolute Lymphs (auto) 1.90 Nucleated RBC % 0 Sodium 140 Potassium 4.0 Chloride 106 Carbon Dioxide 26.0 Anion Gap 8 BUN 21 H Creatinine 1.08 H Estim Creat Clear Calc 68.75 Est GFR (MDRD) Af Amer 70 Est GFR (MDRD) Non-Af 58 L BUN/Creatinine Ratio 19.4 Glucose 112 H Calcium 9.7 Total Bilirubin 0.30 AST 14 L ALT 25 Alkaline Phosphatase 105 Total Protein 7.8 Albumin 3.9 Globulin 3.9 Albumin/Globulin Ratio 1.0 Lipase 120 Urine Color Yellow Urine Clarity Sl. Cloudy Urine pH 7.0 Ur Specific Bearden 1.010 Urine Protein Negative Urine Glucose (UA) Normal Urine Ketones Negative Urine Occult Blood Negative Urine Nitrite Negative Urine Bilirubin Negative Urine Urobilinogen Normal Ur Leukocyte Esterase Negative Urine RBC 0 SEEN Urine WBC 0 SEEN Ur Squamous Epith Cells 0-5 SEEN Urine Bacteria 1+ Urine Mucus 0 SEEN Urine Test Negative Discharge Plan Triage Chief Complaint: Abd Pain ED Provider: Whit Coto Dx/Rx/DC Orders Clinical Impression: Abdominal pain, Nausea vomiting and diarrhea Instructions: ED Understanding Colitis Prescriptions: New ondansetron HCl 4 mg tablet 4 mg PO Q6H PRN (Reason: nausea and vomiting) 3 Days Qty: 12 RF: 0 dicyclomine 20 mg tablet 20 mg PO TID PRN (Reason: abdominal discomfort) Qty: 20 RF: 0 ciprofloxacin HCl [Cipro] 500 mg tablet 500 mg PO Q12H Qty: 14 RF: 0 metronidazole 500 mg tablet 500 mg PO Q8H 7 Days Qty: 21 RF: 0 hydrocodone-acetaminophen 5-325 mg tablet 1 tab PO Q8H PRN (Reason: pain) 3 Days Qty: 9 RF: 0 No Action levothyroxine 112 MCG tablet 112 mcg PO DAILY RF: 0 omeprazole 20 MG tablet,disintegrat, delay rel 40 mg PO DAILY RF: 0 dicyclomine 10 MG capsule 20 mg PO TIDAC PRN (Reason: ABDPAIN) RF: 0 metformin 500 mg tablet 500 mg PO DAILY Qty: 55 RF: 0 gabapentin 600 mg Tablet 600 mg PO BID 30 Days Qty: 60 RF: 1 olanzapine [Zyprexa] 5 mg tablet 5 mg PO DAILY 30 Days Qty: 30 RF: 2 fluoxetine [Prozac] 10 mg capsule 10 mg PO DAILY 30 Days Qty: 30 RF: 2 dicyclomine 20 mg tablet 20 mg PO BID Qty: 14 RF: 0 naproxen [Naprosyn] 500 mg tablet 500 mg PO BID Qty: 20 RF: 0 Primary Care Provider: Cesar Centeno Referrals: Deshawn Galloway DO [STAFF PHYSICIAN] - Cesar Centeno MD [Primary Care Provider] - Disposition Disposition: Home, Self Care Discharge Date/Time: 09/11/21 10:56
[2021-09-11] MEDS: Morphine 4 MG/ML Syringe IV (09:17)
[2021-09-11] MEDS: 0.9% Normal Saline 1,000 ML 999 ML IV (09:17)
[2021-09-11] MEDS: Ondansetron 4 MG/2 ML Vial IV (09:18)
[2021-09-11] MEDS: Dicyclomine 10 MG Capsule 20 MG PO (09:18)
[2021-09-11 10:34] VITALS: BP 118/62; PULSE 71; RESP 16; O2SAT 98
[2021-09-11] MEDS: Ciprofloxacin 500 MG Tablet PO (10:41)
[2021-09-11] MEDS: metroNIDAZOLE 500 MG Tablet PO (10:41)
== END 2021-09-11 10:56 | disposition home or self-care (01) ==
PROVIDERS: Emergency Provider Emergency Medicine; PCP Internal Medicine; Visit Provider Emergency Medicine
DX: R10.32 Left lower quadrant pain (principal); F31.9 Bipolar disorder, unspecified; F60.3 Borderline personality disorder; R19.7 Diarrhea, unspecified; R11.2 Nausea with vomiting, unspecified; K58.9 Irritable bowel syndrome, unspecified; E03.9 Hypothyroidism, unspecified; F41.1 Generalized anxiety disorder; F17.210 Nicotine dependence, cigarettes, uncomplicated; Z79.84 Long term (current) use of oral hypoglycemic drugs; Z79.890 Hormone replacement therapy; Z79.899 Other long term (current) drug therapy; Z90.5 Acquired absence of kidney
CPT/HCPCS: 80053; 81001; 81025; 82274; 83690; 85025; 96361; 96374; 96375; 99284; J7030; A4216; J2405

== ENCOUNTER 2021-12-24 10:54 | Emergency (ER) | payer MEDICARE, MEDICAID, SELFPAY ==
[2021-12-24 10:55] VITALS: BP 134/108; PULSE 106; RESP 18; TEMP 36.4; O2SAT 97; BMI 23.0
--- NOTE | 2021-12-24 11:33 | EDS_ITS ---
HPI History of Present Illness Chief Complaint: Anxiety Informant: patient Narrative Narrative: 46-year-old female presenting to the emergency room with anxiety. She tells me she has a history of anxiety and depression. She sees psychiatry in [facility]. She states that 3 months ago she was put on Zyprexa in addition to her Prozac. She states that she was feeling good up until couple weeks ago when she was arrested for shoplifting. She states that that is out of character for her and believes she was manic. She is not sure if she is still manic. She had a follow-up appointment with her psychiatrist but missed it. She states that there [facility] phone appointments. She states that she has court tomorrow. She states that in the past she has picked at her face created multiple sores. Following her arrest she started doing that again. She states she has been trying to put antibiotic ointment on and keeping the wounds dressed but she continues to scratch underneath of the dressings. She does not see a counselor. She notes that her daughter Gene and her psychiatrist believes that her picking is her version of self cutting. She denies suicidal or homicidal ideation. She denies any current illicit drug use. [facility] Medical History Alcohol use disorder Bipolar 1 disorder Borderline personality disorder Cannabis use disorder, mild, abuse Cocaine use disorder, mild, in sustained remission Depression Generalized anxiety disorder Hypothyroidism Irritable bowel syndrome Methamphetamine use disorder, mild, in sustained remission PTSD (post-traumatic stress disorder) Right kidney stone Home Medications levothyroxine 112 mcg tablet 112 mcg PO DAILY thyroid 09/13/19 [History Last Taken 12/24/19] omeprazole 20 mg delayed release,disintegrating tablet 40 mg PO DAILY 05/28/20 [History Last Taken Unknown] dicyclomine 10 mg capsule 20 mg PO TIDAC PRN ABDPAIN 03/08/21 [History Last Taken Unknown] fluoxetine 10 mg capsule (Prozac) 10 mg PO DAILY 30 days #30 caps 07/10/21 [Rx Last Taken Unknown] gabapentin 600 mg tablet 600 mg PO BID 30 days #60 tabs 07/10/21 [Rx Last Taken Unknown] metformin 500 mg tablet 500 mg PO DAILY #55 tabs 07/10/21 [Rx Last Taken Unknown] olanzapine 5 mg tablet (Zyprexa) 5 mg PO DAILY 30 days #30 tabs 07/10/21 [Rx Last Taken Unknown] dicyclomine 20 mg tablet 20 mg PO BID #14 tabs 07/22/21 [Rx Last Taken Unknown] naproxen 500 mg tablet (Naprosyn) 500 mg PO BID #20 tabs 07/22/21 [Rx Last Taken Unknown] ciprofloxacin HCl 500 mg tablet (Cipro) 500 mg PO Q12H #14 tabs 09/11/21 [Rx Last Taken Unknown] dicyclomine 20 mg tablet 20 mg PO TID PRN abdominal discomfort #20 tabs 09/11/21 [Rx Last Taken Unknown] hydrocodone-acetaminophen 5-325mg 5mg-325mg 1 tab PO Q8H PRN pain 3 days #9 tabs 09/11/21 [Rx Last Taken Unknown] metronidazole 500 mg tablet 500 mg PO Q8H 7 days #21 tabs 09/11/21 [Rx Last Taken Unknown] ondansetron HCl 4 mg tablet 4 mg PO Q6H PRN nausea and vomiting 3 days #12 tabs 09/11/21 [Rx Last Taken Unknown] Allergy/AdvReac Type Severity Reaction Status Date / Time fentanyl Allergy Anaphylaxis Verified 12/24/21 10:57 ketorolac tromethamine AdvReac Other Verified 12/24/21 10:57 [From Toradol] Surgical History H/O: hysterectomy History of nephrectomy, right Social History household members: family Smoking Status: Current every day smoker tobacco type: cigarettes alcohol intake: never substance use type: marijuana ROS ROS ED Constitutional Constitutional ED: Denies chills, fever(s) or weight loss Eyes Eyes: Denies change in vision or diplopia ENT ENT ED: Denies ear pain, rhinorrhea or sore throat Cardiovascular Cardiovascular: Denies chest pain, orthopnea, palpitations or racing heartbeat Respiratory/Chest Respiratory/Chest: Denies cough, dyspnea or orthopnea Gastrointestinal Gastrointestinal: Denies abdominal pain, diarrhea, nausea or vomiting Genitourinary Genitourinary ED: Denies dysuria, hematuria or urinary frequency Musculoskeletal Musculoskeletal: Denies arthralgias or myalgias Integumentary Reports Abrasions; Denies abscess or rash Neurologic Neurologic: Denies headache(s) or weakness Psychiatric Psychiatric: Reports anxiety and depression; Denies suicidal ideation or suicidal thoughts Endocrine Endocrinology: Denies polydipsia, polyphagia or polyuria Allergic/Immunologic Allergic/Immunologic ED: Denies mouth swelling, tongue swelling or urticaria EXAM Physical Exam Const Vital Signs: 12/24/21 10:55 Temperature 97.5 F L Temperature Source Temporal Pulse Rate 106 H Respiratory Rate 18 Blood Pressure 134/108 H Blood Pressure Mean 116 Pulse Ox 97 Oxygen Delivery Method Room Air Positive well nourished and well developed General Appearance ED: well developed HEENT Reports normocephalic and moist mucous membranes HEENT Narrative: Patient has extensive abrasions on the bilateral face. There is no purulence or cellulitis noted. Eyes PERRL and EOMs intact bilaterally Neck no lymphadenopathy, supple and no JVD Resp normal respiratory effort and clear to auscultation bilaterally Cardio regular rate, regular rhythm and no murmurs GI normal to inspection, nondistended, normoactive bowel sounds and non-tender Palpation: soft Back/Spine no CVA tenderness and normal ROM Extremity normal to inspection General Extremety ED: Negative for edema General Extremity: Negative for edema Neuro oriented x3 and CN's II-XII intact bilaterally Sensorium / Orientation: alert Motor Exam: strength 5/5 throughout Psych mental status grossly normal Mood & Affect: anxious and tearful; Negative for depressed Skin no rashes or lesions noted and no wounds MDM MDM MDM Narrative Medical decision making narrative: After my history I had the feeling that the patient was possibly being manipulative. I asked case management to speak with her. The provider her with some resources as we do not feel she meets inpatient criteria. Per the nurse the patient was stating that she just wants to leave and go home that she would feel safer there. Patient apparently has eloped from the emergency department. Discharge Plan Triage Chief Complaint: Anxiety ED Provider: Louie Wray Dx/Rx/DC Orders Clinical Impression: Anxiety, Abrasion, face w/o infection Prescriptions: No Action levothyroxine 112 MCG tablet 112 mcg PO DAILY omeprazole 20 MG tablet,disintegrat, delay rel 40 mg PO DAILY dicyclomine 10 MG capsule 20 mg PO TIDAC PRN (Reason: ABDPAIN) Rx Instructions: pt takes prn metformin 500 mg tablet 500 mg PO DAILY Qty: 55 0RF Rx Instructions: Take 1 po with dinner daily for 5 days, then 2 tabs po daily with dinner. gabapentin 600 mg Tablet 600 mg PO BID 30 Days Qty: 60 1RF olanzapine [Zyprexa] 5 mg tablet 5 mg PO DAILY 30 Days Qty: 30 2RF fluoxetine [Prozac] 10 mg capsule 10 mg PO DAILY 30 Days Qty: 30 2RF Rx Instructions: Start on June 19, 2021. dicyclomine 20 mg tablet 20 mg PO BID Qty: 14 0RF naproxen [Naprosyn] 500 mg tablet 500 mg PO BID Qty: 20 0RF ondansetron HCl 4 mg tablet 4 mg PO Q6H PRN (Reason: nausea and vomiting) 3 Days Qty: 12 0RF dicyclomine 20 mg tablet 20 mg PO TID PRN (Reason: abdominal discomfort) Qty: 20 0RF ciprofloxacin HCl [Cipro] 500 mg tablet 500 mg PO Q12H Qty: 14 0RF metronidazole 500 mg tablet 500 mg PO Q8H 7 Days Qty: 21 0RF hydrocodone-acetaminophen 5-325 mg tablet 1 tab PO Q8H PRN (Reason: pain) 3 Days Qty: 9 0RF Primary Care Provider: Cesar Centeno Referrals: Cesar Centeno MD [Primary Care Provider] - Disposition Disposition: Elopement
--- NOTE | 2021-12-24 11:37 | NURSING ---
Pt stating source of anxiety stemming from upcoming court case tomorrow. Pt states that she recently had a manic episode in which she was picked up for shoplifting. Pt states, it's so out of my character. Pt tearful. Denies SI, however pt states I just wish I had a new life... the one I've been given hasn't been very nice. TASHA Ziegler in to assess pt at this time.
--- NOTE | 2021-12-24 12:30 | NURSING ---
Upon making rounds, pt not in room. ED liaison informed this RN that pt left.
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
== END 2021-12-24 13:43 | disposition left against medical advice (07) ==
PROVIDERS: Emergency Provider Emergency Medicine; PCP Internal Medicine; Visit Provider Emergency Medicine
DX: F41.9 Anxiety disorder, unspecified (principal); F31.9 Bipolar disorder, unspecified; F60.3 Borderline personality disorder; S00.81XA Abrasion of other part of head, initial encounter; X58.XXXA Exposure to other specified factors, initial encounter; E03.9 Hypothyroidism, unspecified; F41.1 Generalized anxiety disorder; F17.210 Nicotine dependence, cigarettes, uncomplicated; Z79.1 Long term (current) use of non-steroidal anti-inflammatories (NSAID); Z79.84 Long term (current) use of oral hypoglycemic drugs; Z79.890 Hormone replacement therapy; Z79.899 Other long term (current) drug therapy
CPT/HCPCS: 99283

== ENCOUNTER 2022-03-05 06:37 | Emergency (ER) | payer MEDICARE, MEDICAID, SELFPAY ==
[2022-03-05 06:38] VITALS: BP 152/108; PULSE 73; RESP 15; TEMP 35.9; O2SAT 100; BMI 26.1
--- NOTE | 2022-03-05 06:59 | EX.ED.VIS.PS ---
HPI HPI - Psych History of Present Illness Chief Complaint: Anxiety Detail of Chief Complaint: Anxiety panic attack Informant: patient Onset/Context/Timing Onset: Days (On 3 days ago) Context: Sudden Onset Timing: Intermittent and Waxes and wanes Current Severity: Mild Maximum Severity: Severe Worsened by: Situational factors and Alcohol intoxication Relieved by: Improved since arrival in the emergency department Associated Symptoms Associated Symptoms - Psych: Positive for Depressed and Change in Eating; Negative for Change in sleeping, Decreased Interest, Guilt, Decreased Concentration, Hopelessness, Suicidal Thoughts, Easily distracted, Grandiosity, Flight of Ideas, Increased activity, Pressured Speech, Agitated, Angry, Hostile, Threatening, Confusion, Paranoia, Visual Hallucinations or Auditory Hallucinations Specific plan (suicidal thought): Not applicable Narrative Narrative: Patient is a 46-year-old woman with history of bipolar affective disorder and panic attacks who states this morning she woke up sweaty short of breath with chest discomfort and nausea. She states she panicked and got into her car and drove to the emergency department. She still feels anxious but improved. She states her medicines were changed. She did not bring her bottles and does not know the name of them. She answers I recently had a viral infection when asked certain questions. Presently patient does not feel sweaty, short of breath, or nauseous. She states she feels more relaxed. She still feels slightly agitated. She states she is always depressed. She has no suicidal thoughts. Prior similar symptoms: Yes Recent Illness/Hospitalization: No [facility] Medical History Alcohol use disorder Bipolar 1 disorder Borderline personality disorder Cannabis use disorder, mild, abuse Cocaine use disorder, mild, in sustained remission Depression Generalized anxiety disorder Hypothyroidism Irritable bowel syndrome Methamphetamine use disorder, mild, in sustained remission PTSD (post-traumatic stress disorder) Right kidney stone Home Medications levothyroxine 112 mcg tablet 112 mcg PO DAILY thyroid 09/13/19 [History Last Taken 12/24/19] omeprazole 20 mg delayed release,disintegrating tablet 40 mg PO DAILY 05/28/20 [History Last Taken Unknown] dicyclomine 10 mg capsule 20 mg PO TIDAC PRN ABDPAIN 03/08/21 [History Last Taken Unknown] fluoxetine 10 mg capsule (Prozac) 10 mg PO DAILY 30 days #30 caps 07/10/21 [Rx Last Taken Unknown] gabapentin 600 mg tablet 600 mg PO BID 30 days #60 tabs 07/10/21 [Rx Last Taken Unknown] metformin 500 mg tablet 500 mg PO DAILY #55 tabs 07/10/21 [Rx Last Taken Unknown] olanzapine 5 mg tablet (Zyprexa) 5 mg PO DAILY 30 days #30 tabs 07/10/21 [Rx Last Taken Unknown] dicyclomine 20 mg tablet 20 mg PO BID #14 tabs 07/22/21 [Rx Last Taken Unknown] naproxen 500 mg tablet (Naprosyn) 500 mg PO BID #20 tabs 07/22/21 [Rx Last Taken Unknown] ciprofloxacin HCl 500 mg tablet (Cipro) 500 mg PO Q12H #14 tabs 09/11/21 [Rx Last Taken Unknown] dicyclomine 20 mg tablet 20 mg PO TID PRN abdominal discomfort #20 tabs 09/11/21 [Rx Last Taken Unknown] hydrocodone-acetaminophen 5-325mg 5mg-325mg 1 tab PO Q8H PRN pain 3 days #9 tabs 09/11/21 [Rx Last Taken Unknown] metronidazole 500 mg tablet 500 mg PO Q8H 7 days #21 tabs 09/11/21 [Rx Last Taken Unknown] ondansetron HCl 4 mg tablet 4 mg PO Q6H PRN nausea and vomiting 3 days #12 tabs 09/11/21 [Rx Last Taken Unknown] lorazepam 0.5 mg tablet (Ativan) 0.5 mg PO TID PRN anxiety 4 days #10 tabs 03/05/22 [Rx Last Taken Unknown] Allergy/AdvReac Type Severity Reaction Status Date / Time fentanyl Allergy Anaphylaxis Verified 03/05/22 06:44 ketorolac tromethamine AdvReac Other Verified 03/05/22 06:44 [From Toradol] Surgical History H/O: hysterectomy History of nephrectomy, right Social History household members: family Smoking Status: Current every day smoker tobacco type: cigarettes alcohol intake: never substance use type: marijuana ROS ROS ED Constitutional Constitutional ED: Reports sweats; Denies chills, fever(s), subjective or weight loss Eyes Eyes: Reports blurry vision; Denies change in vision or diplopia ENT ENT ED: Denies ear pain, rhinorrhea or sore throat Cardiovascular Cardiovascular: Reports chest pain and palpitations; Denies orthopnea, paroxysmal nocturnal dyspnea or racing heartbeat Respiratory/Chest Respiratory/Chest: Reports dyspnea; Denies cough, dyspnea on exertion, orthopnea or paroxysmal nocturnal dyspnea Gastrointestinal Gastrointestinal: Reports nausea; Denies abdominal pain, diarrhea or vomiting Musculoskeletal Musculoskeletal: Denies arthralgias, back pain, myalgias or neck pain Integumentary Denies Abrasions or rash Neurologic Neurologic: Reports paresthesias; Denies headache(s) or weakness Psychiatric Psychiatric: Reports anxiety and depression; Denies suicidal ideation or suicidal thoughts EXAM Physical Exam Const Vital Signs: 03/05/22 06:38 Temperature 96.7 F L Temperature Source Temporal Pulse Rate 73 Respiratory Rate 15 Blood Pressure 152/108 H Blood Pressure Mean 122 Pulse Ox 100 Oxygen Delivery Method Room Air Positive well nourished and well developed General Appearance ED: well developed and NAD; Negative for pallor HEENT Reports moist mucous membranes HEENT Narrative: Ears normal. Nares patent. Uvula midline. normocephalic and atraumatic Eyes PERRL and EOMs intact bilaterally General Eye ED: Negative for pale conjunctiva or scleral icterus Neck no lymphadenopathy, supple and no JVD Resp normal respiratory effort and clear to auscultation bilaterally Cardio S1 normal heart sound, S2 normal heart sound and no murmurs Rate: regular rate Rhythm: regular rhythm GI non-tender, non-distended and no masses Auscultation: normoactive bowel sounds Palpation: soft Back/Spine no CVA tenderness Extremity normal to inspection General Extremety ED: Negative for edema or tenderness General Extremity: Negative for edema Neuro oriented x3, CN's II-XII intact bilaterally and no sensory deficits noted Doyle Coma Scale: document GCS findings Spontaneous Obeys Commands Oriented 15 Sensorium / Orientation: alert Psych mental status grossly normal, thought process normal, cooperative, speech normal, denies hallucinations, denies homicidal ideation and denies suicidal ideation Appearance: grossly normal Activity / Motor Behavior: appropriate eye contact Speech: normal speech Mood & Affect: depressed Thought Process: normal thought process Thought Content: normal thought content Attention / Concentration: attention grossly intact and concentration grossly intact Memory / Cognition: memory grossly intact Insight: fair Judgement: fair Skin General Skin Exam: Negative for jaundice or pallor Rashes: no rashes MDM MDM MDM Narrative Medical decision making narrative: Patient with anxiety reaction/panic attack. Her symptoms have improved. Review of medicines indicates that patient has nothing for acute anxiety attack. Will prescribe short course of Ativan and have her follow-up with her therapist/psychiatrist. Discharge Plan Triage Chief Complaint: Anxiety ED Provider: Joe Oscar Dx/Rx/DC Orders Clinical Impression: Panic attack Instructions: ED Anxiety Reaction Prescriptions: New lorazepam [Ativan] 0.5 mg tablet 0.5 mg PO TID PRN (Reason: anxiety) 4 Days Qty: 10 0RF No Action levothyroxine 112 MCG tablet 112 mcg PO DAILY omeprazole 20 MG tablet,disintegrat, delay rel 40 mg PO DAILY dicyclomine 10 MG capsule 20 mg PO TIDAC PRN (Reason: ABDPAIN) Rx Instructions: pt takes prn metformin 500 mg tablet 500 mg PO DAILY Qty: 55 0RF Rx Instructions: Take 1 po with dinner daily for 5 days, then 2 tabs po daily with dinner. gabapentin 600 mg Tablet 600 mg PO BID 30 Days Qty: 60 1RF olanzapine [Zyprexa] 5 mg tablet 5 mg PO DAILY 30 Days Qty: 30 2RF fluoxetine [Prozac] 10 mg capsule 10 mg PO DAILY 30 Days Qty: 30 2RF Rx Instructions: Start on June 19, 2021. dicyclomine 20 mg tablet 20 mg PO BID Qty: 14 0RF naproxen [Naprosyn] 500 mg tablet 500 mg PO BID Qty: 20 0RF ondansetron HCl 4 mg tablet 4 mg PO Q6H PRN (Reason: nausea and vomiting) 3 Days Qty: 12 0RF dicyclomine 20 mg tablet 20 mg PO TID PRN (Reason: abdominal discomfort) Qty: 20 0RF ciprofloxacin HCl [Cipro] 500 mg tablet 500 mg PO Q12H Qty: 14 0RF metronidazole 500 mg tablet 500 mg PO Q8H 7 Days Qty: 21 0RF hydrocodone-acetaminophen 5-325 mg tablet 1 tab PO Q8H PRN (Reason: pain) 3 Days Qty: 9 0RF Primary Care Provider: Cesar Centeno Referrals: Cesar Centeno MD [Primary Care Provider] -
== END 2022-03-05 07:37 | disposition home or self-care (01) ==
PROVIDERS: Emergency Provider Emergency Medicine; PCP Internal Medicine; Visit Provider Emergency Medicine
DX: F41.0 Panic disorder [episodic paroxysmal anxiety] (principal); F31.9 Bipolar disorder, unspecified; F41.1 Generalized anxiety disorder; F12.90 Cannabis use, unspecified, uncomplicated; E03.9 Hypothyroidism, unspecified; F17.210 Nicotine dependence, cigarettes, uncomplicated
CPT/HCPCS: 99282

== ENCOUNTER 2022-04-26 13:51 | Emergency (ER) | payer MEDICARE, MEDICAID, SELFPAY ==
[2022-04-26 13:52] VITALS: BP 111/74; PULSE 80; RESP 14; TEMP 36.2; O2SAT 98; BMI 27.2
--- NOTE | 2022-04-26 14:54 | ED.VIS.GI ---
HPI HPI - GI History of Present Illness Chief Complaint: Abd Pain Informant: patient Abdominal Pain/Flank Pain Onset: Today and Yesterday Context: Gradual Onset Timing: Continuous Location: Diffuse Current Severity: Mild Maximum Severity: Mild Worsened by: Nothing Relieved by: Nothing Nausea/Vomiting/Emesis GI Symptom: Positive for Nausea; Negative for Vomiting Onset: Yesterday Severity: Mild Diarrhea/Melena/Hematochezia GI Symptom: Positive for Diarrhea; Negative for Melena or Hematochezia Associated Symptoms Associated Symptoms: Negative for Dysuria, Frequency, Hematuria or Urgency Narrative Narrative: 47-year-old female history of bipolar, PTSD, irritable bowel, nephrectomy and diverticulitis. She is also had a hysterectomy and prior kidney stones. Complaining of lower quadrant abdominal pain at times diffuse. Last 2 to 3 days. Diarrhea resolved. No melena. No fever. No dysuria. Nausea without vomiting. Denies any abdominal trauma. Prior similar symptoms: Yes Recent Illness/Hospitalization: No [facility] Medical History Alcohol use disorder Bipolar 1 disorder Borderline personality disorder Cannabis use disorder, mild, abuse Cocaine use disorder, mild, in sustained remission Depression Generalized anxiety disorder Hypothyroidism Irritable bowel syndrome Methamphetamine use disorder, mild, in sustained remission PTSD (post-traumatic stress disorder) Right kidney stone Home Medications levothyroxine 112 mcg tablet 112 mcg PO DAILY thyroid 09/13/19 [History Last Taken 12/24/19] omeprazole 20 mg delayed release,disintegrating tablet 40 mg PO DAILY 05/28/20 [History Last Taken Unknown] dicyclomine 10 mg capsule 20 mg PO TIDAC PRN ABDPAIN 03/08/21 [History Last Taken Unknown] fluoxetine 10 mg capsule (Prozac) 10 mg PO DAILY 30 days #30 caps 07/10/21 [Rx Last Taken Unknown] gabapentin 600 mg tablet 600 mg PO BID 30 days #60 tabs 07/10/21 [Rx Last Taken Unknown] metformin 500 mg tablet 500 mg PO DAILY #55 tabs 07/10/21 [Rx Last Taken Unknown] olanzapine 5 mg tablet (Zyprexa) 5 mg PO DAILY 30 days #30 tabs 07/10/21 [Rx Last Taken Unknown] dicyclomine 20 mg tablet 20 mg PO BID #14 tabs 07/22/21 [Rx Last Taken Unknown] naproxen 500 mg tablet (Naprosyn) 500 mg PO BID #20 tabs 07/22/21 [Rx Last Taken Unknown] ciprofloxacin HCl 500 mg tablet (Cipro) 500 mg PO Q12H #14 tabs 09/11/21 [Rx Last Taken Unknown] dicyclomine 20 mg tablet 20 mg PO TID PRN abdominal discomfort #20 tabs 09/11/21 [Rx Last Taken Unknown] hydrocodone-acetaminophen 5-325mg 5mg-325mg 1 tab PO Q8H PRN pain 3 days #9 tabs 09/11/21 [Rx Last Taken Unknown] metronidazole 500 mg tablet 500 mg PO Q8H 7 days #21 tabs 09/11/21 [Rx Last Taken Unknown] ondansetron HCl 4 mg tablet 4 mg PO Q6H PRN nausea and vomiting 3 days #12 tabs 09/11/21 [Rx Last Taken Unknown] lorazepam 0.5 mg tablet (Ativan) 0.5 mg PO TID PRN anxiety 4 days #10 tabs 03/05/22 [Rx Last Taken Unknown] ondansetron 4 mg disintegrating tablet 4 mg PO Q6H PRN nausea and vomiting #7 tabs 04/26/22 [Rx Last Taken Unknown] Allergy/AdvReac Type Severity Reaction Status Date / Time fentanyl Allergy Anaphylaxis Verified 04/26/22 13:52 ketorolac tromethamine AdvReac Other Verified 04/26/22 13:52 [From Toradol] Surgical History H/O: hysterectomy History of nephrectomy, right Social History household members: family Smoking Status: Current every day smoker tobacco type: cigarettes alcohol intake: never substance use type: marijuana ROS ROS ED ROS Narrative Abdominal pain with nausea and diarrhea. No vomiting. No fever. Review of Systems ROS Unobtainable: Denies due to encephalopathy Constitutional Constitutional ED: Denies chills or fever(s) ENT ENT ED: Denies ear pain Cardiovascular Cardiovascular: Denies chest pain Respiratory/Chest Respiratory/Chest: Denies cough or dyspnea Gastrointestinal Gastrointestinal: Reports abdominal pain, diarrhea, nausea and other; Denies constipation, melena or vomiting Genitourinary Genitourinary ED: Denies dysuria or hematuria Musculoskeletal Musculoskeletal: Denies arthralgias Integumentary Denies abscess Neurologic Neurologic: Denies headache(s) Psychiatric Psychiatric: Denies anxiety Endocrine Endocrinology: Denies polydipsia Hematologic/Lymphatic Hematologic/Lymphatic: Denies easy bleeding Allergic/Immunologic Allergic/Immunologic ED: Denies mouth swelling or tongue swelling EXAM Physical Exam Narrative Exam Narrative: 47-year-old female no acute distress. Vital signs stable afebrile. She does not look septic toxic. H EENT exam unremarkable. Moist Riis members. Neck nontender no lymphadenopathy. Lungs clear to auscultation bilaterally. Heart regular rhythm no murmur. Abdomen soft, nondistended normal bowel sounds no peritoneal signs. No hernia or mass. Mildly tender both lower quadrants mildly above the umbilicus. No distention. No obstruction. Normal bowel sounds. Soft. Both right upper and lower quadrants are unremarkable. Moving all 4 extremities. Back nontender. Neurologically she is awake and alert with no focal motor deficits. Const Vital Signs: 04/26/22 13:52 Temperature 97.1 F L Temperature Source Temporal Pulse Rate 80 Respiratory Rate 14 Blood Pressure 111/74 Blood Pressure Mean 86 Pulse Ox 98 Oxygen Delivery Method Room Air Positive well nourished and well developed; Negative for cachectic, contractures or unkempt General Appearance ED: well developed and NAD; Negative for unkempt, cachectic, contractures or pallor Nutritional Appearance: Negative for cachectic HEENT Reports moist mucous membranes; Denies dry mucous membranes normocephalic and atraumatic; Negative for trauma or tenderness Mouth ED: No dry mucous membranes Mouth: No dry mucous membranes Eyes PERRL and EOMs intact bilaterally General Eye ED: Negative for pale conjunctiva, scleral icterus or other Neck no lymphadenopathy, supple and no JVD General: Negative for tenderness Carotids: Negative for other Lymph Lymphatic: Negative for other Resp normal respiratory effort and clear to auscultation bilaterally Effort and Inspection: Negative for respiratory distress Auscultation: Negative for rales, rhonchi or wheezes Cardio regular rate, regular rhythm, S1 normal heart sound, S2 normal heart sound and no murmurs Rate: Negative for bradycardia or tachycardic Rhythm: abnormal rhythm GI non-distended and no masses; Negative for non-tender Inspection: abdominal distention Auscultation: normoactive bowel sounds Palpation: soft and tender; Negative for guarding, rigid, hepatomegaly, splenomegaly, hernia, mass or pulsatile mass Back/Spine no CVA tenderness General Back: Negative for CVA tenderness Cervical Spine: Negative for cervical spine tenderness Thoracic Spine / Upper Back: Negative for thoracic spinal tenderness Lumbar Spine / Lower Back: Negative for lumbar spinal tenderness Extremity full ROM General Extremety ED: Negative for edema or tenderness General Extremity: Negative for edema Neuro CN's II-XII intact bilaterally and moves all extremities Sensorium / Orientation: alert, oriented to person, oriented to place and oriented to time; Negative for orientation impaired, confused, lethargic or stuporous Motor Exam: strength 5/5 throughout Psych mental status grossly normal and thought process normal Appearance: Negative for unkempt Attitude: No agitated Mood & Affect: Negative for depressed, anxious or tearful Skin no wounds General Skin Exam: Negative for jaundice or pallor Lesions: no lesions Rashes: no rashes Trauma: Negative for abrasion Nails: Negative for discolored MDM MDM MDM Narrative Medical decision making narrative: 47-year-old female with diffuse abdominal pain history of irritable bowel and diverticulitis. I reviewed her old records has had multiple CAT scans that have basically been unremarkable. Clinically I do not think this is diverticulitis. She will be given IV Zofran for nausea. Prescription for Zofran sent to her pharmacy. If she is not improving she can either follow-up with either us or her primary care physician we can always do imaging at that time. Discharge Plan Triage Chief Complaint: Abd Pain ED Provider: Toy Acuna Dx/Rx/DC Orders Clinical Impression: Abdominal pain, IBS (irritable bowel syndrome), Nausea Instructions: ED Abdominal Pain Unkn Cause Fem Prescriptions: New ondansetron 4 mg tablet,disintegrating 4 mg PO Q6H PRN (Reason: nausea and vomiting) Qty: 7 0RF No Action levothyroxine 112 MCG tablet 112 mcg PO DAILY omeprazole 20 MG tablet,disintegrat, delay rel 40 mg PO DAILY dicyclomine 10 MG capsule 20 mg PO TIDAC PRN (Reason: ABDPAIN) Rx Instructions: pt takes prn metformin 500 mg tablet 500 mg PO DAILY Qty: 55 0RF Rx Instructions: Take 1 po with dinner daily for 5 days, then 2 tabs po daily with dinner. gabapentin 600 mg Tablet 600 mg PO BID 30 Days Qty: 60 1RF olanzapine [Zyprexa] 5 mg tablet 5 mg PO DAILY 30 Days Qty: 30 2RF fluoxetine [Prozac] 10 mg capsule 10 mg PO DAILY 30 Days Qty: 30 2RF Rx Instructions: Start on June 19, 2021. dicyclomine 20 mg tablet 20 mg PO BID Qty: 14 0RF naproxen [Naprosyn] 500 mg tablet 500 mg PO BID Qty: 20 0RF ondansetron HCl 4 mg tablet 4 mg PO Q6H PRN (Reason: nausea and vomiting) 3 Days Qty: 12 0RF dicyclomine 20 mg tablet 20 mg PO TID PRN (Reason: abdominal discomfort) Qty: 20 0RF ciprofloxacin HCl [Cipro] 500 mg tablet 500 mg PO Q12H Qty: 14 0RF metronidazole 500 mg tablet 500 mg PO Q8H 7 Days Qty: 21 0RF hydrocodone-acetaminophen 5-325 mg tablet 1 tab PO Q8H PRN (Reason: pain) 3 Days Qty: 9 0RF lorazepam [Ativan] 0.5 mg tablet 0.5 mg PO TID PRN (Reason: anxiety) 4 Days Qty: 10 0RF Primary Care Provider: Cesar Centeno Referrals: Cesar Centeno MD [Primary Care Provider] - As soon as possible Activity Restrictions/Additional Instructions: Tylenol or Motrin for pain. Zofran as needed for nausea. Follow-up with your doctor if not improving they can always get a CAT scan in the next several days or return if feeling worse or not improving. Disposition Disposition: Home, Self Care
[2022-04-26] MEDS: Ondansetron 4 MG/2 ML Vial IV (15:02)
== END 2022-04-26 15:16 | disposition home or self-care (01) ==
LOC: ED 15:14
PROVIDERS: Emergency Provider Emergency Medicine; PCP Internal Medicine; Visit Provider Emergency Medicine
DX: K58.0 Irritable bowel syndrome with diarrhea (principal); F31.9 Bipolar disorder, unspecified; R11.2 Nausea with vomiting, unspecified; F43.10 Post-traumatic stress disorder, unspecified; F17.210 Nicotine dependence, cigarettes, uncomplicated
CPT/HCPCS: 96374; 99282; A4216; J2405

== ENCOUNTER 2022-06-14 11:41 | Emergency (ER) | payer MEDICARE, MEDICAID, SELFPAY ==
[2022-06-14 11:42] VITALS: BP 138/86; PULSE 92; RESP 18; TEMP 36.5; O2SAT 98; BMI 27.8
--- NOTE | 2022-06-14 12:06 | ED.RN ---
pt trying to stop smoking marijuana, thinks she is withdrawing.
--- NOTE | 2022-06-14 12:26 | EX.ED.DYSGE1 ---
HPI <ZAIRA Palmer - Last Filed: 06/14/22 14:20> History of Present Illness Chief Complaint: Chest Pain Narrative Narrative: Patient is a 47-year-old female with history of bipolar disorder, anxiety, depression, PTSD. Patient is a longtime user of medical marijuana for her anxiety. Patient recently got in trouble with the law, she is no longer allowed to use her marijuana card. Patient states over the last several weeks she has been having a difficult time with her anxiety. Patient has had tremors, feeling of shortness of breath, chest pain, intermittent nausea and vomiting. Patient states that she is not sure what is wrong with me. She denies any fever or chills. She denies any other drug use. [facility] <ZAIRA Palmer - Last Filed: 06/14/22 14:20> [facility] Medical History (Updated 06/14/22 @ 13:44 by ZAIRA Palmer) Alcohol use disorder Bipolar 1 disorder Borderline personality disorder Cannabis use disorder, mild, abuse Cocaine use disorder, mild, in sustained remission Depression Generalized anxiety disorder Hypothyroidism Irritable bowel syndrome Methamphetamine use disorder, mild, in sustained remission PTSD (post-traumatic stress disorder) Right kidney stone Home Medications levothyroxine 112 mcg tablet 112 mcg PO DAILY thyroid 09/13/19 [History Last Taken 12/24/19] fluoxetine 10 mg capsule (Prozac) 10 mg PO DAILY 30 days #30 caps 07/10/21 [Rx Last Taken Unknown] gabapentin 600 mg tablet 300 mg PO TID 05/27/22 [History Last Taken Unknown] lamotrigine 25 mg tablet See Rx Instructions PO ONCE #98 tabs 05/27/22 [Rx Last Taken Unknown] olanzapine 5 mg tablet (Zyprexa) 2.5 mg PO DAILY 30 days #15 tabs 05/27/22 [Rx Last Taken Unknown] propranolol 10 mg tablet 10 mg PO TID #90 tabs 06/10/22 [Rx Last Taken Unknown] buspirone 5 mg tablet 5 mg PO BID #60 tabs 06/14/22 [Rx Last Taken Unknown] Allergy/AdvReac Type Severity Reaction Status Date / Time fentanyl Allergy Anaphylaxis Verified 05/27/22 13:07 ketorolac tromethamine AdvReac Other Verified 05/27/22 13:07 [From Toradol] Family History (Updated 05/27/22 @ 13:13 by Shari Segovia) Other Alcoholism Anxiety Arthritis Cancer Depression Mental disorder Psychiatric care Surgical History H/O: hysterectomy History of nephrectomy, right Social History household members: family Smoking Status: Current every day smoker tobacco type: cigarettes alcohol intake: never substance use type: marijuana ROS <ZAIRA Palmer - Last Filed: 06/14/22 14:20> ROS ED ROS Narrative Constitutional: Negative for fever, chills, weight loss, weakness. Positive for generalized feeling of fatigue Eyes: Negative for vision loss, vision change, double vision ENT: Negative for any sore throat, ear pain, congestion Cardiovascular: Negative for any chest pain. Positive for chest tightness, palpitations. Respiratory: Negative for any cough, sputum production, hemoptysis, dyspnea, dyspnea on exertion, orthopnea Gastrointestinal: Negative for any abdominal pain, nausea, vomiting, diarrhea, constipation, blood in stool, blood in vomit : Negative for any urinary frequency, dysuria, retention, blood in urine Muscle skeletal: Negative for any muscle joint pain, stiffness, myalgias, arthralgias, neck pain, back pain Neurological: Negative for any headache, syncope, numbness or tingling, dizziness Skin: Negative for any rashes, lumps, itching, abrasions, lacerations Psychiatric: Negative for any depression, suicidal ideation, homicidal ideation. Positive for feeling of anxiety, depression Hematologic: Negative for any easy bruising, excessive bruising, easy bleeding Allergies: Negative for any eczema, hives, rash EXAM <ZAIRA Palmer - Last Filed: 06/14/22 14:20> Physical Exam Narrative Exam Narrative: Vital signs reviewed. Patient appears generally well-appearing. HEET: Head normocephalic atraumatic, TMs clear bilaterally. Posterior pharynx is clear, dry mucous membranes. Nares clear bilaterally. Neck: Supple with no lymphadenopathy or tenderness. No signs of meningismus, negative jolt sign. Cardiac: Regular rate and rhythm no murmurs gallops or rubs, equal peripheral pulses bilaterally. Respiratory: Lungs clear to auscultation bilaterally. No chest tenderness. Abdomen: Soft, nontender, nondistended. No abdominal bruit or pulsatile masses. No hepatosplenomegaly Extremities: No peripheral edema, no signs of gross trauma or deformity. Active full range of motion of all extremities. Neuro: Cranial nerves II through XII intact, no focal neurological deficits. Skin: Clean dry and intact with no rash, purpura, petechiae, vesicles or pustules. Backs/flank: No CVA tenderness, no midline spinal tenderness, no deformity. Psych: Normal mood and affect. No SI, HI or acute psychosis. Const Vital Signs: 06/14/22 11:42 06/14/22 12:08 06/14/22 13:00 Temperature 97.7 F L Temperature Source Temporal Pulse Rate 92 61 Respiratory Rate 18 14 Respiratory Effort Normal Non-Labored Blood Pressure 138/86 H 110/72 Blood Pressure Mean 103 84 Pulse Ox 98 96 Oxygen Delivery Method Room Air Room Air Positive well nourished and well developed General Appearance ED: well developed <Dr. Whit Coto DO - Last Filed: 06/16/22 16:22> Physical Exam Const Vital Signs: 06/14/22 11:42 06/14/22 12:08 06/14/22 13:00 Temperature 97.7 F L Temperature Source Temporal Pulse Rate 92 61 Respiratory Rate 18 14 Respiratory Effort Normal Non-Labored Blood Pressure 138/86 H 110/72 Blood Pressure Mean 103 84 Pulse Ox 98 96 Oxygen Delivery Method Room Air Room Air MDM <ZAIRA Palmer - Last Filed: 06/14/22 14:20> [facility] Lab Data Labs: Laboratory Results - last 24 hr 06/14/22 06/14/22 06/14/22 13:00 13:00 13:37 WBC 9.3 RBC 4.89 Hgb 14.2 Hct 44.2 MCV 90.4 MCH 29.0 MCHC 32.1 RDW Std Deviation 44.3 H RDW Coeff of Doyle 13.3 Plt Count 229 MPV 10.3 Immature Gran % (Auto) 0.400 Neut % (Auto) 78.8 H Lymph % (Auto) 13.4 L Sol[place] % (Auto) 6.9 Eos % (Auto) 0.3 Baso % (Auto) 0.2 Absolute Neuts (auto) 7.3 Absolute Lymphs (auto) 1.25 Nucleated RBC % 0 Sodium 140 Potassium 4.1 Chloride 106 Carbon Dioxide 26.0 Anion Gap 8 BUN 23 H Creatinine 0.95 Estim Creat Clear Calc 77.33 Est GFR (MDRD) Af Amer 82 Est GFR (MDRD) Non-Af 68 BUN/Creatinine Ratio 24.3 H Glucose 97 Calcium 9.3 Troponin I High Sens 5 Urine Color Yellow Urine Clarity Clear Urine pH 6.5 Ur Specific Peyton 1.015 Urine Protein 15 H Urine Glucose (UA) Normal Urine Ketones 5 H Urine Occult Blood Negative Urine Nitrite Negative Urine Bilirubin Negative Urine Urobilinogen Normal Ur Leukocyte Esterase Negative Urine RBC 0 SEEN Urine WBC 0-5 SEEN Ur Squamous Epith Cells 5-10 SEEN Urine Bacteria 1+ Urine Mucus 0 SEEN Urine Test Negative Radiography Diagnostic Testing: Clinical Impression(s) from Imaging Studies Chest X-Ray 06/14/22 12:35 IMPRESSION: No radiographic evidence of acute cardiopulmonary disease. Electronically Signed: Joshua Welch MD at 12:53 EST , Differential Diagnosis Chest pain/SOB: ACS and pneumonia Additional Tests and Interventions Diagnositc testing considered but not performed: Repeat troponin, not completed secondary to days of pain or discomfort. Treatment and Re-Evaluation :: All radiologic examinations were read, reviewed by the emergency department attending. From these reads, a plan of care will be put in place. Patient appears anxious, patient is tearful when speaking about her predicament, patient is currently dealing with a lot of stress secondary to being in trouble with the law, continuing to go on house arrest and unable to smoke or marijuana. Patient is here for a work-up secondary to these chest pains and feeling of body pain.Patient did receive a full cardiac work-up, patient's EKG was unremarkable, chest x-ray was negative for any acute process. Patient was given 1 mg of IV Ativan, on reassessment, patient was feeling much better. CBC, chemistries were unremarkable, troponin was negative at 5. A repeat troponin is not indicated at this time. Patient is PERC negative. There is no evidence to suspect any pulmonary embolus. Patient is resting comfortably. She will follow-up with her PCP, I did discuss with her that she might need to speak with a counselor secondary to uncontrolled anxiety, she verbally understands. She is in no distress at this time. She was given return precaution. Differential diagnosis included possible infection/pneumonia, ACS, UT. These were all negative. Patient be diagnosed with anxiety, myalgias. She will continue to maintain hydration. Stable for discharge. Vick was consulted, we discussed the patient's anxiety, considering a medication for breakthrough anxiety that has not a benzodiazepine. After discussing this with the physician, recommended BuSpar 5 mg twice a day. She has been on this in the past, she will try this again. She will follow-up with her counselor at the end the month. She instructed return for any worsening symptoms. <Dr. Whit Coto, DO - Last Filed: 06/16/22 16:22> [facility] Lab Data Attestation: I reviewed the patient's lab results. Labs: Laboratory Results - last 24 hr 06/14/22 06/14/22 06/14/22 13:00 13:00 13:37 WBC 9.3 RBC 4.89 Hgb 14.2 Hct 44.2 MCV 90.4 MCH 29.0 MCHC 32.1 RDW Std Deviation 44.3 H RDW Coeff of Dyole 13.3 Plt Count 229 MPV 10.3 Immature Gran % (Auto) 0.400 Neut % (Auto) 78.8 H Lymph % (Auto) 13.4 L Solano % (Auto) 6.9 Eos % (Auto) 0.3 Baso % (Auto) 0.2 Absolute Neuts (auto) 7.3 Absolute Lymphs (auto) 1.25 Nucleated RBC % 0 Sodium 140 Potassium 4.1 Chloride 106 Carbon Dioxide 26.0 Anion Gap 8 BUN 23 H Creatinine 0.95 Estim Creat Clear Calc 77.33 Est GFR (MDRD) Af Amer 82 Est GFR (MDRD) Non-Af 68 BUN/Creatinine Ratio 24.3 H Glucose 97 Calcium 9.3 Troponin I High Sens 5 Urine Color Yellow Urine Clarity Clear Urine pH 6.5 Ur Specific Peyton 1.015 Urine Protein 15 H Urine Glucose (UA) Normal Urine Ketones 5 H Urine Occult Blood Negative Urine Nitrite Negative Urine Bilirubin Negative Urine Urobilinogen Normal Ur Leukocyte Esterase Negative Urine RBC 0 SEEN Urine WBC 0-5 SEEN Ur Squamous Epith Cells 5-10 SEEN Urine Bacteria 1+ Urine Mucus 0 SEEN Urine Test Negative Radiography Chest X-Ray - ED: Read by ED Physician and No Acute Disease Diagnostic Testing: Clinical Impression(s) from Imaging Studies Chest X-Ray 06/14/22 12:35 IMPRESSION: No radiographic evidence of acute cardiopulmonary disease. Electronically Signed: Joshua Welch MD at 12:53 EST , Rhythm Strip Rhythm Strip: Sinus Rhythm Rate: 65 Ectopy: None EKG Initial EKG: Attestation: I personally reviewed and interpreted this EKG as follows: Interpretation: Sinus Rhythm Comments: EKG interpreted by emergency medicine physician Normal sinus rhythm at a rate of 65 bpm Low voltage QRS Normal intervals Normal axis Normal ST segments Compared to prior EKG on 05/15/2020 patient has no acute changes Prior EKG tracings: available for review Prior: Unchanged Management Discussion w/another healthcare provider: PCP (Dr. Owen Nova ) Treatment and Re-Evaluation :: All radiologic examinations were read, reviewed by the emergency department attending. From these reads, a plan of care will be put in place. Patient appears anxious, patient is tearful when speaking about her predicament, patient is currently dealing with a lot of stress secondary to being in trouble with the law, continuing to go on house arrest and unable to smoke or marijuana. Patient is here for a work-up secondary to these chest pains and feeling of body pain.Patient did receive a full cardiac work-up, patient's EKG was unremarkable, chest x-ray was negative for any acute process. Patient was given 1 mg of IV Ativan, on reassessment, patient was feeling much better. CBC, chemistries were unremarkable, troponin was negative at 5. A repeat troponin is not indicated at this time. Patient is PERC negative. There is no evidence to suspect any pulmonary embolus. Patient is resting comfortably. She will follow-up with her PCP, I did discuss with her that she might need to speak with a counselor secondary to uncontrolled anxiety, she verbally understands. She is in no distress at this time. She was given return precaution. Differential diagnosis included possible infection/pneumonia, ACS, UT. These were all negative. Patient be diagnosed with anxiety, myalgias. She will continue to maintain hydration. Stable for discharge. Vick was consulted, we discussed the patient's anxiety, considering a medication for breakthrough anxiety that has not a benzodiazepine. After discussing this with the physician, recommended BuSpar 5 mg twice a day. She has been on this in the past, she will try this again. She will follow-up with her counselor at the end the month. She instructed return for any worsening symptoms. I have personally performed a face to face assessment of the patient and have reviewed the ZAK Note. I performed a substantive portion of the visit including all aspects of the following. My leyva findings include: History is: patient presents for chest pain. Patient's chest pain seems to be much more related to anxiety. She attributes increased dose in her life and previously used marijuana as a coping mechanism but due to recent legal troubles can no longer use marijuana. Patient is given 1 dose of Ativan with significant improvement of her symptoms and resolution of her chest pain. Cardiac work-up is largely negative. High-sensitivity troponin is normal. Do not think this is ACS. Suspect this is uncontrolled anxiety. Patient is counseled that she should speak to her primary care doctor. She states that she has hydroxyzine at home but is not hopeful. I do not think benzodiazepines are a long-term solution for the patient. Discussed with on-call family physician, Dr. Hickman, who is agreeable to starting the patient on BuSpar 5 mg twice daily. Patient states she has been on in the past remotely and is willing to try it again. Patient is following up with a counselor through the month. Patient is given return precautions. Patient does feel safe going home. Discharged home in stable and improved condition. Other additions or changes: [None] Discharge Plan Triage Chief Complaint: Chest Pain Other Complaint: Dizziness ED Midlevel Provider: Cristiano Lee ED Provider: hWit Coto Dx/Rx/DC Orders Clinical Impression: Anxiety, Myalgia, Chest pain Instructions: ED Anxiety Reaction, ED Chest Pain, Noncardiac Prescriptions: New buspirone 5 mg tablet 5 mg PO BID Qty: 60 0RF No Action gabapentin 600 mg tablet 300 mg PO TID lamotrigine 25 mg tablet See Rx Instructions PO ONCE Qty: 98 0RF Rx Instructions: 25 orally once for two weeks then 50 mg every day orally for two weeks then 100 mg every day olanzapine [Zyprexa] 5 mg tablet 2.5 mg PO DAILY 30 Days Qty: 15 1RF levothyroxine 112 MCG tablet 112 mcg PO DAILY fluoxetine [Prozac] 10 mg capsule 10 mg PO DAILY 30 Days Qty: 30 2RF Rx Instructions: Start on June 19, 2021. propranolol 10 mg tablet 10 mg PO TID Qty: 90 2RF Primary Care Provider: Cesar Centeno Referrals: Cesar Centeno MD [Primary Care Provider] - Activity Restrictions/Additional Instructions: Please follow-up outpatient. Disposition Disposition: Home, Self Care Discharge Date/Time: 06/14/22 15:27
--- NOTE | 2022-06-14 12:35 | RAD_ITS ---
INDICATION: Shortness of breath EXAMINATION/TECHNIQUE: X-RAY - XR Chest 1 View COMPARISON: 12/25/2019. FINDINGS: LINES/DEVICES: None. LUNGS: No consolidation, edema or effusion. No pneumothorax. MEDIASTINUM AND CARDIOVASCULAR STRUCTURES: Cardiac silhouette not enlarged. Central airways and mediastinal contour are unremarkable. BONES AND SOFT TISSUES: Unremarkable. RAD/Chest 1 View (Portable) IMPRESSION: No radiographic evidence of acute cardiopulmonary disease. Electronically Signed: Joshua Welch MD at 12:53 EST ,
[2022-06-14 13:00] VITALS: BP 110/72; PULSE 61; RESP 14; O2SAT 96
[2022-06-14 13:14] LABS: Absolute Lymphocyte Count 1.25 X10^3/uL (0.83-4.51); Absolute Neutrophil Count 7.3 X10^3/uL (2.0-7.7); Basophil# 0.02 X10^3/uL; Basophil% 0.2 % (0-1); Eosinophil# 0.03 X10^3/uL; Eosinophils% 0.3 % (0-5); Hematocrit 44.2 % (37-47); Hemoglobin 14.2 g/dL (12.0-15.0); Lymphocyte # 1.25 X10^3/ul (0.83-4.51); Lymphocyte % 13.4 % (19-41); Mean Corp Hgb Conc 32.1 g/dL (32-36); Mean Corpuscular Volume 90.4 fL (81-99); Mean Platelet Vol. 10.3 fl (6.2-12.0); Monocyte# 0.64 X10^3/uL; Monocyte% 6.9 % (0-10); NRBC Flagged by Analyzer 0 % (0-5); Neutrophil # 7.32 X10^3/uL (2.7-7.7); Neutrophil % 78.8 % (47-70); Platelet Count 229 K/mm3 (150-450); RBC Distribution Width CV 13.3 % (11.6-14.6); RBC Distribution Width SD 44.3 fl (35.1-43.9); Red Blood Count 4.89 M/mm3 (4.2-5.4); White Blood Count 9.3 K/mm3 (4.4-11.0)
[2022-06-14] MEDS: Ondansetron 4 MG/2 ML Vial IV (13:14)
[2022-06-14] MEDS: LORazepam 2 MG/ML Syringe 1 MG IV (13:14)
[2022-06-14] MEDS: 0.9% Normal Saline 1,000 ML 1000 ML IV (13:15)
[2022-06-14 13:31] LABS: Anion Gap 8 (5-15); BUN 23 mg/dL (7-18); BUN/Creat Ratio 24.3 RATIO (10-20); Calcium,Total 9.3 mg/dL (8.5-10.1); Chloride 106 mmol/L (98-107); Creatinine, Serum 0.95 mg/dL (0.55-1.02); EST Glomerular Filtration Rate 68 mL/min (>60); Est Glom Filt Rate - Afr Amer 82 mL/min (>60); Estimated Creatinine Clearance 77.33 ml/min; Glucose 97 mg/dL (74-106); Potassium 4.1 mmol/L (3.5-5.1); Sodium Level 140 mmol/L (136-145); Troponin-I HS 5 pg/mL (3.0-54.0)
[2022-06-14 13:44] LABS: Mucous, Urine 0 SEEN /hpf (<or=2+); Red Blood Cells-Urine 0 SEEN /hpf (0-5)
[2022-06-14 13:52] LABS: Color, Urine Yellow (Yellow); Glucose, Dipstick Normal (Normal); Ketone-Dipstick 5 mg/dl (Negative); Leukocyte Esterase-Dipstick Negative /ul (Negative); Nitrite-Dipstick Negative (Negative); Occult Blood-Urine Negative /ul (Negative); Protein-Dipstick 15 mg/dl (Negative); Specific Gravity, Urine 1.015 (1.002-1.030); Urine Bilirubin Dipstick Negative (Negative); Urine Clarity Clear (Clear); Urine Urobilinogen Normal (Normal); Urine pH 6.5 (5.0 - 8.0)
[2022-06-14 14:02] LABS: Bacteria 1+ /hpf (None Seen); Squamous Epithelial Cells - UA 5-10 SEEN /hpf (5-10); White Blood Cells 0-5 SEEN /hpf (0-5)
[2022-06-14 14:13] LABS: Internal QC Validated? YES +Cl - CLEAR BKGD; Pregnancy, Urine Negative Negative
[2022-06-14 14:39] VITALS: BP 103/90; PULSE 71; RESP 18; O2SAT 99
[2022-06-14 15:22] VITALS: BP 110/68; RESP 18; O2SAT 100
== END 2022-06-14 15:27 | disposition home or self-care (01) ==
PROVIDERS: Nurse Practitioner; Emergency Provider Emergency Medicine; PCP Internal Medicine; Visit Provider Emergency Medicine
DX: F41.9 Anxiety disorder, unspecified (principal); R07.9 Chest pain, unspecified; M79.10 Myalgia, unspecified site; R25.1 Tremor, unspecified; R42 Dizziness and giddiness; R11.2 Nausea with vomiting, unspecified
CPT/HCPCS: 71045; 80048; 81001; 81025; 84484; 85025; 93005; 96361; 96374; 96375; 99283; J7030; A4216; J2405

== ENCOUNTER 2022-10-28 12:58 | Emergency (ER) | payer MEDICAID, SELFPAY ==
[2022-10-28 13:00] VITALS: BP 161/109; PULSE 109; RESP 20; TEMP 36.9; O2SAT 96; BMI 25.9
--- NOTE | 2022-10-28 13:44 | EDS_ITS ---
HPI HPI - Psych History of Present Illness Chief Complaint: Anxiety PFSH PFSH Medical History (Updated 10/28/22 @ 14:[address] Alo Delacruz, DO) Alcohol use disorder Bipolar 1 disorder Borderline personality disorder Cannabis use disorder, mild, abuse Cocaine use disorder, mild, in sustained remission Depression Generalized anxiety disorder Hypothyroidism Irritable bowel syndrome Methamphetamine use disorder, mild, in sustained remission PTSD (post-traumatic stress disorder) Right kidney stone Home Medications levothyroxine 112 mcg tablet 112 mcg PO DAILY thyroid 09/13/19 [History Last Taken 12/24/19] fluoxetine 10 mg capsule (Prozac) 10 mg PO DAILY 30 days #30 caps 07/10/21 [Rx Last Taken Unknown] gabapentin 600 mg tablet 300 mg PO TID 05/27/22 [History Last Taken Unknown] lamotrigine 25 mg tablet See Rx Instructions PO ONCE #98 tabs 05/27/22 [Rx Last Taken Unknown] olanzapine 5 mg tablet (Zyprexa) 2.5 mg (1/2 x 5 mg) PO DAILY 30 days #15 tabs 05/27/22 [Rx Last Taken Unknown] propranolol 10 mg tablet 10 mg PO TID #90 tabs 06/10/22 [Rx Last Taken Unknown] buspirone 10 mg tablet 10 mg PO BID #60 tabs 06/24/22 [Rx Last Taken Unknown] clonazepam 0.5 mg tablet 0.5 mg PO BID PRN anxiety #10 tabs 10/28/22 [Rx Last Taken Unknown] Allergy/AdvReac Type Severity Reaction Status Date / Time fentanyl Allergy Anaphylaxis Verified 10/28/22 13:00 ketorolac tromethamine AdvReac Other Verified 10/28/22 13:00 [From Toradol] Family History (Updated 05/27/22 @ 13:13 by Shari Segovia) Other Alcoholism Anxiety Arthritis Cancer Depression Mental disorder Psychiatric care Surgical History H/O: hysterectomy History of nephrectomy, right Social History household members: family Smoking Status: Current every day smoker tobacco type: cigarettes alcohol intake: never substance use type: marijuana EXAM Physical Exam Const Vital Signs: 10/28/22 13:00 Temperature 98.4 F Temperature Source Temporal Pulse Rate 109 H Respiratory Rate 20 H Blood Pressure 161/109 H Blood Pressure Mean 126 Pulse Ox 96 Oxygen Delivery Method Room Air MDM MDM MDM Narrative Medical decision making narrative: Interventions / MDM: Differential diagnosis: Anxiety Diagnosis considered but do not suspect: No suicidal homicidal ideations My EKG interpretation: N/A Imaging independently reviewed and interpreted by myself: N/A External documents reviewed: N/A Test considered but not ordered:N/A ED course: Patient nontoxic slightly anxious however recent circumstances in the last 2 days have elicited the symptoms with her grandchild. She has no suicidal homicidal ideations. She has tolerated clonazepam in the past and worked well. She is given 0.5 mg in the ED. I spoke with licensed case management in the ED who discussed with the patient and reached out to her psychiatry office. Her appointment was moved up to November 05 to be seen sooner for continued management. She is written for prescription for 10 tabs 0.5 mg clonazepam to use in the meantime as needed. She is happy with this plan. All questions were answered. 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 It may contain incorrect words, spelling, and punctuation that were not noted in checking the note before signing. Discharge Plan Triage Chief Complaint: Anxiety ED Provider: Aol Delacruz Dx/Rx/DC Orders Clinical Impression: Generalized anxiety disorder, Anxiety Instructions: Anxiety Disorders Tx Prescriptions: New clonazepam 0.5 mg tablet 0.5 mg PO BID PRN (Reason: anxiety) Qty: 10 0RF No Action gabapentin 600 mg tablet 300 mg PO TID lamotrigine 25 mg tablet See Rx Instructions PO ONCE Qty: 98 0RF Rx Instructions: 25 orally once for two weeks then 50 mg every day orally for two weeks then 100 mg every day olanzapine [Zyprexa] 5 mg tablet 2.5 mg PO DAILY 30 Days Qty: 15 1RF levothyroxine 112 MCG tablet 112 mcg PO DAILY fluoxetine [Prozac] 10 mg capsule 10 mg PO DAILY 30 Days Qty: 30 2RF Rx Instructions: Start on June 19, 2021. propranolol 10 mg tablet 10 mg PO TID Qty: 90 2RF buspirone 10 mg tablet 10 mg PO BID Qty: 60 1RF Primary Care Provider: Cesar Centeno Referrals: Cesar Centeno MD [Primary Care Provider] - Activity Restrictions/Additional Instructions: Your appointment was moved up to November 05 After licensed practical nurse clinic nurse discussed with them. Take medication as prescribed. Disposition Disposition: Home, Self Care
[2022-10-28] MEDS: clonazePAM 0.5 MG Tablet PO (13:52)
--- NOTE | 2022-10-28 14:34 | CM.ED ---
Social Work Referral Source: MD Delacruz Referral Reason: resources MD Delacruz met with SW and reviewed patient's symptoms as well as need for follow up with psychiatrist. SW to follow up. SW [facility] and spoke with Nicki from Crisis. Nicki reviewed patient's recent crisis contact before being sent to ED, no SI concerns. Nicki reports patient is active with psychiatrist Maury Oshea and is starting counseling services. Patient's next appointment is scheduled for November 21, however, due to currently presenting to ED for anxiety, Nicki rescheduled patient's appointment for November 05 at 2:30pm with [facility] Psychiatrpradeep Oshea. SW met with patient and introduced herself and role as [facility] SW. Patient lying on hospital bed and agreeable to speak with SW. Patient reviewed recent events; SW provided emotional support. SW informed patient [facility] rescheduled her appointment for November 05 at 2:30p and provided patient with written note with appointment date and time. Patient agreeable to attend appointment and receptive towards emotional support. No other needs voiced at this time. Care team updated. Plan: [facility] Psychiatrist appt November 05 at 2:30pm with TIM Monae
== END 2022-10-28 14:52 | disposition home or self-care (01) ==
PROVIDERS: Emergency Provider Emergency Medicine; PCP Internal Medicine; Visit Provider Emergency Medicine
DX: F41.1 Generalized anxiety disorder (principal); F31.9 Bipolar disorder, unspecified; E03.9 Hypothyroidism, unspecified; Z79.890 Hormone replacement therapy; Z79.899 Other long term (current) drug therapy; F17.210 Nicotine dependence, cigarettes, uncomplicated
CPT/HCPCS: 99283

== ENCOUNTER 2022-11-01 08:20 | Emergency (ER) | payer MEDICARE, MEDICAID, SELFPAY ==
[2022-11-01 08:21] VITALS: BP 126/84; PULSE 82; RESP 16; TEMP 36.3; O2SAT 100; BMI 26.3
--- NOTE | 2022-11-01 08:33 | CT_ITS ---
INDICATION: History of left-sided kidney stone and right nephrectomy. EXAMINATION: CT ABDOMEN AND PELVIS WITHOUT CONTRAST TECHNIQUE: Helically acquired images were obtained of the abdomen and pelvis without oral or IV contrast. A radiation dose optimization technique was used for this scan. IV Contrast dosage and agent: None. Oral contrast: None. RADIATION DOSAGE (If Supplied By Facility): CTDIvol = ( 8.41 ) mGy, DLP = ( 411.80 ) mGycm COMPARISON: Prior CT scan of the abdomen and pelvis of 07/22/2021. FINDINGS: LOWER CHEST: Minimal atelectatic changes in the right lower lung. No cardiomegaly or pericardial effusion. LIVER: Borderline hepatomegaly. No focal lesion is seen without contrast. GALLBLADDER AND BILIARY TREE: No calcified gallstones. No gallbladder distension or wall edema. No intra- or extrahepatic biliary ductal dilation. PANCREAS: No focal cystic or solid mass. SPLEEN: Normal size without focal cystic or solid mass. ADRENAL GLANDS: No nodules. KIDNEYS AND URETERS: Few small nonobstructing stones in the left kidney. No evidence of left hydronephrosis. Absent right kidney. PERITONEUM: No ascites or free air. No other fluid collection. BOWEL: No evidence of acute appendicitis. No stomach or bowel distension. No focal inflammatory change. LYMPH NODES: No enlarged mesenteric or retroperitoneal lymph nodes. VESSELS: Aorta is non-dilated. URINARY BLADDER: Unremarkable. REPRODUCTIVE ORGANS: Status post hysterectomy. ABDOMINAL WALL: Small umbilical hernia containing fat. BONES: Bilateral spondylolysis at L5 with grade 1 anterolisthesis of L5 over S1 unchanged. CT/Abdomen/Pelvis without Cont IMPRESSION: 1. Few nonobstructing stones in the left kidney without evidence of hydronephrosis. 2. No focal acute inflammatory process. 3. Absent right kidney. Electronically Signed: Joshua Welch MD at 9:38 EDT ,
--- NOTE | 2022-11-01 08:34 | EX.ED.DYSGE1 ---
HPI History of Present Illness Chief Complaint: Flank Pain Informant: patient Onset/Context/Timing Onset: Days (2 days) Context: Gradual Onset Narrative Narrative: Patient reports having some generalized nausea and ill feeling for the past several days. Yesterday she noted left flank pain and cannot quite get comfortable. She denies dysuria or hematuria, but states she does has a dribble when she tries to urinate. She is concerned that she either has a urinary infection or a kidney stone. Patient did have a right nephrectomy at the age of 17 secondary to a poorly functioning kidney. She has her renal function checked regularly. [facility] Medical History Alcohol use disorder Bipolar 1 disorder Borderline personality disorder Cannabis use disorder, mild, abuse Cocaine use disorder, mild, in sustained remission Depression Generalized anxiety disorder Hypothyroidism Irritable bowel syndrome Methamphetamine use disorder, mild, in sustained remission PTSD (post-traumatic stress disorder) Right kidney stone Home Medications levothyroxine 112 mcg tablet 112 mcg PO DAILY thyroid 09/13/19 [History Last Taken 12/24/19] fluoxetine 10 mg capsule (Prozac) 10 mg PO DAILY 30 days #30 caps 07/10/21 [Rx Last Taken Unknown] gabapentin 600 mg tablet 300 mg PO TID 05/27/22 [History Last Taken Unknown] lamotrigine 25 mg tablet See Rx Instructions PO ONCE #98 tabs 05/27/22 [Rx Last Taken Unknown] olanzapine 5 mg tablet (Zyprexa) 2.5 mg (1/2 x 5 mg) PO DAILY 30 days #15 tabs 05/27/22 [Rx Last Taken Unknown] propranolol 10 mg tablet 10 mg PO TID #90 tabs 06/10/22 [Rx Last Taken Unknown] buspirone 10 mg tablet 10 mg PO BID #60 tabs 06/24/22 [Rx Last Taken Unknown] clonazepam 0.5 mg tablet 0.5 mg PO BID PRN anxiety #10 tabs 10/28/22 [Rx Last Taken Unknown] hydrocodone-acetaminophen 5-325mg 5mg-325mg 1 tab PO Q6H PRN PRN Pain 3 days #10 TABLETS 11/01/22 [Rx Last Taken Unknown] ondansetron 4 mg disintegrating tablet 4 mg PO Q8H PRN PRN Nausea #10 tabs 11/01/22 [Rx Last Taken Unknown] Allergy/AdvReac Type Severity Reaction Status Date / Time fentanyl Allergy Anaphylaxis Verified 11/01/22 08:21 ketorolac tromethamine AdvReac Other Verified 11/01/22 08:21 [From Toradol] Family History Other Alcoholism Anxiety Arthritis Cancer Depression Mental disorder Psychiatric care Surgical History H/O: hysterectomy History of nephrectomy, right Social History household members: family Smoking Status: Current every day smoker tobacco type: cigarettes alcohol intake: never substance use type: marijuana ROS ROS ED Constitutional Constitutional ED: Denies chills or fever(s) Eyes Eyes: Denies change in vision or discharge from eye(s) ENT ENT ED: Denies discharge from eye(s), rhinorrhea or sore throat Cardiovascular Cardiovascular: Denies chest pain or palpitations Respiratory/Chest Respiratory/Chest: Denies cough or dyspnea Gastrointestinal Gastrointestinal: Reports abdominal pain and nausea; Denies diarrhea or vomiting Genitourinary Genitourinary ED: Denies difficulty urinating, dysuria or hematuria Musculoskeletal Musculoskeletal: Reports back pain; Denies extremity pain Integumentary Denies Abrasions or rash Neurologic Neurologic: Denies headache(s) or weakness Psychiatric Psychiatric: Denies anxiety or depression Allergic/Immunologic Allergic/Immunologic ED: Denies lip swelling or urticaria EXAM Physical Exam Const Vital Signs: 11/01/22 08:21 Temperature 97.3 F L Temperature Source Temporal Pulse Rate 82 Respiratory Rate 16 Blood Pressure 126/84 H Blood Pressure Mean 98 Pulse Ox 100 Oxygen Delivery Method Room Air Positive well nourished and well developed General Appearance ED: well developed HEENT Reports normocephalic and head/scalp atraumatic Eyes PERRL and EOMs intact bilaterally Neck supple Chest Wall inspection of chest normal and palpation of chest normal Resp normal respiratory effort and clear to auscultation bilaterally Cardio regular rate and regular rhythm GI non-tender Auscultation: hypoactive bowel sounds Palpation: soft Back/Spine General Back: CVA tenderness left Extremity normal to inspection Neuro oriented x3 and no sensory deficits noted Sensorium / Orientation: alert Motor Exam: strength 5/5 throughout Psych mental status grossly normal Skin no rashes or lesions noted MDM MDM MDM Narrative Medical decision making narrative: Patient given morphine and Zofran along with IV fluids. Labwork obtained to evaluate for leukocytosis, anemia, and electrolyte derangement. Urinalysis obtained to evaluate for infection/hematuria. CT flank obtained to evaluate for kidney stone. History & Record Review Additional record(s) reviewed:: Prior labs Lab Data Attestation: I reviewed the patient's lab results. Labs: Laboratory Results - last 24 hr 11/01/22 11/01/22 08:30 08:43 WBC 8.0 RBC 4.68 Hgb 14.2 Hct 43.3 MCV 92.5 MCH 30.3 MCHC 32.8 RDW Std Deviation 48.4 H RDW Coeff of [place] 14.2 Plt Count 234 MPV 10.4 Immature Gran % (Auto) 0.100 Neut % (Auto) 69.3 Lymph % (Auto) 18.1 L [place] % (Auto) 10.8 H Eos % (Auto) 1.3 Baso % (Auto) 0.4 Absolute Neuts (auto) 5.5 Absolute Lymphs (auto) 1.44 Nucleated RBC % 0 Sodium 139 Potassium 4.4 Chloride 109 H Carbon Dioxide 24.0 Anion Gap 6 BUN 15 Creatinine 1.10 H Estim Creat Clear Calc 64.46 Est GFR (MDRD) Af Amer 69 Est GFR (MDRD) Non-Af 57 L BUN/Creatinine Ratio 13.6 Glucose 104 Calcium 9.2 Urine Color Yellow Urine Clarity Clear Urine pH 6.0 Ur Specific [place] 1.015 Urine Protein 15 H Urine Glucose (UA) Normal Urine Ketones Negative Urine Occult Blood Negative Urine Nitrite Negative Urine Bilirubin Negative Urine Urobilinogen Normal Ur Leukocyte Esterase Negative Urine RBC 0 SEEN Urine WBC 0 SEEN Ur Squamous Epith Cells 0 SEEN Urine Bacteria 0 SEEN Urine Mucus 0 SEEN Radiography Diagnostic Testing: Clinical Impression(s) from Imaging Studies Abdomen/Pelvis CT 11/01/22 08:33 IMPRESSION: 1. Few nonobstructing stones in the left kidney without evidence of hydronephrosis. 2. No focal acute inflammatory process. 3. Absent right kidney. Electronically Signed: Joshua Welch MD at 9:38 EDT , Treatment and Re-Evaluation :: CBC was normal white count 8.0 with a hemoglobin of 14.2. Chemistry studies unremarkable. Creatinine is 1.1 which seems to be consistent with her baseline. Urinalysis is negative. CT scan of the flank reveals a few nonobstructing stones in the left kidney. No evidence of hydronephrosis. No acute inflammatory process. Absent right kidney. Patient did require second dose of analgesics. At this time she is resting comfortably. Test results are discussed with her. She may be having some ureteral spasm or may have recently passed a stone or some small grit from her renal stones. At this point she will take ibuprofen at home for pain and I will write her a few [place] for breakthrough pain. Return instructions given. Discharge Plan Triage Chief Complaint: Flank Pain ED Provider: Aubrie Nance Dx/Rx/DC Orders Clinical Impression: Left flank pain Instructions: ED Flank Pain, Uncertain Cause Prescriptions: New hydrocodone-acetaminophen 5-325 mg tablet 1 tab PO Q6H PRN PRN (Reason: Pain) 3 Days Qty: 10 0RF ondansetron 4 mg tablet,disintegrating 4 mg PO Q8H PRN PRN (Reason: Nausea) Qty: 10 0RF No Action gabapentin 600 mg tablet 300 mg PO TID lamotrigine 25 mg tablet See Rx Instructions PO ONCE Qty: 98 0RF Rx Instructions: 25 orally once for two weeks then 50 mg every day orally for two weeks then 100 mg every day olanzapine [Zyprexa] 5 mg tablet 2.5 mg PO DAILY 30 Days Qty: 15 1RF levothyroxine 112 MCG tablet 112 mcg PO DAILY fluoxetine [Prozac] 10 mg capsule 10 mg PO DAILY 30 Days Qty: 30 2RF Rx Instructions: Start on June 19, 2021. clonazepam 0.5 mg tablet 0.5 mg PO BID PRN (Reason: anxiety) Qty: 10 0RF propranolol 10 mg tablet 10 mg PO TID Qty: 90 2RF buspirone 10 mg tablet 10 mg PO BID Qty: 60 1RF Primary Care Provider: Cesar Centeno Referrals: Cesar Centeno MD [Primary Care Provider] - 1 Week if not improving Disposition Disposition: Home, Self Care
[2022-11-01] MEDS: Ondansetron 4 MG/2 ML Vial IV ×2 (08:42→10:48)
[2022-11-01] MEDS: 0.9% Normal Saline 1,000 ML 150 ML IV (08:42)
[2022-11-01] MEDS: Morphine 4 MG/ML Syringe IV (08:42)
[2022-11-01 08:43] LABS: Bacteria 0 SEEN /hpf (None Seen); Mucous, Urine 0 SEEN /hpf (<or=2+); Red Blood Cells-Urine 0 SEEN /hpf (0-5); Squamous Epithelial Cells - UA 0 SEEN /hpf (5-10); White Blood Cells 0 SEEN /hpf (0-5)
[2022-11-01 08:45] LABS: Color, Urine Yellow (Yellow); Glucose, Dipstick Normal (Normal); Ketone-Dipstick Negative (Negative); Leukocyte Esterase-Dipstick Negative /ul (Negative); Nitrite-Dipstick Negative (Negative); Occult Blood-Urine Negative /ul (Negative); Protein-Dipstick 15 mg/dl (Negative); Specific Gravity, Urine 1.015 (1.002-1.030); Urine Bilirubin Dipstick Negative (Negative); Urine Clarity Clear (Clear); Urine Urobilinogen Normal (Normal)
[2022-11-01 08:56] LABS: Absolute Lymphocyte Count 1.44 X10^3/uL (0.83-4.51); Absolute Neutrophil Count 5.5 X10^3/uL (2.0-7.7); Basophil# 0.03 X10^3/uL; Basophil% 0.4 % (0-1); Eosinophils% 1.3 % (0-5); Hematocrit 43.3 % (37-47); Hemoglobin 14.2 g/dL (12.0-15.0); Lymphocyte # 1.44 X10^3/ul (0.83-4.51); Lymphocyte % 18.1 % (19-41); Mean Corp Hgb Conc 32.8 g/dL (32-36); Mean Corpuscular Hgb 30.3 pg (27.0-32.0); Mean Corpuscular Volume 92.5 fL (81-99); Mean Platelet Vol. 10.4 fl (6.2-12.0); Monocyte# 0.86 X10^3/uL; Monocyte% 10.8 % (0-10); NRBC Flagged by Analyzer 0 % (0-5); Neutrophil # 5.51 X10^3/uL (2.7-7.7); Neutrophil % 69.3 % (47-70); POSITIVE MORPHOLOGY YES; Platelet Count 234 K/mm3 (150-450); RBC Distribution Width CV 14.2 % (11.6-14.6); RBC Distribution Width SD 48.4 fl (35.1-43.9); Red Blood Count 4.68 M/mm3 (4.2-5.4)
[2022-11-01 08:57] LABS: Differential Indicated SCAN CRITERIA MET
[2022-11-01 09:18] LABS: Anion Gap 6 (5-15); BUN 15 mg/dL (7-18); BUN/Creat Ratio 13.6 RATIO (10-20); Calcium,Total 9.2 mg/dL (8.5-10.1); Chloride 109 mmol/L (98-107); EST Glomerular Filtration Rate 57 mL/min (>60); Est Glom Filt Rate - Afr Amer 69 mL/min (>60); Estimated Creatinine Clearance 64.46 ml/min; Glucose 104 mg/dL (74-106); Potassium 4.4 mmol/L (3.5-5.1); Sodium Level 139 mmol/L (136-145)
[2022-11-01] MEDS: HYDROmorphone 0.5 MG/0.5 ML SYRINGE IV (09:52)
== END 2022-11-01 10:56 | disposition home or self-care (01) ==
PROVIDERS: Emergency Provider Emergency Medicine; PCP Internal Medicine; Visit Provider Emergency Medicine
DX: R10.9 Unspecified abdominal pain (principal); N20.0 Calculus of kidney; Z79.890 Hormone replacement therapy; Z79.899 Other long term (current) drug therapy; F17.210 Nicotine dependence, cigarettes, uncomplicated; Z90.5 Acquired absence of kidney
CPT/HCPCS: 36415; 74176; 80048; 81001; 85025; 96361; 96374; 96375; 96376; 99283; J7030; A4216; J2405

== ENCOUNTER 2022-12-25 09:56 | Emergency (ER) | payer MEDICARE, MEDICAID, SELFPAY ==
[2022-12-25 09:56] VITALS: BP 141/99; PULSE 66; RESP 16; TEMP 36.3; O2SAT 96; BMI 25.8
--- NOTE | 2022-12-25 10:04 | EX.ED.DYSGE1 ---
HPI History of Present Illness Chief Complaint: General Illness [facility] Medical History Alcohol use disorder Bipolar 1 disorder Borderline personality disorder Cannabis use disorder, mild, abuse Cocaine use disorder, mild, in sustained remission Depression Generalized anxiety disorder Hypothyroidism Irritable bowel syndrome Methamphetamine use disorder, mild, in sustained remission PTSD (post-traumatic stress disorder) Right kidney stone Home Medications levothyroxine 112 mcg tablet 112 mcg PO DAILY thyroid 09/13/19 [History Last Taken 12/24/19] fluoxetine 10 mg capsule (Prozac) 10 mg PO DAILY 30 days #30 caps 07/10/21 [Rx Last Taken Unknown] gabapentin 600 mg tablet 300 mg PO TID 05/27/22 [History Last Taken Unknown] lamotrigine 25 mg tablet See Rx Instructions PO ONCE #98 tabs 05/27/22 [Rx Last Taken Unknown] olanzapine 5 mg tablet (Zyprexa) 2.5 mg (1/2 x 5 mg) PO DAILY 30 days #15 tabs 05/27/22 [Rx Last Taken Unknown] propranolol 10 mg tablet 10 mg PO TID #90 tabs 06/10/22 [Rx Last Taken Unknown] buspirone 10 mg tablet 10 mg PO BID #60 tabs 06/24/22 [Rx Last Taken Unknown] clonazepam 0.5 mg tablet 0.5 mg PO BID PRN anxiety #10 tabs 10/28/22 [Rx Last Taken Unknown] benzonatate 100 mg capsule 100 mg PO BID PRN cough #10 caps 12/25/22 [Rx Last Taken Unknown] bupropion HCl 150 mg 24 hr tablet, extended release mg PO 12/25/22 [History Last Taken Unknown] prednisone 20 mg tablet 20 mg PO DAILY #5 tabs 12/25/22 [Rx Last Taken Unknown] Allergy/AdvReac Type Severity Reaction Status Date / Time fentanyl Allergy Anaphylaxis Verified 12/25/22 09:56 ketorolac tromethamine AdvReac Other Verified 12/25/22 09:56 [From Toradol] Family History Other Alcoholism Anxiety Arthritis Cancer Depression Mental disorder Psychiatric care Surgical History H/O: hysterectomy History of nephrectomy, right Social History household members: family Smoking Status: Current every day smoker tobacco type: cigarettes alcohol intake: never substance use type: marijuana EXAM Physical Exam Const Vital Signs: 12/25/22 09:56 12/25/22 10:08 12/25/22 11:57 Temperature 97.3 F L Temperature Source Temporal Pulse Rate 66 Respiratory Rate 16 Respiratory Pattern Normal Blood Pressure 141/99 H Blood Pressure Mean 113 Pulse Ox 96 Oxygen Delivery Method Room Air Room Air MDM MDM MDM Narrative Medical decision making narrative: HISTORY OF PRESENT ILLNESS: 47-year-old female here with neck shoulder upper back pain. Denies any injury. No falls or recent trauma. States she has been getting over cold/sinus infection she states the symptoms started she notes a nonproductive cough. Denies any chest pain or shortness of breath. REVIEW OF SYSTEMS: Pertinent positives: Cough, pain with cough Pertinent negatives: Shortness of breath, chest pain at rest PHYSICAL EXAM: Nursing triage notes reviewed, Vital signs reviewed Constitutional: please see mdm HENT: MMM Eyes: Pupils equal round and reactive to light, Extraocular muscles intact Neck: No stridor, no JVD, full neck ROM Lungs: Clear to auscultation, No wheezing or rales. No increased work of breathing, no conversational dyspnea, no accessory muscle use, no nasal flaring. No respiratory distress noted Heart: Regular rate and rhythm, No murmurs, No rubs and No gallops, 2+ distal pulses (radial, femoral, posterior tibial) in all extremities Abdomen: Soft, there is no tenderness, rigidity, rebound or guarding, no obvious peritoneal signs, no palpable pulsatile abdominal masses, no auscultated abdominal bruit : No CVAT Extremities: No edema Neuro: No focal neurological deficits, cranial nerves II through XII intact, 5/5 strength in all extremities. Intact sensation to light touch in all extremities, 2+ reflexes bilateral patella tendons. Normal gait. No ataxia. Skin: No rash or lesions noted MEDICAL DECISION MAKING: Chief Complaint: Cough External records reviewed: Last ED visit in September 2022 Factors affecting care: Bipolar 1 disorder, PTSD, hypothyroidism Social determinants of health: History of mental health disorder ALL IMAGES (IF OBTAINED) HAVE BEEN PERSONALLY REVIEWED AND INTERPRETED BY MYSELF. EKG with sinus bradycardia, normal axis, normal intervals, no STEMI MDM Narrative: Patient was hemodynamically stable, afebrile, nontoxic-appearing. Lungs were clear. There is no increased work of breathing. I considered the following differential diagnosis: Arrhythmia, pneumonia, COVID, flu, bronchitis Chest x-ray obtained as read personally by myself shows no evidence of pneumonia. EKG without evidence of arrhythmia or anemia. COVID and flu are negative. Patient likely suffered another viral illness. Give instructions take Tylenol, ibuprofen, prednisone and Tessalon Perles at home. I completed a structured, evidence-based clinical evaluation to determine the need for antibiotics in this patient with clinical signs and symptoms of acute bronchitis. The evidence indicates that the patient is very low risk for infectious process requiring antibiotics. Antibiotics have significant risks, and in this case, the risks of antibiotics or hospitalization for this issue likely exceed the benefit. It is, therefore, in the patient?s best interest not to take antibiotics or to be hospitalized for this issue at this time. I have discussed with the patient my clinical impression and the result of an evidence-based clinical evaluation to screen for pneumonia. The evidence shows that the risk for pneumonia is low. Although the risk of pneumonia has not been completely eliminated, the risks of antibiotics or hospitalization for this issue likely exceed any potential benefit, and the patient agrees with not pursuing antibiotic treatment or being hospitalized for this issue at this time. The patient and/or family, caregivers express understanding. The patient and/or family, caregivers agrees with the plan. Shared decision making: I will have a discussion with the patient and or visitors regarding risk/benefits of further testing or admission. They will be made aware of of the risk/benefits inherent in this decision they will be given the opportunity to voice understanding. Total critical care time today provided was at least 0 minutes. This excludes separately billable procedures. Critical care time (if documented) is secondary to the patient having high probability of clinically significant/life threatening deterioration in the patient's condition which required my urgent intervention. Impression: 1. Viral URI 2. Bronchitis Dispo: Discharge Radiography Diagnostic Testing: Clinical Impression(s) from Imaging Studies Chest X-Ray 12/25/22 11:25 IMPRESSION: Hyperinflation. The lungs are clear. Electronically Signed: Daiz Carroll MD at 12:29 EDT , Discharge Plan Triage Chief Complaint: General Illness ED Provider: Juan David Hairston Dx/Rx/DC Orders Instructions: Acute Bronchitis Prescriptions: New prednisone 20 mg tablet 20 mg PO DAILY Qty: 5 0RF benzonatate 100 mg capsule 100 mg PO BID PRN (Reason: cough) Qty: 10 0RF No Action gabapentin 600 mg tablet 300 mg PO TID lamotrigine 25 mg tablet See Rx Instructions PO ONCE Qty: 98 0RF Rx Instructions: 25 orally once for two weeks then 50 mg every day orally for two weeks then 100 mg every day olanzapine [Zyprexa] 5 mg tablet 2.5 mg PO DAILY 30 Days Qty: 15 1RF levothyroxine 112 MCG tablet 112 mcg PO DAILY fluoxetine [Prozac] 10 mg capsule 10 mg PO DAILY 30 Days Qty: 30 2RF Rx Instructions: Start on June 19, 2021. bupropion HCl 150 mg tablet extended release 24 hr PO Patient Comments: TAKE 1 TABLET BY MOUTH EVERY DAY AFTER BREAKFAST clonazepam 0.5 mg tablet 0.5 mg PO BID PRN (Reason: anxiety) Qty: 10 0RF propranolol 10 mg tablet 10 mg PO TID Qty: 90 2RF buspirone 10 mg tablet 10 mg PO BID Qty: 60 1RF Primary Care Provider: Cesar Centeno Referrals: Cesar Centeno MD [Primary Care Provider] - Activity Restrictions/Additional Instructions: Thank you for trusting us with your care today! Please take Tylenol (2 pills, 650 mg), ibuprofen (2 pills, 400 mg) every 6 hours as needed for pain and fever control. Please take prednisone as prescribed. Please take Tessalon Perles as needed for cough relief. Please return to the emergency department if your symptoms change or worsen. Specifically develop worsening chest pain, shortness of breath or if you lose consciousness. Please follow with your primary care physician for further outpatient evaluation and management. Disposition Disposition: Home, Self Care
--- NOTE | 2022-12-25 10:48 | EKG12_ITS ---
Test Reason : PAIN Blood Pressure : / mmHG Vent. Rate : 055 BPM Atrial Rate : 055 BPM P-R Int : 174 ms QRS Dur : 084 ms QT Int : 420 ms P-R-T Axes : 039 080 057 degrees QTc Int : 401 ms Sinus bradycardia Low voltage QRS Septal infarct (cited on or before 14-JUN-2022) Abnormal ECG Confirmed by FOSTER PICKERING, BETSY ([id number]), purchasing expeditor TERE MAYERS ([id number]) on 12/30/2022 11:21:23 AM Referred By: Confirmed By:MAREK HUTCHISON MD
[2022-12-25] MEDS: Ketorolac 15 MG/ML Vial IM (10:57)
[2022-12-25] MEDS: Acetaminophen 325 MG Tablet PO (10:57)
--- NOTE | 2022-12-25 11:25 | RAD_ITS ---
STUDY: X-RAY CHEST REASON FOR EXAM: Female, 47 years old. SOB, cough TECHNIQUE: PA and lateral views of the chest. COMPARISON: Comparison is made with prior study June 14, 2022. FINDINGS: Hyperinflation. The lungs are clear. There is no demonstrated pleural abnormality. Normal size heart. Normal mediastinum and magaly. Normal visualized pulmonary arteries. Normal visualized aortic arch and descending thoracic aorta. Normal visualized thoracic spine. Normal visualized ribs, clavicles, and shoulders. There is no demonstrated abnormality of the visualized soft tissue structures of the upper abdomen. RAD/Chest PA and Lateral IMPRESSION: Hyperinflation. The lungs are clear. Electronically Signed: Diaz Carroll MD at 12:29 EDT ,
--- NOTE | 2022-12-25 11:58 | ED.RN ---
RN ANSWERED CALL LIGHT, AT BEDSIDE. PT REQUESTING SOMETHING STRONGER FOR THE PAIN IN [place]. DR. NOVOA NOTIFIED
[2022-12-25] MEDS: predniSONE 20 MG Tablet 40 MG PO (13:16)
== END 2022-12-25 13:22 | disposition home or self-care (01) ==
PROVIDERS: Emergency Provider Emergency Medicine; PCP Internal Medicine; Visit Provider Emergency Medicine
DX: J40 Bronchitis, not specified as acute or chronic (principal); F31.9 Bipolar disorder, unspecified; J06.9 Acute upper respiratory infection, unspecified; E03.9 Hypothyroidism, unspecified; M54.2 Cervicalgia; M54.6 Pain in thoracic spine; M25.519 Pain in unspecified shoulder; R00.1 Bradycardia, unspecified; F43.10 Post-traumatic stress disorder, unspecified; F41.1 Generalized anxiety disorder; Z79.890 Hormone replacement therapy; Z79.899 Other long term (current) drug therapy
CPT/HCPCS: 71046; 87428; 93005; 96372; 99284

== ENCOUNTER 2023-03-10 08:43 | Emergency (ER) | payer MEDICARE, MEDICAID, SELFPAY ==
[2023-03-10 08:44] VITALS: BP 126/80; PULSE 108; RESP 22; TEMP 35.7; O2SAT 99; BMI 24.8
--- NOTE | 2023-03-10 08:59 | EDS_ITS ---
HPI History of Present Illness Chief Complaint: General Illness Detail of Chief Complaint: Nausea, decreased appetite and decreased sleep. Informant: patient Onset/Context/Timing Onset: Days Context: Gradual Onset Timing: Continuous Current Severity: Mild Maximum Severity: Mild Narrative Narrative: 47-year-old female suffers from anxiety, depression, PTSD. The counseling center started her on Zoloft about a week ago. She believes she is having side effects of the Zoloft such as nausea and dry heaves. Decreased sleep. She just feels off. Denies any fever or diarrhea. Prior similar symptoms: No Recent Illness/Hospitalization: No [facility] Medical History Alcohol use disorder Bipolar 1 disorder Borderline personality disorder Cannabis use disorder, mild, abuse Cocaine use disorder, mild, in sustained remission Depression Generalized anxiety disorder Hypothyroidism Irritable bowel syndrome Methamphetamine use disorder, mild, in sustained remission PTSD (post-traumatic stress disorder) Right kidney stone Home Medications levothyroxine 112 mcg tablet 112 mcg PO DAILY thyroid 09/13/19 [History Last Taken 12/24/19] fluoxetine 10 mg capsule (Prozac) 10 mg PO DAILY 30 days #30 caps 07/10/21 [Rx Last Taken Unknown] gabapentin 600 mg tablet 300 mg PO TID 05/27/22 [History Last Taken Unknown] lamotrigine 25 mg tablet See Rx Instructions PO ONCE #98 tabs 05/27/22 [Rx Last Taken Unknown] olanzapine 5 mg tablet (Zyprexa) 2.5 mg (1/2 x 5 mg) PO DAILY 30 days #15 tabs 05/27/22 [Rx Last Taken Unknown] propranolol 10 mg tablet 10 mg PO TID #90 tabs 06/10/22 [Rx Last Taken Unknown] buspirone 10 mg tablet 10 mg PO BID #60 tabs 06/24/22 [Rx Last Taken Unknown] clonazepam 0.5 mg tablet 0.5 mg PO BID PRN anxiety #10 tabs 10/28/22 [Rx Last Taken Unknown] benzonatate 100 mg capsule 100 mg PO BID PRN cough #10 caps 12/25/22 [Rx Last Taken Unknown] bupropion HCl 150 mg 24 hr tablet, extended release mg PO 12/25/22 [History Last Taken Unknown] prednisone 20 mg tablet 20 mg PO DAILY #5 tabs 12/25/22 [Rx Last Taken Unknown] Allergy/AdvReac Type Severity Reaction Status Date / Time fentanyl Allergy Anaphylaxis Verified 03/10/23 08:43 ketorolac tromethamine AdvReac Other Verified 03/10/23 08:43 [From Toradol] Family History Other Alcoholism Anxiety Arthritis Cancer Depression Mental disorder Psychiatric care Surgical History H/O: hysterectomy History of nephrectomy, right Social History household members: family Smoking Status: Current every day smoker tobacco type: cigarettes alcohol intake: never substance use type: marijuana ROS ROS ED ROS Narrative Nausea. Dry heaves. Review of Systems ROS Unobtainable: Denies due to encephalopathy Constitutional Constitutional ED: Denies chills or fever(s) Eyes Eyes: Denies blurry vision ENT ENT ED: Denies ear pain Cardiovascular Cardiovascular: Denies chest pain Respiratory/Chest Respiratory/Chest: Denies cough or dyspnea Gastrointestinal Gastrointestinal: Reports nausea; Denies abdominal pain, constipation, diarrhea or melena Genitourinary Genitourinary ED: Denies dysuria or hematuria Musculoskeletal Musculoskeletal: Denies arthralgias Integumentary Denies abscess Neurologic Neurologic: Denies headache(s) Psychiatric Psychiatric: Denies anxiety Endocrine Endocrinology: Denies cold intolerance Hematologic/Lymphatic Hematologic/Lymphatic: Reports none; Denies systems reviewed and no addt'l complaints, except as documented Allergic/Immunologic Allergic/Immunologic ED: Denies mouth swelling, tongue swelling or urticaria EXAM Physical Exam Narrative Exam Narrative: Well-appearing 47-year-old female. Vital signs are stable afebrile. HEENT exam unremarkable. Moist membranes. Neck nontender no lymphadenopathy. Lungs clear to auscultation bilaterally. Heart regular rhythm rate about 100 no murmur. Abdomen is soft and nontender. Normal bowel sounds no peritoneal signs. Moving all 4 extremities. Nontender no edema. Neurologically she is awake and alert with no focal motor deficits. She does appear anxious. During questions and following commands. Const Vital Signs: 03/10/23 08:44 Temperature 96.2 F L Temperature Source Temporal Pulse Rate 108 H Respiratory Rate 22 H Blood Pressure 126/80 H Blood Pressure Mean 95 Pulse Ox 99 Oxygen Delivery Method Room Air Positive well nourished and well developed; Negative for obese, cachectic, contractures or unkempt General Appearance ED: well developed and NAD; Negative for unkempt, cachectic, contractures, cyanotic, diaphoretic or pallor Nutritional Appearance: Negative for cachectic or obese HEENT Reports moist mucous membranes Negative for trauma or tenderness Eyes PERRL and EOMs intact bilaterally General Eye ED: Negative for pale conjunctiva or scleral icterus Neck no lymphadenopathy, supple and no JVD General: Negative for tenderness Lymph Lymphatic: Negative for other Chest Wall inspection of chest normal and palpation of chest normal Chest: Negative for other Resp normal respiratory effort and clear to auscultation bilaterally Effort and Inspection: Negative for retractions Auscultation: Negative for rales, rhonchi or wheezes Cardio regular rate, regular rhythm, S1 normal heart sound, S2 normal heart sound and no murmurs Palpation: Negative for palpable S3 or palpable S4 Rate: Negative for bradycardia or tachycardic Rhythm: Negative for abnormal rhythm GI normal to inspection, nondistended, normoactive bowel sounds, non-tender, non- distended and no masses Inspection: Negative for abdominal distention Auscultation: normoactive bowel sounds Palpation: soft; Negative for tender, guarding, mass or rebound tenderness present Back/Spine no CVA tenderness General Back: Negative for CVA tenderness Cervical Spine: Negative for cervical spine tenderness Thoracic Spine / Upper Back: Negative for thoracic spinal tenderness Lumbar Spine / Lower Back: Negative for lumbar spinal tenderness Extremity normal to inspection General Extremety ED: Negative for edema or tenderness General Extremity: Negative for edema Neuro oriented x3, CN's II-XII intact bilaterally and no sensory deficits noted Sensorium / Orientation: alert; Negative for orientation impaired, lethargic or stuporous Motor Exam: strength 5/5 throughout Psych mental status grossly normal Appearance: Negative for unkempt Attitude: No agitated Mood & Affect: anxious; Negative for depressed or tearful Skin no rashes or lesions noted, no wounds and skin turgor normal General Skin Exam: elasticity normal; Negative for jaundice or pallor Lesions: No lesion noted Rashes: No rashes noted Trauma: Negative for abrasion Wounds: Negative for wounds noted MDM MDM MDM Narrative Medical decision making narrative: 47-year-old female history of anxiety, depression and PTSD. Started on Zoloft 1 week ago. Feels she is having side effects to it such as nausea and dry heaves. Patient has a normal exam. I do not think she needs any lab work. We did do a blood sugar per her request that was 157. Patient has Zoloft at home she was instructed use that for nausea. Continue on her current medication which she is already taking at night. I explained to her these medications take weeks Schartz showing beneficial effects. Follow-up with the counseling center. History & Record Review Additional record(s) reviewed:: Prior inpatient record, Prior outpatient record, Prior ED visit and Prior labs Discharge Plan Triage Chief Complaint: General Illness ED Provider: [facility]una Dx/Rx/DC Orders Clinical Impression: Medication side effect, History of anxiety, History of post traumatic stress disorder Prescriptions: No Action gabapentin 600 mg tablet 300 mg PO TID lamotrigine 25 mg tablet See Rx Instructions PO ONCE Qty: 98 0RF Rx Instructions: 25 orally once for two weeks then 50 mg every day orally for two weeks then 100 mg every day olanzapine [Zyprexa] 5 mg tablet 2.5 mg PO DAILY 30 Days Qty: 15 1RF levothyroxine 112 MCG tablet 112 mcg PO DAILY fluoxetine [Prozac] 10 mg capsule 10 mg PO DAILY 30 Days Qty: 30 2RF Rx Instructions: Start on June 19, 2021. bupropion HCl 150 mg tablet extended release 24 hr PO Patient Comments: TAKE 1 TABLET BY MOUTH EVERY DAY AFTER BREAKFAST prednisone 20 mg tablet 20 mg PO DAILY Qty: 5 0RF benzonatate 100 mg capsule 100 mg PO BID PRN (Reason: cough) Qty: 10 0RF clonazepam 0.5 mg tablet 0.5 mg PO BID PRN (Reason: anxiety) Qty: 10 0RF propranolol 10 mg tablet 10 mg PO TID Qty: 90 2RF buspirone 10 mg tablet 10 mg PO BID Qty: 60 1RF Primary Care Provider: Cesar Centeno Referrals: Counseling,Center [Group of Physicians] - As soon as possible Cesar Centeno MD [Primary Care Provider] - Activity Restrictions/Additional Instructions: Use your Zofran at home for nausea. I would continue to stay on the Zoloft. Give it several weeks to start showing beneficial side effects and hopefully some of the negative side effects well decreased or resolved. These medications take weeks to start showing benefits. Follow-up with the counseling center. If need be and the side effects are too severe they can start you on a different medication but again that will take time to build up and starts showing beneficial effects. Disposition Disposition: Home, Self Care
[2023-03-10 09:19] LABS: Bedside Glucose 157 mg/dL (74-106)
== END 2023-03-10 09:24 | disposition home or self-care (01) ==
LOC: ED 09:16
PROVIDERS: Emergency Provider Emergency Medicine; PCP Internal Medicine; Referring Provider Emergency Medicine; Visit Provider Emergency Medicine
DX: R11.0 Nausea (principal); F31.9 Bipolar disorder, unspecified; T43.225A Adverse effect of selective serotonin reuptake inhibitors, initial encounter; F43.10 Post-traumatic stress disorder, unspecified; F41.9 Anxiety disorder, unspecified; Z79.890 Hormone replacement therapy; Z79.899 Other long term (current) drug therapy; F17.210 Nicotine dependence, cigarettes, uncomplicated
CPT/HCPCS: 82962; 99282

== ENCOUNTER → 2023-08-11 | Outpatient (CLI) | payer MEDICARE, MEDICAID, SELFPAY ==
--- NOTE | 2023-08-11 13:33 | EKG12_ITS ---
Test Reason : PRE-OP Blood Pressure : / mmHG Vent. Rate : 079 BPM Atrial Rate : 079 BPM P-R Int : 170 ms QRS Dur : 086 ms QT Int : 390 ms P-R-T Axes : 068 082 042 degrees QTc Int : 447 ms Normal sinus rhythm Low voltage QRS Borderline ECG Confirmed by LASHAUN PICKERING, KASSI ([id number]), acquisitions editor TERE MAYERS ([id number]) on 08/12/2023 6:55:36 AM Referred By: Zain Reich Confirmed By:KASSI WILKS MD
[2023-08-11 14:32] LABS: Hematocrit 43.4 % (37-47); Hemoglobin 13.9 g/dL (12.0-15.0); Mean Corpuscular Hgb 29.4 pg (27.0-32.0); Mean Corpuscular Volume 91.9 fL (81-99); Mean Platelet Vol. 10.7 fl (6.2-12.0); Platelet Count 236 K/mm3 (150-450); RBC Distribution Width CV 13.6 % (11.6-14.6); RBC Distribution Width SD 46.6 fl (35.1-43.9); Red Blood Count 4.72 M/mm3 (4.2-5.4); White Blood Count 7.3 K/mm3 (4.4-11.0)
[2023-08-11 15:03] LABS: Anion Gap 5 (5-15); BUN 15 mg/dL (7-18); BUN/Creat Ratio 16.4 RATIO (10-20); Calcium,Total 9.4 mg/dL (8.5-10.1); Chloride 108 mmol/L (98-107); Creatinine, Serum 0.92 mg/dL (0.55-1.02); EST Glomerular Filtration Rate 70 mL/min (>60); Est Glom Filt Rate - Afr Amer 84 mL/min (>60); Glucose 98 mg/dL (74-106); Sodium Level 139 mmol/L (136-145)
== END | disposition home or self-care (01) ==
PROVIDERS: PCP Internal Medicine; Referring Provider Otolaryngology; Visit Provider Otolaryngology
DX: Z01.818 Encounter for other preprocedural examination (principal)
CPT/HCPCS: 36415; 80048; 85027; 93005

== ENCOUNTER → 2023-08-18 | Outpatient (CLI) | payer MEDICARE, MEDICAID, SELFPAY ==
--- NOTE | 2023-08-17 12:30 | SEP_PTH ---
PATIENT: MARIE MALLORY LOC: [facility] U#:[id number] AGE/SX: 48/F ROOM: RE08/18/[address]: Dr. Zain Reich MD : [id number] BED: DIS: 08/18/2023 SPEC #: [id number] RECD: 08/19/23 12:14 STATUS: MIKE CANALESJoel #: [id number] SHERYL: 08/17/23 12:[address]: Zain Reich DEPT: SURGICAL PATHOLOGY RECD BY: Timur Kenney ENTERED: 08/19/23 12:14 SP TYPE: SEPTUM OTHR DR: Dr. Cesar Centeno MD [facility] Tissues: Nasal septum, NOS Procedures: Surgery Specimen Level III HEADER OPERATION: Septoplasty PRE-OP DIAGNOSIS: Nasal congestion, deviated nasal septum, other chronic sinusitis TISSUE SUBMITTED: Septum MICROSCOPIC DIAGNOSIS Nasal septum, septoplasty: Fragments of hyaline cartilage and bone with focal reparative and reactive change (clinically deviated septum). / 08/24/2023 MICROSCOPIC DESCRIPTION Slides are reviewed. GROSS DESCRIPTION Received in fixative is one container labeled with the patient's name and designated Nasal septum. The specimen consists of multiple fragments of bone and cartilage measuring in aggregate 3.0 x 2.5 x 0.6cm. Adult Care Provider tissue is submitted in one cassette after decalcification. / 08/19/2023 TC:5 CPT: 26249,49604
== END | disposition home or self-care (01) ==
LOC: LABSPEC 16:25
PROVIDERS: PCP Internal Medicine; Referring Provider Otolaryngology; Visit Provider Otolaryngology
DX: J34.2 Deviated nasal septum (principal); J32.9 Chronic sinusitis, unspecified; R09.81 Nasal congestion
CPT/HCPCS: 88304

== ENCOUNTER 2023-12-08 08:00 | Outpatient (RCR) | payer MEDICARE, MEDICAID, SELFPAY ==
--- NOTE | 2023-12-08 09:00 | BH.SGPN.GN ---
Behaviors/Verbalizations/Mental Status: [] Eye contact is good. Motor activity is appropriate. Appearance is casual. Speech is Appropriate. Mood is anxious/irritable. Affect is congruent. Thoughts are linear and logical. No evidence of psychosis. Reviewed daily check in sheet and no reports of suicidal ideations or intent. Client Response/Progress/Benefit: [] Pt was an active participant in group discussions. Attentive. This was pt?s first day in IOP and she introduced herself and shared her reasons for entering IOP. Pt reports erratic moods and emotion dysregulation which are impacting her functioning and relationships. Has a tendency to isolation or get angry which she believes are the result of trauma triggers.???My responses are not healthy?. No progress noted as this was her first day. Benefited from group support, encouragement, and feedback. Will continue in IOP to prevent decompensation, stabilize mood, and increase healthy coping skills. Narrative Note: []
--- NOTE | 2023-12-08 09:47 | BH.COMM ---
Communication Note Communication with Client Communication Note: Met with pt to complete psychosocial, risk assessment, and initial paperwork. Completed [place] [facility]icide Screening. Low to moderate risk given pt hx of one prior attempt 16 years ago, several self-interrupted attempts more than 16 years ago, and chronic passive thoughts without plan or intent. No SI reported in the past week. Pt reports her daughters are her primary protective factor. Consulted with Dr. Abreu with plan to admits to [facility] with dx of F31.40
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
--- NOTE | 2023-12-09 09:00 | BH.SGPN.GN ---
Behaviors/Verbalizations/Mental Status: [] Pt alert and oriented, casually dressed and groomed. Eye contact good. Motor activity appropriate. Speech within normal limits. Affect congruent, mood anxious. Thoughts linear, logical, no signs of hallucinations or delusions. Reviewed pt?s symptom tracker, no risk for suicidal ideation, plan, or intent 12/09/23 Client Response/Progress/Benefit: []Pt responded well to session, attentive and engaged. Pt reports feeling conflicted this morning. Pt reports mental health wins today including getting a puppy which has given pt something to care for and give her reasons to get up and continuing to show up for herself when I just want to run. Pt's stressor today is that she continues to have conflict with her daughter. Pt appeared to benefit from connecting with peers and gaining feedback. Pt will continue IOP tx to prevent decompensation, improve daily functioning, and gain healthy coping skills. Narrative Note: []
--- NOTE | 2023-12-09 10:10 | BH.NA_ITS ---
Physical Data Vital Signs Pulse Rate: 76 Blood Pressure: 136/98 Height/Weight Height: 1.74 m Weight:: 81.647 kg Weight in Pounds: 180.0 lbs Nutritional History Appetite Nutritional Instructions: Describe your appetite:: Good Additional nutritional information:: Client is on Remeron and states she has gained about 40lbs in the last 6 months. Functional Assessment Sleep Pattern Describe any problems with sleeping: Client states she usually sleeps about 8-10 hours per night. Sensory/Communication Assess Communication Problems Do you have difficulty understanding what people are saying?: No Medical Problems/History Genitourinary Conditions Genitourinary: Other (See comments) (kidney stones, hx right nephrectomy) Metabolic Conditions Metabolic: Hypothyroidism Gastrointestinal Conditions Gastrointestinal: Other (See comments) (GERD, IBS) Musculoskeletal Conditions Musculoskeletal: Other (See comments) (degenerative OA of spine) Pain Assessment Do you have acute or chronic pain?: Yes (back) Family History Family History Other Alcoholism Anxiety Arthritis Cancer Depression Mental disorder Psychiatric care Additional History Additional comments:: bipolar 1 disorder, PTSD, BPD Surgical History Surgical History Have you had any surgeries? If so, list type and date:: Yes (right nephrectomy, hysterectomy) Substance Abuse Substance Abuse Please describe substance abuse in the last 30 days:: Client states she occasionally has 2-3 beers. Client has been a smoker since age 15, and currently is smoking 2 packs per day. Client has a history of meth and cocaine use, states she hasn't used in about 2 years. Client states she has been decreasing her caffeine intake and drinks 1-2 cups of half caffeine coffee per day. Mental Status Summary Mental Status Significant Findings/Observations on Appearance and Mood:: Client is alert and o riented x 4. Client is casually groomed. Client is cooperative with assessment. Client makes good eye contact. Client's voice has normal rate and is loud at times. Client has a restricted affect. Client makes logical associations and has normal processing. Client denies delusions/hallucinations. Client denies active SI, but does admit to some passive thoughts of like I don't care if I wake up tomorrow. Suicide Assessment Suicidal Ideation Are you currently or have you been suicidal in the past?: Yes Suicidal Intentional Rating Scale (SIRS): Suicidal thoughts (past) (passive thoughts of , denies active SI/intent/plan) Physician Notification Past Psychiatric History MH Treatment Hx Past Psychiatric Medications:: Zyprexa, Depakote, [place] (caused thyroid issues), Seroquel, Prozac, Zoloft, Effexor, Klonopin, Abilify, Xanax, Wellbutrin, Lamictal, Buspar Age of first mental health symptoms: Client first took medication for mental health around age 18. Client was diagnosed with bipolar disorder aroung age 40. Describe (age, circumstance, etc) any past hospitalizations: [facility] in 2016 for SI, was diagnosed with Bipolar. Client had a suicide attempt in 2007 by overdose. Current providers for mental health treatment (counselor, psychiatrist, classification case manager, etc.): Analy for therapy at [facility], [facility] for psychiatry at [facility] Fall Risk Assessment Age Age: Less than 60 Mental Status Mental Status: Willing & able to ask for assistance when needed Physical Status Physical Status: No problems Impairments Impairments: None Elimination Elimination: Continent AND independent Gait or Balance Gait or Balance: Walks independently Hx of Falls History of falls in the past 6 months: No known history Medications/Substances Psychotropics:: Antidepressants and Anticholinergics (e.g. benztropine) Medications/substances used within the past 24 hours or ordered to administer: 1-2 of the medications/substances listed above Total Score Total Points:: 1 RN Summary of Impressions Impressions Recommendations Impressions: Psychiatric Issues: 1. Major depressive disorder, recurrent, severe without psychosis 2. PTSD 3. Generalized anxiety disorder 4. Borderline personality disorder 5. Cannabis use disorder 6. Alcohol use disorder 7. Cocaine and methamphetamine use disorder (sober x 2 years) 8. Primary support issues Level of Care How do the client's current symptoms and functional deficits support need for this level of care?: Client was in IOP in June 2021 and returns at this time due to anxiety related to many trauma triggers in my life. Client states she has been having erratic moods with frequent panic attacks. Client admits to crying spells and ruminations. Client states one of her stressors is the decline in the relationship with her daughter who is not currently talking to her. Client became tearful and states I wasn't a very good mom due to my drug use, but I love my kids. Client denies active SI, but does admit she has been having some passive thoughts of (I don't care if I wake up tomorrow). IOP will promote gains and prevent further decompensation while providing social support and skills training.
--- NOTE | 2023-12-09 11:10 | BH.SGPN.GN ---
Behaviors/Verbalizations/Mental Status: []Pt alert and oriented, casually dressed and groomed. Eye contact good. Motor activity appropriate. Speech within normal limits. Affect congruent, mood anxious and depressed. Thoughts linear, logical, no signs of hallucinations or delusions. Client Response/Progress/Benefit: []Pt engaged participant AEB listening attentively to others and providing input throughout group. Pt worked within their small group to identify strategies to manage inappropriate guilt. Identified a personal example of inappropriate guilt as ?feeling bad for zoning out in group when anxious?. Provided insight that this cues a feeling of ?fear of disappointing self? Pt wants to work on combatting inappropriate guilt by correcting the distortions and practicing better boundaries. Pt seemed to benefit from learning about strategies to manage appropriate and inappropriate guilt. Pt to continue IOP level of care to continue to prevent decompensation, and promote mood stability. ? Narrative Note: []
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
--- NOTE | 2023-12-09 12:28 | BH.DR.ITP ---
Initial Treatment Plan Patient Information Visit Information: ADMISSION DATE: EXPECTED LOS: 4-6 weeks Problems/Symptoms Problem #1:: Emotional dysregulation Symptom:: Sadness, irritability, anger, worthlessness, guilt, anhedonia, biological disruption of sleep, low energy, passive thoughts of , low motivation Problem #2:: Anxiety Symptom:: Worry, rumination, panic attacks, nightmares, flashbacks, avoidance
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
--- NOTE | 2023-12-10 09:05 | BH.SGPN.GN ---
Behaviors/Verbalizations/Mental Status: [] Eye contact is fair. Motor activity is appropriate. Appearance is casual. Speech is Appropriate. Mood is anxious/irritable. Affect is congruent. Thoughts are linear and logical. No evidence of psychosis. Reviewed daily check in sheet and no reports of suicidal ideations or intent. Client Response/Progress/Benefit: [] Pt was an active participant in group discussion. Attentive. States that she is feeling overwhelmed and elaborated on recent psychosocial stressors. I ain't flipped my shit yet though which is good. She is attempting to utilize internal coping skills to decrease irritability and emotion dysregulation. Continues to ruminate on family conflicts and its impact on her. Notes increased energy, restlessness, and excitement since starting Wellbutrin prescribed by her outpatient psychiatrist. Hx of isolation/avoidance or anger outbursts when overwhelmed emotionally. Limited progress noted. Benefited from group support, encouragement, and feedback. Will continue in IOP to prevent decompensation, stabilize mood, increase healthy coping, and improve functioning. Narrative Note: []
--- NOTE | 2023-12-10 10:00 | BH.SGPN.GN ---
Behaviors/Verbalizations/Mental Status: []Pt alert and oriented, casually dressed and groomed. Eye contact good. Motor activity appropriate. Speech within normal limits. Affect congruent, mood euthymic. Thoughts linear, logical, no signs of hallucinations or delusions Client Response/Progress/Benefit: [] Pt was an active participate AEB listening attentively to others, participating in group discussions, and taking notes throughout. Participated as the group identified ways we can hurt others or sabotage self by not regulating our emotions. Participated with peers to identified ways emotions impact communication. Pt shared she will feel multiple emotions at once which results in her feeling confused. Pt stated when feels an intense emotion she can quickly blow up on others, which she identifies as her trauma response. Participated during group activity. Pt benefited from session by gaining an increased understanding on the importance of managing emotions to improve daily functioning. Will continue IOP tx to improve distress tolerance, increase healthy coping skills, and prevent decompensation.
--- NOTE | 2023-12-10 11:15 | BH.SGPN.GN ---
Behaviors/Verbalizations/Mental Status: []Pt alert and oriented, casually dressed and fairly groomed. Eye contact good. Motor activity appropriate. Speech within normal limits. Affect congruent, mood euthymic and anxious. Thoughts linear, logical, no signs of hallucinations or delusions. Client Response/Progress/Benefit: [] Pt engaged in session AEB Pt listening attentively to peers and providing input. Attentive during psychoeducation on 4 zones of regulation. Pt able to identify feelings and behaviors for each zone. Pt identified coping skills one can use to support self in each zone. Identified being in the green and yellow zones today because pt feels anxious but also excited and hopeful. Pt plans to use this energy to clean her house today as pt feels it will benefit her today and her future self. Benefited from increased education on zones of regulation or stages of alertness for emotions and healthy coping skills to use for each zone. Will continue IOP tx to prevent decompensation, improve daily functioning, and increase emotional regulation skills. ? Narrative Note: []
--- NOTE | 2023-12-14 09:00 | BH.SGPN.GN ---
Behaviors/Verbalizations/Mental Status: [] Pt alert and oriented, neatly dressed and groomed. Eye contact good. Motor activity appropriate. Speech within normal limits. Affect congruent, mood agitated. Thoughts linear, logical, no signs of hallucinations or delusions. Reviewed pt?s symptom tracker, no risk for suicidal ideation, plan, or intent 12/14/23 Client Response/Progress/Benefit: []Pt responded well to session, attentive and engaged. Pt reports feeling neutral this morning despite also feeling overwhelmed and worried. Pt shared her mental health wins are that she got to IOP today even though she wanted to cancel and she stopped taking a medication that pt thinks was increasing her irritability. Pt will see psychiatry this week and be able to discuss a different medication with Dr. Land. Pt appeared to benefit from reflecting on application of coping skills and connecting with peers. Pt will continue IOP tx to prevent decompensation, improve daily functioning, and increase distress tolerance skills. Narrative Note: []
--- NOTE | 2023-12-14 10:15 | BH.SGPN.GN ---
Behaviors/Verbalizations/Mental Status: [] Eye contact is good. Motor activity is appropriate. Appearance is casual. Speech is Appropriate. Mood is anxious, depressed. Affect is congruent. Thoughts are linear and logical. No evidence of psychosis. Client Response/Progress/Benefit: [] Pt receptive of session, actively engaged throughout AEB taking notes, providing input, and contributing in small group discussion. Appeared to connect with group topic of automatic thoughts and cognitive distortions, as well as the impact of thought patterns on mental health, coping behaviors, and relationships. This particular group is very heavy on psychoeducation and pt appeared to connect with distortions and how they can impact functioning. Identified struggling with disqualifying the positive and all or nothing distortions. Pt appeared to benefit from gaining insight on distorted thinking patterns and how this impacts overall mental health. Will continue IOP to stabilize mood, improve ability to function, and prevent decompensation. Narrative Note: []
--- NOTE | 2023-12-14 11:15 | BH.SGPN.GN ---
Behaviors/Verbalizations/Mental Status: []Pt alert and oriented, casually dressed and groomed. Eye contact good. Motor activity appropriate. Speech within normal limits. Affect congruent, mood euthymic. Thoughts linear, logical, no signs of hallucinations or delusions Client Response/Progress/Benefit: [] Pt was an active participant during group discussion. Pt was placed in a smaller group and participated in combatting example distortions with peers. Pt was engaged in the smaller group, participated in group interactions to brainstorm answers, and appeared to be comprehending cognitive distortions. Pt stated could connect with many of the distortions covered in group. Pt stated she has learned from group today reminding herself a thought is a thought, not a fact is a helpful tool in challenging distorted thoughts. Benefited from gaining further insight and awareness of cognitive distortions as well as practicing ways to reframe and challenge thoughts. Will continue in IOP tx to improve healthy coping skills, challenge negative thoughts, and prevent decompensation.
--- NOTE | 2023-12-15 09:05 | BH.SGPN.GN ---
Behaviors/Verbalizations/Mental Status: [] Eye contact is good. Motor activity is appropriate. Appearance is casual. Speech is Appropriate. Mood is depressed/anxious. Affect is congruent. Thoughts are linear and logical. No evidence of psychosis. Reviewed daily check in sheet and no reports of suicidal ideations or intent. Client Response/Progress/Benefit: [] Pt was an active participant in group discussions. Daily symptom notes 4/5 for anxiety and depression and 3/5 for irritability. Attentive. ? I?ve got stressors on my brain?. Reports that she is ?fighting? negative thoughts. Emotions for today is ?tense?. Has a PRN medication for anxiety however she is reluctant to take stating ? I can?t rely on medications?. Increased irritability and mood dysregulation. 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 Limited progress noted. Benefited from group support, encouragement, and feedback. Will continue in IOP to prevent decompensation, stabilize mood, and increase healthy coping. Narrative Note: []
--- NOTE | 2023-12-15 09:41 | BH.MDN_ITS ---
Multi-Disciplinary Note Note 45-min Individual: Time Started:: 08:20 Date: 12/15/23 Purpose of session/treatment goals addressed:: To gather information on pt's current stressors, symptoms and triggers impacting mood. Provided education on window of tolerance and began working on improving distress tolerance skills. Eye Contact:: Good Motor Activity:: Appropriate Appearance:: Casual Speech:: Appropriate Mood:: Anxious and Depressed Affect:: Congruent Thoughts:: Linear, Logical and No evidence of hallucinations/delusions not ed Staff Interventions:: psychoeducation on: (window of tolerance), CBT techniques, mindfulness skills and taught coping skills Client Response:: PT responded well to session, open to meeting with therapist. Reports struggling this morning with thoughts about their estranged daughter. Shared that they woke up and started having thoughts about her which made pt sad and angry. Pt discussed trying to remind herself that all she can do is focus on continuing to work on her mental health and healing process, and nae t she cannot control whether her reaches out or not. Pt shared that despite logically being able to remind herself of this, she continues to struggle with coping emotionally. Disclosed crying in her car on the way here and having a feeling of ?ick? which made her ?want to crawl out of my skin?. Pt receptive of discussion on the ?Window of tolerance?, the optimal zone of ?arousal? for a person to function and manage stressors in everyday life. Pt connected with the impact that trauma may have on reducing an individual?s window of tolerance and ultimately result in the individual becoming more easily emotionally dysregulated. Pt able to recognize the combination of stressors this morning (her puppy having two accidents indoors, thoughts of her daughter, and watching a clip online about narcissism) was enough to move pt from a regulated state to one of hypo-arousal in which she felt spacey and disconnected from her body. Pt worked with therapist on identifying additional common triggers for her to enter either hyperarousal or hypo-arousal states. Pt inquired as to whether she can improve her window of tolerance and responded well to psychoeducation on strategies for doing so. Created a goal to begin checking-in with herself emotionally and stressfully throughout the day and practicing a different mindfulness or grounding skill when doing so. Pt reports connecting with progressive muscle relaxation, Safe Place or Sacred Space Imagery, connecting with nature, and self-labeling safety cues e.i. ?You are home. You are safe. You will be okay.?. Risks/Concerns:: Pt denies any suicidal ideations, plan, or intent as of this date, 12/15/23 Progress Toward Goals/Plan:: Progress variable. Pt reports she has been able to gain improved insight and support from group and individual sessions thus far. She is actively working on utilizing more positive self-talk, healthy boundary setting, and calming skills. Pt did report increased irritability over the weekend after starting a new medication, Wellbutrin, and has since discontinued this due to impact on her mood/irritability. Pt reports she continues to struggle with complicated feelings regarding the relationship with her daughter which reinforces her anxiety and difficulties tolerating additional stress. Pt reports anxiety in the group setting is improving as well. She will continue IOP treatment to improve mood stability, reduce maladaptive coping mechanisms, and prevent decompensation. Time Stopped:: 09:03
--- NOTE | 2023-12-15 10:10 | BH.SGPN.GN ---
Behaviors/Verbalizations/Mental Status: []Client alert and oriented, casually dressed and groomed. Eye contact good. Motor activity appropriate. Speech within normal limits. Affect constricted, mood anxious. Thoughts linear, logical, no signs of hallucinations or delusions. Client Response/Progress/Benefit: [] Pt responded well to session AEB actively participating throughout group. Pt was attentive throughout group activity discussing famous individuals and how they overcame failure to be successful. Pt helped group identify how fear of failure can impact mental health and relationships. Pt personally identified it leads to pt feeling like a failure/?loser? and shutting down. participated in experiential activity, working with group members to problem solve. Appeared to benefit from increased knowledge of what causes fear of failure and how it impacts people. Will continue IOP tx to prevent decompensation, improve daily functioning, and increase emotional regulation skills. Narrative Note: []
--- NOTE | 2023-12-15 11:10 | BH.SGPN.GN ---
Behaviors/Verbalizations/Mental Status: [] Client alert and oriented, casually dressed and groomed. Eye contact good. Motor activity appropriate. Speech within normal limits. Affect congruent, mood anxious and content. Thoughts linear, logical, no signs of hallucinations or delusions. Client Response/Progress/Benefit: [] Client responded well to session, engaged in the experiential activity and attentive throughout group processing. Client reported fear of failure has kept client from moving forward and finding myself. Client completed fear of failure worksheet and was able to identify thoughts and behaviors that reinforce personal fear of failure including past failures, self-doubt, and anxiety. Client participated in small group discussion regarding strategies to overcome fear of failure. Identified wanting to work on combating anxiety with learning to set healthy boundaries and communicate her needs. Appeared to benefit from increased knowledge of strategies to combat fear of failure and gaining self-awareness. Client will continue IOP tx to promote mood stability and prevent decompensation. Narrative Note: []
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
[2023-12-16 08:48] VITALS: BP 136/98; PULSE 76
--- NOTE | 2023-12-16 09:00 | BH.SGPN.GN ---
Behaviors/Verbalizations/Mental Status: [] Eye contact good. Motor activity appropriate. Speech within normal limits. Affect congruent, mood content. Thoughts linear, logical, no signs of hallucinations or delusions. Reviewed client?s symptom tracker, pt denies SI,?plan, or intent as of 12/16/2023. Client Response/Progress/Benefit: [] Client receptive of session, attentive and willing to process with group. Reports improving sx of depression?(2/5) and anxiety (1/5) per daily sx tracker. ?Identified mental health ?win as getting up earlier today to take a shower and do her hair and make-up. Shared feeling more confident and comfortable in her skin as a result. Shared she was even able to have time to take her puppy for a walk this morning which helped to prevent him from having an accident. Pt shared that she is not feeling nearly as anxious as she had yesterday. This is identified as both a positive and a stressor, as pt is not used to feeling content and calm. Reports fear of when's the other shoe going to drop. Discussed trying to challenge these thoughts and remind herself that feelings are not facts. Just because she feels like it is 'too good to be true' does not mean it is. Receptive of and appearing to benefit from group support. Recommended continued IOP tx to improve mood stability and distress tolerance, promote consistent skill application, well as prevent decompensation. Narrative Note: []
--- NOTE | 2023-12-16 10:10 | BH.SGPN.GN ---
Behaviors/Verbalizations/Mental Status: [] Eye contact is good. Motor activity is appropriate. Appearance is casual. Speech is Appropriate. Mood is anxious. Affect is congruent. Thoughts are linear and logical. No evidence of psychosis. Client Response/Progress/Benefit: [] Pt was an active participant in group discussion and activity. Attentive during psychoeducation. Along with peers, pt was able to identify barriers to taking action in their life. Identified several symptoms and stressors that pt feels are holding them back from progress such as poor boundaries, anger,and low self-esteem. Stated these things have kept pt from happiness, feeling content, and not being constantly on-edge. Benefited from increased self-awareness of obstacles. Will continue IOP tx to prevent decompensation, stablize mood, improve functioing, and increase healthy coping. Narrative Note: []
--- NOTE | 2023-12-16 11:10 | BH.SGPN.GN ---
Behaviors/Verbalizations/Mental Status: []Pt alert and oriented, casually dressed and groomed- makeup and hair done. Eye contact good. Motor activity appropriate. Speech within normal limits. Affect congruent, mood euthymic. Thoughts linear, logical, no signs of hallucinations or delusions. Client Response/Progress/Benefit: [] Pt responded well to session, taking notes and participating in worksheet discussion. Pt connected with the discussion on motion vs action steps, and this helped pt learn how to set goals differently. Pt set a goal to have healthier boundaries. Pt identified motion steps including reflecting more so she knows her boundaries, writing down what she wants to say when she sets a boundary, and practicing saying it out loud. Pt also made action steps which included continuing to come to IOP, actively challenging inappropriate guilt, and setting some boundaries. Appeared to benefit from identifying a small goal to benefit mental health. Pt is to continue IOP to promote mood stability, increase distress tolerance, and improve daily functioning. Narrative Note: []
--- NOTE | 2023-12-22 09:05 | BH.SGPN.GN ---
Behaviors/Verbalizations/Mental Status: [] Pt alert and oriented, neatly dressed and groomed. Eye contact good. Motor activity appropriate. Speech within normal limits. Affect full, mood euthymic. Thoughts linear, logical, no signs of hallucinations or delusions. Reviewed pt?s symptom tracker, no risk for suicidal ideation, plan, or intent 12/22/23 Client Response/Progress/Benefit: []Pt responded well to session, attentive and engaged. Pt shared feeling good and energetic this morning. Pt shared she used the STOPP skills today which helped pt work through a panic attack. Pt also went to a democrat despite her anxiety and ended up having a good time. Pt shared her is reminding herself to set boundaries which is both pt's win and stressor. Pt shared she has to continue to set boundaries with her kid which is stressful, but pt knows she needs to. Pt appeared to benefit from reflecting on gains and connecting with peers. Pt will continue IOP tx to prevent decompensation, increase distress tolerance skills, and improve daily functioning. Narrative Note: []
--- NOTE | 2023-12-22 10:10 | BH.SGPN.GN ---
Behaviors/Verbalizations/Mental Status: [] Eye contact is good. Motor activity is appropriate. Appearance is casual. Speech is Appropriate. Mood is content. Affect is congruent. Thoughts are linear and logical. No evidence of psychosis. Client Response/Progress/Benefit: [] Pt receptive to session AEB contributing to group discussion, as well as listening attentively to others, and taking notes. Worked with group to brainstorm the positive and negative aspects of stress on physical and mental health as well as the impact of distress on performance, relationships, and mental health. Pt shared their top stressors to be: physical health problems, changes in his physical ability/functioning, and family. Shared when feeling overwhelmed with stress pt tends to get short with others, avoid, and isolate. Benefited from increased awareness of positive and negative stress as well as how stress impact individuals. Will continue in IOP to promote use of healthy coping skills, improve mood stability, and prevent decompensation.
--- NOTE | 2023-12-22 11:15 | BH.SGPN.GN ---
Behaviors/Verbalizations/Mental Status: [] Pt alert and oriented, casually dressed and groomed. Eye contact good. Motor activity appropriate. Speech within normal limits. Affect congruent, mood anxious and content. Thoughts linear, logical, no signs of hallucinations or delusions. Client Response/Progress/Benefit: [] Pt was an attentive and active participant in group discussions and experiential activity, doing well to regulate their emotions throughout the activity and work with peers. Attentive during psychoeducation on the 4 A's (Avoid, adapt, alter, accept) of coping with stress. Shared that they would benefit most from accepting the need for boundaries within the relationship with her daughter and avoiding unnecessary confrontation/conversation with her for the time being. Was able to identify the connection between the experiential activity and utilization of stress management skills. Benefited from increased awareness of stress management strategies. Pt will continue IOP tx to prevent decompensation, promote mood stability and application of distress tolerance skills, as well as further improve daily functioning. Narrative Note: []
--- NOTE | 2023-12-24 09:05 | BH.SGPN.GN ---
Behaviors/Verbalizations/Mental Status: [] Eye contact good. Motor activity appropriate. Speech within normal limits. Affect congruent, mood anxious. Thoughts linear, logical, no signs of hallucinations or delusions. Reviewed client?s symptom tracker, pt denies SI,?plan, or intent as of 12/24/2023. Client Response/Progress/Benefit: [] Client receptive of session, attentive and willing to process with group. ?Identified mental health ?win as using opposite action to follow-through with making dinner last night. Reports making her favorite meal as an act of self-love and to try to encourage her to eat given recent poor appetite. Additional win noted as getting herself ready and wearing makeup today, as she has been struggling in this area of self-care. Pt Reports feeling a little better as a result of taking time to get ready this morning. Current stressor is struggling with anxious thoughts. Able to identify several grounding skills she can use, as well as receptive of and appearing to benefit from group support. Recommended continued IOP tx to maintain mood stability, promote consistent skill application, well as prevent decompensation. Narrative Note: []
--- NOTE | 2023-12-24 09:35 | BH.MDN_ITS ---
Multi-Disciplinary Note Note 45-min Individual: Time Started:: 08:17 Date: 12/24/23 Purpose of session/treatment goals addressed:: Purpose of session was to address interpersonal relationship issues and promote healthy boundary setting. Eye Contact:: Good Motor Activity:: Appropriate Appearance:: Casual Speech:: Appropriate Mood:: Anxious and Irritable Affect:: Congruent Thoughts:: Linear, Logical and No evidence of hallucinations/delusions noted Staff Interventions:: psychoeducation on: (effective communication strategies), CBT techniques, strengths perspective and taught coping skills (IRVIN LYMAN) Client Response:: Pt receptive of session, actively engaged throughout. Reports overall she?s noticing improvements in her mood and ability to manage sx of anxiety. Discussed that she has been struggling some with decreased appetite over the past 2 weeks; however, is still doing well to make sure she is eating despite not wanting to. Noted making an effort to make herself meals she knows she likes to try and encourage herself to eat. Went on to share that her primary stressor currently is not knowing how to establish a boundary with her step- daughter. Pt reports that her step-daughter visits the house every evening and expects pt to include her and her family in the dinner planning. Pt stated that she would not mind them visiting and staying for dinner on occasion, but she feels overwhelmed and taken advantage of with it happening daily. Went on to explain that they often stay after 9pm when pt goes to bed, preventing pt from having time to her self or time alone with her partner. Pt indicates that she has previously expressed her concerns to her partner, as she felt it was ?not my place to say something to his daughter?, however does not believe he has done anything to address her concerns. Pt did well to identify that if she does not address the situation herself, she is likely to continue to be negatively effected and likely to grow resentful. Reports not knowing how to have this discussion without it turning into an argument or pt becoming defensive. Receptive of psychoeducation on effective communication skills and learning the DBT skill of IRVIN LYMAN. Pt connected with the importance of using ?I? statements to reduce blaming language, expressing her emotions, and thanking her step- daughter for being willing to listen to pt?s concerns and work with her on making an adjustment to their current visitation schedule. Pt and therapist additionally reviewed calming skills she can use to maintain mood stability throughout the conversation. Reports plans to discuss this with her daughter this afternoon. Risks/Concerns:: None noted. Pt denies SI, plan, or intent as of this date 12/24/23 Progress Toward Goals/Plan:: Progress noted. Pt remains consistent with attendance and participation in individual and group sessions which is progress compared with previous admission. Pt is consistently applying the calming skills she is learning and reports a reduction in anxiety sx as a result. Additionally, pt has improved on her self-care and notes she is actively making an effort to take time to care for herself in the morning by doing her hair and make-up. Pt has begun attending jehovah's witness as well which she reports is a support. Pt does continue to struggle with interpersonal relationships, managing unexpected stressors, and consistently regulating her mood. Pt recommended continued IOP tx to further improve mood stability, improve distress tolerance, and prevent decompensation. Time Stopped:: 08:58
--- NOTE | 2023-12-24 10:10 | BH.SGPN.GN ---
Behaviors/Verbalizations/Mental Status: [] Eye contact is good. Motor activity is appropriate. Appearance is casual. Speech is Appropriate. Mood is euthymic. Affect is congruent. Thoughts are linear and logical. No evidence of psychosis. Client Response/Progress/Benefit: [] Pt engaged participant AEB listening to others, engaging in activity, and providing feedback at times. Attentive during psychoeducation and provided insight into obstacles that impede mental wellness. Pt shared with group current mental health reality and desired mental health reality. Stating she would like to have improved mood stability and a clearer mind. Identified barriers to desired reality include: self-doubt, anxiety, and poor boundaries. Benefited from taking look at current mental health state and obstacles for progress. Pt to continue IOP tx to improve mood stability, improve distress tolerance, and prevent decompensation.
--- NOTE | 2023-12-24 11:15 | BH.SGPN.GN ---
Behaviors/Verbalizations/Mental Status: []Eye contact is good. Motor activity is appropriate. Appearance is casual. Speech is within normal limites. Mood is anxious irritable. Affect is congruent. Thoughts are linear and logical. No evidence of psychosis. Client Response/Progress/Benefit: []Pt was an engaged participant in group discussion and activity. Worked with group to identify strategies to help overcome barriers and obstacles to desired reality. Group developed strategies for the common barriers. Identified personal barriers to desired reality and choose one obstacle to work. Pt stated pt wants to work on barrier of poor boundaries by practicing DEAR MAN and identifying her boundaries. Pt seemed to benefit from increased repertoire of healthy coping skills/strategies to overcome common barriers to moving forward. Pt is to continue IOP to prevent decompensation, improve distress tolerance skills, and increase boundary setting skills. ?? Narrative Note: []
--- NOTE | 2023-12-29 09:00 | BH.SGPN.GN ---
Behaviors/Verbalizations/Mental Status: [] Eye contact is good. Motor activity is appropriate. Appearance is casual. Speech is Appropriate. Mood is euthymic. Affect is full. Thoughts are linear and logical. No evidence of psychosis. Reviewed daily check in sheet and no reports of suicidal ideations or intent. Client Response/Progress/Benefit: [] Pt was an active participant in group discussions. Attentive. Daily symptom tracker notes 2/5 for anxiety and depression. She reports that she is gowing through the healing process. [place] that she is in good spirits considering the weather. Since last week reports perspective changes related to conflict with family members. Discussed acceptance of herself, her past actions, and her current relationship with certain family members. Setting up boundaries and not currently ruminating on what others are doing or saying about her. Focusing on her resiliency skills. Progress noted. Benefited form group support, encouragement, and feedback. Will continue in IOP to prevent decompensation, stabilize mood, and increase healthy coping skills. Narrative Note: []
--- NOTE | 2023-12-29 10:10 | BH.SGPN.GN ---
Behaviors/Verbalizations/Mental Status: [] Eye contact is good. Motor activity is appropriate. Appearance is casual. Speech is Appropriate. Mood is euthymic. Affect is congruent. Thoughts are linear and logical. No evidence of psychosis. Client Response/Progress/Benefit: [] Pt did well to participate in activity and was engaged and attentive during psychoeducation and interactive discussion on coping skills, why people use unhealthy coping skills, how to replace unhealthy coping skills, and internal vs external coping skills. Attentive as peers came up with list of negative coping skills including not asking for help, avoidance, isolating, sleeping, shopping, substance use, and several others. Pt stated she used to use drugs as unhealthy coping skill to deal with some of her struggles. Recognizes this made things worse for her. Group discussed the effects of how negative coping skills can impact mental health in a negative way. Benefited from increased understanding of unhealthy coping skills and the need for developing healthy internal and external coping skills. Will continue in IOP to challenge perspective, promote distress tolerance skills, and prevent decompensation.
--- NOTE | 2023-12-29 11:10 | BH.SGPN.GN ---
Behaviors/Verbalizations/Mental Status: []Pt alert and oriented, casually dressed and groomed. Eye contact good. Motor activity restless. Speech within normal limits. Affect congruent, mood anxious. Thoughts linear, logical, no signs of hallucinations or delusions. Client Response/Progress/Benefit: [] Pt responded well to session, taking notes and contributing when prompted. Group discussed the different categories of coping skills which included distraction, emotional release, grounding, self-love, and thought challenging. Pt participated in creating a coping skills ?menu? from the five categories of coping skills. Pt's coping skill menu included: continuing therapy, challenging distortions, expressing needs, and practicing self-reflection. Appeared to benefit from increasing repertoire of healthy coping skills. Will continue IOP to promote mood stability, combat distortions, and increase distress tolerance skills. Narrative Note: []
--- NOTE | 2023-12-30 09:00 | BH.SGPN.GN ---
Behaviors/Verbalizations/Mental Status: [] Pt alert and oriented, neatly dressed and groomed. Eye contact good. Motor activity appropriate. Speech rambling. Affect congruent, mood anxious. Thoughts linear, logical, no signs of hallucinations or delusions. Reviewed pt?s symptom tracker, no risk for suicidal ideation, plan, or intent 12/30/23 Client Response/Progress/Benefit: []Pt responded well to session, attentive and engaged. Pt reports feeling anxious this morning as my brain keeps trying to get me to go back to bad things that have happened and I thought I was healing. Pt receptive to feedback from director agricultural services and peers reminding pt what progress looks like and for information on EMDR. Pt reported her mental health wins today are continuing to set boundaries and prioritizing herself. Pt reported she is having a hard time staying focused today, but pt appeared to benefit from focusing on one thing during session she can benefit from. Pt appeared to benefit from reflecting on positives and connecting with peers. Pt will continue IOP tx to promote mood stability, increase distress tolerance skills, and improve daily functioning. Narrative Note: []
--- NOTE | 2023-12-30 10:10 | BH.SGPN.GN ---
Behaviors/Verbalizations/Mental Status: [] Eye contact is good. Motor activity is appropriate. Appearance is casual. Speech is Appropriate. Mood is euthymic. Affect is congruent. Thoughts are linear and logical. No evidence of psychosis. Client Response/Progress/Benefit: [] Pt an active participant in group discussions. Participated during interactive discussion on defining conflict (internal/external) and possible benefits to conflict. Attentive during psychoeducation on conflict styles (Avoidant, Accommodating, Competing, Cooperative) and engaged during interactive discussion in which peers identified the benefits and consequences to each conflict style. Pt identified their primary conflict style as competing when triggered and feels attacks. Pt reported she is avoidant when struggling and feeling depressed. Benefited from increased awareness of the impact of conflict styles in mental health. Will continue in IOP tx to prevent decompensation, improve distress tolerance, and promote gains.
--- NOTE | 2023-12-30 11:15 | BH.SGPN.GN ---
Behaviors/Verbalizations/Mental Status: []Eye contact is good. Motor activity is appropriate. Appearance is casual. Speech is Appropriate. Mood is anxious and dysthymic. Affect is congruent. Thoughts are linear and logical. No evidence of psychosis. Client Response/Progress/Benefit: [] Pt was an active participant in group discussions and activity. Engaged with peers in activity and identifying healthy ways to approach each conflict scenario. Group discussed various conflict resolution skills that can be useful in addressing conflict outside of IOP. Benefited from practicing and learning conflict resolution skills during group activity. Able to identify areas pt wants to work on to improve how pt manages conflict both internally and externally. Expressed wanting to work on better identifying and managing their emotions to prevent unnecessary conflict. Will continue in IOP to stabilize mood, improve distress tolerance skills, and prevent decompensation. Narrative Note: []
--- NOTE | 2023-12-30 12:20 | PCM.BH.PN ---
Progress Note Progress Note: History of Present Illness/Interim History: The patient is a 48-year-old female with a history of erratic moods, PTSD, methamphetamine abuse in full remission for 2 years and borderline personality disorder who is seen in follow-up at the [facility] behavioral health IOP. I last saw the patient 3 weeks ago and at that time no medications were changed as the patient's meds had been changed recently. Since that visit the patient stopped taking the Wellbutrin prescribed by her outpatient provider because it made her more irritable and more suicidal. Since then she denies passive thoughts of , suicidal ideation, plan for suicide, homicidal ideation, hallucinations or delusions. The Remeron has helped her mood and she feels less depressed and has helped her sleep and is increase it to 8 hours a night however she is gaining weight and does not want to gain much more weight than she has in the past month. She is having much less anger outburst and feels more productive and has been finding more juan in life. She is still anxious about her estrangement from her daughter. On the Remeron she sometimes gets up and eats in the middle of the night which she also did when she took Zyprexa in the past. She had 3 beers 4 days ago for a birthday democrat but no other alcohol use in the past 2 weeks. She denies hopelessness or worthlessness. She still has some guilt and some skin picking and some flashbacks and nightmares of trauma and from the past. No panic attack in 9 or 10 days which is a big improvement as she was having daily panic attacks before. She is still using marijuana at night. Current Psychiatric Medications: [] Remeron 30 mg p.o. nightly; Klonopin 1 mg p.o. as needed up to once a day. Wellbutrin XL discontinued for increased irritability and suicidal ideation in the past few weeks. Mental Status Examination: [] Patient is a 48-year-old female who has clark of skin picking on her face but appears otherwise normal per stated age and is casually dressed and groomed with good hygiene. She is ambulatory with a normal gait and has no psychomotor agitation or retardation. Speech is normal rate and rhythm and fluent with no pressure and eye contact is good. Mood is mildly depressed. Affect is full and normal. Thought process is goal-directed and organized. Thought content: There is no evidence of passive thoughts of , suicidal ideation, plan for suicide, homicidal ideation, hallucinations or delusions. Patient feels much better and is hopeful for the future but does not want to gain weight. Reality testing is intact. Judgment is intact. Impulsivity is high. Insight is limited but some present. Diagnoses: [] 1. Major depressive disorder, recurrent, severe without psychosis (improving) 2. PTSD 3. Generalized anxiety disorder 4. Borderline personality disorder 5. Cannabis use disorder 6. Alcohol use disorder 7. Cocaine and methamphetamine use disorder (sober x 2 years) 8. Primary support issues Plan: [] The patient will continue the IOP and behavioral health at [facility] as the structure, support, education and group therapy will hopefully prevent worsening of the patient's symptoms. She felt safe during the interview and if it anytime she does not feel safe she agrees to let us know or go to the emergency room. The risk, options, possible complications and side effects of the medications were discussed with the patient again and she understands and accepts these. Due to the patient's concern about weight gain we will add Cymbalta 30 mg p.o. daily and if the patient is able to tolerate this we will slowly increase the Cymbalta and slowly wean the Remeron in the next several weeks and discontinue it eventually to prevent any more weight gain. As the patient snores and does not feel rested after sleep she it was recommended that she get a sleep study to rule out obstructive sleep apnea. The patient agrees to remain sober from alcohol and all drug use. She will continue to follow-up with her outpatient providers and I will see the patient in follow-up in 2 weeks.
--- NOTE | 2023-12-30 15:34 | BH.MTP_ITS ---
Treatment Plan Review Demographics Date of Admission:: 12/08/23 Date of Treatment Plan Review:: 12/30/23 Admitting Diagnoses:: 1. Major depressive disorder, recurrent, severe without psychosis 2. PTSD 3. Generalized anxiety disorder 4. Borderline personality disorder 5. Cannabis use disorder 6. Alcohol use disorder 7. Cocaine and methamphetamine use disorder (sober x 2 years) Current Diagnoses:: 1. Major depressive disorder, recurrent, severe without psychosis 2. PTSD 3. Generalized anxiety disorder 4. Borderline personality disorder 5. Cannabis use disorder 6. Alcohol use disorder 7. Cocaine and methamphetamine use disorder (sober x 2 years) Patient Status Patient's Response to Treatment:: Attendance has been consistent. Pt has however missed on occasion due to stomach issues. When present she is engaged in group and individual sessions. Continues to appear, as well as verbalize, motivation to make changes and learn new skills for coping with her PTSD and mood insta bility. According to pt she is benefiting from medication adjustments, psychoeducation, and social support that is provided through IOP. She also believes that developing healthier boundaries and better communicating within interpersonal relationships in improving her mood and allowing for her personal healing. Status of Current Problems and Symptoms: Pt completed DSM-5 outcomes measurement at 3 week jazmin and scores were compared to admission. Overall pt's scores indicate a 33% reduction in symptoms. 29% decrease in depression domain, 33% anger reduction, 100% reduction in tamera sx, 18% reduction in anxiety, and 100% reduction in alcohol consumption. Also showed a 50% reduction in repetitive thoughts and behaviors. Per self-report her mood is verbalized to be more stable with decreased depression and anxiety. Also reports improved self-care, self- compassion, and forgiveness. It would seem that she is responding well to IOP. Symptoms she still reports as impacting functioning are her anger, fear of abandonment, avoidance, and isolation. She also reports several trauma triggers that can lead to emotional distress and relationship conflict. Progress Problem #1: Problem Name:: Mood instability, depression Status of Goals:: 1. She has identified her relationship with her daughters, perceived slights or rejection, and rumination on past events/action as primary triggers to emotional distress. She has identified a couple ways to cope (distraction, boundary setting, self-care, positive self-talk) and has shown consistency with utilizing the healthy coping mechanisms. 2. Pt was able to identify DEAR MAN, ?I? statements, dialectical thinking as strategies she can use to improve effective communication and reduce interpersonal conflict. Does however struggle with consistent application of these skills. Team Recommendations:: Continue in IOP as pt has not completed treatment plan goals and her mental health symptoms continue to impact functioning. Problem #2: Problem Name:: Anxiety Status of Goals:: 1. Identified absolute thinking, personalization, and mind reading as as primary cognitive distortions. Aware of skills to senior software engineering manager thoughts (reframing, challenging, etc) however continues to work on improving upon consistency. 2. Pt has been able to identify several trauma triggers and connected with psychoeducation on Window of Tolerance. Still working on consistent skill application and communication with supports regarding these triggers. Team Recommendations:: Continue in IOP as pt has not completed treatment plan goals and her mental health symptoms continue to impact functioning.
--- NOTE | 2023-12-31 08:20 | BH.MDN_ITS ---
Multi-Disciplinary Note Note 45-min Individual: Time Started:: 08:22 Date: 12/31/23 Purpose of session/treatment goals addressed:: Purpose of session was to address current stressors impacting pts mental health and maintaining depression and anxiety. Eye Contact:: Good Motor Activity:: Appropriate Appearance:: Casual Speech:: Appropriate Mood:: Anxious, Irritable and Depressed Affect:: Labile Thoughts:: Linear, Logical and No evidence of hallucinations/delusions noted Staff Interventions:: thought challenging, motivational interviewing, CBT techniques and goal setting Client Response:: Pt receptive of session, engaged and openly discussed current symptoms and stressors throughout. Pt reports that she woke up later than usual and is feeling on edge and off as a result. Able to recognize that not being able to complete her usual morning routine has led to feeling more dysregulated than usual. Pt did identify that along with waking up late, she is also currently staying in the home alone while her fiance is on the road driving for work. Processed with therapist and pt identified that having her fiance away is triggering past trauma and fear of abandonment. Reports that she usually becomes more isolated, irritable, and anxious in times her partner is on the road. Pt did well to review distress tolerance skills she can use during these times, as well as review the importance of communicating these concerns with her fiance. Pt reports not wanting to inconvenience him but did well to challenge these thoughts. Went on to discuss wanting to improve her social support system outside of family; however is nervous about doing so. Noted that she was invited by friends she has not seen in several years to go camping in a few weeks, but is unsure as she worries they will section leader and machine setter her or she will embarrass herself. Pt provided insight into underlying negative core beliefs reinforcing these fears. Worked with therapist to challenge and review exposure therapy components of addressing anxiety. Pt identified a small goal to meet up with one of these friends for coffee prior to the camping trip. Risks/Concerns:: None noted. Pt denies SI, plan, or intent as of this date 12/31/23 Progress Toward Goals/Plan:: Variable progress. Pt reports following through with goals to establish healthy boundaries with her supports and work on more consistent emotion regulation skills. Pt has recently struggled with consistent self-care practices and in the moment emotions regulation. Reports a recent influx in depression and anxiety sx since her fiance left [facility], but is improving upon her ability to manage this. Continued reports of negative self- talk. Recommended continued IOP tx to promote mood stability, improve distress tolerance, and prevent decompensation. Time Stopped:: 10:02
--- NOTE | 2023-12-31 09:05 | BH.SGPN.GN ---
Behaviors/Verbalizations/Mental Status: [] Eye contact good. Motor activity appropriate. Speech within normal limits. Affect congruent, mood irritable and anxious. Thoughts linear, logical, no signs of hallucinations or delusions. Reviewed client?s symptom tracker, pt denies SI,?plan, or intent as of 12/31/2023. Client Response/Progress/Benefit: [] Client receptive of session, attentive and willing to process with group. Reports ongoing sx of depression?(3/5) and agitation (3/5) per daily sx tracker. ?Identified mental health ?win as doing well to cope with oversleeping and not allowing the change in her morning routine to stop her from continuing with her plans for the day. Additional win noted as setting a goal for herself to work on her social anxiety and follow-through with plans to see old friends. Noted this is a win as well as a stressor as she struggles with fear of judgement. Receptive of and appearing to benefit from group feedback and suggestions on this and support. Recommended continued IOP tx to maintain mood stability, promote consistent skill application, well as prevent decompensation. Narrative Note: []
--- NOTE | 2023-12-31 10:10 | BH.SGPN.GN ---
Behaviors/Verbalizations/Mental Status: [] Eye contact is good. Motor activity is appropriate. Appearance is casual. Speech is Appropriate. Mood is anxious and content. Affect is congruent. Thoughts are linear and logical. No evidence of psychosis. Client Response/Progress/Benefit: [] Pt receptive to session AEB listening attentively to others and taking notes. Pt attentive and contributing throughout psychoeducation on the cognitive triangle and maintenance cycles. Pt engaged during group discussion reviewing the impact of daily activities and behaviors in either reinforcing unhealthy maintenance cycles and depression or assisting in reducing symptoms (?down? vs ?up? activities). Pt identified personal ?down? activities they engage in as: avoiding tasks, shutting down, and isolating all day. Attentive during discussion on Common ?Up? activities Pt identified theirs to include: moving her body, taking care of her basic needs, and cleaning. Appeared to benefit from increased awareness of current behaviors and impact these have on mental health. Will continue IOP to improve mood stability, increase distress tolerance, and reduce negative thinking patterns. ?? Narrative Note: []
--- NOTE | 2023-12-31 11:10 | BH.SGPN.GN ---
Behaviors/Verbalizations/Mental Status: []Eye contact is good. Motor activity is appropriate. Appearance is casual. Speech is Appropriate. Mood is anxious. Affect is constricted. Thoughts are linear and logical. No evidence of psychosis. Client Response/Progress/Benefit: [] Pt responded well to session, attentive and engaged in group discussions and activity. Active participant as group discussed values and the benefits that knowing one's values can have on one's mental health. Pt explored own values and identified personal top values. Pt stated personally important values are mental health and family. ?Pt set a goal to consistently participate in IOP, therapy, taking medications, and practicing coping skills. Benefited from increased awareness of their personal values and how incorporating their values into behavioral activation goals can positive impact mental health. Will continue in IOP to prevent decompensation, gain healthy coping skills, and improve daily functioning. Narrative Note: []
--- NOTE | 2024-01-04 09:00 | BH.SGPN.GN ---
Behaviors/Verbalizations/Mental Status: [] Eye contact is good. Motor activity is appropriate. Appearance is casual. Speech is Appropriate. Mood is euthymic. Affect is full. Thoughts are linear and logical. No evidence of psychosis. Reviewed daily check in sheet and no reports of suicidal ideations or intent. Client Response/Progress/Benefit: [] Pt was an active participant in group discussions. Attentive. Daily symptom tracker notes 2/5 for depression and 2/5 for anxiety/irritability. I started my new medications. According to pt the medications appear to be beneficial stating I don't have constant anxiety and its weird. Insight that the medications alone are not the reason for improved mood and functioning. Utilizing skills such as mindfulness, progressive muscle relaxation, thought challenging, and setting boundaries which have also contributed to decreased anger, stress, depression, and anxiety. Progress noted. Benefited from group support, encouragement, and feedback. Will continue in IOP to prevent decompensation, stabilize mood, and improve functioning. Narrative Note: []
--- NOTE | 2024-01-04 10:10 | BH.SGPN.GN ---
Behaviors/Verbalizations/Mental Status: [] Client alert and oriented, casually dressed and groomed. Eye contact fair. Motor activity appropriate. Speech within normal limits. Affect congruent, mood euthymic. Thoughts linear, logical, no signs of hallucinations or delusions. Client Response/Progress/Benefit: [] Pt engaged in session AEB listening attentively to others and providing input throughout. Pt engaged in activity, able to connect how it can be uncomfortable and difficult to accept when things are out of one?s own control. Pt worked with group to identify what things in life can be hard to accept. Group identified things hard to accept as: change, loss, mental health diagnosis, other?s behaviors, and failure. Pt identified struggling to accept that her relationship with her middle daughter is not good right now. Seemed to benefit from increased awareness of the importance of acceptance. Pt to continue in IOP tx to promote mood stability, increase distress tolerance skills, and improve self-compassion. Narrative Note: []
--- NOTE | 2024-01-04 11:10 | BH.SGPN.GN ---
Behaviors/Verbalizations/Mental Status: []Pt alert and oriented, casually dressed and groomed. Eye contact good. Motor activity appropriate. Speech within normal limits. Affect congruent, mood euthymic. Thoughts linear, logical, no signs of hallucinations or delusions. Client Response/Progress/Benefit: [] Pt responded well to session AEB taking notes and contributing to discussion throughout. Pt engaged as group continued discussion on acceptance and the mental health benefits of practicing acceptance. Pt and peers identified what makes acceptance challenging and pt completed a self-reflection exercise on what is hard to accept in pt's life. Pt identified what is hard to accept in their life that they would like to work on is the strain in her relationship with her middle daughter. Group identified strategies to increase acceptance and pt wants to practice utilizing dialectics and self-reflection to increase acceptance. Pt appeared to benefit from gaining insight and learning strategies to increase acceptance. Pt will continue IOP tx to prevent decompensation, promote skill application, improve mood stability. Narrative Note: []
--- NOTE | 2024-01-13 11:19 | BH.COMM ---
Communication Note Communication with Client Communication Note: Pt scheduled for individual group and individual counseling both today and yesterday; however, both times contacted staff to cancel due to illness. Pt reports otherwise doing well and will plan to attend tx next week.
== END 2024-01-04 23:59 ==
LOC: BHIOP 08:00
PROVIDERS: PCP Internal Medicine; Referring Provider Psychiatry & Neurology Psychiatry; Visit Provider Psychiatry & Neurology Psychiatry
DX: F33.2 Major depressive disorder, recurrent severe without psychotic features (principal); F43.10 Post-traumatic stress disorder, unspecified; F41.1 Generalized anxiety disorder; F60.3 Borderline personality disorder; F12.90 Cannabis use, unspecified, uncomplicated; F10.90 Alcohol use, unspecified, uncomplicated; F14.21 Cocaine dependence, in remission; F15.21 Other stimulant dependence, in remission; Z79.899 Other long term (current) drug therapy
CPT/HCPCS: S9480; 90832; 90834; 90853

== ENCOUNTER 2024-01-05 08:02 | Outpatient (RCR) | payer MEDICARE, MEDICAID, SELFPAY ==
[2024-01-05 00:24] VITALS: BP 136/98; PULSE 76
--- NOTE | 2024-01-05 09:00 | BH.SGPN.GN ---
Behaviors/Verbalizations/Mental Status: [] Eye contact is good. Motor activity is appropriate. Appearance is casual. Speech is Appropriate. Mood is euthymic. Affect is full. Thoughts are linear and logical. No evidence of psychosis. Reviewed daily check in sheet and no reports of suicidal ideations or intent. Client Response/Progress/Benefit: [] Pt was an active participant in group discussions. Attentive. States ? I?m waiting for the down?. According to pt she has been functioning well with manageable anxiety, stress, and depression. ? This is weird?. She is optimistic however based on past experiences she is expecting to decompensate. She is practicing skills such as reframing and challenging beliefs. Also utilize realistic affirmations when she experiences negative automatic thoughts. Progress noted. Benefited from group support, encouragement, and feedback. Will continue in IOP to prevent decompensation, stabilize mood, and improve functioning. Narrative Note: []
--- NOTE | 2024-01-05 10:15 | BH.SGPN.GN ---
Behaviors/Verbalizations/Mental Status: []Eye contact is good. Motor activity is restless. Appearance is casual. Speech is Appropriate. Mood is euthymic. Affect is full. Thoughts are linear and logical. No evidence of psychosis. Client Response/Progress/Benefit: [] Pt was engaged and an active participant throughout, providing input and taking notes. Participated throughout interactive discussion on defining anxiety and identifying cognitive and physiological symptoms of anxiety. Group discussed the role of anxiety on isolation, avoidance, and who this emotion impacts their ability to start and complete activities/goals. Pt identified their physical/physiological signs of anxiety (i.e. sweating, heart palpitations, heightened awareness, and dizziness). Pt identified safety behaviors (i,e asking for reassurance, wanting to escape, and lashing out.) Benefited from increased awareness and insight on anxiety and its impact. Will continue in IOP to further increase use of healthy coping skills, promote mood stability, and improve daily functioning. ? Narrative Note: []
--- NOTE | 2024-01-05 11:15 | BH.SGPN.GN ---
Behaviors/Verbalizations/Mental Status: [] Pt alert and oriented, casually dressed and groomed. Eye contact good. Motor activity appropriate. Speech within normal limits. Affect congruent, mood euthymic. Thoughts linear, logical, no signs of hallucinations or delusions. Client Response/Progress/Benefit: [] Pt was an active participant AEB pt providing input and listening attentively to peers. Attentive during psychoeducation on mindfulness coping skills and their impact on reducing anxiety and improving overall mental health wellness. Group was able to identify self-soothing and mind-based coping skills which included: 5-senses, meditation, deep breathing, TIPP, thought challenging, and progressive muscle relaxation. Pt also participated with peers in practicing mindfulness skills in session including deep breathing. Pt would like to work on using her weighted blanket to manage anxiety. Appeared to benefit from increasing repertoire of anxiety reduction skills. Pt will continue in IOP tx to promote mood stability, increase use of healthy coping skills, and improve self-compassion. Narrative Note: []
--- NOTE | 2024-01-07 14:35 | BH.COMM ---
Communication Note Communication with Client Communication Note: Pt scheduled for IOP group and individual sessions on this date. However called to cancel due to scheduling conflict. Reports she has been following through with goals from previous session and is doing well. Luis follow-up next week.
--- NOTE | 2024-01-11 09:00 | BH.SGPN.GN ---
Behaviors/Verbalizations/Mental Status: []Pt alert and oriented, neatly dressed and groomed. Eye contact good. Motor activity appropriate. Speech within normal limits. Affect congruent, mood proud and hurt. Thoughts linear, logical, no signs of hallucinations or delusions. Reviewed pt?s symptom tracker, no risk for suicidal ideation, plan, or intent 01/11/24. Client Response/Progress/Benefit: []Pt was an active participant in group discussions. Attentive. Able to identify mental health wins including setting a boundary with her children in a healthier way than she would have in the past and going to her weekend trip and enjoying herself. Pt shared in the past the stressor she had with her daughters would have led to pt lashing out and isolating. Pt's stressor today was being rejected and hurt by her daughters, so pt feels both angry and proud. Pt receptive to feedback from peers which pt reported was helpful. Progress noted. Benefited from group support, encouragement, and feedback. Will continue in IOP to prevent decompensation, improve daily functioning, and increase distress tolerance. Narrative Note: []
--- NOTE | 2024-01-11 10:15 | BH.SGPN.GN ---
Behaviors/Verbalizations/Mental Status: []Pt alert and oriented, casually dressed and groomed. Eye contact good. Motor activity appropriate. Speech within normal limits. Affect congruent, mood engaged. Thoughts linear, logical, no signs of hallucinations or delusions. Client Response/Progress/Benefit: [] Pt was attentive during psychoeducation and participated in group activity. Group discussed what contributes to a person?s perspective and how perspective can positively or negatively impact mental health treatment. Pt reflected on their perspective today and how it is impacting them. Pt shared their perspective today is being mostly positive as pt shared she can see her growth and progress. Pt also recognizes her worth now which keeps pt motivated to set boundaries. ?Pt appeared to benefit from increasing awareness of different perspectives and how they can affect mental health. Pt will continue IOP tx to promote mood stability, increase distress tolerance skills, and improve daily functioning. ?? Narrative Note: []
--- NOTE | 2024-01-11 11:10 | BH.SGPN.GN ---
Behaviors/Verbalizations/Mental Status: []Pt alert and oriented, casually dressed and groomed. Eye contact good. Motor activity appropriate. Speech within normal limits. Affect congruent, mood content. Thoughts linear, logical, no signs of hallucinations or delusions. Client Response/Progress/Benefit: []Pt was attentive and contributed to group discussion. Pt worked with group to identify strategies that can help with challenging negative perspective. Pt stated she can remind herself that things take time as a way to challenge negative perspective. Pt completed strengths exploration worksheet, identifying her personal strengths. Pt able to acknowledge how these strengths are helping pt and can continue to help pt in mental health journey. Pt identified wanting to work on leaning on strength of wisdom and reminding herself to focus on what's within her control. Benefited from identifying personal strengths and strategies for enhancing use of identified strengths. Pt will continue IOP tx to continue practicing distress tolerance skills, challenge negative thoughts, and prevent decompensation.
--- NOTE | 2024-01-11 11:12 | BH.SGPN.GN ---
Behaviors/Verbalizations/Mental Status: [] Client alert and oriented, casually dressed and groomed. Eye contact good. Motor activity appropriate. Speech within normal limits. Affect congruent, mood euthymic. Thoughts linear, logical, no signs of hallucinations or delusions. Client Response/Progress/Benefit: []Client responded well to session, attentive and participated throughout. Did well to process activity and work with group to relate the strategies used to overcome barriers in the activity to managing change in own life. Client identified a change would like to make with goal to support change. Appeared to benefit from identifying a small goal to work towards. Client will continue IOP tx to prevent decompensation, gain healthy coping skills, and improve daily functioning. Narrative Note: []
--- NOTE | 2024-01-18 09:00 | BH.SGPN.GN ---
Behaviors/Verbalizations/Mental Status: [] Eye contact is good. Motor activity is appropriate. Appearance is casual. Speech is Appropriate. Mood is euthymic. Affect is full. Thoughts are linear and logical. No evidence of psychosis. Reviewed daily check in sheet and no reports of suicidal ideations or intent. Client Response/Progress/Benefit: [] Pt was an active participant in group discussions. Attentive. ? My anxiety is still low?. Emotion for today is ?content?. She discussed her progress in IOP and shared that she is set to discharge tomorrow. Nervous that she will decompensate after discharge without structure and support of IOP. Briefly discussed her aftercare plans. Daily symptom tracker notes 2/5 for depression and 1/5 for anxiety. Progress noted. Benefited from group support, encouragement, and feedback. Will continue in IOP to maintain gains. Narrative Note: []
--- NOTE | 2024-01-18 10:10 | BH.SGPN.GN ---
Behaviors/Verbalizations/Mental Status: [] Client alert and oriented, casually dressed and groomed. Eye contact good. Motor activity appropriate. Speech within normal limits. Affect congruent, mood euthymic. Thoughts linear, logical, no signs of hallucinations or delusions. Client Response/Progress/Benefit: [] Client responded well to session, contributing to discussion and engaged during the activity. Group identified the benefits of change which included: better mental health, increased confidence, and improved relationships. Worked with the group to identify barriers to change, which included: uncomfortable emotions such as anxiety, lack of motivation,fear of failure, disappointing others, and loss of momentum. Client indicated that fear of failure has been an obstacle for her in making change. Client participated along with group in activity where they identified and discussed the emotions related to change.. Benefited from increased awareness and understanding of emotions, benefits, and barriers related to change. Will continue IOP tx to continue to increase emotional regulation skills and increase overall functioning. Narrative Note: []
--- NOTE | 2024-01-18 11:00 | BH.MDN_ITS ---
Multi-Disciplinary Note Note 45-min Individual: Time Started:: 08:35 Date: 01/18/24 Purpose of session/treatment goals addressed:: Purpose of session is to address treatment plan goal #1 obj #1. Eye Contact:: Good Motor Activity:: Appropriate Appearance:: Neat and Casual Speech:: Appropriate Mood:: Euthymic Affect:: Congruent Thoughts:: Linear, Logical and No evidence of hallucinations/delusions noted Staff Interventions:: motivational interviewing, CBT techniques, discharge planning, strengths perspective and other (began creating maintenance plan) Client Response:: Pt receptive of session, engaged throughout. Pt reports she has successfully completed her goals from previous session to get back into more consistent self-care practices and follow-through with social plans to go camping. Reports she has been able to keep up with self-care consistently over the past two weeks which is contributing to maintaining improved mood. Described the camping trip as going well and stated that she was able to prove to her anxious brain that she was not going to embarrass herself or do something to upset the group. Reports that she was invited to hangout with them again which was reassuring as well. Pt went on to discuss plans to consistently do something social, especially as the seasons begin to change and it get colder outside, explaining that she often isolates during winter months. Went on to share recently establishing a boundary with her daughters following several hurtful texts she received from them. Pt explained that she told her daughters she needs to focus on her mental health and that she loves them, but needs to take some space for herself for a while. Shared doing well to remind herself that boundaries don?t make her heartless or a bad mother. Pt has been doing well to maintain these as well and not feed into attempts at testing pt?s boundaries, noting reminding herself ?I don?t want to engage in any games and I need to focus on me?. Biggest current stressor is planning for how she will maintain gains and mood stability during the winter months. Receptive of discussing several skills that will be important to prevent isolative behaviors. Plans to schedule weekly playdates with her grandkids, reach out more consistently to social supports, and continue to attend [employer] on a regular basis. Risks/Concerns:: None noted. Pt denies SI, plan, or intent as of this date 01/18/24 Progress Toward Goals/Plan:: Progress noted. Pt reports following through with goals to use opposite action and attend plans to go on a girls camping trip. Reports plans to do more regular social activities as a result of the trip going well. Discussed improved communication within her interpersonal relationships which has aided in reducing stress and improving self-confidence. Describes increased consistency in self-care activities and improved mood stability as well. Pt did note stress associated with maintaining gains and preventing decompensation. Recommended continued IOP tx to maintain mood stability, complete d/c planning, and prevent decompensation. Time Stopped:: 09:11
--- NOTE | 2024-01-20 09:05 | BH.SGPN.GN ---
Behaviors/Verbalizations/Mental Status: [] ?Pt alert and oriented, casually dressed and groomed. Eye contact good. Motor activity appropriate. Speech within normal limits. Affect congruent, mood content. Thoughts linear, logical, no signs of hallucinations or delusions. Reviewed pt?s symptom tracker, no risk for suicidal ideation, plan, or intent 01/20/24 Client Response/Progress/Benefit: []Pt receptive of session, engaged throughout and appearing to benefit from group support and encouragement. Identified current mental health wins as getting through the IOP program successfully, as today is pt's last day. Spent time reflecting on wins and areas of progress since admission. Additional win noted as following through with maintaining healthier boundaries with her daughter which is an ongoing stressor. Reflected on several skills to utilize in order to maintain gains following d/c. Benefited from group supportive feedback, encouragement, and support. Recommended continued outpatient tx to prevent decompensation, improve mood stability, and promote skill application. Narrative Note: []
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
--- NOTE | 2024-01-20 10:15 | BH.SGPN.GN ---
Behaviors/Verbalizations/Mental Status: []Pt alert and oriented, casually dressed and groomed. Eye contact good. Motor activity appropriate. Speech within normal limits. Affect constricted, mood euthymic. Thoughts linear, logical, no signs of hallucinations or delusions. Client Response/Progress/Benefit: []Pt participated in group discussion. Group worked together to identify benefits of healthy relationships which included encouragement, motivation, longer lifespan, connectedness and trust. Group identified factors that lead to unhealthy relationships which included low self-esteem, trauma, use of unhealthy skills, parent's negative relationship growing up, and co-dependence. Pt reports she has entered unhealthy relationships because of her own negative view of self and because of her upbringing being so toxic. Benefited from increased insight and awareness of benefits of healthy relationships and factors that contribute to unhealthy relationships. Will discharge from IOP tx today as pt has accomplished her tx goals and no longer meets criteria for IOP level of care. Narrative Note: []
--- NOTE | 2024-01-20 11:15 | BH.SGPN.GN ---
Behaviors/Verbalizations/Mental Status: [] Pt alert and oriented, casually dressed and groomed. Eye contact good. Motor activity appropriate. Speech within normal limits. Affect full, mood euthymic, Thoughts linear, logical, no signs of hallucinations or delusions. Client Response/Progress/Benefit: [] Client responded well to session, engaged and taking notes throughout. Worked with group to connect components of the experiential activity with characteristics of healthy and unhealthy relationships. Attentive during psychoeducation about characteristics of healthy, unhealthy, and abusive relationships. Client reported she would like to continue to improve with trust and open communication in relationship. Appeared to benefit from identifying current healthy relationship attributes and an area client wants to work on to build healthier relationships. Client to continue IOP to improve mood stability, increase healthy coping skills, and prevent decompensation.
--- NOTE | 2024-01-20 11:25 | PCM.BH.PN ---
Progress Note Progress Note: History of Present Illness/Interim History: The patient is a 48-year-old female with a history of erratic moods, PTSD, methamphetamine abuse in full remission for 2 years and borderline personality disorder who is seen in follow-up at the [facility] behavioral health IOP. I last saw the patient 3 weeks ago and at that time Cymbalta was added as the patient was gaining weight on Remeron and wanted to eventually wean off of it. The patient has been tolerating the Cymbalta well and states that her anxiety is almost completely gone and her mood is overall better also and much less depressed. She denies passive thoughts of , suicidal ideation, plan for suicide, homicidal ideation, hallucinations or delusions. Her sleep has improved to 8 hours a night on the Remeron but she has gained a lot of weight and wishes to wean. She is not having anger outburst and feels more productive still. No alcohol use since 5 weeks ago. She complains of severe skin picking which she is trying to avoid but wishes some medication for this. She has not had any panic attacks in several weeks. Current Psychiatric Medications: [] Remeron 45 mg p.o. nightly (from outpatient provider); Klonopin 1 mg p.o. as needed up to once a day; Cymbalta 30 mg p.o. daily (x 3 weeks); Wellbutrin discontinued over a month ago for increased irritability and suicidal ideation. Mental Status Examination: [] The patient is a 48-year-old female who has some clark of skin picking on her face visible through her make-up but appears otherwise normal for stated age and is casually dressed and groomed with good hygiene. She has no psychomotor agitation or retardation and is ambulatory with a normal gait. Eye contact is good and speech is normal rate and rhythm and fluent with no pressure. Mood is mildly depressed. Affect is full and normal. Thought process is goal-directed and organized. Thought content: The patient feels she is benefiting from the program and plans to discharge today and then follow-up doing the aftercare program. Reality testing is intact. Judgment is intact. Impulsivity is moderate. Insight is limited but some present. Diagnoses: [] 1. Major depressive disorder, recurrent, mild to moderate 2. PTSD 3. Generalized anxiety disorder 4. Borderline personality disorder 5. Cannabis use disorder 6. Alcohol use disorder (sober x 5 weeks) 7. Cocaine and methamphetamine use disorder (sober x 2 years) 8. Primary support issues Plan: [] The patient will be discharged from the behavioral health [facility] at [facility] as her condition has improved. She felt safe during the interview and if it anytime she does not feel safe she agrees to let us know or go to the emergency room. The risk, options, possible complications and side effects especially of the weaning and changing of medication were discussed with the patient again and she understands and accepts these. The patient agrees to decrease her Remeron to 30 mg p.o. at bedtime for 1 week and then decrease to 15 mg p.o. at bedtime for 1 week and then discontinue it. She agrees to increase her Cymbalta to 60 mg p.o. daily in 1 week. She will also start memantine 10 mg p.o. twice daily to help with her skin picking but she will started out only once a day for the first week or 2 and then increase to twice daily. She will continue to follow-up with her outpatient providers and to do the aftercare program when she is discharged from the [facility] today.
== END 2024-01-20 14:38 | disposition home or self-care (01) ==
LOC: BHIOP 08:02
PROVIDERS: PCP Internal Medicine; Referring Provider Psychiatry & Neurology Psychiatry; Visit Provider Psychiatry & Neurology Psychiatry
DX: F33.1 Major depressive disorder, recurrent, moderate (principal); F43.10 Post-traumatic stress disorder, unspecified; F41.1 Generalized anxiety disorder; F60.3 Borderline personality disorder; F10.90 Alcohol use, unspecified, uncomplicated; F12.90 Cannabis use, unspecified, uncomplicated; F14.90 Cocaine use, unspecified, uncomplicated; Z79.899 Other long term (current) drug therapy
CPT/HCPCS: S9480; 90834; 90853

== ENCOUNTER 2024-04-14 16:48 | Emergency (ER) | payer MEDICARE, MEDICAID, SELFPAY ==
[2024-04-14] VITALS (11 sets, daily range): BP systolic 101–136; BP diastolic 54–98; PULSE 52–93; RESP 11–18; TEMP 36.7–36.9; O2SAT 96–100; BMI 27.4
--- NOTE | 2024-04-14 16:59 | EKG12_ITS ---
Test Reason : CP Blood Pressure : */* mmHG Vent. Rate : 64 BPM Atrial Rate : 64 BPM P-R Int : 172 ms QRS Dur : 86 ms QT Int : 398 ms P-R-T Axes : 67 80 58 degrees QTcB Int : 410 ms Normal sinus rhythm Cannot rule out Septal infarct , age undetermined Abnormal ECG Confirmed by Hammad Kruger ([id number]), commissioning editor MATHEW LIMA ([id number]) on 04/15/2024 9:38:27 AM Referred By: Joe Oscar Confirmed By: Hammad Kruger
--- NOTE | 2024-04-14 17:02 | EDS_ITS ---
HPI <JUAN Clancy - Last Filed: 04/14/24 20:17> History of Present Illness Chief Complaint: Chest Pain Narrative Narrative: 49-year-old female with past medical history of hypothyroidism, anxiety/depression, tobacco use presents with chest pain. Yesterday she developed pain between her shoulder blades and today around 4 PM she was shopping and developed sharp midsternal chest pain radiating to the left shoulder. She also still has the pain in her back. She denies shortness of breath, nausea or vomiting, or abdominal pain. She states she has had chronic congestion and sneezing since . She initially had a cough but this is less than. Prior to that she was smoking 1 pack/day but now she is around 4 cigarettes a day. She denies asthma or COPD. No history of CAD or DVT/PE or recent risk factors. [facility] <JUAN Clancy - Last Filed: 04/14/24 20:17> [facility] Medical History (Updated 04/14/24 @ 21:[address] Joe Oscar MD) Cannabis use disorder Major depressive disorder, recurrent severe without psychotic features Alcohol use disorder Borderline personality disorder Methamphetamine use disorder, mild, in sustained remission Cocaine use disorder, mild, in sustained remission Cannabis use disorder, mild, abuse PTSD (post-traumatic stress disorder) Generalized anxiety disorder Bipolar 1 disorder Irritable bowel syndrome Right kidney stone Depression Hypothyroidism Home Medications ?Medication ?Instructions ?Recorded ?Last Taken ?Type levothyroxine 112 mcg tablet 112 mcg PO DAILY thyroid 09/13/19 12/24/19 History clonazepam 0.5 mg tablet 0.5 mg PO BID PRN anxiety #10 tabs 10/28/22 Unknown Rx duloxetine 60 mg capsule,delayed 60 mg PO DAILY 30 days #30 caps 01/20/24 Unknown Rx release (Cymbalta) duloxetine 60 mg capsule,delayed 60 mg PO DAILY 30 days #30 caps 01/20/24 Unknown Rx release (Cymbalta) memantine 10 mg tablet 10 mg PO BID 60 days #120 tabs 01/20/24 Unknown Rx mirtazapine 15 mg tablet (Remeron) 15 mg PO QHS 14 days #14 tabs 01/20/24 Unknown Rx Allergy/AdvReac Type Severity Reaction Status Date / Time fentanyl Allergy Anaphylaxis Verified 04/14/24 16:49 ketorolac tromethamine (From AdvReac Other Verified 04/14/24 16:49 Toradol) Family History Other Alcoholism Anxiety Arthritis Cancer Depression Mental disorder Psychiatric care Surgical History History of nephrectomy, right H/O: hysterectomy Social History household members: family Smoking Status: Current every day smoker tobacco type: cigarettes alcohol intake: never substance use type: marijuana ROS <JUAN Clancy - Last Filed: 04/14/24 20:17> ROS ED ROS Narrative Constitutional: Negative for fever, chills, malaise. CVS: Positive for chest pain. Negative for palpitations, syncope. Respiratory: Negative for shortness of breath, cough, orthopnea. GI: Negative for abdominal pain, nausea, vomiting. EXAM <JUAN Clancy - Last Filed: 04/14/24 20:17> Physical Exam Narrative Exam Narrative: CONST: Patient sitting in no acute distress. EYES: Normal inspection. NECK: Normal inspection. RESP: No respiratory distress, CTAB. CVS: Regular rate and rhythm, no murmur, no gallop. ABD: Soft and nontender, no guarding or rebound, nondistended. Back: Normal inspection, no CVA tenderness. SKIN: Color normal, no rash, warm, dry, intact. EXTREMITIES: Normal appearance, no pedal edema. NEURO: Alert and answering questions appropriately. PSYCH: Normal affect. Const Vital Signs: 04/14/24 16:48 04/14/24 16:57 04/14/24 17:11 Temperature 98.4 F Temperature Source Oral Pulse Rate 93 Respiratory Rate 16 13 Respiratory Effort Normal Non-Labored Blood Pressure 136/93 H Blood Pressure Mean 107 Pulse Ox 99 99 Oxygen Delivery Method Room Air 04/14/24 17:15 04/14/24 17:15 04/14/24 17:30 Temperature Temperature Source Pulse Rate 68 69 Respiratory Rate 11 L 14 Respiratory Effort Blood Pressure 112/89 H 112/89 H 121/82 H Blood Pressure Mean 98 98 94 Pulse Ox 98 96 Oxygen Delivery Method 04/14/24 17:45 04/14/24 17:48 04/14/24 18:00 Temperature Temperature Source Pulse Rate 65 67 67 Respiratory Rate 11 L 18 13 Respiratory Effort Blood Pressure 124/93 H 124/93 H 123/98 H Blood Pressure Mean 103 103 107 Pulse Ox 97 96 98 Oxygen Delivery Method 04/14/24 18:15 04/14/24 18:45 04/14/24 19:00 Temperature Temperature Source Pulse Rate 61 59 L 52 L Respiratory Rate 17 15 16 Respiratory Effort Blood Pressure 122/81 H 101/83 H Blood Pressure Mean 95 91 Pulse Ox 97 99 100 Oxygen Delivery Method 04/14/24 20:09 Temperature 98.1 F Temperature Source Pulse Rate 55 L Respiratory Rate 18 Respiratory Effort Blood Pressure 107/54 L Blood Pressure Mean 71 Pulse Ox 99 Oxygen Delivery Method <Dr. Joe Oscar MD - Last Filed: 04/14/24 21:14> Physical Exam Const Vital Signs: 04/14/24 16:48 04/14/24 16:57 04/14/24 17:11 Temperature 98.4 F Temperature Source Oral Pulse Rate 93 Respiratory Rate 16 13 Respiratory Effort Normal Non-Labored Blood Pressure 136/93 H Blood Pressure Mean 107 Pulse Ox 99 99 Oxygen Delivery Method Room Air 04/14/24 17:15 04/14/24 17:15 04/14/24 17:30 Temperature Temperature Source Pulse Rate 68 69 Respiratory Rate 11 L 14 Respiratory Effort Blood Pressure 112/89 H 112/89 H 121/82 H Blood Pressure Mean 98 98 94 Pulse Ox 98 96 Oxygen Delivery Method 04/14/24 17:45 04/14/24 17:48 04/14/24 18:00 Temperature Temperature Source Pulse Rate 65 67 67 Respiratory Rate 11 L 18 13 Respiratory Effort Blood Pressure 124/93 H 124/93 H 123/98 H Blood Pressure Mean 103 103 107 Pulse Ox 97 96 98 Oxygen Delivery Method 04/14/24 18:15 04/14/24 18:45 04/14/24 19:00 Temperature Temperature Source Pulse Rate 61 59 L 52 L Respiratory Rate 17 15 16 Respiratory Effort Blood Pressure 122/81 H 101/83 H Blood Pressure Mean 95 91 Pulse Ox 97 99 100 Oxygen Delivery Method 04/14/24 20:09 Temperature 98.1 F Temperature Source Pulse Rate 55 L Respiratory Rate 18 Respiratory Effort Blood Pressure 107/54 L Blood Pressure Mean 71 Pulse Ox 99 Oxygen Delivery Method MDM <JUAN Clancy - Last Filed: 04/14/24 20:17> MDM MDM Narrative Medical decision making narrative: Differential includes but not limited to ACS, GERD, considered PE but she is PERC negative 49-year-old female was evaluated for chest pain. She has also had discomfort between her shoulder blades. She has no dyspnea, nausea or vomiting, abdominal pain. Her only cardiac risk factor is smoking. She appears well and nontoxic and is hemodynamically stable. Her exam is benign. She has symmetric upper and lower extremity pulses. CBC, CMP are unremarkable. EKG is nonischemic and troponin x 2 normal. CXR negative. After initial treatment with IV morphine and Zofran she had recurrent pain and was given Pepcid and Zofran with improvement. She states she had recently been having some reflux/vomiting overnight and was diagnosed with GERD by her primary care doctor. She was prescribed Pepcid as needed but has not really been taking it. I recommended she take it daily and discussed dietary changes. At this time I do not suspect dissection as pain is not ripping or tearing, she is not hypertensive, she appears in no distress, and she has symmetric upper and lower extremity pulses. I suspect GERD is the more likely cause. She was counseled to follow-up with her primary care doctor and discharged in stable condition. Lab Data Labs: Laboratory Results - last 24 hr 04/14/24 04/14/24 17:10 19:25 WBC 8.9 RBC 5.09 Hgb 14.7 Hct 45.6 MCV 89.6 MCH 28.9 MCHC 32.2 RDW Std Deviation 45.9 H RDW Coeff of Doyle 14.0 Plt Count 245 MPV 10.3 Immature Gran % (Auto) 0.300 Neut % (Auto) 65.9 Lymph % (Auto) 22.2 Kenedy % (Auto) 10.3 H Eos % (Auto) 0.9 Baso % (Auto) 0.4 Absolute Neuts (auto) 5.9 Absolute Lymphs (auto) 1.98 Nucleated RBC % 0 Sodium 137 Potassium 3.8 Chloride 104 Carbon Dioxide 25.0 Anion Gap 8 BUN 20 H Creatinine 1.06 H Estim Creat Clear Calc 75.28 Est GFR (MDRD) Af Amer 71 Est GFR (MDRD) Non-Af 59 L BUN/Creatinine Ratio 18.9 Glucose 96 Calcium 9.3 Total Bilirubin 0.40 AST 17 ALT 20 Alkaline Phosphatase 93 Troponin I High Sens 5 4 Total Protein 7.3 Albumin 3.9 Globulin 3.4 Albumin/Globulin Ratio 1.1 Radiography Diagnostic Testing: Clinical Impression(s) from Imaging Studies Chest X-Ray 04/14/24 17:15 IMPRESSION: No radiographic evidence of acute cardiopulmonary disease. Electronically Signed: Moises Reed MD at 18:00 EST , ED attending interpretation of 2-view chest x-ray shows normal heart size, no acute infiltrate, edema, or effusion. EKG Initial EKG: Attestation: I personally reviewed and interpreted this EKG as follows: Interpretation: Sinus Rhythm and No Acute Injury Pattern Comments: Normal sinus rhythm at 64 bpm Normal intervals, no acute ischemic changes <Dr. Joe Oscar MD - Last Filed: 04/14/24 21:14> [facility] Lab Data Attestation: I reviewed the patient's lab results. Lab results narrative: CBC is unremarkable. Labs: Laboratory Results - last 24 hr 04/14/24 04/14/24 17:10 19:25 WBC 8.9 RBC 5.09 Hgb 14.7 Hct 45.6 MCV 89.6 MCH 28.9 MCHC 32.2 RDW Std Deviation 45.9 H RDW Coeff of Doyle 14.0 Plt Count 245 MPV 10.3 Immature Gran % (Auto) 0.300 Neut % (Auto) 65.9 Lymph % (Auto) 22.2 Kenedy % (Auto) 10.3 H Eos % (Auto) 0.9 Baso % (Auto) 0.4 Absolute Neuts (auto) 5.9 Absolute Lymphs (auto) 1.98 Nucleated RBC % 0 Sodium 137 Potassium 3.8 Chloride 104 Carbon Dioxide 25.0 Anion Gap 8 BUN 20 H Creatinine 1.06 H Estim Creat Clear Calc 75.28 Est GFR (MDRD) Af Amer 71 Est GFR (MDRD) Non-Af 59 L BUN/Creatinine Ratio 18.9 Glucose 96 Calcium 9.3 Total Bilirubin 0.40 AST 17 ALT 20 Alkaline Phosphatase 93 Troponin I High Sens 5 4 Total Protein 7.3 Albumin 3.9 Globulin 3.4 Albumin/Globulin Ratio 1.1 Radiography Chest X-Ray - ED: 2 View, Read by ED Physician (Interpreted by me and [id number]), Normal, Heart, Lungs, Mediastinum, Bony Structures and No Acute Disease Diagnostic Testing: Clinical Impression(s) from Imaging Studies Chest X-Ray 04/14/24 17:15 IMPRESSION: No radiographic evidence of acute cardiopulmonary disease. Electronically Signed: Moises Reed MD at 18:00 EST Reading Location ID and State: [facility] / [place] Tel , Service support , Discharge Plan Triage Chief Complaint: Chest Pain ED Midlevel Provider: Lesa Wallace ED Provider: Joe Oscar Dx/Rx/DC Orders Clinical Impression: Atypical chest pain, Bipolar 1 disorder, Hypothyroid, History of gastroesophageal reflux (GERD) Instructions: ED Chest Pain, Noncardiac Prescriptions: No Action levothyroxine 112 MCG tablet 112 mcg PO DAILY clonazepam 0.5 mg tablet 0.5 mg PO BID PRN (Reason: anxiety) Qty: 10 0RF duloxetine [Cymbalta] 60 mg capsule,delayed release(DR/EC) 60 mg PO DAILY 30 Days Qty: 30 1RF memantine 10 mg tablet 10 mg PO BID 60 Days Qty: 120 1RF Rx Instructions: 1 po daily for one week, then increase to bid. duloxetine [Cymbalta] 60 mg capsule,delayed release(DR/EC) 60 mg PO DAILY 30 Days Qty: 30 1RF mirtazapine [Remeron] 15 mg tablet 15 mg PO QHS 14 Days Qty: 14 0RF Rx Instructions: 2 (30mg) at hs x one week, then decrease to one or 15 mg po q hs x 1 week and then discontinue. Primary Care Provider: Cesar Centeno Referrals: Cesar Centeno MD [Primary Care Provider] - Activity Restrictions/Additional Instructions: Your testing today is normal. The cause of your pain is not clear but I do not think it is cardiac related. You could try [id number] Pepcid or Prilosec. Follow-up with your primary care doctor. Return if symptoms worsen. Print Language: Setswana Disposition Disposition: Home, Self Care Discharge Date/Time: 04/14/24 20:15
--- NOTE | 2024-04-14 17:15 | RAD_ITS ---
INDICATION: chest pain EXAMINATION/TECHNIQUE: X-RAY - XR Chest 2 Views COMPARISON: 12/25/2022 FINDINGS: LINES/DEVICES: None. LUNGS: No consolidation, edema or effusion. No pneumothorax. MEDIASTINUM AND CARDIOVASCULAR STRUCTURES: Cardiac silhouette not enlarged. Central airways and mediastinal contour are unremarkable. BONES AND SOFT TISSUES: Unremarkable. RAD/Chest PA and Lateral IMPRESSION: No radiographic evidence of acute cardiopulmonary disease. Electronically Signed: Moises Reed MD at 18:00 EST ,
[2024-04-14 17:17] LABS: Absolute Lymphocyte Count 1.98 X10^3/uL (0.83-4.51); Absolute Neutrophil Count 5.9 X10^3/uL (2.0-7.7); Basophil# 0.04 X10^3/uL; Basophil% 0.4 % (0-1); Eosinophil# 0.08 X10^3/uL; Eosinophils% 0.9 % (0-5); Hematocrit 45.6 % (37-47); Hemoglobin 14.7 g/dL (12.0-15.0); Lymphocyte # 1.98 X10^3/ul (0.83-4.51); Lymphocyte % 22.2 % (19-41); Mean Corp Hgb Conc 32.2 g/dL (32-36); Mean Corpuscular Hgb 28.9 pg (27.0-32.0); Mean Corpuscular Volume 89.6 fL (81-99); Mean Platelet Vol. 10.3 fl (6.2-12.0); Monocyte# 0.92 X10^3/uL; Monocyte% 10.3 % (0-10); NRBC Flagged by Analyzer 0 % (0-5); Neutrophil # 5.85 X10^3/uL (2.7-7.7); Neutrophil % 65.9 % (47-70); Platelet Count 245 K/mm3 (150-450); RBC Distribution Width SD 45.9 fl (35.1-43.9); Red Blood Count 5.09 M/mm3 (4.2-5.4); White Blood Count 8.9 K/mm3 (4.4-11.0)
[2024-04-14] MEDS: Ondansetron 4 MG/2 ML Vial IV (17:21)
[2024-04-14] MEDS: Morphine 4 MG/ML Syringe IV (17:22)
[2024-04-14 17:37] LABS: ALB/GLOB Ratio 1.1 RATIO (0.9-2.4); AST(SGOT) 17 U/L (15-37); Alanine Aminotransfer ALT/SGPT 20 U/L (13-56); Albumin, Serum 3.9 g/dL (3.2-5.0); Alkaline Phosphatase 93 U/L (45-117); Anion Gap 8 (5-15); BUN 20 mg/dL (7-18); BUN/Creat Ratio 18.9 RATIO (10-20); Calcium,Total 9.3 mg/dL (8.5-10.1); Chloride 104 mmol/L (98-107); Creatinine, Serum 1.06 mg/dL (0.55-1.02); EST Glomerular Filtration Rate 59 mL/min (>60); Est Glom Filt Rate - Afr Amer 71 mL/min (>60); Estimated Creatinine Clearance 75.28 ml/min; Globulin 3.4 g/dL (2.2-4.2); Glucose 96 mg/dL (74-106); Potassium 3.8 mmol/L (3.5-5.1); Protein, Total 7.3 g/dL (6.4-8.2); Sodium Level 137 mmol/L (136-145); Troponin-I HS 5 pg/mL (3.0-54.0)
[2024-04-14 19:48] LABS: Troponin-I HS 4 pg/mL (3.0-54.0)
[2024-04-14] MEDS: Famotidine 20 MG Tablet PO (19:59)
[2024-04-14] MEDS: Ondansetron ODT 4 MG Tablet PO (19:59)
== END 2024-04-14 20:15 | disposition home or self-care (01) ==
PROVIDERS: Physician Assistant; Emergency Provider Emergency Medicine; PCP Internal Medicine; Referring Provider Emergency Medicine; Visit Provider Emergency Medicine
DX: R07.89 Other chest pain (principal); F60.3 Borderline personality disorder; F31.9 Bipolar disorder, unspecified; F41.1 Generalized anxiety disorder; M54.9 Dorsalgia, unspecified; E03.9 Hypothyroidism, unspecified; F17.210 Nicotine dependence, cigarettes, uncomplicated; Z79.890 Hormone replacement therapy; Z79.899 Other long term (current) drug therapy; Z90.5 Acquired absence of kidney
CPT/HCPCS: 71046; 80053; 84484; 85025; 93005; 96374; 96375; 99285; A4216; J2405

== ENCOUNTER 2024-06-26 10:34 | Emergency (ER) | payer MEDICARE, MEDICAID, SELFPAY ==
[2024-06-26 10:35] VITALS: BP 105/76; PULSE 82; RESP 16; TEMP 36.6; O2SAT 99; BMI 26.6
--- NOTE | 2024-06-26 10:48 | EX.ED.DYSGE1 ---
HPI History of Present Illness Chief Complaint: Other, Pain/Inj Detail of Chief Complaint: Right-sided paracervical and trapezius pain Informant: patient Onset/Context/Timing Onset: Days Context: Sudden Onset Timing: Continuous Quality: Pain Location: Right trapezius and paracervical Current Severity: Mild Maximum Severity: Severe Worsened by: Movement Relieved by: Nothing Associated Symptoms Associated Symptoms: Tingling all fingers and lateral right arm Narrative Narrative: Patient is a 49-year-old woman. She has history of PTSD, type I bipolar depressive disorder, generalized anxiety, abdominal pain, hypothyroidism, renal calculi, irritable bowel syndrome who presents with right-sided neck and shoulder pain. She complains of numbness in all her fingers and lateral right arm. She denies direct or indirect trauma. She denies cardiac or respiratory symptoms. She denies fever, chills night sweats. Movement exacerbates her pain. Nothing alleviates her pain. She was seen by nurse practitioner covering for Dr. Centeno. She was prescribed Flexeril and prednisone. She reports no improvement. Patient states she has had CAT scan here. Review of diagnostic radiologic images dating back to 2013 reveals that she had cervical spine x-ray September 23, 2013. The x-ray at that time revealed straightening of the normal cervical lordosis. This was obtained because of trauma. There is no advanced imaging available for review. Prior similar symptoms: Yes Recent Illness/Hospitalization: Yes [facility] Medical History Cannabis use disorder Major depressive disorder, recurrent severe without psychotic features Alcohol use disorder Borderline personality disorder Methamphetamine use disorder, mild, in sustained remission Cocaine use disorder, mild, in sustained remission Cannabis use disorder, mild, abuse PTSD (post-traumatic stress disorder) Generalized anxiety disorder Bipolar 1 disorder Irritable bowel syndrome Right kidney stone Depression Hypothyroidism Home Medications ?Medication ?Instructions ?Recorded ?Last Taken ?Type levothyroxine 112 mcg tablet 112 mcg PO DAILY thyroid 09/13/19 12/24/19 History clonazepam 0.5 mg tablet 0.5 mg PO BID PRN anxiety #10 tabs 10/28/22 Unknown Rx duloxetine 60 mg capsule,delayed 60 mg PO DAILY 30 days #30 caps 01/20/24 Unknown Rx release (Cymbalta) duloxetine 60 mg capsule,delayed 60 mg PO DAILY 30 days #30 caps 01/20/24 Unknown Rx release (Cymbalta) memantine 10 mg tablet 10 mg PO BID 60 days #120 tabs 01/20/24 Unknown Rx mirtazapine 15 mg tablet (Remeron) 15 mg PO QHS 14 days #14 tabs 01/20/24 Unknown Rx hydrocodone-acetaminophen 5-325mg 1 tab PO Q6H PRN PRN Pain 2 days 06/26/24 Unknown Rx 5mg-325mg #8 TABLETS naproxen 500 mg tablet 500 mg PO BID #14 tabs 06/26/24 Unknown Rx Allergy/AdvReac Type Severity Reaction Status Date / Time fentanyl Allergy Anaphylaxis Verified 06/26/24 10:38 ketorolac tromethamine (From AdvReac Other Verified 06/26/24 10:38 Toradol) Family History Other Alcoholism Anxiety Arthritis Cancer Depression Mental disorder Psychiatric care Surgical History History of nephrectomy, right H/O: hysterectomy Social History household members: family Smoking Status: Heavy Smoker (>10/day) alcohol intake: never substance use type: marijuana ROS ROS ED Constitutional Constitutional ED: Denies chills, fever(s), subjective, sweats or weight loss ENT ENT ED: Denies rhinorrhea or sore throat Cardiovascular Cardiovascular: Denies chest pain, palpitations or racing heartbeat Respiratory/Chest Respiratory/Chest: Denies cough, dyspnea or dyspnea on exertion Gastrointestinal Gastrointestinal: Denies nausea or vomiting Integumentary Denies rash Neurologic Neurologic: Reports paresthesias RUE; Denies weakness Hematologic/Lymphatic Hematologic/Lymphatic: Reports systems reviewed and no addt'l complaints, except as documented EXAM Physical Exam Const Vital Signs: 06/26/24 10:35 06/26/24 11:08 Temperature 97.9 F Temperature Source Temporal Pulse Rate 82 Respiratory Rate 16 Respiratory Effort Normal Blood Pressure 105/76 Blood Pressure Mean 85 Pulse Ox 99 Oxygen Delivery Method Room Air Positive well nourished and well developed Constitutional Narrative: Patient appears uncomfortable. Her vital signs are unremarkable. General Appearance ED: well developed; Negative for cyanotic, diaphoretic, NAD or pallor HEENT Reports moist mucous membranes HEENT Narrative: Head is atraumatic, cephalic. Ears normal. Nares patent. Eyes PERRL and EOMs intact bilaterally General Eye ED: Negative for pale conjunctiva or scleral icterus Neck no lymphadenopathy, supple and no JVD Neck Narrative: Complains of pain on the right side Resp normal respiratory effort and clear to auscultation bilaterally Cardio regular rate, regular rhythm, S1 normal heart sound, S2 normal heart sound and no murmurs Extremity normal to inspection Extremity Narrative: Axillary, median, radial and ulnar function intact. Radial pulses 2+. Bicep, brachialis and tricep reflex are 3+ and symmetric. There is no weakness with grasp. Passive range of motion of the shoulder and elbow elicits no pain. Neuro oriented x3, CN's II-XII intact bilaterally and no sensory deficits noted Sensorium / Orientation: alert Motor Exam: strength 5/5 throughout Psych mental status grossly normal Skin no rashes or lesions noted, no wounds and skin turgor normal General Skin Exam: elasticity normal; Negative for jaundice or pallor MDM MDM MDM Narrative Medical decision making narrative: Patient may have a pinched nerve . Her exam is not consistent with radicular pain. She has no objective findings. Will treat with frontal analgesics and Valium p.o. Will reassess in 30 to 60 minutes. History & Record Review Additional record(s) reviewed:: Prior ED visit (Patient has numerous visits for abdominal pain.) Treatment and Re-Evaluation :: Patient was reassessed at 1300. She is sitting up. She does not appear in discomfort. Plan is to discharge to home with prescription for NSAID and opiate analgesia. Discharge Plan Triage Chief Complaint: Other, Pain/Inj ED Provider: Joe Oscar Dx/Rx/DC Orders Clinical Impression: Cervical myofascial pain syndrome, Bipolar 1 disorder, Generalized anxiety disorder, PTSD (post-traumatic stress disorder), Hypothyroid Instructions: ED Myofascial Pain Syndrome Prescriptions: New hydrocodone-acetaminophen 5-325 mg tablet 1 tab PO Q6H PRN PRN (Reason: Pain) 2 Days Qty: 8 0RF naproxen 500 mg tablet 500 mg PO BID Qty: 14 0RF No Action levothyroxine 112 MCG tablet 112 mcg PO DAILY clonazepam 0.5 mg tablet 0.5 mg PO BID PRN (Reason: anxiety) Qty: 10 0RF duloxetine [Cymbalta] 60 mg capsule,delayed release(DR/EC) 60 mg PO DAILY 30 Days Qty: 30 1RF memantine 10 mg tablet 10 mg PO BID 60 Days Qty: 120 1RF Rx Instructions: 1 po daily for one week, then increase to bid. duloxetine [Cymbalta] 60 mg capsule,delayed release(DR/EC) 60 mg PO DAILY 30 Days Qty: 30 1RF mirtazapine [Remeron] 15 mg tablet 15 mg PO QHS 14 Days Qty: 14 0RF Rx Instructions: 2 (30mg) at hs x one week, then decrease to one or 15 mg po q hs x 1 week and then discontinue. Primary Care Provider: Cesar Centeno Referrals: Cesar Centeno MD [Primary Care Provider] - 3-5 Days if not improving Print Language: Kenyan Disposition Disposition: Home, Self Care
[2024-06-26] MEDS: diazePAM 2 MG Tablet PO (11:03)
[2024-06-26] MEDS: Ondansetron 4 MG/2 ML Vial IV (11:03)
[2024-06-26] MEDS: Ketorolac 15 MG/ML Vial IV (11:03)
[2024-06-26] MEDS: Morphine 4 MG/ML Syringe IV (11:03)
[2024-06-26 13:15] VITALS: BP 112/65; PULSE 78; RESP 16; TEMP 36.6; O2SAT 99
== END 2024-06-26 13:17 | disposition home or self-care (01) ==
PROVIDERS: Emergency Provider Emergency Medicine; PCP Internal Medicine; Visit Provider Emergency Medicine
DX: M79.12 Myalgia of auxiliary muscles, head and neck (principal); F60.3 Borderline personality disorder; F31.9 Bipolar disorder, unspecified; E03.9 Hypothyroidism, unspecified; K58.9 Irritable bowel syndrome, unspecified; F43.10 Post-traumatic stress disorder, unspecified; F41.1 Generalized anxiety disorder; F17.200 Nicotine dependence, unspecified, uncomplicated; Z79.899 Other long term (current) drug therapy
CPT/HCPCS: 96374; 96375; 99283; A4216; J2405

== ENCOUNTER 2024-10-19 17:26 | Emergency (ER) | payer MEDICARE, MEDICAID, SELFPAY ==
[2024-10-19 17:27] VITALS: BP 106/88; PULSE 79; RESP 16; TEMP 36; O2SAT 99; BMI 26.1
--- NOTE | 2024-10-19 17:50 | EDS_ITS ---
HPI History of Present Illness Chief Complaint: Abd Pain [facility] Medical History Cannabis use disorder Major depressive disorder, recurrent severe without psychotic features Alcohol use disorder Borderline personality disorder Methamphetamine use disorder, mild, in sustained remission Cocaine use disorder, mild, in sustained remission Cannabis use disorder, mild, abuse PTSD (post-traumatic stress disorder) Generalized anxiety disorder Bipolar 1 disorder Irritable bowel syndrome Right kidney stone Depression Hypothyroidism Home Medications ?Medication ?Instructions ?Recorded ?Last Taken ?Type clonazepam 0.5 mg tablet 0.5 mg PO BID PRN anxiety #1 0 tabs 10/28/22 Unknown Rx duloxetine 60 mg capsule,delayed 60 mg PO DAILY 30 day s #30 caps 01/20/24 Unknown Rx release (Cymbalta) duloxetine 60 mg capsule,delayed 60 mg PO DAILY 30 day s #30 caps 01/20/24 Unknown Rx release (Cymbalta) carbamazepine 200 mg tablet 400 mg PO QHS 10/19/24 Unk nown History clonazepam 1 mg tablet 1 mg PO DAILY 10/19/24 Unkno wn History famotidine 20 mg tablet 20 mg PO BID PRN PRN GERD Unknown History levothyroxine 175 mcg tablet 175 mcg PO DAILY 10/19/24 Unknown History ondansetron 4 mg disintegrating 4 mg PO Q8H PRN PRN Na usea #10 tabs 10/19/24 Unknown Rx tablet pantoprazole 40 mg tablet,delayed 40 mg PO DAILY GERD 10/19/24 Unknown History release Allergy/AdvReac Type Severity Reaction Status Date / Time fentanyl Allergy Anaphylaxis Verified 10/19/24 17:27 ketorolac tromethamine (From AdvReac Other Verified 10/19/24 17:27 Toradol) Family History Other Alcoholism Anxiety Arthritis Cancer Depression Mental disorder Psychiatric care Surgical History History of nephrectomy, right H/O: hysterectomy Social History household members: family Smoking Status: Heavy Smoker (>10/day) alcohol intake: never substance use type: marijuana EXAM Physical Exam Const Vital Signs: 10/19/24 17:27 10/19/24 18:33 10/19/24 20:00 Temperature 96.8 F L Temperature Source Temporal Pulse Rate 79 68 98 Respiratory Rate 16 12 16 Blood Pressure 106/88 H 108/77 122/71 H Blood Pressure Mean 94 87 88 Pulse Ox 99 98 99 Oxygen Delivery Method Room Air Room Air Room Air [facility] Narrative Medical decision making narrative: HISTORY OF PRESENT ILLNESS: Chief complaint: Abdominal pain 49-year-old female history of bipolar disorder, anxiety, PTSD, diverticulitis, IBS presents with abdominal pain. She states this began 7 days ago. Notes upper abdominal pain. Notes it wraps around to her back. Denies chest pain or shortness of breath. No changes to baseline bowel or bladder habits. No urinary complaints noted. REVIEW OF SYSTEMS: Pertinent positives: Abdominal pain, nausea Pertinent negatives: Melena, vomiting, frequency, urgency, dysuria PHYSICAL EXAM: Nursing triage notes reviewed, Vital signs reviewed Constitutional: please see [facility] HENT: MMM Eyes: Pupils equal round and reactive to light, Extraocular muscles intact Neck: No stridor, no JVD, full neck ROM Lungs: Clear to auscultation, No wheezing or rales. No increased work of breathing, no conversational dyspnea, no accessory muscle use, no nasal flaring. No respiratory distress noted Heart: Regular rate and rhythm, No murmurs, No rubs and No gallops, 2+ distal pulses (radial, femoral, posterior tibial) in all extremities Abdomen: Soft, there is no tenderness, rigidity, rebound or guarding, no obvious peritoneal signs, no palpable pulsatile abdominal masses, no auscultated abdominal bruit : No CVAT Extremities: No edema Neuro: No new focal neurological deficits, cranial nerves II through XII intact, 5/5 strength in all present extremities. Intact sensation to light touch in all present extremities, 2+ reflexes bilateral patella tendons. Skin: No rash or lesions noted MEDICAL DECISION MAKING: Chief Complaint: please see [facility] External records reviewed: reviewed CT scan of the abdomen pelvis from 2022 which shows nonobstructing stones in left kidney otherwise no focal acute inflammatory process Factors affecting care: As per HPI Social determinants of health: n history of mental health disorder, history of substance abuse History obtained from others: none Consults: none [facility] Narrative: The patient was initially hemodynamically stable, afebrile and nontoxic- appearing. Exam without significant TTP or CVA tenderness. No peritoneal signs. Patient do not appear in acute distress. I considered the following differential diagnosis: AAA, small bowel obstruction, abdominal perforation, appendicitis, pancreatitis, hepatobiliary pathology (acute cholecystitis), mesenteric ischemia, pathology (ie nephrolithiasis, pyelonephritis). I obtained a broad lab and imaging to further determine if the patient was suffering from a life-threatening etiology. Initially treat the patient IV fluids, Zofran and Pepcid for symptomatic relief ALL IMAGES (IF OBTAINED) HAVE BEEN PERSONALLY REVIEWED AND INTERPRETED BY MYSELF. EKG with normal sinus rhythm rate of 67, normal axis, normal intervals, no STEMI BMP without evidence of significant electrolyte abnormalities, no anion gap, no acute kidney injury. CBC without leukocytosis, severe anemia, no thrombocytopenia. LFTs show no evidence of hepatobiliary pathology. Urinalysis shows no evidence of urinary inflammation suggestive of UTI CT scan of the abdomen pelvis showed no acute intra-abdominal pathology The synthesis of the patient's history, physical exam, labs images suggest no acute (etiology. The patient is appropriate discharge home with close outpatient PCP and GI follow-up. The patient and/or family, caregivers express understanding. The patient and/or family, caregivers agrees with the plan. Shared decision making: I will have a discussion with the patient and or visitors regarding risk/benefits of further testing or admission. They will be made aware of of the risk/benefits inherent in this decision they will be given the opportunity to voice understanding. Total critical care time today provided was at least 0 minutes. This excludes separately billable procedures. Critical care time (if documented) is secondary to the patient having high probability of clinically significant/life threatening deterioration in the patient's condition which required my urgent intervention. Impression: 1. Abdominal pain 2. History of IBS Dispo: discharge home This note was generated with [employer] dictation software. It may contain incorrect words, spelling, and punctuation that were not noted in review of the chart prior to signing. Lab Data Labs: Laboratory Results - last 24 hr 10/19/24 10/19/24 18:35 20:39 WBC 6.7 RBC 4.56 Hgb 13.9 Hct 41.6 MCV 91.2 MCH 30.5 MCHC 33.4 RDW Std Deviation 44.8 H RDW Coeff of Doyle 13.2 Plt Count 217 MPV 12.1 H Immature Gran % (Auto) 0.100 Neut % (Auto) 65.4 Lymph % (Auto) 24.1 [place] % (Auto) 9.1 Eos % (Auto) 1.0 Baso % (Auto) 0.3 Absolute Neuts (auto) 4.4 Absolute Lymphs (auto) 1.61 Nucleated RBC % 0 Sodium 140 Potassium 4.0 Chloride 103 Carbon Dioxide 24.7 Anion Gap 11 BUN 13 Creatinine 0.91 Estim Creat Clear Calc 85.74 Est GFR (MDRD) Non-Af 78 BUN/Creatinine Ratio 14.7 Glucose 91 Calcium 9.6 Total Bilirubin < 0.15 AST 14 ALT 11 Alkaline Phosphatase 98 Total Protein 6.8 Albumin 4.2 Globulin 2.6 Albumin/Globulin Ratio 1.6 Lipase 30 Urine Color Yellow Urine Clarity Sl. Cloudy Urine pH 6.5 Ur Specific [place] 1.015 Urine Protein 15 H Urine Glucose (UA) Normal Urine Ketones Negative Urine Occult Blood Negative Urine Nitrite Negative Urine Bilirubin Negative Urine Urobilinogen Normal Ur Leukocyte Esterase Negative Urine Test Cancelled Radiography Diagnostic Testing: Clinical Impression(s) from Imaging Studies Abdomen/Pelvis CT 10/19/24 18:40 IMPRESSION: No acute intra-abdominal process. Colonic diverticulosis without acute diverticulitis. Reading Location: [facility] Discharge Plan Triage Chief Complaint: Abd Pain ED Provider: Juan David Hairston Dx/Rx/DC Orders Clinical Impression: Abdominal pain Instructions: ED Abdominal Pain Unkn Cause Fem Prescriptions: New ondansetron 4 mg tablet,disintegrating 4 mg PO Q8H PRN PRN (Reason: Nausea) Qty: 10 0RF No Action clonazepam 0.5 mg tablet 0.5 mg PO BID PRN (Reason: anxiety) Qty: 10 0RF duloxetine [Cymbalta] 60 mg capsule,delayed release(DR/EC) 60 mg PO DAILY 30 Days Qty: 30 1RF duloxetine [Cymbalta] 60 mg capsule,delayed release(DR/EC) 60 mg PO DAILY 30 Days Qty: 30 1RF clonazepam 1 mg tablet 1 mg PO DAILY carbamazepine 200 mg tablet 400 mg PO QHS famotidine 20 mg tablet 20 mg PO BID PRN PRN (Reason: GERD) pantoprazole 40 mg tablet,delayed release (DR/EC) 40 mg PO DAILY levothyroxine 175 mcg tablet 175 mcg PO DAILY Primary Care Provider: Cesar Centeno Referrals: Cesar Centeno MD [Primary Care Provider] - Activity Restrictions/Additional Instructions: Thank you for trusting us with your care today! Please take Tylenol (2 pills, 650 mg), ibuprofen (2 pills, 400 mg) every 6 hours as needed for pain and fever control. Please take Zofran as needed for nausea vomiting control. Please return to the emergency department if your symptoms change or worsen. Please follow with your primary care physician for further outpatient evaluation and management. Print Language: Sami Disposition Disposition: Home, Self Care
[2024-10-19] MEDS: 0.9% Normal Saline (1000mL) 1,000 ML 999 ML IV (18:31)
[2024-10-19 18:33] VITALS: BP 108/77; PULSE 68; RESP 12; O2SAT 98
--- NOTE | 2024-10-19 18:40 | CT_ITS ---
PROCEDURE: ABDOMEN/PELVIS WITHOUT CONT 10/19/2024 REASON FOR EXAM: LEFT FLANK PAIN RULE OUT KIDNEY STONE TECHNIQUE: ABDOMEN/PELVIS WITHOUT CONT Noncontrast technique limits evaluation of the abdominal and pelvic viscera. Coronal and Sagittal reconstruction series were provided. One or more dose reduction techniques were used (e.g., Automated exposure control, adjustment of the mA and/or kV according to patient size, use of iterative reconstruction technique). RADIATION DOSE SUMMARY: DLP: 449 mGycm COMPARISON: 11/01/2022 FINDINGS: Limited sections of the lung bases demonstrate no focal pulmonary mass or consolidations. Bibasilar subsegmental atelectasis. The liver, spleen, pancreas, and both adrenal glands demonstrate no acute findings. Mild hepatomegaly to 17 cm. The gallbladder is contracted. The stomach is unremarkable. The small bowel loops are not dilated. The appendix is normal. No colonic obstruction. Extensive colonic diverticulosis without acute diverticulitis. There is no free air or significant free fluid. Right kidney is absent. Scattered nonobstructive stones within the left kidney The urinary bladder is partially distended. The pelvic structures are intact. There is no solid pelvic mass. Uterus is surgically removed. No significant lymphadenopathy. The aorta and IVC demonstrate no acute findings. Minimal atherosclerosis of the abdominal vasculature. Visualized osseous structures demonstrate no acute abnormality. Mild grade 1 anterolisthesis of L5 on S1 with bilateral pars defect. CT/Abdomen/Pelvis without Cont IMPRESSION: No acute intra-abdominal process. Colonic diverticulosis without acute diverti culitis. Reading Location: [id number]
[2024-10-19] MEDS: Famotidine 200 MG/20 ML MDV 20 MG in 0.9% Normal Saline (Pres. free 8 ML 300 MG IV (19:11)
[2024-10-19 19:15] LABS: AST(SGOT) 14 U/L (<=31); Alanine Aminotransfer ALT/SGPT 11 U/L (<=34); Albumin, Serum 4.2 g/dL (3.5-5.0); Alkaline Phosphatase 98 U/L (35-104); Anion Gap 11 (5-15); BUN 13 mg/dL (4-19); BUN/Creat Ratio 14.7 RATIO (10-20); Calcium,Total 9.6 mg/dL (7.6-11.0); Carbon Dioxide 24.7 mmol/L (21.0-32.0); Chloride 103 mmol/L (98-108); Estimated Creatinine Clearance 85.74 ml/min (50-250); Globulin 2.6 g/dL (2.2-4.2); Glucose 91 mg/dL (70-99); Lipase 30 U/L (13-75); Potassium 4.0 mmol/L (3.3-5.1)
[2024-10-19 20:00] VITALS: BP 122/71; PULSE 98; RESP 16; O2SAT 99
[2024-10-19 20:45] LABS: Mucous, Urine 0 SEEN /hpf (<or=2+)
[2024-10-19 20:50] LABS: Color, Urine Yellow (Yellow); Glucose, Dipstick Normal (Normal); Ketone-Dipstick Negative (Negative); Leukocyte Esterase-Dipstick Negative /ul (Negative); Nitrite-Dipstick Negative (Negative); Occult Blood-Urine Negative /ul (Negative); Protein-Dipstick 15 mg/dl (Negative); Specific Gravity, Urine 1.015 (1.002-1.030); Urine Bilirubin Dipstick Negative (Negative)
[2024-10-19 21:07] LABS: Hematocrit 41.6 % (37-47); Hemoglobin 13.9 g/dL (12.0-15.0); Immature Granulocytes Count 0.010 X10^3/uL (0.0-0.0); Mean Corp Hgb Conc 33.4 g/dL (32-36); Mean Corpuscular Volume 91.2 fL (81-99); Mean Platelet Vol. 12.1 fl (6.2-12.0); NRBC Flagged by Analyzer 0 % (0-5); Platelet Count 217 K/mm3 (150-450); RBC Distribution Width CV 13.2 % (11.6-14.6); RBC Distribution Width SD 44.8 fl (35.1-43.9); Red Blood Count 4.56 M/mm3 (4.2-5.4); White Blood Count 6.7 K/mm3 (4.4-11.0)
--- NOTE | 2024-10-19 21:46 | ED.RN ---
pt called this RN to room and stated, I want this IV out now I'm ready to leave Pt explained to pt that she is waiting for urine sample results to determine if she has a UTI. Pt stated that she wanted to leave anyway. RN notified Dr. Hairston. RN and Marika in room for pt to sign AMA paperwork. D/C paperwork was given, but was informed that no prescription was written for UTI if she had one. Pt agreed to wait for UA results. Pt was then seen leaving department a few moments later. Dr. Hairston made aware
[2024-10-19 22:16] LABS: Red Blood Cells-Urine 0-5 SEEN /hpf (0-5); Squamous Epithelial Cells - UA 0-5 SEEN /hpf (5-10)
== END 2024-10-19 22:00 | disposition home or self-care (01) ==
PROVIDERS: Emergency Provider Emergency Medicine; PCP Internal Medicine; Visit Provider Emergency Medicine
DX: R10.9 Unspecified abdominal pain (principal); F31.9 Bipolar disorder, unspecified; N20.0 Calculus of kidney; K58.9 Irritable bowel syndrome, unspecified; F41.1 Generalized anxiety disorder; E03.9 Hypothyroidism, unspecified; F17.200 Nicotine dependence, unspecified, uncomplicated; Z79.890 Hormone replacement therapy; Z79.899 Other long term (current) drug therapy
CPT/HCPCS: 74176; 80053; 81001; 83690; 85025; 93005; 96361; 96365; 96375; 99284; A4216; J2405